=== PATIENT | female | born 1965 | race Caucasian/White ===

== ENCOUNTER → 2019-01-26 17:13 | Outpatient (CLI) | payer MEDICARE, BC, SELFPAY ==
[2019-01-26 18:20] LABS: Free T4 (Free Thyroxine) 0.65 ng/dl (0.76-1.46); Thyroid Stimulating Hormone 32.63 uIU/ml (0.358-3.740)
[2019-01-26 19:05] LABS: Hemoglobin A1C 7.4 % (0.0-7.0)
== END ==
PROVIDERS: Visit Provider Nurse Practitioner Family
DX: E11.9 Type 2 diabetes mellitus without complications (principal); Z79.84 Long term (current) use of oral hypoglycemic drugs
CPT/HCPCS: 83036; 84439; 84443

== ENCOUNTER → 2019-02-10 07:52 | Outpatient (CLI) | payer MEDICARE, BC, SELFPAY ==
--- NOTE | 2019-02-10 07:53 | CT_ITS ---
PROCEDURE: CT CHEST WO CON CLINICAL INDICATION: Abnormal CXR COMPARISON: XR CHEST 2V from 01/17/2019 TECHNIQUE: Axial images obtained with sagittal and coronal reformats. All CT scans at the facility use one or more dose reduction, viz: automated exposure control, ma/kV adjustment per patient size (including targeted exams where dose is matched to indication, i.e. head), or iterative reconstruction technique. FINDINGS: HEART: Unremarkable. Normal heart size. No significant pericardial effusion. MEDIASTINAL AND HILAR STRUCTURES: No mediastinal or hilar mass evident. No dominant adenopathy. PULMONARY ARTERIES: Unremarkable AORTA: No acute finding. No thoracic aortic aneurysm or dissection evident LUNGS:There is mild hyperexpansion lung nichole. There is a 1.2 cm calcified granuloma subpleural location left upper lobe. There is minimal linear postinflammatory scarring in the lingula. There is no acute infiltrate. PLEURAL SPACES: No significant effusion. No evidence of pneumothorax. BONY STRUCTURES: No acute bony abnormalities apparent. LYMPH NODES: No enlarged lymph nodes evident. UPPER ABDOMEN: Unremarkable. ADDITIONAL FINDINGS: No other significant abnormalities. 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 Bj Harris MD 02/10/2019 12:[address] Bj Harris MD in [place] 02/10/2019 12:33
== END ==
PROVIDERS: PCP Nurse Practitioner Family; Visit Provider Nurse Practitioner Family
DX: R91.1 Solitary pulmonary nodule (principal)
CPT/HCPCS: 71250

== ENCOUNTER → 2019-05-22 11:14 | Outpatient (CLI) | payer MEDICARE, BC, SELFPAY ==
--- NOTE | 2019-05-22 11:47 | XR_ITS ---
PROCEDURE: XR LUMBAR SPINE MIN 4V CLINICAL INDICATION: CHRONIC PAIN COMPARISON: No exams were available for comparison FINDINGS: Normal alignment. No fracture or dislocation. There is mild degenerative disc disease in the lower thoracic spine. Mild endplate spurring is present at L3 and L4 and there are mild facet arthritic changes at L4-5. IMPRESSION: Mild degenerative changes as described above. Dictated by: Mata Dominguez MD 05/22/2019 12:05 Electronically signed by Mata Dominguez MD in [place] 05/22/2019 12:05
[2019-05-22 14:41] LABS: Erythrocyte Sedimentation Rate 18 mm/hr (0-30)
== END ==
PROVIDERS: PCP Nurse Practitioner Family; Visit Provider Specialist
DX: G89.29 Other chronic pain (principal); G43.919 Migraine, unspecified, intractable, without status migrainosus
CPT/HCPCS: 36415; 72110; 85651

== ENCOUNTER → 2019-07-04 16:49 | Outpatient (CLI) | payer MEDICARE, BC, SELFPAY ==
[2019-07-04 17:58] LABS: Basophils # 0.1 K/mm3 (0-0.2); Eosinophils # 0.2 K/mm3 (0.0-0.4); Hematocrit 41.6 % (37.0-47.0); Hemoglobin 13.9 g/dL (12.2-16.2); Lymphocytes # 1.9 K/mm3 (0.7-4.5); Lymphocytes % 24.8 % (10-50); Mean Corpuscular HGB Conc 33.4 g/dL (31.8-35.4); Mean Corpuscular Hemoglobin 30.1 pg (27.0-31.2); Mean Corpuscular Volume 90.2 fl (81-99); Mean Platelet Volume 9.7 fl (7.4-10.4); Monocytes # 0.4 K/mm3 (0.1-1.0); Monocytes % 5.5 % (1.7-9.3); Neutrophils % 66.6 % (37.0-80.0); Platelet Count 318 K/mm3 (142-424); Red Blood Count 4.61 M/mm3 (4.20-5.40); Red Cell Distribution Width 12.9 % (11.5-17.5); White Blood Count 7.5 K/mm3 (4.8-10.8)
[2019-07-04 21:17] LABS: Chloride 103 mmol/L (98-107); Potassium 4.3 mmoL/L (3.5-5.1); Sodium 136 mmol/L (136-145)
[2019-07-04 21:19] LABS: Alanine Aminotransferase 28 U/L (12-78); Aspartate Amino Transferase 41 U/L (14-36); Blood Urea Nitrogen 10 mg/dl (7-17); Estimated Glomerular Filt Rate 75 ml/min (>60); GFR (African American) 90 ML/MIN (>60); Hemoglobin A1C 10.4 % (4.0-6.0)
[2019-07-04 21:20] LABS: Albumin Level 3.9 g/dl (3.5-5.0); Albumin/Globulin Ratio 1.4 (1.1-1.8); Alkaline Phosphatase 114 U/L (38-126); Anion Gap 16.3 mEq/L (5-15); Bilirubin,Total 0.4 mg/dl (0.2-1.3); Calcium 9.4 mg/dl (8.4-10.2); Carbon Dioxide 21 mmol/L (22.0-30.0); Chol/HDL Ratio 3.8 (1-3.5); Cholesterol 169 mg/dl (140-200); Globulin 2.7 g/dL (1.3-3.2); Glucose 319 mg/dl (74-100); HDL Cholesterol 44 mg/dl (40-60); Total Protein,Serum 6.6 g/dl (6.3-8.2); Triglycerides 299 mg/dl (30-150); VLDL Cholesterol 60 mg/dL (0-40)
[2019-07-04 21:36] LABS: Direct LDL Cholesterol 95.16 mg/dL (100-129)
[2019-07-06 11:17] LABS: Creatinine, Urine 42.9 mg/dL (Not Estab.); Microalbumin, Urine <3.0 ug/mL (Not Estab.)
== END ==
PROVIDERS: Visit Provider Nurse Practitioner Family
DX: R51 Headache; E11.65 Type 2 diabetes mellitus with hyperglycemia; Z79.4 Long term (current) use of insulin
CPT/HCPCS: 80053; 80061; 82043; 82570; 83036; 84436; 84443; 85025

== ENCOUNTER 2019-09-03 13:24 | Emergency (ER) | payer MEDICARE, BC, SELFPAY ==
[2019-09-03 13:26] VITALS: BP 164/79; PULSE 83; RESP 18; TEMP 37.2; O2SAT 96; BMI 34.9
--- NOTE | 2019-09-03 13:40 | XR_ITS ---
This report is currently processing and should be available to review shortly.
--- NOTE | 2019-09-03 13:40 | XR_ITS ---
PROCEDURE: 1. XR ANKLE RT MIN 3Vfrom 09/03/2019 2. XR TIBIA FIBULA RT 2V from 09/03/2019 3. XR KNEE RT 3V from 09/03/2019 Patient Age:54Y CLINICAL INDICATION: FALL The patient fell yesterday-pulled down by her large dog.. Right ankle pain.. Right lower leg pain. Right knee pain previous right ankle surgery. Previous right knee surgery [facility] December 2018 COMPARISON: XR KNEE RT 3V from 01/05/2019 XR TIBIA FIBULA RT 2V from 09/03/2019 XR KNEE RT 3V from 09/03/2019 FINDINGS: -RIGHT ANKLE 3 view. AP lateral and oblique -RIGHT LOWER LEG2 view: AP and lateral tibia/fibula The right ankle and right lower leg studies are reviewed together. The Right Tibia And Fibula reveal no acute findings. Bones well mineralized. Postsurgical changes are seen at the distal tibia/fibula. 2 sets of transversing tunnelsthrough both distal tibia and fibula, with associated fixation elements stabilizing the distal interosseous region.. Normal relationships at the distal tibia and fibula. RIGHT ANKLE: Ankle mortise appears intact. Note slight the slight roughening at the medial malleolus which may reflect old trauma a mild degenerative changes here but no acute findings at the ankle. No fracture. Dome of talus appears intact. Calcaneal spurring noted. Broad-based 7 mm plantar calcaneal spurs noted with of similar 7 mm spurring at the insertion of Achilles tendon at posterior calcaneus the -RIGHT KNEE: 3 view. AP lateral and oblique No acute fracture nor significant effusion at right knee. Postsurgical features are also seen at right knee from ACL repair. With this there is a fixation screw tip seen at the posterior aspect of the lateral femoral condyle as well as a radiolucent fixation area at the tibial tunnel beneath anterior tibial spine extending medially. Upper normal joint fluid suprapatellar bursa. Nearly 15 mm likely hypertrophic spur, less likely loose body seen at the anterior aspect of right knee joint (just anterior to tibial tunnel from ACL repair). Again this also would benefit comparison to old studies unlikely but difficult to totally fracture line through the base of this area of spur on today's AP view. If so I would expect to see more prominent joint effusion There is a small sclerotic focus seen at the lateral tibial plateau. I suspect small osteochondral defect here of with 4.5 mm lucent area at articular surface surrounded by by mild sclerosis deep to this region. More likely this reflects an old feature old injury, but would benefit from comparison to the studies from [facility]. Suggest her orthopedic Physician from [place]. Also suspect residual of a subtle old healed fracture atproximal right fibular shaft-clinical correlation required as well IMPRESSION: -RIGHT KNEE. . No prominent joint effusion to suggest acute fracture or acute internal derangement.. . However there is focal sclerosis Lateral Tibial Plateau. Likely reflects small old osteochondral defect with surrounding sclerosis. The lack of significant joint effusion speaks against an significant acute feature here. However this and other features, warrant orthopedic follow-up, with comparison with prior films from [place] . Old ACL repair . Nearly 15 mm likely hypertrophic bone, less likely loose body anterior aspect of right knee joint (just anterior to tibial tunnel from old ACL repair). Again this also would benefit comparison to old studies.-difficult to totally exclude a subtle fracture transversing base of this area but I believe this very unlikely without a larger effusion -RIGHT ANKLE; & RIGHT TIBIA/FIBULA: - No acute fracture fracture right ankle, or elsewhere at tibia
--- NOTE | 2019-09-03 13:40 | XR_ITS ---
This report is currently processing and should be available to review shortly.
--- NOTE | 2019-09-03 14:04 | HMH.EDLOEX ---
ED Disposition Clinical Impression: Ankle sprain and strain, Multiple contusions Disposition: Home, Self-Care Condition on Discharge: Good Instructions: Sprain Additional Instructions: Please follow-up with your primary care if pain still persists in 3 to 5 days. Referrals: Provider,Quiana, [Primary Care Provider] - - Critical Care Critical Care Time: No Attestation: On 09/03/19, the high probability of a clinically significant, sudden or life threatening deterioration of the following system(s) required my full and direct attention, intervention and personal management. The time I documented below is in addition to time spent performing reported procedures but includes the following listed in this critical care notation. Medical Decision Making - Medical Records Medical records reviewed: Yes: I reviewed the patient's medical records. - [place] Inquiry Pt receiving controlled substance: No Vital Signs: 09/03/19 13:26 Temperature 99.0 F Temperature Source Oral Pulse Rate [Right Radial] 83 Respiratory Rate 18 Blood Pressure [Right Arm] 164/79 H Blood Pressure Mean [Right Arm] 107 Blood Pressure Source [Right Arm] Automatic Cuff Blood Pressure Position [Right Arm] Sitting 02 Sat by Pulse Oximetry 96 Oxygen Delivery Method Room Air - Lab Data Lab results reviewed: Yes: I reviewed the patient's lab results. Orders (Tests/Meds): ORDERS Category Date Time Status XR ankle RT min 3V Stat Exams 09/03/19 13:40 Taken XR knee RT 3V Stat Exams 09/03/19 13:40 Taken XR tibia fibula RT 2V Stat Exams 09/03/19 13:40 Taken - Radiology Data #1 Image(s): Femur, Knee, Tib/Fib, Ankle Preliminary Findings: Normal/NAD Lower Extremity Injury HPI - General Chief Complaint: Extremity Injury, Lower Stated Complaint: ao dog knocked her down hurt leg Time Seen by Provider: 09/03/19 14:04 Mode of Arrival: Wheelchair Source of Information: Patient Limitations: No Limitations Description of Symptoms (Recalled from ER Triage Doc. by RN): PT STATES THAT HER 115 LBS DOG CAUSED HER TO FALL LAST NIGHT OUTSIDE WHEN SHE WAS PUTTING HIM ON HIS CHAIN. PT C/O RT KNEE AND ANKLE PAIN FOLLOWING THE FALL. PT REPORTS PREVIOUS INJURY TO THAT SAME KNEE AND ANKLE RESULTING IN ACL REPAIR TO THE RT KNEE, PINS IN RT ANKLE. - History of Present Illness HPI Narrative: A pleasant 54-year-old female was out walking her dog yesterday evening and the dog got site of a feline and the dog that weighs roughly 52 kg took off after this other mammal. In doing so the leash almost whiplash the patient causing her to stumble over a tree stump. Patient had an inversion injury of her ankle and landed on her knee. Patient stated she had previous surgeries on the knee and ankle. Patient rates her pain 6 out of 10 describes the pain as a fullness sensation along with some sharp crescendos. She states exacerbating factors include movement alleviating factors include elevation and rest. Patient denies any other trauma. Patient also denies any nausea vomiting diarrhea or fever shakes and chills. - Related Data Home Medications Medication Instructions Recorded Confirmed hydroxyzine HCl 25 mg tablet 25 mg PO TID tab 03/07/19 07/04/19 olanzapine 10 mg tablet 10 mg PO QHS 03/07/19 07/04/19 Ibuprofen [Ibuprofen 600mg 600 mg PO Q6H 06/21/19 07/04/19 Tablet] Loratadine [Allergy Relief] 10 mg PO DAILY 06/21/19 07/04/19 Simvastatin 5 mg PO DAILY 06/21/19 07/04/19 atorvastatin 80 mg tablet 80 mg PO DAILY tab 07/04/19 07/04/19 doxepin 75 mg capsule 75 mg PO DAILY cap 07/04/19 07/04/19 insulin detemir U-100 100 unit/mL 23 unit SQ QHS ml 07/04/19 07/04/19 (3 mL) subcutaneous pen Previous Rx's Medication Instructions Recorded albuterol sulfate 1.25 mg INHALATION QID PRN #90 ml 03/07/19 Benzonatate [Tessalon Perle 100mg 100 mg PO TIDP PRN #30 cap 06/02/19 Cap] alcohol swabs 1 pad TOPICAL BID 30 Days #100 each 07/04/19 ins
[2019-09-03 14:21] VITALS: BP 132/78; PULSE 87; RESP 18; TEMP 36.7; O2SAT 98
== END 2019-09-03 14:26 | disposition home or self-care (01) ==
PROVIDERS: Emergency Provider Family Medicine
DX: S93.401A Sprain of unspecified ligament of right ankle, initial encounter (principal); S83.91XA Sprain of unspecified site of right knee, initial encounter; W01.0XXA Fall on same level from slipping, tripping and stumbling without subsequent striking against object, initial encounter; Y92.017 Garden or yard in single-family (private) house as the place of occurrence of the external cause; Z88.0 Allergy status to penicillin; F41.8 Other specified anxiety disorders; J44.9 Chronic obstructive pulmonary disease, unspecified; I10 Essential (primary) hypertension; E11.9 Type 2 diabetes mellitus without complications; Z79.4 Long term (current) use of insulin; G43.709 Chronic migraine without aura, not intractable, without status migrainosus; Z90.79 Acquired absence of other genital organ(s); Z79.899 Other long term (current) drug therapy
CPT/HCPCS: 73562; 73590; 73610; 99282

== ENCOUNTER 2019-09-09 15:03 | Emergency (ER) | payer MEDICARE, BC, SELFPAY ==
[2019-09-09 15:16] VITALS: BP 151/67; PULSE 87; RESP 20; TEMP 37.4; O2SAT 97; BMI 34.9
--- NOTE | 2019-09-09 15:22 | XR_ITS ---
PROCEDURE: XR CHEST PORTABLE CLINICAL HISTORY: cough Shortness of air, cough COMPARISON: XR CHEST 2V from 01/17/2019 CT CHEST WO CON from 02/10/2019 XR CHEST 2V from 06/02/2019 FINDINGS: Borderline cardiomegaly without failure. Calcified granuloma left upper lobe. Lungs otherwise clear No acute bony abnormalities. IMPRESSION: No acute findings. Dictated by: Mata Dominguez MD 09/09/2019 15:46 Electronically signed by Mata Dominguez MD in [place] 09/09/2019 15:46
[2019-09-09 15:27] VITALS: BP 151/67; PULSE 83; O2SAT 99
[2019-09-09 15:47] VITALS: BP 174/98; PULSE 78; O2SAT 97
--- NOTE | 2019-09-09 15:55 | HMH.EDGENADL ---
ED Disposition Clinical Impression: Atypical chest pain, Viral upper respiratory infection Disposition: Home, Self-Care Condition on Discharge: Good Instructions: DI for Viral Upper Respiratory Infection -- Adult, DI for Atypical Chest Pain Additional Instructions: Rest, plenty of fluids, Tylenol or ibuprofen for pain. You have been evaluated for cough and shortness of breath. This is likely due to a viral respiratory infection. We have not excluded SARS COV. It is very important that you go home and self quarantine until you are contacted with test results. Take Tylenol for pain and fever. Return to the emergency department if you have new or worsening respiratory distress. You have additional questions about COVID testing, you may call the hotline at . Additional instructions for CHEST PAIN: See your physician as soon as possible for further evaluation. Return immediately if worsening chest pain, vomiting, shortness of breath, fever, coughing of blood. Referrals: Timo Villalba APRN [Primary Care Provider] - - Critical Care Critical Care Time: No Attestation: On 09/09/19, the high probability of a clinically significant, sudden or life threatening deterioration of the following system(s) required my full and direct attention, intervention and personal management. The time I documented below is in addition to time spent performing reported procedures but includes the following listed in this critical care notation. Medical Decision Making - [place] Inquiry Pt receiving controlled substance: No Vital Signs: 09/09/19 15:16 09/09/19 15:27 09/09/19 15:47 Temperature 99.4 F Temperature Source Oral Pulse Rate [Left Radial] 87 83 78 Respiratory Rate 20 Blood Pressure [Right Arm] 151/67 H 151/67 H 174/98 H Blood Pressure Mean [Right Arm] 95 95 123 Blood Pressure Source [Right Arm] Automatic Cuff Automatic Cuff Blood Pressure Position [Right Arm] Sitting Sitting Sitting 02 Sat by Pulse Oximetry 97 99 97 Oxygen Delivery Method Room Air Room Air Room Air - Lab Data Lab Results 09/09/19 15:53: WBC 8.8, RBC 4.93, Hgb 14.8, Hct 44.0, MCV 89.2, MCH 30.0, MCHC 33.6, RDW 12.6, Plt Count 249, MPV 9.1, Neut % (Auto) 69.7, Lymph % (Auto) 20.4, [place] % (Auto) 4.5, Eos % (Auto) 3.9, Baso % (Auto) 1.4, Neut # (Auto) 6.2, Lymph # (Auto) 1.8, [place] # (Auto) 0.4, Eos # (Auto) 0.3, Baso # (Auto) 0.1 09/09/19 15:53: Sodium 139, Potassium 4.1, Chloride 106, Carbon Dioxide 23, Anion Gap 14.1, BUN 8, Creatinine 0.90, Estimated Creat Clear 118, Estimated GFR 65, Est GFR ( Amer) 79, Glucose 226 H, Calcium 10.0, Total Bilirubin 0.4, AST 31, ALT 24, Alkaline Phosphatase 144 H, Total Protein 7.7, Albumin 4.3, Globulin 3.4 H, Albumin/Globulin Ratio 1.3 09/09/19 15:53: Influenza Type A Ag Negative, Influenza Type B Ag Negative 09/09/19 15:53: Group A Strep Rapid Negative 09/09/19 15:53: Lactate 2.5 H 09/09/19 15:53: Troponin I < 0.01 09/09/19 16:00: Urine Color Yellow, Urine Appearance Clear, Urine pH 6.0, Ur Specific [place] 1.020, Urine Protein Negative, Urine Glucose (UA) 2+, Urine Ketones Negative, Urine Blood Negative, Urine Nitrate Negative, Urine Bilirubin Negative, Urine Urobilinogen 0.2, Ur Leukocyte Esterase Negative, Urine RBC Occasional, Urine WBC Occasional, Ur Squamous Epith Cells 5-10, Urine Bacteria None, Urine Yeast Occasional Result diagrams: 09/09/19 15:53 09/09/19 15:53 Orders (Tests/Meds): ORDERS Category Date Time Status SARS-CoV-2, ROXANE Stat Lab 09/09/19 16:54 Ordered Blood Culture Stat Micro 09/09/19 15:53 Received Strep Screen Confirmation Stat Micro 09/09/19 15:53 Received - Radiology Data #1 Image(s): Chest Image Reviewed: Yes I have reviewed radiologist's interpretation PROCEDURE: XR CHEST PORTABLE CLINICAL HISTORY: cough Shortness of air, cough COMPARISON: XR CHEST 2V from 01/17/2019 CT CHEST WO CON from 02/10/2019 XR CHEST 2V from 06/02/2019
[2019-09-09 16:09] LABS: Basophils # 0.1 K/mm3 (0-0.2); Basophils % 1.4 % (0.1-2.0); Eosinophils # 0.3 K/mm3 (0.0-0.4); Eosinophils % 3.9 % (0.1-12.0); Hemoglobin 14.8 g/dL (12.2-16.2); Lymphocytes # 1.8 K/mm3 (0.7-4.5); Lymphocytes % 20.4 % (10-50); Mean Corpuscular HGB Conc 33.6 g/dL (31.8-35.4); Mean Corpuscular Volume 89.2 fl (81-99); Mean Platelet Volume 9.1 fl (7.4-10.4); Monocytes # 0.4 K/mm3 (0.1-1.0); Monocytes % 4.5 % (1.7-9.3); Neutrophils # 6.2 K/mm3 (1.8-7.8); Neutrophils % 69.7 % (37.0-80.0); Platelet Count 249 K/mm3 (142-424); Red Blood Count 4.93 M/mm3 (4.20-5.40); Red Cell Distribution Width 12.6 % (11.5-17.5); White Blood Count 8.8 K/mm3 (4.8-10.8)
[2019-09-09 16:10] LABS: Strep Scrn Group A (Rapid) Negative (Negative)
[2019-09-09 16:13] LABS: Microscopic, Urine URINE MICROSCOPIC (MICROSCOPIC)
[2019-09-09 16:14] LABS: Appearance,Urine CLEAR (Clear); Bilirubin,Urine Negative (Negative); Blood, Urine Negative (Negative); Color,Urine YELLOW (Yellow); Glucose,Urine (UA) 2+ (Negative); Ketones,Urine Negative (Negative); Leukocyte Esterase,Urine Negative (Negative); Nitrate,Urine Negative (Negative); Protein,Urine Negative (Negative); Urobilinogen,Urine 0.2 EU/dl (0.2)
[2019-09-09 16:17] LABS: Alanine Aminotransferase 24 U/L (12-78); Albumin Level 4.3 g/dl (3.5-5.0); Albumin/Globulin Ratio 1.3 (1.1-1.8); Alkaline Phosphatase 144 U/L (38-126); Anion Gap 14.1 mEq/L (5-15); Aspartate Amino Transferase 31 U/L (14-36); Bilirubin,Total 0.4 mg/dl (0.2-1.3); Blood Urea Nitrogen 8 mg/dl (7-17); Carbon Dioxide 23 mmol/L (22.0-30.0); Chloride 106 mmol/L (98-107); Creatinine Clearance Estimated 118 mL/min (50-200); Estimated Glomerular Filt Rate 65 ml/min (>60); GFR (African American) 79 ML/MIN (>60); Globulin 3.4 g/dL (1.3-3.2); Glucose 226 mg/dl (74-100); Potassium 4.1 mmoL/L (3.5-5.1); Sodium 139 mmol/L (136-145); Total Protein,Serum 7.7 g/dl (6.3-8.2)
[2019-09-09 16:19] LABS: Lactic Acid 2.5 mmol/L (0.7-2.1)
[2019-09-09 16:22] LABS: RBC,Urine Occasional #/hpf (0-3); WBC,Urine Occasional #/hpf (0-3); Yeast,Urine Occasional /lpf
--- NOTE | 2019-09-09 16:27 | ECG_ITS ---
APPROVED REPORT Exam: Resting ECG HR:69 bpm ECG Measurements Heart Rate 69 AXES MT 140 P 28 QRSd 96 QRS 53 QT 414 T 47 QTc 443 <Conclusion> Normal sinus rhythm RSR' or QR pattern in V1 suggests right ventricular conduction delay Borderline ECG Electronically signed by : Mehdi Sweet, 09/10/2019 17:02:23
[2019-09-09 16:54] LABS: Troponin I < 0.01 ng/ml (0.00-0.034)
--- NOTE | 2019-09-09 17:30 | PC.NURSE ---
Lab at bedside swabbing pt.
[2019-09-09 18:14] VITALS: BP 125/89; PULSE 87; RESP 16; TEMP 37.2; O2SAT 97
[2019-09-10 16:29] LABS: Covid-19 Nasal PCR Sendout Lex NOT DETECTED
--- NOTE | 2019-09-10 16:44 | PC.NURSE ---
pt notified of negative COVID 19 results.
--- NOTE | 2019-09-10 18:19 | PC.NURSE ---
notified of negative COVID 19 results.
== END 2019-09-09 18:16 | disposition home or self-care (01) ==
PROVIDERS: Emergency Provider Emergency Medicine; PCP Nurse Practitioner Family
DX: J06.9 Acute upper respiratory infection, unspecified (principal); J44.9 Chronic obstructive pulmonary disease, unspecified; F41.8 Other specified anxiety disorders; R07.89 Other chest pain; Z79.899 Other long term (current) drug therapy
CPT/HCPCS: 71045; 80053; 81001; 83605; 84484; 85025; 87040; 87275; 87276; 87430; 93005; 99284; 99285; U0003

== ENCOUNTER 2019-11-21 22:00 | Emergency (ER) | payer MEDICARE, BC, SELFPAY ==
[2019-11-21 22:16] VITALS: BP 143/79; PULSE 78; RESP 15; TEMP 36.8; O2SAT 96; BMI 33.7
[2019-11-21 22:29] LABS: Basophils # 0.1 K/mm3 (0-0.2); Eosinophils # 0.2 K/mm3 (0.0-0.4); Eosinophils % 2.7 % (0.1-12.0); Hematocrit 41.5 % (37.0-47.0); Hemoglobin 14.6 g/dL (12.2-16.2); Lymphocytes # 2.4 K/mm3 (0.7-4.5); Mean Corpuscular HGB Conc 35.2 g/dL (31.8-35.4); Mean Corpuscular Hemoglobin 31.3 pg (27.0-31.2); Mean Platelet Volume 8.9 fl (7.4-10.4); Monocytes # 0.6 K/mm3 (0.1-1.0); Monocytes % 9.7 % (1.7-9.3); Neutrophils % 47.5 % (37.0-80.0); Platelet Count 235 K/mm3 (142-424); Red Blood Count 4.66 M/mm3 (4.20-5.40); Red Cell Distribution Width 13.4 % (11.5-17.5); White Blood Count 6.3 K/mm3 (4.8-10.8)
[2019-11-21 22:31] LABS: Chloride 102 mmol/L (98-107); Potassium 4.1 mmoL/L (3.5-5.1); Sodium 136 mmol/L (136-145)
[2019-11-21 22:34] LABS: Alanine Aminotransferase 24 U/L (12-78); Albumin/Globulin Ratio 1.3 (1.1-1.8); Alkaline Phosphatase 113 U/L (38-126); Anion Gap 14.1 mEq/L (5-15); Aspartate Amino Transferase 47 U/L (14-36); Bilirubin,Total 0.6 mg/dl (0.2-1.3); Blood Urea Nitrogen 13 mg/dl (7-17); Calcium 9.3 mg/dl (8.4-10.2); Carbon Dioxide 24 mmol/L (22.0-30.0); Creatinine Clearance Estimated 114 mL/min (50-200); Estimated Glomerular Filt Rate 65 ml/min (>60); GFR (African American) 79 ML/MIN (>60); Globulin 3.2 g/dL (1.3-3.2); Glucose 253 mg/dl (74-100); Total Protein,Serum 7.2 g/dl (6.3-8.2)
--- NOTE | 2019-11-21 22:41 | HMH.EDHA ---
ED Disposition Clinical Impression: Headache Qualifiers: Headache type: unspecified Headache chronicity pattern: acute headache Intractability: not intractable Qualified Code(s): R51 - Headache Disposition: Home, Self-Care Condition on Discharge: Fair Instructions: DI for Migraine Additional Instructions: Please take prescribed medications and follow up as needed Prescriptions: SUMAtriptan succinate [Imitrex] 100 mg PO DAILY PRN 14 Days #15 tab PRN Reason: Migraine Headache Prescription Printed Ondansetron [Zofran 4mg ODT] 4 mg PO NEEDED PRN 10 Days #14 tab.rapdis PRN Reason: Nausea Prescription Printed Referrals: Nic Hyman MD [Primary Care Provider] - Time of Disposition: 22:52 - Critical Care Critical Care Time: No Attestation: On 11/21/19, the high probability of a clinically significant, sudden or life threatening deterioration of the following system(s) required my full and direct attention, intervention and personal management. The time I documented below is in addition to time spent performing reported procedures but includes the following listed in this critical care notation. Medical Decision Making - Medical Records Medical records reviewed: Yes: I reviewed the patient's medical records. MR Comment: Patient reports a severe migraine that she was seen earlier today at [facility] for and had a negative head CT. Patient reports they did not treat her headache pain. Patient given the cocktail of medications for migraine, discharging home on Imitrex and Zofran for nausea - [place] Inquiry Pt receiving controlled substance: No Vital Signs: 11/21/19 22:16 Temperature 98.2 F Temperature Source Oral Pulse Rate [Left Brachial] 78 Respiratory Rate 15 Blood Pressure [Left Arm] 143/79 H Blood Pressure Mean [Left Arm] 100 Blood Pressure Source [Left Arm] Automatic Cuff Blood Pressure Position [Left Arm] Sitting 02 Sat by Pulse Oximetry 96 Oxygen Delivery Method Room Air - Lab Data Lab results reviewed: Yes: I reviewed the patient's lab results. Lab Results 11/21/19 22:15: WBC 6.3, RBC 4.66, Hgb 14.6, Hct 41.5, MCV 89.0, MCH 31.3 H, MCHC 35.2, RDW 13.4, Plt Count 235, MPV 8.9, Neut % (Auto) 47.5, Lymph % (Auto) 39.0, [place] % (Auto) 9.7 H, Eos % (Auto) 2.7, Baso % (Auto) 1.0, Neut # (Auto) 3.0, Lymph # (Auto) 2.4, [place] # (Auto) 0.6, Eos # (Auto) 0.2, Baso # (Auto) 0.1 11/21/19 22:15: Sodium 136, Potassium 4.1, Chloride 102, Carbon Dioxide 24, Anion Gap 14.1, BUN 13, Creatinine 0.90, Estimated Creat Clear 114, Estimated GFR 65, Est GFR ( Amer) 79, Glucose 253 H, Calcium 9.3, Total Bilirubin 0.6, AST 47 H, ALT 24, Alkaline Phosphatase 113, Total Protein 7.2, Albumin 4.0, Globulin 3.2, Albumin/Globulin Ratio 1.3 Result diagrams: 11/21/19 22:15 11/21/19 22:15 Orders (Tests/Meds): ED MEDICATIONS Generic Name Dose Route Start Last Admin Trade Name Frezeina PRN Reason Stop Dose Admin Sodium Chloride 1,000 mls @ 999 mls/hr 11/21/19 22:30 11/21/19 22:28 Sod Chlor 0.9% 1000ml Bag IV 11/21/19 23:30 999 mls/hr .Q1H1M FRANCES Administration Sodium Chloride 8 ml 11/21/19 22:22 Sodium Chloride 0.9% 10ml Vial IV 12/21/19 22:21 NEEDED PRN dilute pepcid Discontinued Medications Generic Name Dose Route Start Last Admin Trade Name Freq PRN Reason Stop Dose Admin Famotidine 20 mg 11/21/19 22:22 11/21/19 22:29 Pepcid 20mg/2ml Vial IV 11/21/19 22:23 20 mg ONCE ONE Administration Methylprednisolone Sodium Succinate 125 mg 11/21/19 22:22 11/21/19 22:29 Solu-Medrol 125mg/2ml Vial IV 11/21/19 22:23 125 mg ONCE ONE Administration Metoclopramide HCl 10 mg 11/21/19 22:22 11/21/19 22:29 Reglan 10mg/2ml Vial IVP 11/21/19 22:23 10 mg ONCE ONE Administration Promethazine HCl 12.5 mg 11/21/19 22:22 11/21/19 22:28 Phenergan 25mg/Ml 1ml Vial IV 11/21/19 22:23 12.5 mg ONCE ONE Administration Sodium Chloride 2
[2019-11-21 22:53] VITALS: BP 144/76; PULSE 79; RESP 19; TEMP 36.7; O2SAT 98
== END 2019-11-21 23:01 | disposition home or self-care (01) ==
PROVIDERS: Emergency Provider Emergency Medicine; PCP Internal Medicine Adolescent Medicine
DX: G43.909 Migraine, unspecified, not intractable, without status migrainosus (principal); F41.8 Other specified anxiety disorders; E78.5 Hyperlipidemia, unspecified; I10 Essential (primary) hypertension; E03.9 Hypothyroidism, unspecified; J44.9 Chronic obstructive pulmonary disease, unspecified; Z88.0 Allergy status to penicillin
CPT/HCPCS: 80053; 85025; 96365; 96375; 99282

== ENCOUNTER 2019-12-01 19:06 | Emergency (ER) | payer MEDICARE, BC, SELFPAY ==
[2019-12-01 19:13] VITALS: BP 150/100; PULSE 84; RESP 16; TEMP 36.8; O2SAT 97; BMI 34.9
[2019-12-01 19:43] VITALS: BP 150/100; PULSE 84; RESP 16; TEMP 36.8; O2SAT 97; BMI 34.8
--- NOTE | 2019-12-01 19:54 | HMH.EDUTC ---
[facility] [place] Disposition Clinical Impression: Otitis media Qualifiers: Otitis media type: suppurative Chronicity: acute Laterality: right Recurrence: non-recurrent Spontaneous tympanic membrane rupture: without spontaneous rupture Qualified Code(s): H66.001 - Acute suppurative otitis media without spontaneous rupture of ear drum, right ear Disposition: Home, Self-Care Condition on Discharge: Good Instructions: Shingles, Middle Ear Infection Additional Instructions: I want you to follow up with your primary care physician with in 48 hours to be rechecked. If this is shingles that is just now starting, it can affect your eye or your ear considering where it is. Take the medications as directed. Watch your blood sugars while you are on the steroids. They will cause your blood sugar to go up. Follow your diabetic diet closely while you are on steroids. GO TO THE ER FOR ANY WORSENING SYMPTOMS OR CONCERNS Prescriptions: Acyclovir [Acyclovir 800mg tab] 800 mg PO 5XDAY 7 Days #35 tab Transmission Status: Received by [id number] methylPREDNISolone [Medrol] 4 mg PO DIRECTED 6 Days #21 tab.ds.pk Transmission Status: Received by [id number] Azithromycin [Z-Sukumar 250mg Tab*] 250 mg PO UD DOSE PK #6 tab Transmission Status: Received by [id number] Referrals: Nic Hyman MD [Primary Care Provider] - Time of Disposition: 20:03 Medical Decision Making - Medical Records Medical records reviewed: No: I reviewed the patient's medical records. - [place] Inquiry Pt receiving controlled substance: No Vital Signs: 12/01/19 19:13 12/01/19 19:43 12/01/19 20:10 Temperature 98.3 F 98.3 F 98.3 F Temperature Source Oral Oral Pulse Rate 84 Pulse Rate [Right Brachial] 84 84 Respiratory Rate 16 16 16 Blood Pressure 150/100 H Blood Pressure [Right Arm] 150/100 H 150/100 H Blood Pressure Mean [Right Arm] 116 116 Blood Pressure Source [Right Arm] Automatic Cuff Automatic Cuff Blood Pressure Position [Right Arm] Sitting Sitting 02 Sat by Pulse Oximetry 97 97 Oxygen Delivery Method Room Air Room Air [facility] [place] HPI - General Stated complaint: R side of face/ear knot and swollen Time Seen by Provider: 12/01/19 19:54 Mode of Arrival: Ambulatory Source of Information: Patient Limitations: No Limitations Description of Symptoms (Recalled from Triage Doc. by RN): Patient reports a knot that popped up on her right ear yesterday and causing alot of pain. HEENT Symptoms (Recalled from RN notes): Yes Resp Symptoms (Recalled from RN notes): No Skin Symptoms (Recalled from RN notes): No MS Symptoms (Recalled from RN notes): No Functional Status (Recalled from RN notes): WNL - History of Present Illness Provider Complaint: She reports pain of the right side of her face and her right ear since yesterday. She has also noted a blister just above her right ear. She denies any tinnitis or vision changes. She has never had shingles before, but she does occasionally get ear infections. - Related Data Home Medications Medication Instructions Recorded Confirmed hydroxyzine HCl 25 mg tablet 25 mg PO TID tab 03/07/19 07/04/19 olanzapine 10 mg tablet 10 mg PO QHS 03/07/19 07/04/19 Ibuprofen [Ibuprofen 600mg 600 mg PO Q6H 06/21/19 07/04/19 Tablet] Loratadine [Allergy Relief] 10 mg PO DAILY 06/21/19 07/04/19 Simvastatin 5 mg PO DAILY 06/21/19 07/04/19 atorvastatin 80 mg tablet 80 mg PO DAILY tab 07/04/19 07/04/19 doxepin 75 mg capsule 75 mg PO DAILY cap 07/04/19 07/04/19 Previous Rx's Medication Instructions Recorded albuterol sulfate 1.25 mg INHALATION QID PRN #90 ml 03/07/19 alcohol swabs 1 pad TOPICAL BID 30 Days #100 each 07/04/19 insulin syringe-needle U-100 1 mL See Rx Instructions .ROUTE 07/04/19 25 gauge x 5/8 .MEDSUPPLY #100 each blood sugar diagnostic See Rx Instructions .ROUTE 07/12/19 .MEDSUPPLY #100 each lancets 28 gauge See Rx Instructions .ROUTE 07/12/19 .MEDSUPPLY #100 each
[2019-12-01 20:10] VITALS: BP 150/100; PULSE 84; RESP 16; TEMP 36.8; O2SAT 97
== END 2019-12-01 20:13 | disposition home or self-care (01) ==
PROVIDERS: Emergency Provider Nurse Practitioner Family; PCP Internal Medicine Adolescent Medicine
DX: H66.001 Acute suppurative otitis media without spontaneous rupture of ear drum, right ear (principal); J44.9 Chronic obstructive pulmonary disease, unspecified; I10 Essential (primary) hypertension; G43.709 Chronic migraine without aura, not intractable, without status migrainosus; F41.8 Other specified anxiety disorders; Z79.899 Other long term (current) drug therapy
CPT/HCPCS: 99201

== ENCOUNTER 2020-01-24 15:45 | Observation (INO) | payer MEDICARE, BC, SELFPAY ==
[2020-01-24 16:10] VITALS: BP 149/91; PULSE 95; RESP 15; TEMP 36.7; O2SAT 97; BMI 32.1
--- NOTE | 2020-01-24 16:15 | CT_ITS ---
PROCEDURE: CT ABDOMEN PELVIS W CON CLINICAL INDICATION: abd pain Abdominal pain with rectal bleeding nausea and diarrhea COMPARISON: CT CT CHEST WO CON from 02/10/[address] LUMBAR SPINE WO CON from 06/19/2019 TECHNIQUE: IV Contrast: 75ML OPTIRAY 350 Oral Contrast None Axial images obtained with sagittal and coronal reformats. All CT scans at the facility use one or more dose reduction, viz: automated exposure control, ma/kV adjustment per patient size (including targeted exams where dose is matched to indication, i.e. head), or iterative reconstruction technique. FINDINGS: LOWER THORAX: No acute finding ABDOMEN & PELVIS: The liver, spleen, adrenal glands, pancreas, and gallbladder have an unremarkable appearance. No renal or ureteral calculi. No hydronephrosis. The left adrenal gland is slightly prominent but not significantly changed. Unremarkable appendix. No intestinal obstruction or free air. Bowel gas pattern is nonspecific. A small hyperdensity is present in the small bowel in the pelvic region nonspecific and may be due to ingested item or material. Post hysterectomy changes.. No acute bony findings. IMPRESSION: No acute abdominal or pelvic findings. Dictated by: Mata Dominguez MD 01/25/2020 07:21 Mata Dominguez MD in [place] 01/25/2020 07:21
[2020-01-24 16:26] VITALS: BP 149/91; PULSE 88; RESP 20; O2SAT 97
[2020-01-24 16:48] LABS: Basophils # 0.1 K/mm3 (0-0.2); Chloride 102 mmol/L (98-107); Eosinophils # 0.3 K/mm3 (0.0-0.4); Eosinophils % 3.4 % (0.1-12.0); Hematocrit 44.5 % (37.0-47.0); Hemoglobin 15.3 g/dL (12.2-16.2); Lymphocytes # 2.8 K/mm3 (0.7-4.5); Lymphocytes % 28.7 % (10-50); Mean Corpuscular HGB Conc 34.3 g/dL (31.8-35.4); Mean Corpuscular Hemoglobin 30.5 pg (27.0-31.2); Mean Platelet Volume 9.5 fl (7.4-10.4); Monocytes # 0.6 K/mm3 (0.1-1.0); Monocytes % 6.6 % (1.7-9.3); Neutrophils # 5.8 K/mm3 (1.8-7.8); Neutrophils % 60.3 % (37.0-80.0); Platelet Count 286 K/mm3 (142-424); Red Cell Distribution Width 12.8 % (11.5-17.5); Sodium 137 mmol/L (136-145); White Blood Count 9.7 K/mm3 (4.8-10.8)
[2020-01-24 16:49] LABS: Potassium 4.2 mmoL/L (3.5-5.1)
[2020-01-24 16:51] LABS: Alanine Aminotransferase 22 U/L (12-78); Alkaline Phosphatase 131 U/L (38-126); Anion Gap 17.2 mEq/L (5-15); Aspartate Amino Transferase 29 U/L (14-36); Bilirubin,Total 0.6 mg/dl (0.2-1.3); Blood Urea Nitrogen 13 mg/dl (7-17); Calcium 10.4 mg/dl (8.4-10.2); Carbon Dioxide 22 mmol/L (22.0-30.0); Creatinine Clearance Estimated 108 mL/min (50-200); Estimated Glomerular Filt Rate 65 ml/min (>60); GFR (African American) 79 ML/MIN (>60); Glucose 263 mg/dl (74-100); Lipase 180 U/L (23-300)
[2020-01-24 16:52] LABS: Albumin Level 4.3 g/dl (3.5-5.0); Albumin/Globulin Ratio 1.2 (1.1-1.8); Globulin 3.5 g/dL (1.3-3.2); Total Protein,Serum 7.8 g/dl (6.3-8.2)
[2020-01-24 16:55] LABS: Activated Partial Thrombo Time 22.7 seconds (23.6-34.0); INR 0.99 (0.9-1.1); Prothrombin Time 10.2 seconds (9.4-11.8)
[2020-01-24 17:54] LABS: Appearance,Urine CLEAR (Clear); Bilirubin,Urine Negative (Negative); Blood, Urine Negative (Negative); Color,Urine YELLOW (Yellow); Glucose,Urine (UA) 3+ (Negative); Ketones,Urine Negative (Negative); Leukocyte Esterase,Urine TRACE (Negative); Microscopic, Urine URINE MICROSCOPIC (MICROSCOPIC); Nitrate,Urine Negative (Negative); Protein,Urine Negative (Negative); Urobilinogen,Urine 0.2 EU/dl (0.2)
[2020-01-24 18:04] LABS: Bacteria,Urine 2+ /lpf
--- NOTE | 2020-01-24 19:05 | PC.NURSE ---
received report on patient from brock meng
--- NOTE | 2020-01-24 19:38 | HMH.EDABDPAI ---
ED Disposition Clinical Impression: GI bleed Qualifiers: GI bleed type/associated pathology: melena Qualified Code(s): K92.1 - Melena Disposition: Admitted As Inpatient Condition on Discharge: Fair Instructions: DI for Acute Abdomen Referrals: Yazmin Garcia APRN [Primary Care Provider] - - Critical Care Critical Care Time: No Attestation: On 01/24/20, the high probability of a clinically significant, sudden or life threatening deterioration of the following system(s) required my full and direct attention, intervention and personal management. The time I documented below is in addition to time spent performing reported procedures but includes the following listed in this critical care notation. Medical Decision Making - Medical Records Medical records reviewed: Yes: I reviewed the patient's medical records. - [place] Inquiry Pt receiving controlled substance: No Vital Signs: 01/24/20 16:10 01/24/20 16:26 Temperature 98.1 F Temperature Source Oral Pulse Rate [Right Radial] 95 H 88 Respiratory Rate 15 20 Blood Pressure [Right Arm] 149/91 H 149/91 H Blood Pressure Mean [Right Arm] 110 110 Blood Pressure Position [Right Arm] Sitting 02 Sat by Pulse Oximetry 97 97 Oxygen Delivery Method Room Air - Lab Data Lab Results 01/24/20 16:30: WBC 9.7, RBC 5.00, Hgb 15.3, Hct 44.5, MCV 89.0, MCH 30.5, MCHC 34.3, RDW 12.8, Plt Count 286, MPV 9.5, Neut % (Auto) 60.3, Lymph % (Auto) 28.7, [place] % (Auto) 6.6, Eos % (Auto) 3.4, Baso % (Auto) 1.0, Neut # (Auto) 5.8, Lymph # (Auto) 2.8, [place] # (Auto) 0.6, Eos # (Auto) 0.3, Baso # (Auto) 0.1 01/24/20 16:30: Sodium 137, Potassium 4.2, Chloride 102, Carbon Dioxide 22, Anion Gap 17.2 H, BUN 13, Creatinine 0.90, Estimated Creat Clear 108, Estimated GFR 65, Est GFR ( Amer) 79, Glucose 263 H, Calcium 10.4 H, Total Bilirubin 0.6, AST 29, ALT 22, Alkaline Phosphatase 131 H, Total Protein 7.8, Albumin 4.3, Globulin 3.5 H, Albumin/Globulin Ratio 1.2, Lipase 180 01/24/20 16:30: PT 10.2, INR 0.99, APTT 22.7 L 01/24/20 16:35: Blood Type A Positive, Antibody Screen Negative 01/24/20 17:50: Urine Color Yellow, Urine Appearance Clear, Urine pH 6.0, Ur Specific [place] 1.010, Urine Protein Negative, Urine Glucose (UA) 3+, Urine Ketones Negative, Urine Blood Negative, Urine Nitrate Negative, Urine Bilirubin Negative, Urine Urobilinogen 0.2, Ur Leukocyte Esterase Trace, Urine WBC 10-20, Ur Squamous Epith Cells 10-20, Urine Bacteria 2+ Result diagrams: 01/24/20 16:30 01/24/20 16:30 Orders (Tests/Meds): ED MEDICATIONS Generic Name Dose Route Start Last Admin Trade Name Freq PRN Reason Stop Dose Admin Ceftriaxone Sodium 1 gm/ 50 mls @ 100 mls/hr 01/24/20 19:45 01/24/20 19:37 Sodium Chloride IV 02/07/20 19:44 100 mls/hr Q24H FRANCES Administration Protocol Pantoprazole Sodium 80 mg/ 100 mls @ 100 mls/hr 01/24/20 19:36 Sodium Chloride IV 01/24/20 20:35 ONCE ONE Pantoprazole Sodium 80 mg/ 100 mls @ 10 mls/hr 01/24/20 20:37 Sodium Chloride IV 01/27/20 20:36 .Q10H FRANCES Discontinued Medications Generic Name Dose Route Start Last Admin Trade Name Freq PRN Reason Stop Dose Admin Ioversol 75 ml 01/24/20 17:47 01/24/20 17:47 Rad-Optiray 350 100ml Vial IV 01/24/20 17:48 75 ml ONCE ONE Administration Protocol Morphine Sulfate 4 mg 01/24/20 19:32 01/24/20 19:33 Morphine 4mg/Ml Syringe IV 01/24/20 19:33 4 mg ONCE ONE Administration Ondansetron HCl 4 mg 01/24/20 19:31 01/24/20 19:33 Zofran 4mg/2ml Vial IV 01/24/20 19:32 4 mg ONCE ONE Administration Sodium Chloride 10 ml 01/24/20 17:47 01/24/20 17:47 Rad-Saline Flush 10ml Syringe IV 01/24/20 17:48 10 ml ONCE ONE Administration ORDERS Category Date Time Status CT abdomen pelvis w con Stat Cat Scan 01/24/20 16:15 Taken Urine Culture Stat Micro 01/24/20 17:50 Received Medical Decision Narrative: Female presenting with abdominal p
--- NOTE | 2020-01-24 19:39 | PC.NURSE ---
paged dr selvin fischer for surgery
--- NOTE | 2020-01-24 19:39 | PC.NURSE ---
called house for bed assignment
--- NOTE | 2020-01-24 19:50 | PC.NURSE ---
page out to dr white who is adult education manager for dr ace
[2020-01-24 20:28] LABS: Coronavirus 19 IgG Antibody Negative (Negative); Coronavirus 19 IgM Antibody Negative (Negative)
[2020-01-24 21:17] VITALS: BP 126/75; PULSE 81; RESP 16; TEMP 36.8; O2SAT 96
[2020-01-24 21:23] VITALS: BP 126/75; PULSE 86; RESP 18; O2SAT 95
[2020-01-24 21:45] VITALS: BP 121/78; PULSE 74; RESP 14; TEMP 37; O2SAT 94; BMI 31.4
--- NOTE | 2020-01-24 21:45 | PC.NURSE ---
PATIENT UP TO FLOOR VIA WHEELCHAIR.
[2020-01-24 22:00] VITALS: O2SAT 95
[2020-01-24 22:10] LABS: POC Glucose,Bedside 196 (70-110)
[2020-01-25] VITALS (13 sets, daily range): BP systolic 108–152; BP diastolic 48–83; PULSE 58–86; RESP 14–18; TEMP 36.4–36.9; O2SAT 93–99; BMI 31.6
--- NOTE | 2020-01-25 03:57 | PC.NURSE ---
Pt is A&Ox4 and has ambulated to the BR 2x independent and tolerated well. Pt has c/o low ABD pain t/o shift while awake, medicated per MAR with Morphine IV 1x thus far. Pt reports she has had this pain for 3 weeks but it has been really bad the last 3 days . Pt describes the pain as I feel like I am being gutted . Hypoactive BS t/o, very tender to mild palpation in lower quadrants to pelvis. Last BM was 9/9 am and pt reports chronic diarrhea d/t IBS. Pt also c/o nausea 1x this shift, medicated Zofran IV 1x, with effectiveness noted. Lungs CTA with room air sats >94%. Peripheral pulses WNL and no edema noted. TEDS refused. Call light within reach and VSS. WIll continue to monitor.
[2020-01-25 06:33] LABS: Basophils # 0.1 K/mm3 (0-0.2); Basophils % 1.4 % (0.1-2.0); Eosinophils # 0.3 K/mm3 (0.0-0.4); Eosinophils % 4.8 % (0.1-12.0); Hematocrit 41.4 % (37.0-47.0); Hemoglobin 13.9 g/dL (12.2-16.2); Lymphocytes % 33.8 % (10-50); Mean Corpuscular HGB Conc 33.6 g/dL (31.8-35.4); Mean Corpuscular Volume 92.4 fl (81-99); Mean Platelet Volume 9.6 fl (7.4-10.4); Monocytes # 0.4 K/mm3 (0.1-1.0); Monocytes % 7.3 % (1.7-9.3); Neutrophils # 3.2 K/mm3 (1.8-7.8); Neutrophils % 52.8 % (37.0-80.0); Platelet Count 225 K/mm3 (142-424); Red Blood Count 4.48 M/mm3 (4.20-5.40); Red Cell Distribution Width 12.9 % (11.5-17.5)
[2020-01-25 06:40] LABS: Chloride 106 mmol/L (98-107); Potassium 4.1 mmoL/L (3.5-5.1); Sodium 140 mmol/L (136-145)
[2020-01-25 06:42] LABS: Alanine Aminotransferase 19 U/L (12-78); Aspartate Amino Transferase 29 U/L (14-36); Blood Urea Nitrogen 11 mg/dl (7-17); Creatinine Clearance Estimated 96 mL/min (50-200); Estimated Glomerular Filt Rate 58 ml/min (>60); GFR (African American) 70 ML/MIN (>60)
[2020-01-25 06:43] LABS: Albumin Level 3.7 g/dl (3.5-5.0); Albumin/Globulin Ratio 1.2 (1.1-1.8); Alkaline Phosphatase 100 U/L (38-126); Anion Gap 10.1 mEq/L (5-15); Bilirubin,Total 0.5 mg/dl (0.2-1.3); Calcium 9.5 mg/dl (8.4-10.2); Carbon Dioxide 28 mmol/L (22.0-30.0); Globulin 3.1 g/dL (1.3-3.2); Glucose 212 mg/dl (74-100); Total Protein,Serum 6.8 g/dl (6.3-8.2)
--- NOTE | 2020-01-25 06:50 | HMH.GSCON ---
*Admission Date: 01/24/20 *Reason for consult:: Possible gastrointestinal hemorrhage *History of present illness: This is a 54-year-old female seen in consultation from her primary service after being evaluated emergency department yesterday afternoon. She presented with pain, melena, and episodic hematemesis. She also described urinating per rectum . She specifically stated that she did not have diarrhea but did have urine . She was admitted to the primary service with surgical consultation for possible esophagogastroduodenoscopy secondary to melena and intermittent hematemesis. Review of Systems - Constitutional Denies chills - Eyes Denies itchy eyes - ENT Denies difficulty swallowing - *Cardiovascular Denies chest pain - *Respiratory Denies cough - *Gastrointestinal Reports abdominal pain, Reports vomiting blood, Reports black, tarry stools - *Genitourinary Denies blood in urine - *Musculoskeletal Denies deformity - Integumentary/Breasts Denies new lesions - *Neurologic Denies abnormal movements - Psychiatric Denies anxiety - Endocrine Denies flushing - Hematologic/Lymphatic Denies easy bleeding - Allergic/Immunologic Denies wheezing [facility] History Medical History: Reports:: Anxiety, Asthma, Chronic Obstructive Pulmonary Disease (COPD), Depression, Diabetes Mellitus Type 1, Diabetes Mellitus Type 2, Hyperlipidemia, Hypertension, Migraine Denies:: Cancer, MRSA *Have you ever received a pneumonia vaccine?: Yes (2018) *Have you received a flu vaccine this season?: Yes (2018) Other Medical History: Reports: Arthritis, Hypothyroidism, Sinus Problems, Thyroid Disease Laterality Cases: Right: ACL Repair, Arthroscopy Knee, Other, Bilateral: Tonsillectomy Other Surgeries: Yes: Colonoscopy, Colon Resection, Hysterectomy-Total, Other Amputation: No Fractures: Yes - *Social History Last grade of school completed: 7th or 8th Smoking Status: Never smoker # Packs/Day (cigarettes): 1 Alcohol Intake: current Alcohol Intake Frequency:: other Substance Use Type: denies use *Occupational Status:: disabled Housing: other Household Members: significant other *Travel in the last 8 weeks: None - Psychiatric History Pschychiatric History:: Reports:: Anxiety, Depression Family Hx:: Asthma, Cancer, Coronary Artery Disease, Diabetes, Heart Attack, Hyperlipidemia, Hypertension, Stroke, Thyroid Disorder, Substance abuse, Alcoholism, Mental illness Meds Home Medications Medication Instructions Recorded Confirmed Type albuterol sulfate 1.25 mg INHALATION QID PRN #90 ml 03/07/19 01/24/20 Rx hydroxyzine HCl 25 mg tablet 25 mg PO TID tab 03/07/19 01/24/20 History olanzapine 10 mg tablet 10 mg PO QHS 03/07/19 01/24/20 History Ibuprofen [Ibuprofen 600mg 600 mg PO Q6H 06/21/19 01/24/20 History Tablet] Loratadine [Allergy Relief] 10 mg PO DAILY 06/21/19 01/24/20 History Simvastatin 5 mg PO DAILY 06/21/19 01/24/20 History atorvastatin 80 mg tablet 80 mg PO DAILY tab 07/04/19 01/24/20 History doxepin 75 mg capsule 75 mg PO DAILY cap 07/04/19 01/24/20 History Ondansetron [Zofran 4mg ODT] 4 mg PO Q8H PRN 10 Days #30 07/31/19 01/24/20 Rx tab.rapdis Butalb/Acetaminophen/Caffeine 1 each PO Q12H #6 cap 08/05/19 01/24/20 Rx [Fioricet 50-300-40 mg Capsule] Ondansetron [Zofran 4mg ODT] 4 mg PO NEEDED PRN 10 Days #14 11/21/19 01/24/20 Rx tab.rapdis SUMAtriptan succinate [Imitrex] 100 mg PO DAILY PRN 14 Days #15 tab 11/21/19 01/24/20 Rx [BD Insulin Syringe] See Rx Instructions .ROUTE 01/24/20 01/24/20 History .MEDSUPPLY Acyclovir [Acyclovir 800mg tab] 800 mg PO 5XDAY 01/24/20 01/24/20 History Alcohol Antiseptic Pads [Alcohol 1 pad TOPICAL BID 01/24/20 01/24/20 History Prep Pads] Azithromycin [Z-Sukumar 250mg Tab*] 250 mg PO UD DOSE PK 01/24/20 01/24/20 History Blood Sugar Diagnostic [Blood See Rx Instructions .ROUTE 01/24/20 01/24/20 History Glucose Test] .MEDSUPPLY Ciprofloxacin HCl [Ci
--- NOTE | 2020-01-25 07:32 | P.CONPHA_ITS ---
[facility] Pharmacy VTE Monitoring - Patient Demographics Admission date: 01/25/20 Report Date: 01/25/20 Time: 07:32 Allergies/Adverse Reactions: Patient Allergies epinephrine Allergy (Severe, Verified 01/24/20 16:15) Anaphylaxis penicillin G Allergy (Severe, Verified 01/24/20 16:15) Anaphylaxis ketorolac [From Toradol] Allergy (Mild, Verified 01/24/20 16:15) Hives Height: 1.73 m Weight: 94.602 kg Patient Problems: Current Active Problems GI bleed (Acute) Melena (Acute) Hematemesis (Acute) - VTE Risk Labs: VTE Related Lab Results Hgb 13.9 g/dL (12.2-16.2) 01/25/20 06:14 Hct 41.4 % (37.0-47.0) 01/25/20 06:14 Plt Count 225 K/mm3 (142-424) 01/25/20 06:14 PT 10.2 seconds (9.4-11.8) 01/24/20 16:30 INR 0.99 (0.9-1.1) 01/24/20 16:30 APTT 22.7 seconds (23.6-34.0) L 01/24/20 16:30 BUN 11 mg/dl (7-17) 01/25/20 06:14 Creatinine 1.00 mg/dl (0.52-1.04) 01/25/20 06:14 Estimated Creat Clear 96 mL/min (50-200) 01/25/20 06:14 Was VTE Risk Assessment Performed: Yes VTE Score: 6 VTE Risk Level: Moderate Risk Clinical Trial Participant: No - Prophylaxis Types of VTE Prophylaxis: TEDS Knee High
--- NOTE | 2020-01-25 07:47 | PC.NURSE ---
EGD consent signed and placed in pt's chart.
--- NOTE | 2020-01-25 11:35 | HMH.PHAINT ---
MEDICATION RECONCILIATION COMPLETED ON PATIENT USING EXTERNAL FILL HISTORY FROM PHARMACY, RUDI REPORT, AND LIST FROM MD OFFICE. -ABRAHAM CORTEZD
--- NOTE | 2020-01-25 12:52 | P.PN_ITS ---
[facility] Anesthesia Checklist - Patient Identification Patient Identification: Arm Band - Structural Data Admitted From: Inpatient Planned Operative Procedure/s: egd Consent for Planned Operative Procedure(s) Verified: Yes Verified Documents: Surgical Consent, History and Physical - NPO Status Verified Time NPO: 00:00 - Additional verifications Anesthesia Reactions: No - Airway Assessment C-Spine Mobility Assessed: Yes (mp2) TMJ Mobility Assessed: Yes Dentition: Edentulous - Neurological Assessment Level of Consciousness: Awake, Alert - Anesthesia Plan Anesthesia Risk discussed: Yes Anesthesia Plan: Verified ASA Class: III Anesthesia Type: MAC [facility] History I have reviewed the patient's past medical history: Yes Medical History: Reports:: Anxiety, Asthma, Chronic Obstructive Pulmonary Disease (COPD), Depression, Diabetes Mellitus Type 1, Diabetes Mellitus Type 2, Hyperlipidemia, Hypertension, Migraine Denies:: Cancer, MRSA *Have you ever received a pneumonia vaccine?: Yes (2019) *Have you received a flu vaccine this season?: Yes (2019) Other Medical History: Reports: Arthritis, Hypothyroidism, Sinus Problems, Thyroid Disease Anesthesia experience/problems:: nac Laterality Cases: Right: ACL Repair, Arthroscopy Knee, Other, Bilateral: Tonsillectomy Other Surgeries: Yes: Colonoscopy, Colon Resection, Hysterectomy-Total, Other Amputation: No Fractures: Yes - *Social History Last grade of school completed: 7th or 8th Smoking Status: Never smoker # Packs/Day (cigarettes): 1 Alcohol Intake: current Alcohol Intake Frequency:: other Substance Use Type: denies use *Occupational Status:: disabled Housing: other Household Members: significant other *Travel in the last 8 weeks: None - Psychiatric History Pschychiatric History:: Reports:: Anxiety, Depression Family Hx:: Asthma, Cancer, Coronary Artery Disease, Diabetes, Heart Attack, Hyperlipidemia, Hypertension, Stroke, Thyroid Disorder, Substance abuse, Alcoholism, Mental illness
--- NOTE | 2020-01-25 13:12 | PC.NURSE ---
Patient left floor at 1300 for EGD.
--- NOTE | 2020-01-25 14:38 | P.PCN_ITS ---
- Procedure: Date: 01/25/20 Patient Date of :: 1965 Procedure Performed:: Esophagogastroduodenoscopy with biopsy Indications:: Gastrointestinal hemorrhage (upper) Performing Provider:: Daryl Boyd MD Referring Provider:: . Sedation:: Monitored anesthesia care Procedure:: After informed consent was obtained the patient was taken to the endoscopy suite. Sedation ensued after the patient was transferred to the left lateral decubitus position. Pulse, blood pressure, and oxygen saturation were monitored throughout the procedure. The endoscope was advanced beyond the duodenal bulb. Retroflexion within the gastric lumen was accomplished. The gastroscope was carefully removed and the patient was transferred to recovery in stable conditi on. Please see findings and specimens below for detail. Findings:: Gastroesophageal junction at 40 cm Dual inlet patches at 18 cm Mild inflammation of gastroesophageal junction Antral alterations (2 [id number] shallow adjacent ulcerations with no sign of active hemorrhage or clot at base) Focal duodenitis Specimens:: Biopsies of antral ulcerations Biopsy of gastroesophageal junction Recommendations:: Follow-up pathology PPI/Carafate Likely repeat EGD in 6-8 weeks Complications:: No immediate Estimated blood obtained (mL): 1
--- NOTE | 2020-01-25 14:59 | PC.NURSE ---
Pt back to the floor after EGD at this time.
--- NOTE | 2020-01-25 17:37 | HMH.HPDC ---
General - General Admission date:: 01/24/20 Discharge date: 01/25/20 *Admission Date: 01/25/20 *Chief complaint: abd pain/gi bleed *History of present illness: 54-year-old She presented to primary care office with pain, melena, and episodic hematemesis. She also described urinating per rectum of bright red blood. Nontoxic, afebrile, hemodynamically stable. Initial and repeat abdominal exam negative for rebound/guarding/rigidity. This is not an acute abdomen. CT of the abdomen pelvis with IV contrast was obtained and negative for acute disease although it did show an adrenal mass that needs to be followed and this was related to the patient. Hemoglobin is stable ED MD spoke with the surgeon on-call regarding her symptoms concerning for upper GI bleed and he advised that he would consult for an EGD tomorrow. Pt admitted for gi bleed and futher evaluation. [facility] History I have reviewed the patient's past medical history: Yes Medical History: Reports:: Anxiety, Asthma, Chronic Obstructive Pulmonary Disease (COPD), Depression, Diabetes Mellitus Type 1, Diabetes Mellitus Type 2, Hyperlipidemia, Hypertension, Migraine Denies:: Cancer, MRSA *Have you ever received a pneumonia vaccine?: Yes (2018) *Have you received a flu vaccine this season?: Yes (2019) Other Medical History: Reports: Arthritis, Hypothyroidism, Sinus Problems, Thyroid Disease Anesthesia experience/problems:: nac Laterality Cases: Right: ACL Repair, Arthroscopy Knee, Other, Bilateral: Tonsillectomy Other Surgeries: Yes: Colonoscopy, Colon Resection, Hysterectomy-Total, Other Amputation: No Fractures: Yes - *Social History Last grade of school completed: 7th or 8th Smoking Status: Never smoker # Packs/Day (cigarettes): 1 Alcohol Intake: current Alcohol Intake Frequency:: other Substance Use Type: denies use *Occupational Status:: disabled Housing: other Household Members: significant other *Travel in the last 8 weeks: None - Psychiatric History Pschychiatric History:: Reports:: Anxiety, Depression Family Hx:: Asthma, Cancer, Coronary Artery Disease, Diabetes, Heart Attack, Hyperlipidemia, Hypertension, Stroke, Thyroid Disorder, Substance abuse, Alcoholism, Mental illness Review of Systems - Review of Systems Review of systems:: pertinent systems reviewed and negative unless documented below - Constitutional Denies body ache(s), Denies lack of energy - Eyes Denies bulging eyes - ENT Denies change in voice, Denies neck lump - *Cardiovascular Denies excessive sweating - *Respiratory Denies shortness of breath with activity - *Gastrointestinal Reports abdominal pain, Reports bloating, Reports change in stools, Reports loose stools, Reports bright, red blood in stools, Reports loose stools, Reports constant urge to pass stool - *Genitourinary Denies genital lesions - *Musculoskeletal Denies body aches - Integumentary/Breasts Denies itching, Denies rash - *Neurologic Denies abnormal movements - Psychiatric Denies sensing things others do not sense - Endocrine Denies excessive sweating - Hematologic/Lymphatic Denies enlarged lymph nodes - Allergic/Immunologic Denies itchy eyes Exam Vital signs and Labs for Last 24 Hours: Temp Pulse Resp BP Pulse Ox 98.0 F 65 16 145/76 H 98 01/25/20 17:00 01/25/20 17:00 01/25/20 17:00 01/25/20 17:00 01/25/20 17:00 Laboratory Results - last 24 hr 01/24/20 16:30: SARS-CoV-2 IgG Ab (Rapid) Negative, SARS-CoV-2 IgM Ab (Rapid) Negative 01/24/20 17:50: Urine Color Yellow, Urine Appearance Clear, Urine pH 6.0, Ur Specific [place] 1.010, Urine Protein Negative, Urine Glucose (UA) 3+, Urine Ketones Negative, Urine Blood Negative, Urine Nitrate Negative, Urine Bilirubin Negative, Urine Urobilinogen 0.2, Ur Leukocyte Esterase Trace, Urine WBC 10-20, Ur Squamous Epith Cells 10-20, Urine Bacteria 2+ 01/24/20 21:58: POC Glucose 196 H 01/25/20 06:14: WBC 6.0 D, RBC 4.48, Hgb 13.9, Hct 41.4, MCV 92.
--- NOTE | 2020-01-25 19:23 | PC.NURSE ---
THIS RN PROVIDED DISCHARGE INSTRUCTIONS, PATIENT PHONED FOR RIDE. PATIENT CALLED [facility]LET [employer]KER FOR NURSE. PATIENT INFORMED THIS RN THAT HER RIDE WAS UNABLE TO COME. THIS RN ENCOURAGED PATIENT TO PHONE OTHER PEOPLE FOR A RIDE. PATIENT INFORMED THIS RN THAT SPOUSE IS ON HIS WAY. NO OTHER CONCERNS AT THIS TIME.
--- NOTE | 2020-01-25 22:36 | PC.NURSE ---
PT HAS NO C/O AT BEGINNING OF SHIFT. PT AWAITING RIDE. SITTING ON SIDE OF BED. PT LEAVING FLOOR VIA WHEELCHAIR @ 1938.
== END 2020-01-25 19:38 | disposition home or self-care (01) ==
LOC: ER 19:52 → 2ND 22:50
PROVIDERS: Surgery; Admitting Provider Internal Medicine Adolescent Medicine; Emergency Provider Physician Assistant; PCP Nurse Practitioner Family; Visit Provider Emergency Medicine
PROC: 0DJ08ZZ Inspection of Upper Intestinal Tract, Via Natural or Artificial Opening Endoscopic (ICD-10-PCS; CPT 43235; principal; 2020-01-25 11:30)
DX: K22.8 Other specified diseases of esophagus (principal); K92.1 Melena; K92.0 Hematemesis; K29.80 Duodenitis without bleeding; K25.9 Gastric ulcer, unspecified as acute or chronic, without hemorrhage or perforation; Z79.899 Other long term (current) drug therapy; Z88.0 Allergy status to penicillin; Z88.8 Allergy status to other drugs, medicaments and biological substances; I10 Essential (primary) hypertension; E10.9 Type 1 diabetes mellitus without complications; J44.9 Chronic obstructive pulmonary disease, unspecified; F41.9 Anxiety disorder, unspecified
CPT/HCPCS: 43239; 36415; 74177; 80053; 81001; 82962; 83690; 85025; 85610; 85730; 86328; 86850; 87086; 87088; 87186; 88305; 96365; 96375; 99284; G0378; J2405; Q9967

== ENCOUNTER → 2020-01-28 10:57 | Outpatient (CLI) | payer MEDICARE, BC, SELFPAY ==
[2020-01-28 13:23] LABS: Coronavirus 19 IgG Antibody Negative (Negative); Coronavirus 19 IgM Antibody Negative (Negative)
== END ==
PROVIDERS: PCP Nurse Practitioner Family; Visit Provider Internal Medicine Gastroenterology
DX: Z01.818 Encounter for other preprocedural examination (principal); Z12.11 Encounter for screening for malignant neoplasm of colon
CPT/HCPCS: 36415; 86328

== ENCOUNTER → 2020-01-29 08:35 | Day surgery (SDC) | payer MEDICARE, BC, SELFPAY | PROVIDERS: PCP Nurse Practitioner Family; Visit Provider Internal Medicine Gastroenterology | PROC: 0DJD8ZZ Inspection of Lower Intestinal Tract, Via Natural or Artificial Opening Endoscopic (ICD-10-PCS; CPT 45378; principal; 2020-01-29 10:00) | DX: Z53.20 Procedure and treatment not carried out because of patient's decision for unspecified reasons (principal) ==

== ENCOUNTER → 2020-02-18 10:42 | Outpatient (CLI) | payer MEDICARE, BC, SELFPAY ==
[2020-02-18 12:10] LABS: Coronavirus 19 IgG Antibody Negative (Negative); Coronavirus 19 IgM Antibody Negative (Negative)
== END ==
PROVIDERS: PCP Nurse Practitioner Family; Visit Provider Internal Medicine Gastroenterology
DX: Z01.89 Encounter for other specified special examinations (principal)
CPT/HCPCS: 86328

== ENCOUNTER 2020-02-19 12:29 | Day surgery (SDC) | payer MEDICARE, BC, SELFPAY ==
[2020-02-14 11:05] VITALS: BMI 31.6
[2020-02-19 12:46] VITALS: BP 131/82; PULSE 94; RESP 19; TEMP 36.4; O2SAT 98
[2020-02-19 13:06] LABS: POC Glucose,Bedside 160 (70-110)
[2020-02-19 13:47] VITALS: O2SAT 98
--- NOTE | 2020-02-19 14:19 | P.PCN_ITS ---
[facility] Procedure Note Procedure Note:: Colonoscopy Procedure Report: Colonoscopy with cold biopsies and monopolar ablation/coagulation of internal hemorrhoids Endoscopist: Alex Araiza II, MD Referring physician: Jim LANDERS Date of Procedure: February 19, 2020 Equipment: Olympus 180 variable stiffness pediatric colonoscope Sedation: MAC sedation Indication: Mrs. Escalante is a 54-year-old female with bright red rectal bleeding and some dark bleeding for the last 6 weeks. She also has chronic diarrhea. She has lost 24 pounds in the last 4 to 6 weeks. She reports no abdominal pain. She does state that her maternal grandfather had colon cancer in his mid 60s. She did have a colonoscopy 2 years ago (in [place]) at which time polyps were removed. Colonoscopy is performed for diagnostic purposes. She was recently admitted in early January and did have an EGD that showed GERD, inlet patches and antral erosions (Dr. Daryl Boyd). At that time she also had some hematemesis. Her CAT scan showed no abnormalities. Her labs showed hemoglobin 15.3 and hematocrit 44.5. She had normal ALT 22 and mildly elevated alkaline phosphatase at 131. Procedure: Prior to the procedure, a history and physical exam was performed, and patient's medications and allergies were reviewed. The risks, benefits and alternatives of the sedation and procedure were discussed with the patient. All questions were answered and informed consent was obtained. The patient was brought to the procedure room. Patient identification and proposed procedure were verified by the physician and the nurse. The patient was placed in a left lateral decubitus position and the scope was passed under direct vision. Throughout the procedure, the patient's blood pressure, pulse, and oxygen saturations were monitored continuously. The colonoscopy was accomplished without difficulty. The patient tolerated the procedure well. Findings: On digital rectal examination there was normal rectal tone. There were no external hemorrhoids. The colonoscope was introduced through the anal canal to the rectum and advanced to the cecum. The ileocecal valve and appendiceal orifice were identified. The scope was advanced a short distance into the ileum which appeared grossly normal. The scope was then withdrawn into the colon. The cecum, ascending, transverse, descending, sigmoid and rectum were grossly normal. Cold biopsies were taken from the right colon to rule out microscopic colitis. There were no other mucosal abnormalities identified. Upon re troflexion within the rectum there were grade 1-2 internal hemorrhoids.the hemorrhoids were ablated using monopolar ablation/coagulation (to destruction) of 3 columns of hemorrhoids with excellent coagulative effect. The preparation was excellent throughout with [place] Preparation Score of 9. The cecal time was 12 minutes. Impression: 1. Normal colonoscopy with intubation of the terminal ileum 2. Grade 1-2 internal hemorrhoids status post monopolar ablation/coagulation Plan: I will follow-up the biopsies. I would encourage dietary measures, probiotic and bulk fiber. I would consider adding Entocort (budesonide) versus Viberzi based upon histologic findings. I will discuss all of these findings with the patient and her family.
[2020-02-19 14:20] VITALS: BP 123/70; PULSE 79; RESP 18; TEMP 36.8; O2SAT 99
[2020-02-19 14:30] VITALS: BP 116/76; PULSE 78; RESP 18; O2SAT 99
[2020-02-19 14:40] VITALS: BP 141/85; PULSE 72; RESP 18; O2SAT 98
--- NOTE | 2020-02-19 14:49 | P.PN_ITS ---
[facility] Anesthesia Checklist - Structural Data Admitted From: Home Planned Operative Procedure/s: colonoscopy Consent for Planned Operative Procedure(s) Verified: Yes - Additional verifications Anesthesia Reactions: No - Airway Assessment C-Spine Mobility Assessed: Yes TMJ Mobility Assessed: Yes Dentition: Poor Dentition - Neurological Assessment Level of Consciousness: Awake, Alert, Appropriate - Anesthesia Plan Anesthesia Risk discussed: Yes Anesthesia Plan: Verified ASA Class: III Anesthesia Type: MAC [facility] History I have reviewed the patient's past medical history: Yes Medical History: Reports:: Anxiety, Asthma, Chronic Obstructive Pulmonary Disease (COPD), Depression, Diabetes Mellitus Type 2, Hyperlipidemia, Hyperte nsion, Migraine, Valvular Heart Disease Denies:: Cancer, Diabetes Mellitus Type 1, Internal Pacemaker, MRSA, Seizures *Have you ever received a pneumonia vaccine?: Yes *Have you received a flu vaccine this season?: No Other Medical History: Reports: Arthritis, Hypothyroidism, Sinus Problems, Thyroid Disease Anesthesia experience/problems:: none Laterality Cases: Right: ACL Repair, Arthroscopy Knee, Other, Bilateral: Tonsillectomy Other Surgeries: Yes: Colonoscopy, Colon Resection, Hysterectomy-Total, Other. No: Pacemaker Amputation: No Fractures: Yes - *Social History Smoking Status: Never smoker # Packs/Day (cigarettes): 1 Alcohol Intake: never Alcohol Intake Frequency:: other Substance Use Type: denies use *Occupational Status:: other Housing: house Household Members: spouse *Travel in the last 8 weeks: None - Psychiatric History Pschychiatric History:: Reports:: Anxiety, Depression Family Hx:: Asthma, Cancer, Coronary Artery Disease, Diabetes, Heart Attack, Hyperlipidemia, Hypertension, Stroke, Thyroid Disorder, Substance abuse, Alcoholism, Mental illness
[2020-02-19 15:15] VITALS: BP 145/82; PULSE 75; RESP 18; O2SAT 98
== END 2020-02-19 15:15 | disposition home or self-care (01) ==
LOC: OUTP 12:31
PROVIDERS: PCP Nurse Practitioner Family; Visit Provider Internal Medicine Gastroenterology
PROC: 0DJD8ZZ Inspection of Lower Intestinal Tract, Via Natural or Artificial Opening Endoscopic (ICD-10-PCS; CPT 45378; principal; 2020-02-19 14:30)
DX: K64.0 First degree hemorrhoids (principal); Z86.010 Personal history of colon polyps; Z87.19 Personal history of other diseases of the digestive system; Z80.9 Family history of malignant neoplasm, unspecified; E11.9 Type 2 diabetes mellitus without complications; J44.9 Chronic obstructive pulmonary disease, unspecified; K21.9 Gastro-esophageal reflux disease without esophagitis; E03.9 Hypothyroidism, unspecified; I10 Essential (primary) hypertension; Z86.73 Personal history of transient ischemic attack (TIA), and cerebral infarction without residual deficits
CPT/HCPCS: 45378; 46930; 82962; 88305

== ENCOUNTER 2020-04-08 19:30 | Emergency (ER) | payer MEDICARE, BC, SELFPAY ==
[2020-04-08 19:40] VITALS: BP 172/98; PULSE 84; RESP 15; TEMP 36.8; O2SAT 97; BMI 34.2
--- NOTE | 2020-04-08 19:47 | XR_ITS ---
PROCEDURE: XR CLAVICLE LT CLINICAL INDICATION: injury Posttraumatic pain COMPARISON: CR XR SHOULDER LT MIN 2V from 04/08/2020 FINDINGS: No fracture or dislocation. No lytic or blastic change. There is normal mineralization. Minimal osteoarthritic changes are involving left shoulder Other findings:Calcified granuloma left lobe IMPRESSION: No acute findings. Dictated by: Mata Dominguez MD 04/09/2020 05:58 Mata Dominguez MD in [place] 04/09/2020 05:58
--- NOTE | 2020-04-08 19:47 | CT_ITS ---
PROCEDURE: CT CERVICAL SPINE WO CON CLINICAL INDICATION: shoulder injury with neck pain Neck pain following injury COMPARISON: CT CT CERVICAL SPINE WO CON from 06/19/2019 TECHNIQUE: Axial images obtained with sagittal and coronal reformats. All CT scans at the facility use one or more dose reduction, viz: automated exposure control, ma/kV adjustment per patient size (including targeted exams where dose is matched to indication, i.e. head), or iterative reconstruction technique. Axial spiral CT scanning performed of the cervical spine beginning at the base of the skull and continuing to the upper T-spine. 3-D multiplanar reconstruction with 3-D manipulation of volumetric data set in image rendering was completed by the radiologist and/or technologist with the supervision of the radiologist on independent workstation. FINDINGS: There is straightening/reversal of the normal lordosis which may be due to patient positioning or muscle spasm.. There are small anterior osteophytes at C3-C4 C5 and C6. A small sclerotic focus involves the superior aspect of C7 on the right and may be due to a bone island not significantly changed. No fracture or dislocation is evident. C2-C3: Unremarkable. C3-C4: Mild degenerative disc disease. C4-C5: Degenerative disc disease with minimal bulging disc. C5-C6: Mild degenerative disc disease. C6-C7: Mild degenerative disc disease calcification noted within the thyroid gland at the isthmus and on the left. IMPRESSION: 1. No acute fracture. 2. Mild multilevel cervical spondylosis with slight reversal of the cervical lordosis Dictated by: Mata Dominguez MD 04/09/2020 10:09 Mata Dominguez MD in [place] 04/09/2020 10:09
--- NOTE | 2020-04-08 19:55 | PC.NURSE ---
Pt assisted with removing her sweater and bra for xrays. Radiology notified that patient was ready.
[2020-04-08 20:02] VITALS: BP 149/85; PULSE 80; RESP 15; O2SAT 98
--- NOTE | 2020-04-08 20:03 | PC.NURSE ---
Pt to radiology
[2020-04-08 20:26] VITALS: BP 161/89; PULSE 84; RESP 15; O2SAT 96
--- NOTE | 2020-04-08 20:26 | PC.NURSE ---
Pt returned from radiology at this time.
--- NOTE | 2020-04-08 20:46 | HMH.EDUPEXT ---
ED Disposition Clinical Impression: Cervical radicular pain Injury of shoulder, left Qualifiers: Encounter type: initial encounter Qualified Code(s): S49.92XA - Unspecified injury of left shoulder and upper arm, initial encounter Disposition: Home, Self-Care Condition on Discharge: Good Instructions: DI for Shoulder Pain Additional Instructions: ice and use meds and see pcp this wed at 10 am Prescriptions: methylPREDNISolone [Medrol 4mg tab] 4 mg PO DIRECTED #21 tab Transmission Status: Pending to [facility]/pharmacy #[id number] Referrals: Timo Villalba APRN [Primary Care Provider] - - Critical Care Critical Care Time: No Attestation: On 04/08/20, the high probability of a clinically significant, sudden or life threatening deterioration of the following system(s) required my full and direct attention, intervention and personal management. The time I documented below is in addition to time spent performing reported procedures but includes the following listed in this critical care notation. Medical Decision Making - Medical Records Medical records reviewed: Yes: I reviewed the patient's medical records. - [place] Inquiry Pt receiving controlled substance: No Vital Signs: 04/08/20 19:40 04/08/20 20:02 04/08/20 20:26 Temperature 98.3 F Temperature Source Oral Pulse Rate [Right Brachial] 84 80 84 Respiratory Rate 15 15 15 Blood Pressure [Right Arm] 172/98 H 149/85 H 161/89 H Blood Pressure Mean [Right Arm] 122 106 113 Blood Pressure Source [Right Arm] Automatic Cuff Blood Pressure Position [Right Arm] Sitting 02 Sat by Pulse Oximetry 97 98 96 Oxygen Delivery Method Room Air Room Air Room Air - Lab Data Lab results reviewed: Yes: I reviewed the patient's lab results. Orders (Tests/Meds): ED MEDICATIONS Discontinued Medications Generic Name Dose Route Start Last Admin Trade Name Freq PRN Reason Stop Dose Admin Acetaminophen 1,000 mg 04/08/20 19:51 04/08/20 19:53 Acetaminophen 500mg Tab PO 04/08/20 19:52 1,000 mg ONCE ONE Administration ORDERS Category Date Time Status CT cervical spine wo con Stat Cat Scan 04/08/20 19:47 Taken XR clavicle LT Stat Exams 04/08/20 19:47 Taken XR shoulder LT min 2V Stat Exams 04/08/20 19:47 Taken - Radiology Data #1 Image(s): Shoulder, Clavicle Image Reviewed: Yes I reviewed the patient's radiology image Preliminary Findings: No Fracture Seen - CT Data CT Scan: C-Spine Time Received: 20:[address] Reviewed: Yes: I have viewed the radiologist's interpretation Preliminary Findings: No Fracture Seen Upper Extremity HPI - General Chief Complaint: Extremity Injury, Upper Stated Complaint: AO 1122 injured l Shoulder Time Seen by Provider: 04/08/20 20:00 Mode of Arrival: Ambulatory Source of Information: Patient, Medical Record Limitations: No Limitations Description of Symptoms (Recalled from ER Triage Doc. by RN): Pt reports she was helping her work in the garage, when the support beam his was against broke, causing him and the ladder to fall on her. She reports she tried catching him with her left arm, but was unable to, and he and the ladder fell on her left shoulder. She reports it happened last night, thought it was just bruised, but today she reports it is very difficult to move her arm, or make a fist. She is gaurding the shoulder, and reports decreased ROM. - History of Present Illness HPI narrative: injury to lt scapular region and lt shoulder with pain with mov and use and feeling tingling and weakness lt upper ext MD complaint: injury to: left, shoulder Onset (ago): day(s) Other Extremity Injury: Left: shoulder Other injuries: neck Handedness: right Place: home Severity: moderate Context: direct blow Associated symptoms: denies other symptoms - Related Data Home Medications Medication Instructions Recorded Confirmed olanzapine 10 mg tablet 10 mg PO HS 03/07/19 04/08/20 atorvastatin
[2020-04-08 21:08] VITALS: BP 161/74; PULSE 80; RESP 17; TEMP 37; O2SAT 97
== END 2020-04-08 21:09 | disposition home or self-care (01) ==
PROVIDERS: Emergency Provider Emergency Medicine; PCP Nurse Practitioner Family
DX: S49.92XA Unspecified injury of left shoulder and upper arm, initial encounter (principal); M54.2 Cervicalgia; W18.09XA Striking against other object with subsequent fall, initial encounter; Y92.099 Unspecified place in other non-institutional residence as the place of occurrence of the external cause; E03.9 Hypothyroidism, unspecified; J44.9 Chronic obstructive pulmonary disease, unspecified; I10 Essential (primary) hypertension; E78.5 Hyperlipidemia, unspecified; F41.8 Other specified anxiety disorders; E11.9 Type 2 diabetes mellitus without complications; Z79.4 Long term (current) use of insulin; Z79.899 Other long term (current) drug therapy; Z88.0 Allergy status to penicillin; Z88.6 Allergy status to analgesic agent
CPT/HCPCS: 72125; 73000; 73030; 99282

== ENCOUNTER → 2020-05-20 10:51 | Outpatient (POV) | payer MEDICARE, BC, SELFPAY | PROVIDERS: Visit Provider Nurse Practitioner Family | DX: Z00.00 Encounter for general adult medical examination without abnormal findings (principal) ==

== ENCOUNTER 2020-06-09 14:23 | Emergency (ER) | payer MEDICARE, BC, SELFPAY ==
[2020-06-09 14:30] VITALS: BP 155/91; PULSE 86; RESP 18; TEMP 36.9; O2SAT 96; BMI 34.9
--- NOTE | 2020-06-09 14:44 | XR_ITS ---
PROCEDURE: XR SHOULDER LT MIN 2V CLINICAL INDICATION: fall/injury Pain COMPARISON: CR XR SHOULDER LT MIN 2V from 04/08/2020 FINDINGS: No fracture or dislocation. No lytic or blastic change. There is normal mineralization. The joint spaces are well-preserved. No significant degenerative/arthritic changes. No erosive changes evident. Other findings:None. IMPRESSION: No acute findings. Dictated by: Mata Dominguez MD 06/10/2020 06:39 Mata Dominguez MD in [place] 06/10/2020 06:39
--- NOTE | 2020-06-09 14:44 | XR_ITS ---
PROCEDURE: XR CLAVICLE LT CLINICAL INDICATION: fall/injury Pain COMPARISON: CR XR CLAVICLE LT from 04/08/2020 FINDINGS: No fracture or dislocation. No lytic or blastic change. There is normal mineralization. The joint spaces are well-preserved. No significant degenerative/arthritic changes. No erosive changes evident. Other findings:None. IMPRESSION: No acute findings. Dictated by: Mata Dominguez MD 06/10/2020 06:37 Mata Dominguez MD in [place] 06/10/2020 06:37
--- NOTE | 2020-06-09 14:55 | PC.NURSE ---
notified rad of xray orders.
--- NOTE | 2020-06-09 15:11 | HMH.EDGENADL ---
ED Disposition Clinical Impression: Injury of shoulder, left Qualifiers: Encounter type: initial encounter Qualified Code(s): S49.92XA - Unspecified injury of left shoulder and upper arm, initial encounter Disposition: Home, Self-Care Condition on Discharge: Good Instructions: DI for Acute Pain -- Adult Prescriptions: Cyclobenzaprine HCl [Cyclobenzaprine 5mg Tab] 5 mg PO Q8HP PRN #30 tab PRN Reason: pain/spasm Transmission Status: Pending to [facility]/pharmacy #[id number] methylPREDNISolone [Medrol] 4 mg PO DIRECTED #21 pack Transmission Status: Pending to [facility]pharmacy #[id number] Referrals: Timo Villalba APRN [Primary Care Provider] - - Critical Care Critical Care Time: No Attestation: On 06/09/20, the high probability of a clinically significant, sudden or life threatening deterioration of the following system(s) required my full and direct attention, intervention and personal management. The time I documented below is in addition to time spent performing reported procedures but includes the following listed in this critical care notation. Medical Decision Making - Medical Records Medical records reviewed: Yes: I reviewed the patient's medical records. - [place] Inquiry Pt receiving controlled substance: No Vital Signs: 06/09/20 14:30 Temperature 98.5 F Temperature Source Oral Pulse Rate [Left Radial] 86 Respiratory Rate 18 Blood Pressure [Left Arm] 155/91 H Blood Pressure Mean [Left Arm] 112 Blood Pressure Source [Left Arm] Automatic Cuff Blood Pressure Position [Left Arm] Sitting 02 Sat by Pulse Oximetry 96 Oxygen Delivery Method Room Air Orders (Tests/Meds): ORDERS Category Date Time Status Clavicle XR left [XR clavicle LT] Stat Exams 06/09/20 14:44 Taken Shoulder XR left minimum 2 views [XR shoulder LT min 2V Exams 06/09/20 14:44 Taken ] Stat - Radiology Data #1 Image(s): Shoulder, Clavicle Image Reviewed: Yes I reviewed the patient's radiology results Preliminary Findings: Normal/NAD General Adult HPI - General Chief complaint: PAIN Stated complaint: shoulder pain/neck pain AO on 06/05/20 Time Seen by Provider: 06/09/20 14:35 Mode of Arrival: Ambulatory Source of Information: Patient Limitations: No Limitations Description of Symptoms (Recalled from ER Triage Doc. by RN): Pt c/o pain on R side of her neck and R shoulder. Pt reports on Wednesday of last week she was pulling herself into her tall truck, hit her head on the door, causing her to fall and pass out . Pt reports has been having pain since then. - History of Present Illness HPI narrative: This is a 54-year-old female who presents with left shoulder pain as well as left clavicular pain x5 days. Patient reports she was pulling herself up into her truck when she fell 5 days ago. She reported loss of consciousness at that time but no further concussive symptoms. Patient reports pain with movement which is described as sharp constant worse with movement in any direction. Pain is moderate to severe in intensity. No other complaints or injuries. - Related Data Home Medications Medication Instructions Recorded Confirmed olanzapine 10 mg tablet 10 mg PO HS 03/07/19 04/10/20 atorvastatin 80 mg tablet 80 mg PO DAILY tab 07/04/19 04/10/20 Insulin Detemir [Levemir 23 unit SQ HS 01/24/20 04/10/20 100units/mL 3mL flexpen] Insulin NPH Hum/Reg Insulin Hm 5 unit SQ BID 01/24/20 04/10/20 [Humulin 70/30 Insulin 100 Units/mL 10mL Vial] Levothyroxine Sodium [Tirosint] 50 mcg PO DAILY 01/24/20 04/10/20 Nystatin [Nystatin Cr 100,000 1 applic TOPICAL BID 01/24/20 04/10/20 Units/GM 30GM] lisinopril 20 mg tablet 20 mg PO DAILY tab 01/24/20 04/10/20 Albuterol Sulfate [Albuterol 3 ml IH QID PRN 01/25/20 04/10/20 0.083% 2.5mg/3mL neb] Cyclobenzaprine HCl 10 mg PO TIDP PRN 01/25/20 04/10/20 [Cyclobenzaprine 10mg Tab*] SUMAtriptan succinate [Imitrex] 100 mg PO DAILYP PRN 01/25/20 04/10/20 Trama
[2020-06-09 16:18] VITALS: BP 149/87; PULSE 74; O2SAT 99
[2020-06-09 16:52] VITALS: BP 152/92; PULSE 68; RESP 19; TEMP 36.9; O2SAT 97
== END 2020-06-09 16:55 | disposition home or self-care (01) ==
PROVIDERS: Emergency Provider Emergency Medicine; PCP Nurse Practitioner Family
DX: S49.92XA Unspecified injury of left shoulder and upper arm, initial encounter (principal); W22.09XA Striking against other stationary object, initial encounter; F41.8 Other specified anxiety disorders; J44.9 Chronic obstructive pulmonary disease, unspecified; E11.9 Type 2 diabetes mellitus without complications; E78.5 Hyperlipidemia, unspecified; I10 Essential (primary) hypertension; Z88.0 Allergy status to penicillin; Z79.899 Other long term (current) drug therapy
CPT/HCPCS: 73000; 73030; 96372; 99282; J2405

== ENCOUNTER 2020-06-25 20:21 | Emergency (ER) | payer MEDICARE, BC, SELFPAY ==
[2020-06-25 20:23] VITALS: BP 153/93; PULSE 86; RESP 16; TEMP 36.7; O2SAT 98; BMI 34.2
[2020-06-25 20:58] LABS: Microscopic, Urine URINE MICROSCOPIC (MICROSCOPIC)
--- NOTE | 2020-06-25 20:58 | ECG_ITS ---
APPROVED REPORT Exam: Resting ECG HR:77 bpm ECG Measurements Heart Rate 77 AXES MO 142 P 66 QRSd 104 QRS 77 QT 406 T 62 QTc 459 Conclusion Normal sinus rhythm with sinus arrhythmia Incomplete right bundle branch block Borderline ECG Electronically signed by : Gabriel Russ, 06/25/2020 22:02:18
[2020-06-25 21:00] VITALS: BP 156/71; PULSE 81; RESP 18; O2SAT 98
[2020-06-25 21:04] LABS: Appearance,Urine CLEAR (Clear); Bilirubin,Urine Negative (Negative); Blood, Urine Negative (Negative); Color,Urine YELLOW (Yellow); Glucose,Urine (UA) 1+ (Negative); Ketones,Urine Negative (Negative); Leukocyte Esterase,Urine Negative (Negative); Nitrate,Urine Negative (Negative); Protein,Urine Negative (Negative); Urobilinogen,Urine 0.2 EU/dl (0.2)
[2020-06-25 21:15] LABS: Barbiturates Screen,Urine Negative ng/ml (<200)
[2020-06-25 21:16] LABS: Amphetamine/Metha Screen,Urine Negative ng/ml (<1000); Benzodiazepines Screen,Urine Negative ng/ml (<200)
[2020-06-25 21:17] LABS: Cannabinoid Screen,Urine Negative ng/ml (<50)
[2020-06-25 21:18] LABS: Cocaine Screen,Urine Negative ng/ml (<300); Methadone Screen,Urine Negative ng/ml (<300)
[2020-06-25 21:19] LABS: Opiate Screen,Urine Negative ng/ml (<300); Phencyclidine Screen,Urine Negative ng/ml (<25)
[2020-06-25 21:32] LABS: Basophils # 0.1 K/mm3 (0-0.2); Basophils % 1.3 % (0.1-2.0); Eosinophils # 0.3 K/mm3 (0.0-0.4); Eosinophils % 3.2 % (0.1-12.0); Hematocrit 44.5 % (37.0-47.0); Hemoglobin 14.5 g/dL (12.2-16.2); Lymphocytes # 3.5 K/mm3 (0.7-4.5); Lymphocytes % 38.8 % (10-50); Mean Corpuscular HGB Conc 32.6 g/dL (31.8-35.4); Mean Corpuscular Volume 92.1 fl (81-99); Monocytes # 0.4 K/mm3 (0.1-1.0); Monocytes % 4.6 % (1.7-9.3); Neutrophils # 4.7 K/mm3 (1.8-7.8); Platelet Count 258 K/mm3 (142-424); Red Blood Count 4.83 M/mm3 (4.20-5.40); White Blood Count 9.1 K/mm3 (4.8-10.8)
[2020-06-25 21:38] LABS: Alanine Aminotransferase 21 U/L (12-78); Albumin/Globulin Ratio 1.3 (1.1-1.8); Alkaline Phosphatase 101 U/L (38-126); Anion Gap 12.1 mEq/L (5-15); Aspartate Amino Transferase 30 U/L (14-36); Bilirubin,Total 0.3 mg/dl (0.2-1.3); Blood Urea Nitrogen 16 mg/dl (7-17); Calcium 9.6 mg/dl (8.4-10.2); Carbon Dioxide 25 mmol/L (22.0-30.0); Chloride 107 mmol/L (98-107); Creatinine Clearance Estimated 80 mL/min (50-200); Estimated Glomerular Filt Rate 43 ml/min (>60); GFR (African American) 52 ML/MIN (>60); Globulin 3.2 g/dL (1.3-3.2); Glucose 238 mg/dl (74-100); Potassium 4.1 mmoL/L (3.5-5.1); Sodium 140 mmol/L (136-145); Total Protein,Serum 7.2 g/dl (6.3-8.2)
[2020-06-25 22:00] VITALS: BP 192/98; PULSE 77; O2SAT 98
[2020-06-25 22:02] LABS: Bacteria,Urine Trace /lpf; WBC,Urine Occasional #/hpf (0-3)
--- NOTE | 2020-06-25 22:22 | HMH.EDDIZZ ---
ED Disposition Clinical Impression: Migraine Qualifiers: Migraine type: unspecified Status migrainosus presence: without status migrainosus Intractability: not intractable Qualified Code(s): G43.909 - Migraine, unspecified, not intractable, without status migrainosus Disposition: Home, Self-Care Condition on Discharge: Good Instructions: Dizziness, Nonvertigo Additional Instructions: call pcp for follow up Referrals: Timo Villalba APRN [Primary Care Provider] - - Critical Care Critical Care Time: No Attestation: On 06/25/20, the high probability of a clinically significant, sudden or life threatening deterioration of the following system(s) required my full and direct attention, intervention and personal management. The time I documented below is in addition to time spent performing reported procedures but includes the following listed in this critical care notation. Medical Decision Making - Medical Records Medical records reviewed: Yes: I reviewed the patient's medical records. - [place] Inquiry Pt receiving controlled substance: No Vital Signs: 06/25/20 20:23 06/25/20 21:00 06/25/20 22:00 Temperature 98.1 F Temperature Source Oral Pulse Rate [Left Radial] 86 81 77 Respiratory Rate 16 18 Blood Pressure [Right Arm] 153/93 H 156/71 H 192/98 H Blood Pressure Mean [Right Arm] 113 99 129 Blood Pressure Source [Right Arm] Automatic Cuff Automatic Cuff Automatic Cuff Blood Pressure Position [Right Arm] Sitting Supine Supine 02 Sat by Pulse Oximetry 98 98 98 Oxygen Delivery Method Room Air Room Air Room Air 06/26/20 00:00 Temperature Temperature Source Pulse Rate [Left Radial] 83 Respiratory Rate 16 Blood Pressure [Right Arm] 149/70 H Blood Pressure Mean [Right Arm] 96 Blood Pressure Source [Right Arm] Automatic Cuff Blood Pressure Position [Right Arm] Supine 02 Sat by Pulse Oximetry 95 Oxygen Delivery Method Room Air - Lab Data Lab results reviewed: Yes: I reviewed the patient's lab results. Lab Results 06/25/20 20:35: Urine Color Yellow, Urine Appearance Clear, Urine pH 6.0, Ur Specific [place] 1.020, Urine Protein Negative, Urine Glucose (UA) 1+, Urine Ketones Negative, Urine Blood Negative, Urine Nitrate Negative, Urine Bilirubin Negative, Urine Urobilinogen 0.2, Ur Leukocyte Esterase Negative, Urine RBC None, Urine WBC Occasional, Ur Squamous Epith Cells 3-5, Urine Bacteria Trace 06/25/20 20:35: Urine Opiates Screen Negative, Urine Methadone Screen Negative, Ur Barbituates Screen Negative, Ur Phencyclidine Scrn Negative, Ur Amphetamines Screen Negative, U Benzodiazepines Scrn Negative, Urine Cocaine Screen Negative, U Marijuana (THC) Screen Negative 06/25/20 21:21: WBC 9.1, RBC 4.83, Hgb 14.5, Hct 44.5, MCV 92.1, MCH 30.0, MCHC 32.6, RDW 13.0, Plt Count 258, MPV 8.0, Neut % (Auto) 52.0, Lymph % (Auto) 38.8, [place] % (Auto) 4.6, Eos % (Auto) 3.2, Baso % (Auto) 1.3, Neut # (Auto) 4.7, Lymph # (Auto) 3.5, [place] # (Auto) 0.4, Eos # (Auto) 0.3, Baso # (Auto) 0.1, ESR 21 06/25/20 21:21: Sodium 140, Potassium 4.1, Chloride 107, Carbon Dioxide 25, Anion Gap 12.1, BUN 16, Creatinine 1.30 H, Estimated Creat Clear 80, Estimated GFR 43 L, Est GFR ( Amer) 52 L, Glucose 238 H, Calcium 9.6, Total Bilirubin 0.3, AST 30, ALT 21, Alkaline Phosphatase 101, C-Reactive Protein 29.0 H, Total Protein 7.2, Albumin 4.0, Globulin 3.2, Albumin/Globulin Ratio 1.3 Result diagrams: 06/25/20 21:21 06/25/20 21:21 Orders (Tests/Meds): ED MEDICATIONS Generic Name Dose Route Start Last Admin Trade Name Freq PRN Reason Stop Dose Admin Sodium Chloride 1,000 mls @ 999 mls/hr 06/25/20 21:00 06/25/20 21:58 Sod Chlor 0.9% 1000ml Bag IV 06/25/20 22:00 999 mls/hr .Q1H1M FRANCES Administration Discontinued Medications Generic Name Dose Route Start Last Admin Trade Name Freq PRN Reason Stop Dose Admin Meclizine HCl 25 mg 06/25/20 20:47 06/25/20 20:58 Meclizine 25mg Tablet PO 06/25/20 20:48 25 mg ONCE
[2020-06-25 22:23] LABS: Erythrocyte Sedimentation Rate 21 mm/hr (0-30)
--- NOTE | 2020-06-25 22:25 | CT_ITS ---
PROCEDURE: CT HEAD/BRAIN WO CON CLINICAL INDICATION: meier Severe headache with dizziness COMPARISON: CT CT HEAD/BRAIN WO CON from 08/05/2019 TECHNIQUE: Axial images obtained. All CT scans at the facility use one or more dose reduction, viz: automated exposure control, ma/kV adjustment per patient size (including targeted exams where dose is matched to indication, i.e. head), or iterative reconstruction technique. FINDINGS: No midline shift, mass effect, intracranial hemorrhage, hydrocephalus, or extra-axial fluid collection is evident. The calvarium has an unremarkable appearance. No mastoid effusion. No sinus air-fluid level. IMPRESSION: No acute intracranial finding Dictated by: Mata Dominguez MD 06/26/2020 06:01 Mata Dominguez MD in [place] 06/26/2020 06:02
--- NOTE | 2020-06-25 22:33 | CT_ITS ---
Procedure: CT ANGIO NECK CLINICAL HISTORY: dizzyness Dizziness, headache COMPARISON: CT CT ANGIO HEAD from 06/25/2020 TECHNIQUE: IV Contrast: 100ml Isovue 370 Axial images obtained with sagittal and coronal reformats. All CT scans at the facility use one or more dose reduction, viz: automated exposure control, ma/kV adjustment per patient size (including targeted exams where dose is matched to indication, i.e. head), or iterative reconstruction technique. FINDINGS: CTA neck: Unremarkable appearing aortic arch. Right carotid: Mild mixed soft and calcific plaque in the carotid bulb and proximal ICA. Approximately 30 percent stenosis of the proximal right ICA.. There is retropharyngeal course of the right ICA. No high-grade stenosis or dissection Left carotid: Mild mixed fibrocalcific plaque at the carotid bulb/distal common carotid artery with approximately 30 percent stenosis. No high-grade stenosis evident or dissection. There is retropharyngeal course of the left ICA. Vertebrals: The left vertebral is dominant. No high-grade stenosis or dissection.. CTA head: No aneurysm AVM or major intracranial occlusive process evident. The left A1 segment also gives rise to a branch which has a parallel course with the M1 segment on the left. No enhancing lesions. No midline shift or mass effect. IMPRESSION: 1. No significant stenotic lesions evident. 2. Mild atheromatous changes of the ICAs on both sides. 3. No aneurysm AVM or major intracranial occlusive process evident. Dictated by: Mata Dominguez MD 06/26/2020 09:52 Mata Dominguez MD in [place] 06/26/2020 09:52
[2020-06-26] VITALS: BP 149/70; PULSE 83; RESP 16; O2SAT 95
[2020-06-26 01:16] VITALS: BP 148/73; PULSE 81; RESP 16; TEMP 36.6; O2SAT 95
== END 2020-06-26 01:20 | disposition home or self-care (01) ==
PROVIDERS: Emergency Provider Emergency Medicine; PCP Nurse Practitioner Family
DX: G43.909 Migraine, unspecified, not intractable, without status migrainosus (principal); E78.5 Hyperlipidemia, unspecified; I10 Essential (primary) hypertension; F41.8 Other specified anxiety disorders; E03.9 Hypothyroidism, unspecified; J44.9 Chronic obstructive pulmonary disease, unspecified; E11.9 Type 2 diabetes mellitus without complications; Z79.899 Other long term (current) drug therapy
CPT/HCPCS: 70450; 70496; 70498; 80053; 80305; 81001; 85025; 85651; 86140; 93005; 96365; 96375; 99283; J2405; Q9967

== ENCOUNTER 2020-07-11 18:41 | Emergency (ER) | payer MEDICARE, BC, SELFPAY ==
[2020-07-11 18:43] VITALS: BP 167/90; PULSE 81; RESP 16; TEMP 36.6; O2SAT 98; BMI 34.9
--- NOTE | 2020-07-11 18:49 | CT_ITS ---
PROCEDURE: CT HEAD/BRAIN WO CON CLINICAL INDICATION: headache COMPARISON: CT CT HEAD/BRAIN WO CON from 06/19/[address] ANGIO NECK from 06/25/[address] ANGIO HEAD from 06/25/[address] HEAD/BRAIN WO CON from 06/25/2020 TECHNIQUE: Axial images obtained. All CT scans at the facility use one or more dose reduction, viz: automated exposure control, ma/kV adjustment per patient size (including targeted exams where dose is matched to indication, i.e. head), or iterative reconstruction technique. FINDINGS: No midline shift or mass effect is evident. There is a small area of hyperdensity in the temporal lobe on the left image 18 series 2 not readily apparent on the previous exam. Cannot exclude the possibility of a hyperdense thrombus. Correlation with CTA may provide further evaluation. No other significant anomalies are evident. IMPRESSION: Nonspecific small hyperdense focus in the left temporal lobe medially not readily apparent on the previous exam. Cannot exclude hyperdense thrombus. CTA may provide further evaluation. Dictated by: Mata Dominguez MD 07/12/2020 10:01 Mata Dominguez MD in [place] 07/12/2020 10:01
--- NOTE | 2020-07-11 18:51 | HMH.EDGENADL ---
ED Disposition Condition on Discharge: Fair - Critical Care Critical Care Time: No <Bhupinder Young - Last Filed: 07/11/20 20:34> <Vish Shoemaker - Last Filed: 07/11/20 21:20> Clinical Impression: Right sided numbness, Right sided weakness, Obesity (BMI 30-39.9) Headache Qualifiers: Headache type: unspecified Headache chronicity pattern: acute headache Intractability: not intractable Qualified Code(s): R51.9 - Headache, unspecified CVA (cerebral vascular accident) Qualifiers: CVA mechanism: unspecified Qualified Code(s): I63.9 - Cerebral infarction, unspecified Hyperglycemia due to type 2 diabetes mellitus Qualifiers: Diabetes mellitus nursing home 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 The time I documented below is in addition to time spent performing reported procedures but includes the following listed in this critical care notation. Medical Decision Making - [place] Inquiry Pt receiving controlled substance: No - Lab Data Result diagrams: 07/11/20 18:45 07/11/20 18:45 <Bhupinder Young - Last Filed: 07/11/20 20:34> - Medical Records Medical records reviewed: Yes: I reviewed the patient's medical records. - Lab Data Lab results reviewed: Yes: I reviewed the patient's lab results. Result diagrams: 07/11/20 18:45 07/11/20 18:45 - CT Data CT Scan: Head Time Received: 21:[address] Reviewed: Yes: I have viewed the radiologist's interpretation Preliminary Findings: Abnormal (see report ) - Physician Consults Physician Consulted: [facility] Reason -: Transfer to another facilty <Vish Shoemaker - Last Filed: 07/11/20 21:20> Vital Signs: 07/11/20 18:43 07/11/20 19:00 07/11/20 20:00 Temperature 98 F Temperature Source Oral Pulse Rate [Radial] 81 73 70 Respiratory Rate 16 17 15 Blood Pressure [Right Arm] 167/90 H 185/96 H 201/99 H Blood Pressure Mean [Right Arm] 115 125 133 Blood Pressure Source [Right Arm] Automatic Cuff Automatic Cuff Blood Pressure Position [Right Arm] Sitting Supine Supine 02 Sat by Pulse Oximetry 98 95 95 Oxygen Delivery Method Room Air Room Air Room Air 07/11/20 20:30 Temperature Temperature Source Pulse Rate [Radial] 67 Respiratory Rate Blood Pressure [Right Arm] 180/93 H Blood Pressure Mean [Right Arm] 122 Blood Pressure Source [Right Arm] Automatic Cuff Blood Pressure Position [Right Arm] Supine 02 Sat by Pulse Oximetry 96 Oxygen Delivery Method Room Air - Lab Data Lab Results 07/11/20 18:45: WBC 6.5, RBC 4.65, Hgb 14.3, Hct 43.8, MCV 94.3, MCH 30.7, MCHC 32.6, RDW 13.4, Plt Count 236, MPV 8.5, Neut % (Auto) 55.8, Lymph % (Auto) 33.5, [place] % (Auto) 6.0, Eos % (Auto) 3.4, Baso % (Auto) 1.3, Neut # (Auto) 3.6, Lymph # (Auto) 2.2, [place] # (Auto) 0.4, Eos # (Auto) 0.2, Baso # (Auto) 0.1 07/11/20 18:45: Sodium 140, Potassium 4.4, Chloride 109 H, Carbon Dioxide 24, Anion Gap 11.4, BUN 10, Creatinine 1.80 H, Estimated Creat Clear 58, Estimated GFR 29 L, Est GFR ( Amer) 35 L, Glucose 243 H, Calcium 9.2, Total Bilirubin 0.4, AST 32, ALT 22, Alkaline Phosphatase 117, Total Protein 7.4, Albumin 4.2, Globulin 3.2, Albumin/Globulin Ratio 1.3 Orders (Tests/Meds): ORDERS Category Date Time Status CT head/brain wo con Stat Cat Scan 07/11/20 18:49 Taken - ECG Data Tracing #1 EKG interpreted by Bhupinder Young MD: Rhythm: sinus Rate: 66 [place]: normal Ectopy: none Conduction: Incomplete right bundle branch block ST Segment Changes: none T Wave Changes: none Q Waves: none No evidence of acute ischemia or in
[2020-07-11 19:00] VITALS: BP 185/96; PULSE 73; RESP 17; O2SAT 95
[2020-07-11 19:03] LABS: Basophils # 0.1 K/mm3 (0-0.2); Basophils % 1.3 % (0.1-2.0); Chloride 109 mmol/L (98-107); Eosinophils # 0.2 K/mm3 (0.0-0.4); Eosinophils % 3.4 % (0.1-12.0); Hematocrit 43.8 % (37.0-47.0); Hemoglobin 14.3 g/dL (12.2-16.2); Lymphocytes # 2.2 K/mm3 (0.7-4.5); Lymphocytes % 33.5 % (10-50); Mean Corpuscular HGB Conc 32.6 g/dL (31.8-35.4); Mean Corpuscular Hemoglobin 30.7 pg (27.0-31.2); Mean Corpuscular Volume 94.3 fl (81-99); Mean Platelet Volume 8.5 fl (7.4-10.4); Monocytes # 0.4 K/mm3 (0.1-1.0); Neutrophils # 3.6 K/mm3 (1.8-7.8); Neutrophils % 55.8 % (37.0-80.0); Platelet Count 236 K/mm3 (142-424); Potassium 4.4 mmoL/L (3.5-5.1); Red Blood Count 4.65 M/mm3 (4.20-5.40); Red Cell Distribution Width 13.4 % (11.5-17.5); Sodium 140 mmol/L (136-145); White Blood Count 6.5 K/mm3 (4.8-10.8)
[2020-07-11 19:06] LABS: Alanine Aminotransferase 22 U/L (12-78); Albumin Level 4.2 g/dl (3.5-5.0); Albumin/Globulin Ratio 1.3 (1.1-1.8); Alkaline Phosphatase 117 U/L (38-126); Anion Gap 11.4 mEq/L (5-15); Aspartate Amino Transferase 32 U/L (14-36); Bilirubin,Total 0.4 mg/dl (0.2-1.3); Blood Urea Nitrogen 10 mg/dl (7-17); Calcium 9.2 mg/dl (8.4-10.2); Carbon Dioxide 24 mmol/L (22.0-30.0); Creatinine Clearance Estimated 58 mL/min (50-200); Estimated Glomerular Filt Rate 29 ml/min (>60); GFR (African American) 35 ML/MIN (>60); Globulin 3.2 g/dL (1.3-3.2); Glucose 243 mg/dl (74-100); Total Protein,Serum 7.4 g/dl (6.3-8.2)
--- NOTE | 2020-07-11 19:50 | ECG_ITS ---
APPROVED REPORT Exam: Resting ECG HR:66 bpm ECG Measurements Heart Rate 66 AXES MD 142 P 52 QRSd 94 QRS 77 QT 424 T 70 QTc 444 Conclusion Normal sinus rhythm Incomplete right bundle branch block Borderline ECG Electronically signed by : Gabriel Russ, 07/12/2020 17:49:14
[2020-07-11 20:00] VITALS: BP 201/99; PULSE 70; RESP 15; O2SAT 95
[2020-07-11 20:30] VITALS: BP 180/93; PULSE 67; O2SAT 96
--- NOTE | 2020-07-11 20:55 | PC.NURSE ---
spoke to patient. she advised her weakness, dizziness and numbness start at approx 1800 on 07/10/2020 and stayed constant during the whole time.
[2020-07-11 21:30] VITALS: BP 182/90; PULSE 74; RESP 18; O2SAT 99
--- NOTE | 2020-07-11 21:44 | PC.NURSE ---
Navid spoke with [facility] MD's at [id number]. Pt has been accepted to [facility] ED for Stroke team evaluation by
[2020-07-11 21:47] VITALS: BP 182/90; PULSE 75; RESP 17; TEMP 36.8; O2SAT 98
[2020-08-07 13:51] LABS: POC Glucose,Bedside 233 (70-110)
== END 2020-07-11 21:50 | disposition short-term general hospital (02) ==
PROVIDERS: Emergency Provider Emergency Medicine
DX: I63.9 Cerebral infarction, unspecified (principal); R29.703 NIHSS score 3; E11.65 Type 2 diabetes mellitus with hyperglycemia; G43.909 Migraine, unspecified, not intractable, without status migrainosus; E03.9 Hypothyroidism, unspecified; J44.9 Chronic obstructive pulmonary disease, unspecified; E78.5 Hyperlipidemia, unspecified; F41.8 Other specified anxiety disorders; E66.9 Obesity, unspecified; Z68.35 Body mass index [BMI] 35.0-35.9, adult; Z88.0 Allergy status to penicillin; Z79.4 Long term (current) use of insulin
CPT/HCPCS: 70450; 80053; 82962; 85025; 93005; 96374; 99284; J2405

== ENCOUNTER 2020-10-17 06:19 | Observation (INO) | payer MEDICARE, BC, SELFPAY ==
[2020-10-17] VITALS (24 sets, daily range): BP systolic 116–168; BP diastolic 45–90; PULSE 66–88; RESP 13–20; TEMP 36.4–37; O2SAT 90–99; BMI 32.8; BMI 33.0
--- NOTE | 2020-10-17 06:36 | XR_ITS ---
PROCEDURE INFORMATION: Exam: XR Left Hand Exam date and time: 10/17/2020 6:36 AM Age: 55 years old Clinical indication: Injury or trauma; Fall; Puncture; Injury details: PT fell rammed stick in-between 2nd and third digits of left hand swelling and pain, , R/O fb; Additional info: Foreign body TECHNIQUE: Imaging protocol: XR Left hand. Views: 3 or more views. COMPARISON: No relevant prior studies available. FINDINGS: Bones/joints: Normal. Soft tissues: Normal. IMPRESSION: No acute findings.
[2020-10-17 07:04] LABS: Basophils # 0.1 K/mm3 (0-0.2); Eosinophils # 0.2 K/mm3 (0.0-0.4); Eosinophils % 2.3 % (0.1-12.0); Hematocrit 43.9 % (37.0-47.0); Hemoglobin 14.8 g/dL (12.2-16.2); Lymphocytes # 2.1 K/mm3 (0.7-4.5); Lymphocytes % 19.9 % (10-50); Mean Corpuscular HGB Conc 33.7 g/dL (31.8-35.4); Mean Corpuscular Hemoglobin 30.1 pg (27.0-31.2); Mean Corpuscular Volume 89.4 fl (81-99); Mean Platelet Volume 9.3 fl (7.4-10.4); Monocytes # 0.5 K/mm3 (0.1-1.0); Neutrophils # 7.4 K/mm3 (1.8-7.8); Neutrophils % 71.8 % (37.0-80.0); Platelet Count 312 K/mm3 (142-424); Red Blood Count 4.92 M/mm3 (4.20-5.40); Red Cell Distribution Width 12.7 % (11.5-17.5); White Blood Count 10.3 K/mm3 (4.8-10.8)
[2020-10-17 07:12] LABS: Chloride 103 mmol/L (98-107); Sodium 134 mmol/L (136-145)
[2020-10-17 07:14] LABS: Blood Urea Nitrogen 17 mg/dl (7-17); Creatinine Clearance Estimated 106 mL/min (50-200); Estimated Glomerular Filt Rate 65 ml/min (>60); GFR (African American) 79 ML/MIN (>60)
[2020-10-17 07:15] LABS: Alanine Aminotransferase 23 U/L (12-78); Albumin Level 4.5 g/dl (3.5-5.0); Albumin/Globulin Ratio 1.3 (1.1-1.8); Alkaline Phosphatase 139 U/L (38-126); Aspartate Amino Transferase 29 U/L (14-36); Bilirubin,Total 0.5 mg/dl (0.2-1.3); Calcium 9.4 mg/dl (8.4-10.2); Carbon Dioxide 21 mmol/L (22.0-30.0); Globulin 3.4 g/dL (1.3-3.2); Glucose 319 mg/dl (74-100); Total Protein,Serum 7.9 g/dl (6.3-8.2)
[2020-10-17 07:25] LABS: Adenovirus,PCR Not Detected (NotDetected); Bordetella Pertussis Not Detected (NotDetected); Chlamydophila Pneumoniae, PCR Not Detected (NotDetected); Coronavirus 19, PCR Not Detected (NotDetected); Coronavirus 229E Not Detected (NotDetected); Coronavirus NL63 Not Detected (NotDetected); Coronavirus OC43 Not Detected (NotDetected); Coronovirus HKU1,PCR Not Detected (NotDetected); Human Metapneumovirus Not Detected (NotDetected); Influenza A, PCR Not Detected (NotDetected); Influenza AH1, 2009 Not Detected (NotDetected); Influenza AH1, PCR Not Detected (NotDetected); Influenza AH3,PCR Not Detected (NotDetected); Influenza B, PCR Not Detected (NotDetected); Mycoplasma Pneumoniae, PCR Not Detected (NotDetected); Parainfluenza 1, PCR Not Detected (NotDetected); Parainfluenza 2, PCR Not Detected (NotDetected); Parainfluenza 3, PCR Not Detected (NotDetected); Parainfluenza 4, PCR Not Detected (NotDetected); Respiratory Syncytial Virus Not Detected (NotDetected); Rhinovirus/Enterovirus Not Detected (NotDetected)
--- NOTE | 2020-10-17 07:27 | HMH.EDSKAF ---
ED Disposition Clinical Impression: Obesity (BMI 30-39.9) Abscess of skin or subcutaneous tissue Qualifiers: Site of cutaneous abscess: extremity Site of cutaneous abscess of extremity: upper extremity Laterality: left Qualified Code(s): L02.414 - Cutaneous abscess of left upper limb Puncture wound of left hand with complication Qualifiers: Encounter type: initial encounter Qualified Code(s): S61.432A - Puncture wound without foreign body of left hand, initial encounter Diabetes mellitus Qualifiers: Diabetes mellitus type: type 2 Diabetes mellitus custodial insulin use: unspecified custodial insulin use status Diabetes mellitus complication status: with other specified complication Qualified Code(s): E11.69 - Type 2 diabetes mellitus with other specified complication Disposition: Admitted As Inpatient Condition on Discharge: Good Instructions: DI for Skin Abscess Referrals: Timo Villalba APRN [Primary Care Provider] - - Critical Care Critical Care Time: No Attestation: On 10/17/20, the high probability of a clinically significant, sudden or life threatening deterioration of the following system(s) required my full and direct attention, intervention and personal management. The time I documented below is in addition to time spent performing reported procedures but includes the following listed in this critical care notation. Medical Decision Making - Medical Records Medical records reviewed: Yes: I reviewed the patient's medical records. - [place] Inquiry Pt receiving controlled substance: No Vital Signs: 10/17/20 06:29 10/17/20 07:21 10/17/20 07:30 Temperature 98.6 F Temperature Source Oral Pulse Rate 74 81 Pulse Rate [Right Brachial] 88 Respiratory Rate 18 Blood Pressure 141/88 H 155/90 H Blood Pressure [right hand] 162/85 H Blood Pressure Mean [right hand] 110 Blood Pressure Source [right hand] Automatic Cuff Blood Pressure Position [right hand] Sitting 02 Sat by Pulse Oximetry 99 97 97 Oxygen Delivery Method Room Air - Lab Data Lab results reviewed: Yes: I reviewed the patient's lab results. Lab Results 10/17/20 06:40: WBC 10.3, RBC 4.92, Hgb 14.8, Hct 43.9, MCV 89.4, MCH 30.1, MCHC 33.7, RDW 12.7, Plt Count 312, MPV 9.3, Neut % (Auto) 71.8, Lymph % (Auto) 19.9, Fergus % (Auto) 5.0, Eos % (Auto) 2.3, Baso % (Auto) 1.0, Neut # (Auto) 7.4, Lymph # (Auto) 2.1, Fergus # (Auto) 0.5, Eos # (Auto) 0.2, Baso # (Auto) 0.1, ESR 88 H 10/17/20 06:40: C-Reactive Protein 32.6 H, Procalcitonin 0.070 10/17/20 06:40: Sodium 134 L, Potassium 4.0, Chloride 103, Carbon Dioxide 21 L, Anion Gap 14.0, BUN 17, Creatinine 0.90, Estimated Creat Clear 106, Estimated GFR 65, Est GFR ( Amer) 79, Glucose 319 H, Calcium 9.4, Total Bilirubin 0.5, AST 29, ALT 23, Alkaline Phosphatase 139 H, Total Protein 7.9, Albumin 4.5, Globulin 3.4 H, Albumin/Globulin Ratio 1.3 Result diagrams: 10/17/20 06:40 10/17/20 06:40 Orders (Tests/Meds): ED MEDICATIONS Discontinued Medications Generic Name Dose Route Start Last Admin Trade Name Freq PRN Reason Stop Dose Admin Sodium Chloride 1,000 mls @ 999 mls/hr 10/17/20 06:45 10/17/20 06:46 Sod Chlor 0.9% 1000ml Bag IV 10/17/20 07:45 999 mls/hr .Q1H1M FRANCES Administration Morphine Sulfate 4 mg 10/17/20 06:36 10/17/20 06:44 Morphine 4mg/Ml Syringe IV 10/17/20 06:37 4 mg ONCE ONE Administration Ondansetron HCl 4 mg 10/17/20 06:36 10/17/20 06:43 Ondansetron 4mg/2ml Vial IV 10/17/20 06:37 4 mg ONCE ONE Administration Tetanus/Diphtheria Toxoids 0.5 ml 10/17/20 06:36 10/17/20 06:44 Tetanus-Diphth Toxoid, Adult 0.5ml Syr IM 10/17/20 06:37 0.5 ml .ONCE ONE Administration ORDERS Category Date Time Status Full Resp Panel w/COVID ([facility]) Routine Lab 10/17/20 07:20 Received - Radiology Data #1 Image(s): Hand Image Reviewed: Yes I reviewed the patient's radiology image Preliminary Findings: No Fracture Seen
[2020-10-17 07:41] LABS: C-Reactive Protein 32.6 mg/L (0-4)
--- NOTE | 2020-10-17 07:43 | PC.NURSE ---
Dr Shoemaker spoke with Dr Waddell, He will be on his way to see pt in ED
--- NOTE | 2020-10-17 08:03 | PC.NURSE ---
Dr Waddell in ED at this time.
[2020-10-17 08:07] LABS: Erythrocyte Sedimentation Rate 88 mm/hr (0-30)
--- NOTE | 2020-10-17 09:30 | PC.NURSE ---
Spoke with Taylor in surgery about what consent procedure needed to be wrote as, nurse states that she is unsure at this time. Leave consent undone and they will do it once they speak upstairs when they bring the pt to surgery
--- NOTE | 2020-10-17 09:47 | HMH.HP ---
*Admission Date: 10/17/20 *Chief complaint: cellulitits *History of present illness: 55-yr-old female who developed pain and swelling of the left hand following an injury in the second web space yesterday evening. Patient says she fell down chasing a horse in the field and a piece of wood got stuck between her second and third fingers. Patient states she pulled the stick out and was cleaning it with peroxide every hour. She presented to the ER this morning with increasing pain, swelling and redness of her hand. Patient admitted for left hand injury to web space with surrounding cellulites. Consulted ortho and plans are to have area cleaned in OR this am. [facility] History I have reviewed the patient's past medical history: Yes Medical History: Reports:: Anxiety, Asthma, Chronic Obstructive Pulmonary Disease (COPD), Depression, Diabetes Mellitus Type 2, Hyperlipidemia, Hypertension, Migraine, Valvular Heart Disease Denies:: Cancer, Diabetes Mellitus Type 1, Internal Pacemaker, MRSA, Seizures *Have you ever received a pneumonia vaccine?: Yes *Have you received a flu vaccine this season?: Yes Other Medical History: Reports: Arthritis, Hypothyroidism, Sinus Problems, Thyroid Disease Laterality Cases: Right: ACL Repair, Arthroscopy Knee, Other, Bilateral: Tonsillectomy Other Surgeries: Yes: Colonoscopy, Colon Resection, Hysterectomy-Total, Other. No: Pacemaker Amputation: No Fractures: Yes - *Social History Smoking Status: Never smoker # Packs/Day (cigarettes): 1 Alcohol Intake: never Alcohol Intake Frequency:: other Substance Use Type: denies use *Occupational Status:: employed Housing: house Household Members: spouse *Travel in the last 8 weeks: None - Psychiatric History Pschychiatric History:: Reports:: Anxiety, Depression Family Hx:: Asthma, Cancer, Coronary Artery Disease, Diabetes, Heart Attack, Hyperlipidemia, Hypertension, Stroke, Thyroid Disorder, Substance abuse, Alcoholism, Mental illness Review of Systems - Review of Systems Review of systems:: pertinent systems reviewed and negative unless documented below - Constitutional Denies body ache(s), Denies fatigue - Eyes Denies change in vision - ENT Denies dental pain, Denies nasal congestion - *Cardiovascular Denies chest pain at rest - *Respiratory Denies chest congestion - *Gastrointestinal Denies abdominal pain, Denies loose stools - *Genitourinary Denies abnormal vaginal bleeding - *Musculoskeletal Denies abnormal walking - Integumentary/Breasts Reports redness, Reports wounds, Reports other - *Neurologic Denies localized weakness, Denies headache(s) - Psychiatric Denies memory loss - Endocrine Denies excessive sweating - Hematologic/Lymphatic Denies easy bruising Meds Home Medications Medication Instructions Recorded Confirmed Type olanzapine 10 mg tablet 10 mg PO HS 03/07/19 10/17/20 History Albuterol Sulfate [Albuterol 3 ml IH QID PRN 01/25/20 10/17/20 History 0.083% 2.5mg/3mL neb] Cyclobenzaprine HCl 10 mg PO TIDP PRN 01/25/20 10/17/20 History [Cyclobenzaprine 10mg Tab*] SUMAtriptan succinate [Imitrex] 100 mg PO DAILYP PRN 01/25/20 10/17/20 History hydrOXYzine pamoate [Hydroxyzine 50 mg PO TIDP PRN 01/25/20 10/17/20 History Pamoate] Sucralfate [Carafate 1gm/10mL 1 gm PO ACHS 01/26/20 10/17/20 History Susp] atorvastatin 80 mg tablet 80 mg PO DAILY #90 tab 07/24/20 10/17/20 Rx insulin human U-100 NPH-regulr 5 unit SQ BID #3 ml 07/24/20 10/17/20 Rx 70-30 mix 100 unit/mL subcutaneous susp pantoprazole 40 mg tablet,delayed 40 mg PO BID #180 tab 07/24/20 10/17/20 Rx release levothyroxine 50 mcg capsule 50 mcg PO DAILY #30 cap 08/23/20 10/17/20 Rx Insulin Detemir [Levemir See Rx Instructions .ROUTE .COMPLEX 10/17/20 10/17/20 History 100units/mL 3mL flexpen] lisinopriL [Lisinopril] See Rx Instructions .ROUTE .COMPLEX 10/17/20 10/17/20 History predniSONE [Deltasone 10mg tablet] 10 mg PO BID 10/17/20
--- NOTE | 2020-10-17 10:16 | HMH.ORTHOCON ---
*Admission Date: 10/17/20 *Reason for consult:: Puncture wound, left hand *History of present illness: Patient is a 55-year-old female who developed pain and swelling of the left hand following an injury in the second webspace yesterday evening. She is a known diabetic. She says she fell down chasing a horse in the form and a piece of wood got stuck between her second and third fingers. Patient states she pulled the stick out and was cleaning it with peroxide every hour. She presented to the ER this morning with increasing pain, swelling and redness of her hand. She reports pain with any attempted finger movements. She reports no prior problems with the hand. No history of any distal tingling or numbness. No history of any fevers, chills or rigors. She is a known type II diabetic. [facility] History I have reviewed the patient's past medical history: Yes Medical History: Reports:: Anxiety, Asthma, Chronic Obstructive Pulmonary Disease (COPD), Depression, Diabetes Mellitus Type 2, Hyperlipidemia, Hypertension, Migraine, Valvular Heart Disease Denies:: Cancer, Diabetes Mellitus Type 1, Internal Pacemaker, MRSA, Seizures *Have you ever received a pneumonia vaccine?: Yes *Have you received a flu vaccine this season?: Yes Other Medical History: Reports: Arthritis, Hypothyroidism, Sinus Problems, Thyroid Disease Laterality Cases: Right: ACL Repair, Arthroscopy Knee, Other, Bilateral: Tonsillectomy Other Surgeries: Yes: Colonoscopy, Colon Resection, Hysterectomy-Total, Other. No: Pacemaker Amputation: No Fractures: Yes - *Social History Smoking Status: Never smoker # Packs/Day (cigarettes): 1 Alcohol Intake: never Alcohol Intake Frequency:: other Substance Use Type: denies use *Occupational Status:: employed Housing: house Household Members: spouse *Travel in the last 8 weeks: None - Psychiatric History Pschychiatric History:: Reports:: Anxiety, Depression Family Hx:: Asthma, Cancer, Coronary Artery Disease, Diabetes, Heart Attack, Hyperlipidemia, Hypertension, Stroke, Thyroid Disorder, Substance abuse, Alcoholism, Mental illness Review of Systems - Review of Systems Review of systems:: pertinent systems reviewed and negative unless documented below - *Neurologic Denies localized weakness, Denies headache(s) Meds Home Medications Medication Instructions Recorded Confirmed Type Insulin Detemir [Levemir 23 units SQ HS 10/17/20 07/30/21 History 100units/mL 3mL flexpen] Ondansetron [Zofran 4mg ODT] 4 mg PO BIDP PRN 6 Days #12 tab 01/05/21 07/30/21 Rx aspirin 81 mg tablet,delayed 81 mg PO DAILY 04/01/21 07/30/21 History release rimegepant 75 mg disintegrating 75 mg PO ONCE PRN #8 tab 05/15/21 07/30/21 Rx tablet fremanezumab-vfrm 225 mg/1.5 mL 225 mg SQ QMONTH #1.5 ml 05/26/21 07/30/21 Rx subcutaneous auto-injector insulin human U-100 NPH-regulr 10 unit SQ BID ml 07/03/21 07/30/21 History 70-30 mix 100 unit/mL subcutaneous susp Fluticasone Propionate 1 spray NOSTRIL-B DAILY 07/04/21 07/30/21 History Gabapentin 300 mg PO TID 07/04/21 07/30/21 History Levothyroxine Sodium [Synthroid 50 mcg PO DAILYDM 07/04/21 07/30/21 History 50mcg (0.05mg) tab] Propranolol HCl 80 mg PO BID 07/04/21 07/30/21 History Sucralfate [Carafate 1gm Tab] 1 gm PO ACHS 07/04/21 07/30/21 History lisinopriL [Lisinopril] 20 mg PO DAILY 07/04/21 07/30/21 History Albuterol Sulfate [Albuterol 2 puff IH QIDP PRN 07/05/21 07/30/21 History Sulfate Hfa] Loratadine [Allergy Relief] 10 mg PO DAILYP PRN 07/05/21 07/30/21 History Pantoprazole Sodium 40 mg PO BID 07/05/21 07/30/21 History Duloxetine HCl [Cymbalta] See Rx Instructions .ROUTE .COMPLEX 07/18/21 07/30/21 History Isosorbide Mononitrate [Imdur 30mg 30 mg PO DAILY #10 tab 07/18/21 07/30/21 Rx ER tablet] amlodipine 5 mg tablet 5 mg PO DAILY #30 tab 07/21/21 07/30/21 Rx cyclobenzaprine 10 mg tablet 10 mg PO TID PRN #60 tab 07/30/21 07/30/21 Rx prednisone 20 mg tablet 20 mg PO BID 5
--- NOTE | 2020-10-17 10:36 | SUR.PREOP ---
1030 R DANIELA BIN WORKER ORDERED 5U REG INSULIN IV NOW. REGULAR INSULIN 5U IV GIVEN PER ORDER, WITH SECOND NURSE VERIFICATION PER D. HETAL GARZA. UNABLE TO DOCUMENT IN MAR AT THIS TIME.
--- NOTE | 2020-10-17 10:56 | SUR.PREOP ---
1052-[facility] 195
[2020-10-17 11:03] LABS: POC Glucose,Bedside 195 (70-110)
--- NOTE | 2020-10-17 11:24 | HMH.ANESCL ---
[facility] Anesthesia Checklist - Patient Identification Patient Identification: Arm Band - Structural Data Admitted From: Home Planned Operative Procedure/s: Exploration and debridement L hand Consent for Planned Operative Procedure(s) Verified: Yes - NPO Status Verified Time NPO: 00:00 - Additional verifications Anesthesia Reactions: No - Airway Assessment C-Spine Mobility Assessed: Yes TMJ Mobility Assessed: Yes Dentition: Edentulous - Neurological Assessment Level of Consciousness: Awake Hx Seizures: No Numbness or tingling in extremities: No - Anesthesia Plan Anesthesia Risk discussed: Yes Anesthesia Plan: Verified ASA Class: III Anesthesia Type: General [facility] History I have reviewed the patient's past medical history: Yes Medical History: Reports:: Anxiety, Asthma, Chronic Obstructive Pulmonary Disease (COPD), Depression, Diabetes Mellitus Type 2, Hyperlipidemia, Hypertension, Migraine, Valvular Heart Disease Denies:: Cancer, Diabetes Mellitus Type 1, Internal Pacemaker, MRSA, Seizures *Have you ever received a pneumonia vaccine?: Yes *Have you received a flu vaccine this season?: Yes Other Medical History: Reports: Arthritis, Hypothyroidism, Sinus Problems, Thyroid Disease Anesthesia experience/problems:: None Laterality Cases: Right: ACL Repair, Arthroscopy Knee, Other, Bilateral: Tonsillectomy Other Surgeries: Yes: Colonoscopy, Colon Resection, Hysterectomy-Total, Other. No: Pacemaker Amputation: No Fractures: Yes - *Social History Smoking Status: Never smoker # Packs/Day (cigarettes): 1 Alcohol Intake: never Alcohol Intake Frequency:: other Substance Use Type: denies use *Occupational Status:: employed Housing: house Household Members: spouse *Travel in the last 8 weeks: None - Psychiatric History Pschychiatric History:: Reports:: Anxiety, Depression Family Hx:: Asthma, Cancer, Coronary Artery Disease, Diabetes, Heart Attack, Hyperlipidemia, Hypertension, Stroke, Thyroid Disorder, Substance abuse, Alcoholism, Mental illness
--- NOTE | 2020-10-17 11:57 | HMH.ANESI ---
[facility] Anesthesia Record Part I Intake, IV Amount: 1,000 Estimated blood loss (mL): 2 Urine output (mL): 0 Blood Pressure: 116/73 SaO2: 94 Pulse Rate: 84 Respiratory Rate: 13 Temperature: 97.7 F Patient is:: Drowsy Stable to PACU at:: 11:54
[2020-10-17 12:06] LABS: POC Glucose,Bedside 131 (70-110)
--- NOTE | 2020-10-17 15:00 | HMH.OPNOTE ---
Date of procedure: 10/17/20 Pre-op Diagnosis:: 1. Puncture wound, left hand 2. Cellulitis, left hand Post-op Diagnosis:: Same Procedure performed:: Wound exploration, debridement and washout, left hand Surgeon:: Jonatan Waddell MD SUSTAINABLE DESIGN COORDINATOR:: Other (Daniel Hernandez) Anesthesia: LMA Estimated blood loss (mL): 2 Clinical Note:: Patient is a 55-year-old female who developed pain and swelling of the left hand following an injury in the second webspace yesterday evening. She is a known diabetic. She says she fell down chasing a horse in the form and a piece of wood got stuck between her second and third fingers. She presented to the ER this morning with increasing pain, swelling and redness of her hand. Evaluation confirmed an infected puncture wound in the second webspace of the left hand with surrounding cellulitis. X-rays of her hand showed some soft tissue swelling without any bony involvement. No soft tissue gas and no radiopaque foreign body was visualized. She was admitted for management of the same including IV antibiotics and wound exploration and debridement. Please refer to my consult note for full details. Operative findings:: A small puncture wound over the second webspace measuring about 0.5 cm in size. There is a small amount of purulent material with surrounding soft tissue inflammation. The wound was extended, debrided and thoroughly irrigated with normal saline with bacitracin. No foreign body material or abscess cavity was noted. No obvious tendon, bone or joint involvement was noted. There was cellulitis over the dorsum of the hand extending onto the second and third MCP joints. Operative note:: Prior to the procedure the patient was met in the preoperative area and positively identified. I have again discussed the diagnosis, natural history and management options in detail including both nonsurgical and surgical. Following admission to the hospital this morning, she was started on IV antibiotics. The procedure of wound exploration, debridement and washout under anesthesia was discussed with the patient. The complications discussed including but are not limited to- infection, bleeding, injury to nerves, blood vessels, tendons, failure to eradicate the infection, incomplete recovery, persistent pain, CRPS, DVT/PE, likely need for further surgery and anesthetic complications including stroke, heart attack and even . Patient wished to proceed with the surgical intervention. All her questions were answered and she verbalized a good understanding. The limb was appropriately marked. Consent form was reviewed and signed. Patient was brought to the operating room and placed supine on the operating table. The left upper extremity was placed over a hand table. All the bony prominences were appropriately padded. A general anesthesia was administered by the vascular physician. A well-padded tourniquet cuff was placed over the left upper arm. The left upper extremity was prepped and draped in usual sterile fashion. A preprocedure timeout was performed as per protocol. The limb was elevated but not exsanguinated and tourniquet inflated to 250 mmHg. Please see nursing notes for tourniquet time. There is A small puncture wound over the second webspace measuring about 0.5 cm in size. There is a small amount of purulent material with surrounding soft tissue inflammation. The wound was extended upon down the webspace by about half a centimeter in either direction. Aerobic anaerobic culture swabs were obtained for microbiology. After taking the swabs, the cavity was carefully explored for any foreign bodies and none were found. No evidence of any obvious tendon, nerve, vascular bone or joint injury was noted. The small amount of purulent necrotic material was debrided and the cavity was thoroughly irrigated with copious amounts of normal saline with bacitracin. The tourniquet was released and hemostasis was confirmed. The incision was partially closed wit
[2020-10-17 15:39] LABS: Hemoglobin A1C 9.3 % (4.0-6.0)
[2020-10-17 17:38] LABS: POC Glucose,Bedside 337 (70-110)
--- NOTE | 2020-10-17 18:33 | PC.NURSE ---
Pt has been pleasant since being up to the floor. Pt has c/o lt hand pain x1 and nausea x1. Pt was medicated for both per MAR. Pt is able to wiggle fingers and has had no c/o numbness. Left hand remains elevated in bed w/ one pillow. No other acute changes or complaints at this time. Will continue to monitor.
[2020-10-17 21:23] LABS: POC Glucose,Bedside 291 (70-110)
[2020-10-18] VITALS (7 sets, daily range): BP systolic 120–170; BP diastolic 58–82; PULSE 59–80; RESP 16–18; TEMP 36.4–37.3; O2SAT 94–97; BMI 33.1
--- NOTE | 2020-10-18 05:26 | PC.NURSE ---
Patient is pleasant and oriented times four. Patient admitted for Puncture injury to the RUE hand and was taken for I/D 10/17/20. Patient has excellent movement and blood return in Right Hand. Patient required pain medicine times 3 this shift. Patient has fluid running at 100 ml/hr and has had good output. Patient BS required coverage. Will continue to monitor for any acute changes.
[2020-10-18 06:09] LABS: POC Glucose,Bedside 189 (70-110)
--- NOTE | 2020-10-18 07:13 | HMH.ANESII ---
[facility] Anesthesia Record Part II Discharge Time: 12:21 Destination: Medical Surgical Department PACU nurse assessment reviewed?: Yes Patient Condition:: Good Anesthesia Complications:: None Swallowing reflex intact?: Yes Cyanosis?: No Blood Pressure: 139/78 Pulse Rate: 79 Temperature: 97.7 F Mental Status: Alert & Oriented Pain level:: 0 Nausea and/or vomitting:: None Intake, IV Amount: 0
[2020-10-18 07:41] LABS: Chloride 105 mmol/L (98-107); Potassium 4.2 mmoL/L (3.5-5.1); Sodium 137 mmol/L (136-145)
[2020-10-18 07:44] LABS: Anion Gap 14.2 mEq/L (5-15); Blood Urea Nitrogen 13 mg/dl (7-17); Carbon Dioxide 22 mmol/L (22.0-30.0); Creatinine Clearance Estimated 111 mL/min (50-200); Estimated Glomerular Filt Rate 65 ml/min (>60); GFR (African American) 79 ML/MIN (>60)
--- NOTE | 2020-10-18 07:44 | P.CONPHA_ITS ---
[facility] Pharmacy VTE Monitoring - Patient Demographics Admission date: 10/18/20 Report Date: 10/18/20 Time: 07:44 Allergies/Adverse Reactions: Patient Allergies epinephrine Allergy (Severe, Verified 07/24/20 16:47) Anaphylaxis penicillin G Allergy (Severe, Verified 07/24/20 16:47) Anaphylaxis ketorolac [From Toradol] Allergy (Mild, Verified 07/24/20 16:47) Hives Height: 1.73 m Weight: 99.11 kg Patient Problems: Current Active Problems Abscess of skin or subcutaneous tissue (Acute) Puncture wound of left hand with complication (Acute) Puncture wound of hand, left (Acute) Cellulitis of hand, left (Acute) Obesity (BMI 30-39.9) (Acute) Diabetes mellitus (Chronic) - VTE Risk Labs: VTE Related Lab Results Hgb 14.8 g/dL (12.2-16.2) 10/17/20 06:40 Hct 43.9 % (37.0-47.0) 10/17/20 06:40 Plt Count 312 K/mm3 (142-424) 10/17/20 06:40 BUN 17 mg/dl (7-17) 10/17/20 06:40 Creatinine 0.90 mg/dl (0.52-1.04) 10/17/20 06:40 Estimated Creat Clear 106 mL/min (50-200) 10/17/20 06:40 Clinical Trial Participant: No - Prophylaxis VTE Prophylaxis Ordered?: Yes Types of VTE Prophylaxis: TEDS Knee High
[2020-10-18 07:45] LABS: Calcium 9.2 mg/dl (8.4-10.2); Glucose 178 mg/dl (74-100)
[2020-10-18 08:05] LABS: Basophils # 0.1 K/mm3 (0-0.2); Basophils % 0.4 % (0.1-2.0); Eosinophils % 0.2 % (0.1-12.0); Hematocrit 32.9 % (37.0-47.0); Hemoglobin 14.1 g/dL (12.2-16.2); Lymphocytes % 17.8 % (10-50); Mean Corpuscular Hemoglobin 37.9 pg (27.0-31.2); Mean Corpuscular Volume 88.3 fl (81-99); Mean Platelet Volume 9.1 fl (7.4-10.4); Monocytes # 0.4 K/mm3 (0.1-1.0); Neutrophils # 8.6 K/mm3 (1.8-7.8); Neutrophils % 77.6 % (37.0-80.0); Platelet Count 254 K/mm3 (142-424); Red Blood Count 3.73 M/mm3 (4.20-5.40); Red Cell Distribution Width 12.6 % (11.5-17.5); White Blood Count 11.1 K/mm3 (4.8-10.8)
[2020-10-18 08:07] LABS: Mean Corpuscular HGB Conc 42.9 g/dL (31.8-35.4)
--- NOTE | 2020-10-18 11:15 | SW/DCPLANNER ---
SET UP HOME HEALTH SERVICES ON THIS PATIENT TO DISCHARGE HOME ON WED AND BE SEEN ON WEDNESDAY FOR DSG CHANGES.... PATIENT CHOSE PERSONAL TOUCH OUT OF [facility] TO PROVIDE THESE SERVICES.... WILL LET HER NURSE KNOW THIS HAS BEEN SET UP...
--- NOTE | 2020-10-18 11:56 | HMH.ACPN2 ---
Internal Medicine - PN: Subj *Date: 10/18/20 *Time: 13:20 Interval history: 55-year-old female patient lying in bed resting quietly with eyes closed, awakens to verbal stimuli. She reports pain in her hand is at a tolerable level, dressing to the left hand clean dry and intact. She denies any needs or concerns at the moment. Following along with Ortho Exam Vital signs and Labs for Last 24 Hours: Temp Pulse Resp BP Pulse Ox 99.1 F 80 18 170/82 H 97 10/18/20 11:04 10/18/20 11:04 10/18/20 11:04 10/18/20 11:04 10/18/20 11:04 Laboratory Results - last 24 hr 10/17/20 06:40: Hemoglobin A1c 9.3 H 10/17/20 11:59: POC Glucose 131 H 10/17/20 17:19: POC Glucose 337 H* 10/17/20 21:12: POC Glucose 291 H 10/18/20 05:48: POC Glucose 189 H 10/18/20 07:13: WBC 11.1 H, RBC 3.73 L, Hgb 14.1, Hct 32.9 L, MCV 88.3, MCH 37.9 H D, MCHC 42.9 H* D, RDW 12.6, Plt Count 254, MPV 9.1, Neut % (Auto) 77.6, Lymph % (Auto) 17.8, [place] % (Auto) 4.0, Eos % (Auto) 0.2, Baso % (Auto) 0.4, Neut # (Auto) 8.6 H, Lymph # (Auto) 2.0, [place] # (Auto) 0.4, Eos # (Auto) 0.0, Baso # (Auto) 0.1 10/18/20 07:13: Sodium 137, Potassium 4.2, Chloride 105, Carbon Dioxide 22, Anion Gap 14.2, BUN 13, Creatinine 0.90, Estimated Creat Clear 111, Estimated GFR 65, Est GFR ( Amer) 79, Glucose 178 H, Calcium 9.2 I & O for Last 24 hours: Intake & Output 10/15/20 10/16/20 10/17/20 10/18/20 23:59 23:59 23:59 23:59 Intake Total 1480 / 1480 1963 Balance 1480 / 1480 1963 Weight 217 lb 3 oz 218 lb 8 oz Microbiology Reports for the Last 24 Hours: Microbiology 10/17/20 11:15 Hand,Left Gram Stain - Final - Constitutional no acute distress - *Routine HEENT Exam Head: Present: normocephalic Eye: Present: EOMI ENT: Present: mucous membranes moist - *Routine Neck Exam Present: trachea midline. Absent: tracheal deviation - *Routine Respiratory Exam Present: CTA bilaterally. Absent: accessory muscle use - *Routine Cardiovascular Exam Present: RRR - *Routine Abdominal Exam Present: soft, normoactive bowel sounds. Absent: tenderness, guarding - *Routine Extremities Exam Present: edema, pulses intact. Absent: cyanosis, clubbing, full ROM, calf tenderness Comments: L Hand edematous Drsg C/D/I L Hand - *Routine Skin Exam Present: dry, warm, wounds. Absent: intact, cyanosis, erythema - *Routine Neurological Exam Present: alert, oriented X3. Absent: motor deficit, pronator drift - Routine Psychiatric Exam Present: normal affect, normal thought process. Absent: auditory hallucinations, visual hallucinations Assessment and Plan (1) Abscess of skin or subcutaneous tissue Status: Acute Qualifiers: Site of cutaneous abscess: extremity Site of cutaneous abscess of extremity: upper extremity Laterality: left Qualified Code(s): L02.414 - Cutaneous abscess of left upper limb Category: Medical Code(s): L02.91 - Cutaneous abscess, unspecified (2) Cellulitis of hand, left Status: Acute Category: Medical Code(s): L03.114 - Cellulitis of left upper limb (3) Puncture wound of hand, left Status: Acute Category: Medical Code(s): S61.432A - Puncture wound without foreign body of left hand, initial encounter - Assessment and plan all Dx Assessment and Plan for all problems:: Rounded with Dr. Shoemaker, all orders per Dr. Shoemaker: 1. Continue current medical regimen
--- NOTE | 2020-10-18 15:44 | PC.NURSE ---
SHE IS AOX4, ABLE TO MAKE NEEDS KNOWN TO STAFF, SHE HAS RESTED IN BED FOR MOST OF SHIFT BUT DOES AMBULATE TO THE RESTROOM INDEPENDENTLY. SHE HAS DENIED N/V/D AND HAS TOLERATED DIET WELL, SHE HAS BEEN TREATED WITH PRN PAIN MEDICATIONS PER MAR WITH GOOD EFFECTIVENESS, SHE HAS NOT REQUIRED O2 SUPPORT THIS SHIFT, NO NEEDS AT THIS TIME,
--- NOTE | 2020-10-18 16:25 | P.PN_ITS ---
Subjective Date: 10/18/20 Time: 13:00 Principal diagnosis: 1. Puncture wound, left hand 2. Cellulitis, left hand Interval history: Patient is status post wound exploration, debridement and irrigation, left hand, post op day # one. She says she is doing well and her pain is well controlled with medication. She is eating and drinking well. She says she is able to move her fingers better and reports no distal tingling or numbness. No history of any fevers, chills or rigors. PN: Obj Ex Vital signs: Temp Pulse Resp BP Pulse Ox 98.9 F 70 18 138/70 96 10/18/20 15:03 10/18/20 15:03 10/18/20 15:03 10/18/20 15:03 10/18/20 15:03 Narrative: Laboratory Results - last 24 hr 10/17/20 17:19: POC Glucose 337 H* 10/17/20 21:12: POC Glucose 291 H 10/18/20 05:48: POC Glucose 189 H 10/18/20 07:13: WBC 11.1 H, RBC 3.73 L, Hgb 14.1, Hct 32.9 L, MCV 88.3, MCH 37.9 H D, MCHC 42.9 H* D, RDW 12.6, Plt Count 254, MPV 9.1, Neut % (Auto) 77.6, Lymph % (Auto) 17.8, [place] % (Auto) 4.0, Eos % (Auto) 0.2, Baso % (Auto) 0.4, Neut # (Auto) 8.6 H, Lymph # (Auto) 2.0, [place] # (Auto) 0.4, Eos # (Auto) 0.0, Baso # (Auto) 0.1 10/18/20 07:13: Sodium 137, Potassium 4.2, Chloride 105, Carbon Dioxide 22, Anion Gap 14.2, BUN 13, Creatinine 0.90, Estimated Creat Clear 111, Estimated GFR 65, Est GFR ( Amer) 79, Glucose 178 H, Calcium 9.2 Exam: General appearance: Age-appropriate female, alert and active Cardiovascular: regular rate & rhythm Respiratory: Speaks in full sentences; no respiratory distress Abdomen: soft, non-tender, non-distended, normal bowel sounds. Extremities: The left hand is in surgical dressings. The dressings are clean and dry and intact. Her finger swelling has improved compared to yesterday. She has fairly good range of finger movements. Distal neurovascular status is intact. I have changed the dressings today and remove the iodoform pack from the wound. The cavity looks clean and healthy. The erythema over the dorsal hand has improved significantly. Progress Note: A&P (1) Abscess of skin or subcutaneous tissue Status: Acute (2) Cellulitis of hand, left Status: Acute (3) Puncture wound of hand, left Status: Acute Assessment and Plan for All Diagnoses:: I have reviewed the findings and progress with the patient. She is doing well and reports gradual improvement. I have advised her to continue elevation and mobilization of the wrist and fingers. From an orthopedic standpoint, patient can be discharged with appropriate oral antibiotics tomorrow. Wound culture results are likely to be available tomorrow. She will follow-up with in the office in 3-4 days time. Continue medical management as per Dr. Shoemaker.
[2020-10-18 18:20] LABS: POC Glucose,Bedside 206 (70-110)
[2020-10-18 18:20] LABS: POC Glucose,Bedside 222 (70-110)
[2020-10-18 19:52] LABS: POC Glucose,Bedside 213 (70-110)
[2020-10-19 03:28] VITALS: BP 141/63; PULSE 67; RESP 16; TEMP 36.7; O2SAT 93
--- NOTE | 2020-10-19 03:28 | PC.NURSE ---
Patient is oriented times 4. Patient only required pain medication times 1. Patient administered Abx times 2. Patient rested comfortably for most of the shift. Blood Glucose 213 and was covered 6 units s/s insulin. Will continue to monitor for any acute changes.
[2020-10-19 04:58] VITALS: BMI 33.3
[2020-10-19 06:13] VITALS: RESP 17
[2020-10-19 07:37] VITALS: BP 155/83; PULSE 71; RESP 16; TEMP 36.8; O2SAT 96
--- NOTE | 2020-10-19 09:02 | HMH.DCSUM ---
General - General Admission date:: 10/17/20 Discharge date: 10/19/20 HPI HPI: 55-yr-old female who developed pain and swelling of the left hand following an injury in the second web space yesterday evening. Patient says she fell down chasing a horse in the field and a piece of wood got stuck between her second and third fingers. Patient states she pulled the stick out and was cleaning it with peroxide every hour. She presented to the ER this morning with increasing pain, swelling and redness of her hand. Patient admitted for left hand injury to web space with surrounding cellulites. Consulted ortho and plans are to have area cleaned in OR this am. Hospital Course Hospital Course: this patient with acute lt hand injury and was seen by ortho and had surg -linical Note:: Patient is a 55-year-old female who developed pain and swelling of the left hand following an injury in the second webspace yesterday evening. She is a known diabetic. She says she fell down chasing a horse in the form and a piece of wood got stuck between her second and third fingers. She presented to the ER this morning with increasing pain, swelling and redness of her hand. Evaluation confirmed an infected puncture wound in the second webspace of the left hand with surrounding cellulitis. X-rays of her hand showed some soft tissue swelling without any bony involvement. No soft tissue gas and no radiopaque foreign body was visualized. She was admitted for management of the same including IV antibiotics and wound exploration and debridement. Please refer to my consult note for full details. Operative findings:: A small puncture wound over the second webspace measuring about 0.5 cm in size. There is a small amount of purulent material with surrounding soft tissue inflammation. The wound was extended, debrided and thoroughly irrigated with normal saline with bacitracin. No foreign body material or abscess cavity was noted. No obvious tendon, bone or joint involvement was noted. There was cellulitis over the dorsum of the hand extending onto the second and third MCP joints. Operative note:: Prior to the procedure the patient was met in the preoperative area and positively identified. I have again discussed the diagnosis, natural history and management options in detail including both nonsurgical and surgical. Following admission to the hospital this morning, she was started on IV antibiotics. The procedure of wound exploration, debridement and washout under anesthesia was discussed with the patient. The complications discussed including but are not limited to- infection, bleeding, injury to nerves, blood vessels, tendons, failure to eradicate the infection, incomplete recovery, persistent pain, CRPS, DVT/PE, likely need for further surgery and anesthetic complications including stroke, heart attack and even . Patient wished to proceed with the surgical intervention. All her questions were answered and she verbalized a good understanding. The limb was appropriately marked. Consent form was reviewed and signed. Patient was brought to the operating room and placed supine on the operating table. The left upper extremity was placed over a hand table. All the bony prominences were appropriately padded. A general anesthesia was administered by the engineering professor. A well-padded tourniquet cuff was placed over the left upper arm. The left upper extremity was prepped and draped in usual sterile fashion. A preprocedure timeout was performed as per protocol. The limb was elevated but not exsanguinated and tourniquet inflated to 250 mmHg. Please see nursing notes for tourniquet time. There is A small puncture wound over the second webspace measuring about 0.5 cm in size. There is a small amount of purulent material with surrounding soft tissue inflammation. The wound was extended upon down the webspace by about half a centimeter in either direction. Aerobic anaerobic culture swabs were obta
--- NOTE | 2020-10-19 10:35 | PC.NURSE ---
DSG CHANGE COMPLETED PRIOR TO DISCHARGE. PT EDUCATED ON PROPER WOUND CARE AND GIVEN SUPPLIES FOR DAILY DSG CHANGES X3.
[2020-10-19 11:22] LABS: POC Glucose,Bedside 132 (70-110)
== END 2020-10-19 10:34 | disposition home or self-care (01) ==
LOC: ER 08:18 → 2ND 08:28
PROVIDERS: Orthopaedic Surgery; Admitting Provider Emergency Medicine; Emergency Provider Emergency Medicine; PCP Nurse Practitioner Family; Visit Provider Emergency Medicine
DX: S61.432A Puncture wound without foreign body of left hand, initial encounter (principal); L03.114 Cellulitis of left upper limb; W01.118A Fall on same level from slipping, tripping and stumbling with subsequent striking against other sharp object, initial encounter; Y92.73 Farm field as the place of occurrence of the external cause; E11.9 Type 2 diabetes mellitus without complications; Z79.4 Long term (current) use of insulin; G43.909 Migraine, unspecified, not intractable, without status migrainosus; Z79.899 Other long term (current) drug therapy
CPT/HCPCS: 20103; 36415; 73130; 80048; 80053; 82962; 83036; 84145; 85025; 85651; 86140; 87070; 87075; 87077; 87186; 87205; 87581; 87633; 87798; 90471; 90714; 96365; 96367; 96375; 96376; 99284; G0378; J0692; J2405

== ENCOUNTER → 2020-11-07 08:23 | Outpatient (CLI) | payer MEDICARE, BC, SELFPAY ==
--- NOTE | 2020-11-07 08:24 | MM_ITS ---
PROCEDURE INFORMATION: Exam: Screening 3D Mammography Exam date and time: 11/07/2020 8:24 AM Age: 55 years old Clinical indication: Encounter for screening mammogram for malignant neoplasm of breast TECHNIQUE: Imaging protocol: Screening tomosynthesis and 2D mammography including computer-aided detection (CAD) when performed. COMPARISON: [facility] SCR. BILAT. MAMMO. W CRISTAL. 08/10/2017 8:43 AM FINDINGS: MAMMOGRAPHY: Breast composition: The breast tissue is composed of scattered areas of fibroglandular density. Mass: None. Architectural distortion: None. Calcifications: No suspicious calcifications. Asymmetric density: None. Skin thickening: None. Axillary adenopathy: None. IMPRESSION: No mammographic evidence of malignancy. Annual screening is recommended unless otherwise clinically indicated. ASSESSMENT: BI-RADS Category 1: Negative
== END ==
PROVIDERS: PCP Nurse Practitioner Family; Visit Provider Emergency Medicine
DX: Z12.31 Encounter for screening mammogram for malignant neoplasm of breast (principal)
CPT/HCPCS: 77063; 77067

== ENCOUNTER 2020-11-07 11:09 | Outpatient (RCR) | payer MEDICARE, BC, SELFPAY | END 2020-11-07 12:00 | disposition home or self-care (01) | LOC: OT 11:09 | PROVIDERS: Visit Provider Orthopaedic Surgery | DX: G56.01 Carpal tunnel syndrome, right upper limb (principal) | CPT/HCPCS: 97760 ==

== ENCOUNTER 2020-11-13 19:31 | Emergency (ER) | payer MEDICARE, BC, SELFPAY ==
[2020-11-13 19:38] VITALS: BP 169/96; PULSE 84; RESP 24; TEMP 36.8; O2SAT 97; BMI 33.4
--- NOTE | 2020-11-13 19:53 | CT_ITS ---
PROCEDURE INFORMATION: Exam: CT Head Without Contrast Exam date and time: 11/13/2020 7:53 PM Age: 55 years old Clinical indication: Injury or trauma; Fall; Blunt trauma (contusions or hematomas); Without loss of consciousness TECHNIQUE: Imaging protocol: Computed tomography of the head without contrast. Total images: 91 Radiation optimization: All CT scans at this facility use at least one of these dose optimization techniques: automated exposure control; mA and/or kV adjustment per patient size (includes targeted exams where dose is matched to clinical indication); or iterative reconstruction. COMPARISON: CT HEAD/BRAIN WO CON 07/11/2020 7:37 PM FINDINGS: Brain: No extra-axial fluid collections. No evidence of acute intracranial hemorrhage. Pineda-white differentiation is well maintained. No CT evidence of large territory acute or subacute intracranial ischemia/infarct. No intracranial mass lesions. No midline shift or herniation. Cerebral ventricles: Ventricles normal. Paranasal sinuses: Visualized paranasal sinuses are clear. Mastoid air cells: Visualized mastoid air cells are clear. Orbital cavity: Visualized orbital contents demonstrate no evidence of acute abnormality. Vasculature: Mild calcific atherosclerosis. No asymmetric vascular hyperdensities suggestive of thrombosis are identified. Bones/joints: The calvarium and visualized facial bones are intact. Soft tissues: The scalp and visualized soft tissues demonstrate no acute abnormality. Other findings: The IACs are grossly normal. Partially empty sella configuration incidentally noted. IMPRESSION: No acute intracranial process. No intracranial hemorrhage or mass effect.
--- NOTE | 2020-11-13 19:53 | XR_ITS ---
PROCEDURE INFORMATION: Exam: XR Left Femur Exam date and time: 11/13/2020 7:53 PM Age: 55 years old Clinical indication: Injury or trauma; Fall; Blunt trauma; Thigh or upper leg; Left TECHNIQUE: Imaging protocol: XR Left femur. Views: 2 views. Total images: 5 COMPARISON: CR XR PELVIS 1-2V 11/13/2020 7:59 PM FINDINGS: Bones/joints: No fracture. The hip and knee joint spaces are well aligned. No blastic or lytic lesions. Soft tissues: No soft tissue abnormalities. Intraperitoneal space: The visualized left hemipelvis appears intact. IMPRESSION: No acute findings.
--- NOTE | 2020-11-13 19:53 | XR_ITS ---
PROCEDURE INFORMATION: Exam: XR Left Knee Exam date and time: 11/13/2020 7:53 PM Age: 55 years old Clinical indication: Injury or trauma; Fall; Blunt trauma; Knee; Left TECHNIQUE: Imaging protocol: XR Left knee. Views: 3 views. Total images: 3 COMPARISON: No relevant prior studies available. FINDINGS: Bones/joints: No fracture. No joint effusion. Mild patellar spurring. 1.5 mm rounded calcification in the prepatellar soft tissues, likely chronic. Soft tissues are otherwise unremarkable. Soft tissues: See Bones/joints finding. Other findings: Normal alignment. IMPRESSION: No acute findings.
--- NOTE | 2020-11-13 19:53 | XR_ITS ---
PROCEDURE INFORMATION: Exam: XR Pelvis Exam date and time: 11/13/2020 7:53 PM Age: 55 years old Clinical indication: Injury or trauma; Fall; Blunt trauma (contusions or hematomas); Bilateral; Hip TECHNIQUE: Imaging protocol: XR pelvis. Views: 1 or 2 view. Total images: 1 COMPARISON: CT ABDOMEN PELVIS W CON 01/24/2020 5:11 PM FINDINGS: Bones/joints: No fractures. Hip joint spaces are well maintained and well aligned. Pubic symphysis is unremarkable. SI joints grossly normal. Soft tissues: No soft tissue abnormalities. IMPRESSION: No acute findings.
--- NOTE | 2020-11-13 19:53 | XR_ITS ---
PROCEDURE INFORMATION: Exam: XR Chest Exam date and time: 11/13/2020 7:53 PM Age: 55 years old Clinical indication: Injury or trauma; Fall; Blunt trauma (contusions or hematomas) TECHNIQUE: Imaging protocol: XR of the chest. Views: 1 view. Total images: 1 COMPARISON: CR XR CHEST PORTABLE 09/09/2019 3:41 PM FINDINGS: Lungs: 12 mm calcified granuloma in the lateral left upper lobe unchanged. Normal pulmonary expansion. Pulmonary vasculature grossly normal. No gross pulmonary infiltrates. Pleural spaces: No pleural effusion. No pneumothorax. Heart/Mediastinum: Heart size normal. No tracheal/mediastinal shift. Bones/joints: No acute osseous abnormalities are identified. IMPRESSION: No acute thoracic process.
--- NOTE | 2020-11-13 19:53 | XR_ITS ---
PROCEDURE INFORMATION: Exam: XR Left Tibia and Fibula Exam date and time: 11/13/2020 7:53 PM Age: 55 years old Clinical indication: Injury or trauma; Fall; Blunt trauma; Lower leg; Left TECHNIQUE: Imaging protocol: XR Left tibia and fibula. Views: 2 views. Total images: 2 COMPARISON: No relevant prior studies available. FINDINGS: Bones/joints: No fractures. 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 No gross hardware complication. Soft tissues: Normal. Other findings: Normal alignment. IMPRESSION: 1. No acute findings. 2. 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
--- NOTE | 2020-11-13 19:53 | XR_ITS ---
PROCEDURE INFORMATION: Exam: XR Left Hip Exam date and time: 11/13/2020 7:53 PM Age: 55 years old Clinical indication: Injury or trauma; Fall; Blunt trauma (contusions or hematomas); Left; Hip TECHNIQUE: Imaging protocol: XR Left hip. Views: 2 or 3 views hip with pelvis when performed. Total images: 2 COMPARISON: CR XR PELVIS 1-2V 11/13/2020 7:59 PM FINDINGS: Bones/joints: No fractures. Slight osteoarthritic joint space narrowing in the superolateral left hip. Soft tissues: No soft tissue abnormalities. Other findings: Normal alignment. IMPRESSION: No acute findings.
--- NOTE | 2020-11-13 19:53 | CT_ITS ---
PROCEDURE INFORMATION: Exam: CT Cervical Spine Without Contrast Exam date and time: 11/13/2020 7:53 PM Age: 55 years old Clinical indication: Injury or trauma; Fall; Blunt trauma TECHNIQUE: Imaging protocol: Computed tomography images of the cervical spine without contrast. Total images: 217 Radiation optimization: All CT scans at this facility use at least one of these dose optimization techniques: automated exposure control; mA and/or kV adjustment per patient size (includes targeted exams where dose is matched to clinical indication); or iterative reconstruction. COMPARISON: CT CERVICAL SPINE WO CON 04/08/2020 8:07 PM FINDINGS: Bones/joints: Craniocervical alignment is normal. The odontoid is intact. No fractures. Straightening of cervical lordosis suggesting a possible element of muscular strain/spasm. Cervical alignment is otherwise well maintained. 5 mm bone island in the C7 vertebral body. Discs/Spinal canal/Neural foramina: The occipital condyles are intact. Mild degenerative sclerosis and spurring at the atlantodens interval. No jumped or perched facets. Disc space heights are well-maintained. Multilevel mild-moderate anterior spurring C3-C4 through C6-C7. No compressive soft disc protrusion or extrusion is evident by CT. Mild central canal stenosis C3-C4 through C5-C6. There is slight left foraminal stenosis C5-C6 and mild-moderate right foraminal stenosis C5-C6. Thyroid: The visualized thyroid gland is unremarkable. Lungs: Visualized pulmonary apices are clear. Soft tissues: Paraspinous soft tissues are unremarkable without significant soft tissue swelling or soft tissue hematoma. IMPRESSION: 1. No evidence of fracture or acute traumatic subluxation. 2. Straightening of cervical lordosis suggesting a possible element of muscular strain/spasm. Cervical alignment is otherwise well maintained. 3. Minor degenerative changes as detailed above.
[2020-11-13 20:09] LABS: Basophils # 0.1 K/mm3 (0-0.2); Basophils % 0.9 % (0.1-2.0); Eosinophils # 0.3 K/mm3 (0.0-0.4); Eosinophils % 2.3 % (0.1-12.0); Hematocrit 49.4 % (37.0-47.0); Hemoglobin 16.5 g/dL (12.2-16.2); Lymphocytes # 2.8 K/mm3 (0.7-4.5); Lymphocytes % 20.1 % (10-50); Mean Corpuscular HGB Conc 33.4 g/dL (31.8-35.4); Mean Corpuscular Volume 89.8 fl (81-99); Mean Platelet Volume 9.2 fl (7.4-10.4); Monocytes # 0.7 K/mm3 (0.1-1.0); Monocytes % 5.1 % (1.7-9.3); Neutrophils % 71.6 % (37.0-80.0); Platelet Count 319 K/mm3 (142-424); White Blood Count 13.9 K/mm3 (4.8-10.8)
[2020-11-13 20:10] LABS: Sodium 146 mmol/L (136-145)
[2020-11-13 20:12] LABS: Blood Urea Nitrogen 8 mg/dl (7-17); Creatinine Clearance Estimated 200 mL/min (50-200); Estimated Glomerular Filt Rate 128 ml/min (>60); GFR (African American) 155 ML/MIN (>60)
[2020-11-13 20:13] LABS: Alanine Aminotransferase 9 U/L (12-78); Albumin/Globulin Ratio 0.9 (1.1-1.8); Alkaline Phosphatase 55 U/L (38-126); Anion Gap 10.1 mEq/L (5-15); Aspartate Amino Transferase 24 U/L (14-36); Bilirubin,Total 0.2 mg/dl (0.2-1.3); Globulin 2.2 g/dL (1.3-3.2); Glucose 81 mg/dl (74-100); Total Protein,Serum 4.2 g/dl (6.3-8.2)
--- NOTE | 2020-11-13 20:47 | HMH.EDFALL ---
ED Disposition Clinical Impression: Concussion without loss of consciousness Qualifiers: Encounter type: initial encounter Qualified Code(s): S06.0X0A - Concussion without loss of consciousness, initial encounter Injury, lower leg Qualifiers: Encounter type: initial encounter Laterality: left Qualified Code(s): S89.92XA - Unspecified injury of left lower leg, initial encounter Fall Qualifiers: Encounter type: initial encounter Qualified Code(s): W19.XXXA - Unspecified fall, initial encounter Disposition: Home, Self-Care Condition on Discharge: Good Instructions: DI for Concussion Additional Instructions: ice and see pcp for follow up Referrals: Vish Shoemaker MD [Primary Care Provider] - - Critical Care Critical Care Time: No Attestation: On 11/13/20, the high probability of a clinically significant, sudden or life threatening deterioration of the following system(s) required my full and direct attention, intervention and personal management. The time I documented below is in addition to time spent performing reported procedures but includes the following listed in this critical care notation. Medical Decision Making - Medical Records Medical records reviewed: Yes: I reviewed the patient's medical records. - [place] Inquiry Pt receiving controlled substance: No Vital Signs: 11/13/20 19:38 11/13/20 21:01 11/13/20 21:47 Temperature 98.2 F Temperature Source Oral Pulse Rate 75 69 Pulse Rate [Right] 84 Respiratory Rate 24 Blood Pressure 170/86 H 152/83 H Blood Pressure [Right Arm] 169/96 H Blood Pressure Mean [Right Arm] 120 Blood Pressure Source [Right Arm] Automatic Cuff Blood Pressure Position [Right Arm] Supine 02 Sat by Pulse Oximetry 97 97 98 Oxygen Delivery Method Room Air - Lab Data Lab results reviewed: Yes: I reviewed the patient's lab results. Lab Results 11/13/20 19:27: WBC 13.9 H, RBC 5.50 H, Hgb 16.5 H, Hct 49.4 H, MCV 89.8, MCH 30.0, MCHC 33.4, RDW 13.0, Plt Count 319, MPV 9.2, Neut % (Auto) 71.6, Lymph % (Auto) 20.1, [place] % (Auto) 5.1, Eos % (Auto) 2.3, Baso % (Auto) 0.9, Neut # (Auto) 10.0 H, Lymph # (Auto) 2.8, Bee # (Auto) 0.7, Eos # (Auto) 0.3, Baso # (Auto) 0.1, ESR 11 11/13/20 19:27: Sodium 146 H, Potassium 2.1 L*, Chloride 128 H, Carbon Dioxide 10 L, Anion Gap 10.1, BUN 8, Creatinine 0.50 L, Estimated Creat Clear 200, Estimated GFR 128, Est GFR ( Amer) 155, Glucose 81, Calcium 5.0 L*, Total Bilirubin 0.2, AST 24, ALT 9 L, Alkaline Phosphatase 55, C-Reactive Protein 12.8 H, Total Protein 4.2 L D, Albumin 2.0 L, Globulin 2.2, Albumin/Globulin Ratio 0.9 L, Procalcitonin 0.049 11/13/20 21:29: Sodium 142, Potassium 4.0 D, Chloride 111 H, Carbon Dioxide 20 L D, Anion Gap 15.0, BUN 13 D, Creatinine 0.90 D, Estimated Creat Clear 111, Estimated GFR 65, Est GFR ( Amer) 79 D, Glucose 117 H D, Calcium 8.8 D Result diagrams: 11/13/20 19:27 11/13/20 21:29 Orders (Tests/Meds): ED MEDICATIONS Generic Name Dose Route Start Last Admin Trade Name Freq PRN Reason Stop Dose Admin Sodium Chloride 1,000 mls @ 999 mls/hr 11/13/20 20:00 11/13/20 20:24 Sod Chlor 0.9% 1000ml Bag IV 11/13/20 21:00 999 mls/hr .Q1H1M FRANCES Administration Discontinued Medications Generic Name Dose Route Start Last Admin Trade Name Freq PRN Reason Stop Dose Admin Acetaminophen/Codeine Phosphate 1 brennon 11/13/20 20:59 11/13/20 21:03 Acetaminophen 300mg W/Codeine 30mg Take Home Pack (6) PO 11/13/20 21:00 1 brennon ONCE ONE Administration Ketorolac Tromethamine 30 mg 11/13/20 19:58 11/13/20 20:23 Ketorolac 30mg/Ml Vial IV 11/13/20 19:59 Not Given ONCE ONE Methylprednisolone Sodium Succinate 125 mg 11/13/20 20:19 11/13/20 20:24 Methylprednisolone Sod Succ 125mg Vial IV 11/13/20 20:20 125 mg ONCE ONE Administration Morphine Sulfate 4 mg 11/13/20 20:59 11/13/20 21:03 Morphine 4mg/Ml Syringe IV 11/13/20 21:00 4 mg ONCE ONE A
[2020-11-13 20:50] LABS: Erythrocyte Sedimentation Rate 11 mm/hr (0-30)
[2020-11-13 21:01] VITALS: BP 170/86; PULSE 75; O2SAT 97
[2020-11-13 21:09] LABS: Chloride 128 mmol/L (98-107); Potassium 2.1 mmoL/L (3.5-5.1)
[2020-11-13 21:10] LABS: Carbon Dioxide 10 mmol/L (22.0-30.0)
--- NOTE | 2020-11-13 21:11 | PC.NURSE ---
notified of critical lab values
[2020-11-13 21:44] LABS: Microscopic, Urine URINE MICROSCOPIC (MICROSCOPIC)
[2020-11-13 21:46] LABS: C-Reactive Protein 12.8 mg/L (0-4)
[2020-11-13 21:47] VITALS: BP 152/83; PULSE 69; O2SAT 98
[2020-11-13 21:54] LABS: Blood Urea Nitrogen 13 mg/dl (7-17); Carbon Dioxide 20 mmol/L (22.0-30.0); Chloride 111 mmol/L (98-107); Creatinine Clearance Estimated 111 mL/min (50-200); Estimated Glomerular Filt Rate 65 ml/min (>60); GFR (African American) 79 ML/MIN (>60); Glucose 117 mg/dl (74-100); Sodium 142 mmol/L (136-145)
[2020-11-13 22:00] LABS: Procalcitonin 0.049 ng/mL (0.0-2.0)
[2020-11-13 22:07] LABS: Calcium 8.8 mg/dl (8.4-10.2)
[2020-11-13 22:12] VITALS: BP 141/73; PULSE 69; RESP 16; TEMP 36.8; O2SAT 97
[2020-11-13 22:27] LABS: Appearance,Urine CLEAR (Clear); Blood, Urine Negative (Negative); Color,Urine YELLOW (Yellow); Glucose,Urine (UA) Negative (Negative); Ketones,Urine Negative (Negative); Leukocyte Esterase,Urine Negative (Negative); Nitrate,Urine Negative (Negative); PH,Urine 5.5 (5.0-8.5); Protein,Urine Negative (Negative); Specific Gravity, Urine >= 1.030 (1.005-1.030); Urobilinogen,Urine 0.2 EU/dl (0.2)
[2020-11-13 22:36] LABS: Bilirubin,Urine 1+ (Negative)
[2020-11-13 23:40] LABS: WBC,Urine Occasional #/hpf (0-3)
== END 2020-11-13 22:15 | disposition home or self-care (01) ==
PROVIDERS: Emergency Provider Emergency Medicine; PCP Emergency Medicine
DX: S06.0X0A Concussion without loss of consciousness, initial encounter (principal); S89.92XA Unspecified injury of left lower leg, initial encounter; W01.198A Fall on same level from slipping, tripping and stumbling with subsequent striking against other object, initial encounter; Y92.838 Other recreation area as the place of occurrence of the external cause; F41.8 Other specified anxiety disorders; I10 Essential (primary) hypertension; E03.9 Hypothyroidism, unspecified; I25.2 Old myocardial infarction; E78.5 Hyperlipidemia, unspecified
CPT/HCPCS: 29505; 70450; 71045; 72125; 72170; 73502; 73552; 73562; 73590; 80048; 80053; 81001; 84145; 85025; 85651; 86140; 96365; 96375; 99282

== ENCOUNTER 2020-11-24 20:30 | Emergency (ER) | payer MEDICARE, BC, SELFPAY ==
[2020-11-24 21:02] VITALS: BP 206/87; PULSE 79; RESP 18; TEMP 37.1; O2SAT 96; BMI 34.9
--- NOTE | 2020-11-24 21:25 | XR_ITS ---
PROCEDURE INFORMATION: Exam: XR Right Foot Exam date and time: 11/24/2020 9:25 PM Age: 55 years old Clinical indication: Pain; Right; Prior surgery; Surgery date: 6+ months; Surgery type: Ankle; Patient HX: Numbness in foot, HX of SX to back and foot; Additional info: Non-injury pain TECHNIQUE: Imaging protocol: XR Right foot. Views: 3 or more views. COMPARISON: CR XR ANKLE RT MIN 3V 09/03/2019 1:48 PM FINDINGS: Bones/joints: No acute fracture. Chronic fracture deformities of the distal tibia and fibula with radiolucent cables transfixing the distal tibiofibular syndesmosis. Mild ankle joint osteoarthrosis. Moderate osteoarthrosis of the 1st TMT joint, with mild to moderate degenerative changes in the 2nd and 3rd TMT joints. Minimal degenerative spurring of the 1st MTP joint. No joint space erosion. Calcaneal enthesophytes. Soft tissues: Normal. IMPRESSION: 1. No acute osseous abnormality. 2. Scattered degenerative changes. Remote ankle fractures with syndesmotic fixation.
--- NOTE | 2020-11-24 21:25 | CT_ITS ---
PROCEDURE INFORMATION: Exam: CT Lumbar Spine Without Contrast Exam date and time: 11/24/2020 9:25 PM Age: 55 years old Clinical indication: Prior surgery; Surgery date: 6+ months; Patient HX: Numbness in foot, HX of SX to back and foot; Additional info: Numbness in right foot TECHNIQUE: Imaging protocol: Computed tomography images of the lumbar spine without contrast. Radiation optimization: All CT scans at this facility use at least one of these dose optimization techniques: automated exposure control; mA and/or kV adjustment per patient size (includes targeted exams where dose is matched to clinical indication); or iterative reconstruction. COMPARISON: CT LUMBAR SPINE WO CON 06/19/2019 2:08 PM FINDINGS: Vertebrae: Lumbar vertebral body heights are maintained. No acute fracture. No spondylolisthesis. L1-L2: No significant disc protrusion. No severe spinal canal stenosis. No significant neural foraminal narrowing. L2-L3: No significant disc protrusion. No severe spinal canal stenosis. No significant neural foraminal narrowing. L3-L4: Disc bulging and mild to moderate right greater than left hypertrophic facet arthropathy with mild ligamentum flavum thickening. Mild right and minimal left neural foraminal stenosis. No significant spinal canal stenosis. L4-L5: Disc bulging. Moderate to marked left and moderate right hypertrophic facet arthropathy. Mild to moderate ligamentum flavum thickening. Moderate bilateral neural foraminal stenosis, with disc bulge peripherally abutting the exiting L4 nerve roots (right greater than left). Moderate spinal canal stenosis. At least moderate effacement of the lateral recesses, which may affect the descending L5 nerve roots. L5-S1: Moderate hypertrophic facet arthropathy. Mild to moderate ligamentum flavum thickening. Shallow right foraminal zone disc protrusion. Mild right neural foraminal stenosis. No significant spinal canal or left neural foraminal stenosis. At most mild effacement of the lateral recesses. Kidneys and ureters: There are a few subcentimeter low-attenuation left renal lesions, which measure fat attenuation, compatible with angiomyolipomas (largest measures 0.7 cm). Bladder: Bladder demonstrates nonspecific borderline wall thickening. Soft tissues: Unremarkable. Other osseous structures: Bone island in the right posterior iliac bone. IMPRESSION: 1. No acute fracture. No malalignment. 2. Multilevel degenerative changes, most significant at L4-L5, overall similar to prior study of 06/19/2019. 3. Nonspecific borderline bladder wall thickening. Consider correlation with urinalysis to evaluate for possible cystitis.
--- NOTE | 2020-11-24 22:34 | HMH.EDLOEX ---
ED Disposition Clinical Impression: Neuropathy, Lumbar radicular pain Disposition: Home, Self-Care Condition on Discharge: Good Instructions: DI for Diabetic Neuropathy Additional Instructions: call pcp in am for meds Referrals: Vish Shoemaker MD [Primary Care Provider] - Ana Green DPM [Staff Physician] - - Critical Care Critical Care Time: No Attestation: On 11/24/20, the high probability of a clinically significant, sudden or life threatening deterioration of the following system(s) required my full and direct attention, intervention and personal management. The time I documented below is in addition to time spent performing reported procedures but includes the following listed in this critical care notation. Medical Decision Making - Medical Records Medical records reviewed: Yes: I reviewed the patient's medical records. - [place] Inquiry Pt receiving controlled substance: No Vital Signs: 11/24/20 21:02 Temperature 98.7 F Temperature Source Oral Pulse Rate [Right] 79 Respiratory Rate 18 Blood Pressure [Right Arm] 206/87 H Blood Pressure Mean [Right Arm] 126 Blood Pressure Source [Right Arm] Automatic Cuff Blood Pressure Position [Right Arm] Sitting 02 Sat by Pulse Oximetry 96 Oxygen Delivery Method Room Air - Lab Data Lab results reviewed: Yes: I reviewed the patient's lab results. Orders (Tests/Meds): ORDERS Category Date Time Status Foot XR right minimum 3 views [XR foot RT min 3V] Stat Exams 11/24/20 21:25 Taken - Radiology Data #1 Image(s): Foot/Toes Image Reviewed: Yes I have reviewed radiologist's interpretation Preliminary Findings: Abnormal, No Fracture Seen - CT Data CT Scan: L-Spine Time Received: 23:[address] Reviewed: Yes: I have viewed the radiologist's interpretation Preliminary Findings: Abnormal Medical Decision Narrative: prob neuropathy rt foot with some element of radicular pain Lower Extremity Injury HPI - General Chief Complaint: Extremity Problem,Nontraumatic Stated Complaint: rt foot ,leg pain Time Seen by Provider: 11/24/20 21:30 Mode of Arrival: Ambulatory Source of Information: Patient, Medical Record Limitations: No Limitations Description of Symptoms (Recalled from ER Triage Doc. by RN): Pt states her right foot is numb and feels asleep, when she walks it shoots pain up her wolfe. for a couple days. Denies injury to area and there is no edema or deformity noted. Peripheral pulses palpable and cap refill WNL. - History of Present Illness HPI Narrative: pt with pain to rt foot worse with wt bearing -has numbness and tingling - has been worse over the last 2 days Injury: Right: foot Type of Injury: unknown Place: home Severity: moderate Associated symptoms: tingling, able to partially bear weight - Related Data Home Medications Medication Instructions Recorded Confirmed Albuterol Sulfate [Albuterol 3 ml IH QID PRN 01/25/20 10/23/20 0.083% 2.5mg/3mL neb] hydrOXYzine pamoate [Hydroxyzine 50 mg PO TIDP PRN 01/25/20 10/23/20 Pamoate] Insulin Detemir [Levemir 23 units SQ HS 10/17/20 10/23/20 100units/mL 3mL flexpen] Previous Rx's Medication Instructions Recorded Sucralfate [Carafate 1gm Tab] 1 gm PO ACHS tab 10/19/20 Ubrogepant [Ubrelvy 50mg Tablet] 50 mg PO DAILYP PRN tab 10/19/20 atorvastatin 80 mg tablet 80 mg PO DAILY #90 tab 10/28/20 blood sugar diagnostic See Rx Instructions .ROUTE 10/28/20 .MEDSUPPLY #100 each blood-glucose meter See Rx Instructions .ROUTE 10/28/20 .MEDSUPPLY #1 each insulin human U-100 NPH-regulr 5 unit SQ BID #3 ml 10/28/20 70-30 mix 100 unit/mL subcutaneous susp lancets 30 gauge See Rx Instructions .ROUTE 10/28/20 .MEDSUPPLY #100 each levothyroxine 50 mcg tablet 50 mcg PO DAILYDM #90 tab 10/28/20 lisinopril 20 mg tablet 20 mg PO DAILY #90 tab 10/28/20 pantoprazole 40 mg tablet,delayed 40 mg PO BID #180 tab 10/28/20 release pen needle, diabetic 31 gauge x See
[2020-11-25 00:04] VITALS: BP 161/75; PULSE 68; RESP 16; TEMP 37.1; O2SAT 97
== END 2020-11-25 00:05 | disposition home or self-care (01) ==
PROVIDERS: Emergency Provider Emergency Medicine; PCP Emergency Medicine
DX: M54.16 Radiculopathy, lumbar region (principal); G62.9 Polyneuropathy, unspecified; E11.9 Type 2 diabetes mellitus without complications; I10 Essential (primary) hypertension; J44.9 Chronic obstructive pulmonary disease, unspecified; F41.8 Other specified anxiety disorders; E78.5 Hyperlipidemia, unspecified; E03.9 Hypothyroidism, unspecified; I25.2 Old myocardial infarction
CPT/HCPCS: 72131; 73630; 99281; 99282

== ENCOUNTER 2020-12-07 18:22 | Emergency (ER) | payer MEDICARE, BC, SELFPAY ==
[2020-12-07 18:23] VITALS: BP 141/75; PULSE 81; RESP 16; TEMP 37; O2SAT 98; BMI 34.7
--- NOTE | 2020-12-07 18:31 | HMH.EDGENADL ---
ED Disposition Clinical Impression: Migraine Disposition: Home, Self-Care Condition on Discharge: Good Additional Instructions: Continue home medications. Follow-up with primary care physician. Sent to the emergency room for any new symptoms. Prescriptions: Tizanidine HCl [Zanaflex 4mg tab] 4 mg PO TID PRN 4 Days #12 tab PRN Reason: Breakthru Severe Pain Transmission Status: Pending to [facility]/pharmacy #[id number] Referrals: Vish Shoemaker MD [Primary Care Provider] - - Critical Care Critical Care Time: No Attestation: On , the high probability of a clinically significant, sudden or life threatening deterioration of the following system(s) required my full and direct attention, intervention and personal management. The time I documented below is in addition to time spent performing reported procedures but includes the following listed in this critical care notation. Medical Decision Making - [place] Inquiry Pt receiving controlled substance: No [place] was queried for this patient: No Vital Signs: 12/07/20 18:23 Temperature 98.6 F Temperature Source Oral Pulse Rate [Radial] 81 Respiratory Rate 16 Blood Pressure [Right Arm] 141/75 H Blood Pressure Mean [Right Arm] 97 Blood Pressure Position [Right Arm] Sitting 02 Sat by Pulse Oximetry 98 Oxygen Delivery Method Room Air - Lab Data Lab Results 12/07/20 18:30: WBC 9.4, RBC 5.23, Hgb 15.5, Hct 46.2, MCV 88.3, MCH 29.6, MCHC 33.5, RDW 13.2, Plt Count 276, MPV 9.3, Neut % (Auto) 55.6, Lymph % (Auto) 33.6, [place] % (Auto) 5.7, Eos % (Auto) 4.0, Baso % (Auto) 1.1, Neut # (Auto) 5.2, Lymph # (Auto) 3.2, [place] # (Auto) 0.5, Eos # (Auto) 0.4, Baso # (Auto) 0.1 12/07/20 18:30: Sodium 141, Potassium 4.3, Chloride 108 H, Carbon Dioxide 22, Anion Gap 15.3 H, BUN 16, Creatinine 1.10 H, Estimated Creat Clear 89, Estimated GFR 52 L, Est GFR ( Amer) 62, Glucose 151 H, Calcium 10.4 H, Total Bilirubin 0.4, AST 33, ALT 23, Alkaline Phosphatase 110, Total Protein 8.2 D, Albumin 4.7, Globulin 3.5 H, Albumin/Globulin Ratio 1.3 12/07/20 18:55: Urine Color Straw, Urine Appearance Clear, Urine pH 5.5, Ur Specific [place] <= 1.005, Urine Protein Negative, Urine Glucose (UA) Negative, Urine Ketones Negative, Urine Blood Negative, Urine Nitrate Negative, Urine Bilirubin Negative, Urine Urobilinogen 0.2, Ur Leukocyte Esterase Negative, Urine WBC Occasional, Ur Squamous Epith Cells 3-5, Urine Bacteria Trace Result diagrams: 12/07/20 18:30 12/07/20 18:30 Orders (Tests/Meds): ED MEDICATIONS Discontinued Medications Generic Name Dose Route Start Last Admin Trade Name Viry PRN Reason Stop Dose Admin Acetaminophen 500 mg 12/07/20 19:11 Acetaminophen 500mg Tab PO 12/07/20 19:12 ONCE ONE Tizanidine HCl 4 mg 12/07/20 19:10 Tizanidine 4mg Tablet PO 12/07/20 19:11 ONCE STA General Adult HPI - General Stated complaint: numbness r side of head Time Seen by Provider: 12/07/20 19:12 - History of Present Illness HPI narrative: 5-year-old female walked to the emergency room complaining of right-sided pain of the hand. She said she has a history of migraine (more severe. She has some nausea but no vomiting. No photophobia. No change in mental status. Normal appetite. Normal activities. No fever or chills. No neck pain. Onset (ago): hour(s) Location: head Radiation: non-radiation Severity: moderate Severity scale (1-10): 3 Quality: burning Consistency: intermittent Relieving factors: none Exacerbating factors: none - Related Data Home Medications Medication Instructions Recorded Confirmed Albuterol Sulfate [Albuterol 3 ml IH QID PRN 01/25/20 10/23/20 0.083% 2.5mg/3mL neb] hydrOXYzine pamoate [Hydroxyzine 50 mg PO TIDP PRN 01/25/20 10/23/20 Pamoate] Insulin Detemir [Levemir 23 units SQ HS 10/17/20 10/23/20 100units/mL 3mL flexpen] Previous Rx's Medication Instructions Recorded Sucralfate [Carafate 1gm Tab
--- NOTE | 2020-12-07 18:36 | CT_ITS ---
PROCEDURE INFORMATION: Exam: CT Head Without Contrast Exam date and time: 12/07/20 06:36 PM Age: 55 years old Clinical indication: Pain; Headache; Other: Right side with numbness x 1.5 hrs; Additional info: Head ache TECHNIQUE: Imaging protocol: Computed tomography of the head without contrast. Radiation optimization: All CT scans at this facility use at least one of these dose optimization techniques: automated exposure control; mA and/or kV adjustment per patient size (includes targeted exams where dose is matched to clinical indication); or iterative reconstruction. Other technique: STROKE PROTOCOL was implemented. COMPARISON: CT HEAD/BRAIN WO CON 11/13/20 08:08 PM FINDINGS: Brain: Normal. No hemorrhage. Unremarkable white matter. No mass effect. Cerebral ventricles: No ventriculomegaly. Paranasal sinuses: Visualized sinuses are unremarkable. No fluid levels. Mastoid air cells: Visualized mastoid air cells are well aerated. Bones/joints: Unremarkable. No acute fracture. Soft tissues: Unremarkable. IMPRESSION: No acute intracranial abnormality. ASSESSMENT: ASPECTS ([place] Stroke Program Early CT Score) is 10.
[2020-12-07 18:41] LABS: Basophils # 0.1 K/mm3 (0-0.2); Basophils % 1.1 % (0.1-2.0); Eosinophils # 0.4 K/mm3 (0.0-0.4); Hematocrit 46.2 % (37.0-47.0); Hemoglobin 15.5 g/dL (12.2-16.2); Lymphocytes # 3.2 K/mm3 (0.7-4.5); Lymphocytes % 33.6 % (10-50); Mean Corpuscular HGB Conc 33.5 g/dL (31.8-35.4); Mean Corpuscular Hemoglobin 29.6 pg (27.0-31.2); Mean Corpuscular Volume 88.3 fl (81-99); Mean Platelet Volume 9.3 fl (7.4-10.4); Monocytes # 0.5 K/mm3 (0.1-1.0); Monocytes % 5.7 % (1.7-9.3); Neutrophils # 5.2 K/mm3 (1.8-7.8); Neutrophils % 55.6 % (37.0-80.0); Platelet Count 276 K/mm3 (142-424); Red Blood Count 5.23 M/mm3 (4.20-5.40); Red Cell Distribution Width 13.2 % (11.5-17.5); White Blood Count 9.4 K/mm3 (4.8-10.8)
[2020-12-07 18:43] LABS: Chloride 108 mmol/L (98-107); Potassium 4.3 mmoL/L (3.5-5.1); Sodium 141 mmol/L (136-145)
--- NOTE | 2020-12-07 18:44 | PC.NURSE ---
to ct per wheelchair
[2020-12-07 18:46] LABS: Alanine Aminotransferase 23 U/L (12-78); Albumin Level 4.7 g/dl (3.5-5.0); Albumin/Globulin Ratio 1.3 (1.1-1.8); Alkaline Phosphatase 110 U/L (38-126); Anion Gap 15.3 mEq/L (5-15); Aspartate Amino Transferase 33 U/L (14-36); Bilirubin,Total 0.4 mg/dl (0.2-1.3); Blood Urea Nitrogen 16 mg/dl (7-17); Carbon Dioxide 22 mmol/L (22.0-30.0); Creatinine Clearance Estimated 89 mL/min (50-200); Estimated Glomerular Filt Rate 52 ml/min (>60); GFR (African American) 62 ML/MIN (>60); Globulin 3.5 g/dL (1.3-3.2); Total Protein,Serum 8.2 g/dl (6.3-8.2)
[2020-12-07 18:47] LABS: Calcium 10.4 mg/dl (8.4-10.2); Glucose 151 mg/dl (74-100)
[2020-12-07 19:01] LABS: Microscopic, Urine URINE MICROSCOPIC (MICROSCOPIC)
[2020-12-07 19:03] LABS: Appearance,Urine CLEAR (Clear); Bilirubin,Urine Negative (Negative); Blood, Urine Negative (Negative); Color,Urine STRAW (Yellow); Glucose,Urine (UA) Negative (Negative); Ketones,Urine Negative (Negative); Leukocyte Esterase,Urine Negative (Negative); Nitrate,Urine Negative (Negative); PH,Urine 5.5 (5.0-8.5); Protein,Urine Negative (Negative); Specific Gravity, Urine <= 1.005 (1.005-1.030); Urobilinogen,Urine 0.2 EU/dl (0.2)
[2020-12-07 19:09] LABS: Bacteria,Urine Trace /lpf; WBC,Urine Occasional #/hpf (0-3)
[2020-12-07 20:12] VITALS: BP 134/76; PULSE 80; RESP 16; TEMP 37; O2SAT 98
== END 2020-12-07 20:13 | disposition home or self-care (01) ==
PROVIDERS: Emergency Provider Internal Medicine; PCP Emergency Medicine
DX: G43.909 Migraine, unspecified, not intractable, without status migrainosus (principal); J44.9 Chronic obstructive pulmonary disease, unspecified; F41.8 Other specified anxiety disorders; E11.9 Type 2 diabetes mellitus without complications; E03.9 Hypothyroidism, unspecified; I25.2 Old myocardial infarction; I10 Essential (primary) hypertension; E78.5 Hyperlipidemia, unspecified
CPT/HCPCS: 70450; 80053; 81001; 85025; 99283

== ENCOUNTER 2021-01-04 22:05 | Emergency (ER) | payer MEDICARE, BC, SELFPAY ==
[2021-01-04 22:07] VITALS: BP 117/89; PULSE 103; RESP 16; TEMP 36.7; O2SAT 98; BMI 51.2
--- NOTE | 2021-01-04 22:34 | ECG_ITS ---
APPROVED REPORT Exam: Resting ECG HR:90 bpm ECG Measurements Heart Rate 90 AXES VT 144 P 62 QRSd 96 QRS 68 QT 382 T 42 QTc 467 Conclusion Normal sinus rhythm Possible Left atrial enlargement RSR' or QR pattern in V1 suggests right ventricular conduction delay Nonspecific T wave abnormality Prolonged QT Abnormal ECG Electronically signed by : Gabriel Russ MD 01/05/2021 08:56:55
--- NOTE | 2021-01-04 22:36 | XR_ITS ---
PROCEDURE INFORMATION: Exam: XR Complete Acute Abdomen Series Including Chest Exam date and time: 01/04/2021 10:36 PM Age: 55 years old Clinical indication: Patient HX: Vomiting x 3 days now states patient TECHNIQUE: Imaging protocol: XR complete acute abdomen series, including 2 or more views of the abdomen and a single view chest. COMPARISON: CR XR CHEST PORTABLE 11/13/2020 7:58 PM FINDINGS: Lungs: No focal consolidation to suggest pneumonia. Unchanged 12 mm left upper lateral calcified granuloma. Pleural spaces: Normal. No pleural effusions. No pneumothorax. Heart/Mediastinum: Normal. No cardiomegaly. Gastrointestinal tract: Non-specific bowel gas/stool pattern. No bowel dilation. Intraperitoneal space: Normal. No free air. Bones/joints: Normal. No acute fracture. Soft tissues: Normal. IMPRESSION: No acute findings.
--- NOTE | 2021-01-04 22:37 | HMH.EDGENADL ---
ED Disposition Clinical Impression: GERD (gastroesophageal reflux disease), Vomiting Disposition: Home, Self-Care Condition on Discharge: Good Instructions: DI for Diarrhea and Traveler's Diarrhea -- Adult, DI for Diarrhea and Traveler's Diarrhea -- Child, DI for Nausea -- Adult, DI for Nausea -- Child Additional Instructions: You have to stay on clear liquid diet for next 24 hours Medication as directed. Follow-up with the primary care physician. Prescriptions: Ondansetron [Zofran 4mg ODT] 4 mg PO BIDP PRN 6 Days #12 tab PRN Reason: Vomiting Transmission Status: Pending to [facility]/pharmacy #[id number] Referrals: Timo Villalba APRN [Primary Care Provider] - - Critical Care Critical Care Time: No Attestation: On 01/04/21, the high probability of a clinically significant, sudden or life threatening deterioration of the following system(s) required my full and direct attention, intervention and personal management. The time I documented below is in addition to time spent performing reported procedures but includes the following listed in this critical care notation. Medical Decision Making - Medical Records MR Comment: EKG shows normal sinus rhythm. Nonspecific ST changes. Troponin was negative. She was given normal saline and Zofran. He has a history of acid reflux. Acute abdominal series did not show any abnormal air-fluid pattern. She will be treated for acid reflux and nausea. Drug screen is positive for marijuana. - [place] Inquiry Pt receiving controlled substance: No [place] was queried for this patient: No Vital Signs: 01/04/21 22:07 01/04/21 23:44 Temperature 98.0 F Temperature Source Oral Pulse Rate 75 Pulse Rate [Right] 103 H Respiratory Rate 16 Blood Pressure 145/82 H Blood Pressure [Right Arm] 117/89 Blood Pressure Mean [Right Arm] 98 02 Sat by Pulse Oximetry 98 98 - Lab Data Lab Results 01/04/21 22:28: Urine Color Yellow, Urine Appearance Clear, Urine pH 5.5, Ur Specific [place] <= 1.005, Urine Protein Negative, Urine Glucose (UA) Negative, Urine Ketones Trace, Urine Blood 1+, Urine Nitrate Negative, Urine Bilirubin Negative, Urine Urobilinogen 0.2, Ur Leukocyte Esterase 1+ A, Urine RBC 5-10, Urine WBC 5-10, Ur Squamous Epith Cells 3-5 01/04/21 22:28: Urine Opiates Screen Negative, Urine Methadone Screen Negative, Ur Barbituates Screen Negative, Ur Phencyclidine Scrn Negative, Ur Amphetamines Screen Negative, U Benzodiazepines Scrn Negative, Urine Cocaine Screen Negative, U Marijuana (THC) Screen Positive H 01/04/21 22:45: WBC 14.5 H, RBC 5.52 H, Hgb 16.6 H, Hct 50.4 H, MCV 91.3, MCH 30.1, MCHC 33.0, RDW 13.0, Plt Count 359, MPV 8.8, Neut % (Auto) 79.0, Lymph % (Auto) 14.9, [place] % (Auto) 4.0, Eos % (Auto) 1.0, Baso % (Auto) 1.2, Neut # (Auto) 11.4 H, Lymph # (Auto) 2.2, [place] # (Auto) 0.6, Eos # (Auto) 0.1, Baso # (Auto) 0.2 01/04/21 22:45: Sodium 137, Potassium 4.2, Chloride 102, Carbon Dioxide 19 L, Anion Gap 20.2 H, BUN 16, Creatinine 1.20 H, Estimated Creat Clear 42, Estimated GFR 47 L, Est GFR ( Amer) 56 L, Glucose 171 H, Calcium 10.4 H, Total Bilirubin 0.8, AST 36, ALT 22, Alkaline Phosphatase 106, Troponin I < 0.01, Total Protein 8.7 H, Albumin 5.0, Globulin 3.7 H, Albumin/Globulin Ratio 1.4, Amylase 81, Lipase 172 Result diagrams: 01/04/21 22:45 01/04/21 22:45 Orders (Tests/Meds): ED MEDICATIONS Generic Name Dose Route Start Last Admin Trade Name Freq PRN Reason Stop Dose Admin Sodium Chloride 1,000 mls @ 999 mls/hr 01/04/21 22:45 01/04/21 22:36 Sod Chlor 0.9% 1000ml Bag IV 01/04/21 23:45 999 mls/hr .Q1H1M FRANCES Administration Discontinued Medications Generic Name Dose Route Start Last Admin Trade Name Freq PRN Reason Stop Dose Admin Ondansetron HCl 4 mg 01/04/21 22:32 01/04/21 22:36 Ondansetron 4mg/2ml Vial IV 01/04/21 22:33 4 mg ONCE ONE Administration ORDERS Category Date Time Status Troponin I Q3H Lab 01/05/21 01:45 Ordere
[2021-01-04 22:54] LABS: Basophils # 0.2 K/mm3 (0-0.2); Basophils % 1.2 % (0.1-2.0); Eosinophils # 0.1 K/mm3 (0.0-0.4); Hematocrit 50.4 % (37.0-47.0); Hemoglobin 16.6 g/dL (12.2-16.2); Lymphocytes # 2.2 K/mm3 (0.7-4.5); Lymphocytes % 14.9 % (10-50); Mean Corpuscular Hemoglobin 30.1 pg (27.0-31.2); Mean Corpuscular Volume 91.3 fl (81-99); Mean Platelet Volume 8.8 fl (7.4-10.4); Monocytes # 0.6 K/mm3 (0.1-1.0); Neutrophils # 11.4 K/mm3 (1.8-7.8); Platelet Count 359 K/mm3 (142-424); Red Blood Count 5.52 M/mm3 (4.20-5.40); White Blood Count 14.5 K/mm3 (4.8-10.8)
[2021-01-04 23:05] LABS: Alanine Aminotransferase 22 U/L (12-78); Albumin/Globulin Ratio 1.4 (1.1-1.8); Alkaline Phosphatase 106 U/L (38-126); Amylase 81 U/L (30-110); Anion Gap 20.2 mEq/L (5-15); Aspartate Amino Transferase 36 U/L (14-36); Bilirubin,Total 0.8 mg/dl (0.2-1.3); Blood Urea Nitrogen 16 mg/dl (7-17); Calcium 10.4 mg/dl (8.4-10.2); Carbon Dioxide 19 mmol/L (22.0-30.0); Chloride 102 mmol/L (98-107); Creatinine Clearance Estimated 42 mL/min (50-200); Estimated Glomerular Filt Rate 47 ml/min (>60); GFR (African American) 56 ML/MIN (>60); Globulin 3.7 g/dL (1.3-3.2); Glucose 171 mg/dl (74-100); Lipase 172 U/L (23-300); Potassium 4.2 mmoL/L (3.5-5.1); Sodium 137 mmol/L (136-145); Total Protein,Serum 8.7 g/dl (6.3-8.2)
[2021-01-04 23:17] LABS: Troponin I < 0.01 ng/ml (0.00-0.034)
[2021-01-04 23:36] LABS: Appearance,Urine CLEAR (Clear); Bilirubin,Urine Negative (Negative); Blood, Urine 1+ (Negative); Color,Urine YELLOW (Yellow); Glucose,Urine (UA) Negative (Negative); Ketones,Urine TRACE (Negative); Leukocyte Esterase,Urine 1+ (Negative); Microscopic, Urine URINE MICROSCOPIC (MICROSCOPIC); Nitrate,Urine Negative (Negative); PH,Urine 5.5 (5.0-8.5); Protein,Urine Negative (Negative); Specific Gravity, Urine <= 1.005 (1.005-1.030); Urobilinogen,Urine 0.2 EU/dl (0.2)
[2021-01-04 23:44] VITALS: BP 145/82; PULSE 75; O2SAT 98
[2021-01-04 23:46] LABS: Amphetamine/Metha Screen,Urine Negative ng/ml (<1000); Barbiturates Screen,Urine Negative ng/ml (<200)
[2021-01-04 23:47] LABS: Benzodiazepines Screen,Urine Negative ng/ml (<200); Cannabinoid Screen,Urine Positive ng/ml (<50)
[2021-01-04 23:48] LABS: Cocaine Screen,Urine Negative ng/ml (<300)
[2021-01-04 23:49] LABS: Methadone Screen,Urine Negative ng/ml (<300); Opiate Screen,Urine Negative ng/ml (<300)
[2021-01-04 23:50] LABS: Phencyclidine Screen,Urine Negative ng/ml (<25)
[2021-01-05 00:34] VITALS: BP 134/72; PULSE 72; RESP 18; TEMP 36.7; O2SAT 98
== END 2021-01-05 00:47 | disposition home or self-care (01) ==
PROVIDERS: Emergency Provider Internal Medicine; PCP Nurse Practitioner Family
DX: N30.00 Acute cystitis without hematuria (principal); B96.20 Unspecified Escherichia coli [E. coli] as the cause of diseases classified elsewhere; K21.9 Gastro-esophageal reflux disease without esophagitis; F41.8 Other specified anxiety disorders; J44.9 Chronic obstructive pulmonary disease, unspecified; E03.9 Hypothyroidism, unspecified; I25.2 Old myocardial infarction; I10 Essential (primary) hypertension; E11.9 Type 2 diabetes mellitus without complications; E78.5 Hyperlipidemia, unspecified; Z79.899 Other long term (current) drug therapy
CPT/HCPCS: 74021; 80053; 80305; 81001; 82150; 83690; 84484; 85025; 87086; 87088; 87186; 93005; 96365; 96375; 99283; J2405

== ENCOUNTER 2021-01-25 23:41 | Emergency (ER) | payer MEDICARE, BC, SELFPAY ==
[2021-01-25 23:50] VITALS: BP 163/102; PULSE 78; RESP 18; TEMP 36.8; O2SAT 98; BMI 28.7
--- NOTE | 2021-01-26 00:02 | HMH.EDALLER ---
ED Disposition Clinical Impression: Insect bite Qualifiers: Encounter type: initial encounter Site of insect bite: hand Laterality: right Qualified Code(s): S60.561A - Insect bite (nonvenomous) of right hand, initial encounter; W57.XXXA - Bitten or stung by nonvenomous insect and other nonvenomous arthropods, initial encounter Disposition: Home, Self-Care Condition on Discharge: Good Instructions: DI for Insect Allergy Additional Instructions: use benadryl/claritin and see pcp for follow up Referrals: Timo Villalba APRN [Primary Care Provider] - - Critical Care Critical Care Time: No Attestation: On , the high probability of a clinically significant, sudden or life threatening deterioration of the following system(s) required my full and direct attention, intervention and personal management. The time I documented below is in addition to time spent performing reported procedures but includes the following listed in this critical care notation. Medical Decision Making - Medical Records Medical records reviewed: Yes: I reviewed the patient's medical records. - [place] Inquiry Pt receiving controlled substance: No Vital Signs: 01/25/21 23:50 Temperature 98.3 F Temperature Source Oral Pulse Rate [Right Brachial] 78 Respiratory Rate 18 Blood Pressure [Right Arm] 163/102 H Blood Pressure Mean [Right Arm] 122 Blood Pressure Source [Right Arm] Automatic Cuff Blood Pressure Position [Right Arm] Sitting 02 Sat by Pulse Oximetry 98 Oxygen Delivery Method Room Air - Lab Data Lab results reviewed: Yes: I reviewed the patient's lab results. Medical Decision Narrative: insect bite rt hand with no skin changes Allergic React/Insect Bite HPI - General Chief complaint: Animal Bite Stated complaint: bug bite between middle finger and ring finger Time Seen by Provider: 01/26/21 00:03 Mode of Arrival - ED Triage: Family Vehicle Source of Information: Patient, Medical Record Limitations: No Limitations - History of Present Illness HPI narrative: insect bite rt hand today - squeezed fluid and now with not feeling well MD complaint: allergic reaction Onset (ago): hour(s) Exposure: insect bite Symptoms: nausea Treatment prior to arrival: none Allergies/Adverse Reactions: Allergies Allergy/AdvReac Type Severity Reaction Status Date / Time epinephrine Allergy Severe Anaphylaxis Verified 11/07/20 10:54 penicillin G Allergy Severe Anaphylaxis Verified 11/07/20 10:54 ketorolac [From Toradol] Allergy Mild Hives Verified 11/07/20 10:54 Severity: moderate - Related Data Home Medications Medication Instructions Recorded Confirmed Albuterol Sulfate [Albuterol 3 ml IH QID PRN 01/25/20 10/23/20 0.083% 2.5mg/3mL neb] hydrOXYzine pamoate [Hydroxyzine 50 mg PO TIDP PRN 01/25/20 10/23/20 Pamoate] Insulin Detemir [Levemir 23 units SQ HS 10/17/20 10/23/20 100units/mL 3mL flexpen] Previous Rx's Medication Instructions Recorded Sucralfate [Carafate 1gm Tab] 1 gm PO ACHS tab 10/19/20 Ubrogepant [Ubrelvy 50mg Tablet] 50 mg PO DAILYP PRN tab 10/19/20 atorvastatin 80 mg tablet 80 mg PO DAILY #90 tab 10/28/20 blood sugar diagnostic See Rx Instructions .ROUTE 10/28/20 .MEDSUPPLY #100 each blood-glucose meter See Rx Instructions .ROUTE 10/28/20 .MEDSUPPLY #1 each insulin human U-100 NPH-regulr 5 unit SQ BID #3 ml 10/28/20 70-30 mix 100 unit/mL subcutaneous susp lancets 30 gauge See Rx Instructions .ROUTE 10/28/20 .MEDSUPPLY #100 each lisinopril 20 mg tablet 20 mg PO DAILY #90 tab 10/28/20 pantoprazole 40 mg tablet,delayed 40 mg PO BID #180 tab 10/28/20 release pen needle, diabetic 31 gauge x See Rx Instructions .ROUTE #100 11/19/20 1/4 each pen needle, diabetic 31 gauge x See Rx Instructions .ROUTE #100 11/19/20 3/16 each insulin syringe-needle U-100 1 mL See Rx Instructions .ROUTE #100 11/22/20 29 gauge x 1/2 each gabapentin 100 mg capsule 100 mg PO TID #90 cap 11/25/
[2021-01-26 00:09] VITALS: BP 155/89; PULSE 78; RESP 15; TEMP 36.8; O2SAT 98
== END 2021-01-26 00:17 | disposition home or self-care (01) ==
LOC: ER 01-26 00:14
PROVIDERS: Emergency Provider Emergency Medicine; PCP Nurse Practitioner Family
DX: S60.561A Insect bite (nonvenomous) of right hand, initial encounter (principal); W57.XXXA Bitten or stung by nonvenomous insect and other nonvenomous arthropods, initial encounter; J44.9 Chronic obstructive pulmonary disease, unspecified; E11.9 Type 2 diabetes mellitus without complications; F41.8 Other specified anxiety disorders; E78.5 Hyperlipidemia, unspecified; I10 Essential (primary) hypertension; E03.9 Hypothyroidism, unspecified; Z88.0 Allergy status to penicillin; Z88.8 Allergy status to other drugs, medicaments and biological substances
CPT/HCPCS: 99281

== ENCOUNTER 2021-03-24 16:19 | Emergency (ER) | payer MEDICARE, BC, SELFPAY ==
[2021-03-24 16:21] VITALS: BP 165/93; PULSE 71; RESP 19; TEMP 37.2; O2SAT 98; BMI 34.4
--- NOTE | 2021-03-24 16:54 | HMH.EDGENADL ---
ED Disposition Clinical Impression: Migraine Qualifiers: Migraine type: with aura Status migrainosus presence: with status migrainosus Intractability: not intractable Qualified Code(s): G43.101 - Migraine with aura, not intractable, with status migrainosus Disposition: Home, Self-Care Condition on Discharge: Good Additional Instructions: Return to emergency department for any new or concerning symptoms, please follow-up with your neurologist. Referrals: Timo Villalba APRN [Primary Care Provider] - - Critical Care Critical Care Time: No Attestation: On , the high probability of a clinically significant, sudden or life threatening deterioration of the following system(s) required my full and direct attention, intervention and personal management. The time I documented below is in addition to time spent performing reported procedures but includes the following listed in this critical care notation. Medical Decision Making - Medical Records Medical records reviewed: Yes: I reviewed the patient's medical records. - [place] Inquiry Pt receiving controlled substance: No Vital Signs: 03/24/21 16:21 03/24/21 17:30 Temperature 98.9 F Temperature Source Oral Pulse Rate 94 H Pulse Rate [Left Radial] 71 Respiratory Rate 19 Blood Pressure 152/91 H Blood Pressure [Right Arm] 165/93 H Blood Pressure Mean [Right Arm] 117 Blood Pressure Source [Right Arm] Automatic Cuff Blood Pressure Position [Right Arm] Sitting 02 Sat by Pulse Oximetry 98 96 Oxygen Delivery Method Room Air Orders (Tests/Meds): ED MEDICATIONS Generic Name Dose Route Start Last Admin Trade Name Freq PRN Reason Stop Dose Admin Lactated Ringer's 500 mls @ 999 mls/hr 03/24/21 16:45 03/24/21 17:10 Lactated Ringer's 1000 Ml Bag IV 03/24/21 17:15 999 mls/hr .Q31M FRANCES Administration Discontinued Medications Generic Name Dose Route Start Last Admin Trade Name Freq PRN Reason Stop Dose Admin Acetaminophen 500 mg 03/24/21 16:36 03/24/21 17:08 Acetaminophen 500mg Tab PO 03/24/21 16:37 500 mg ONCE ONE Administration Diphenhydramine HCl 50 mg 03/24/21 16:36 03/24/21 17:09 Diphenhydramine 50mg/Ml Vial IV 03/24/21 16:37 50 mg ONCE ONE Administration Magnesium Sulfate 1 gm/ Sodium 52 mls @ 100 mls/hr 03/24/21 17:10 03/24/21 17:11 Chloride IV 03/24/21 17:41 100 mls/hr ONCE ONE Administration Magnesium Sulfate 1 gm 03/24/21 16:36 03/24/21 17:10 Magnesium Sulfate 1gm/2ml Vial IM 03/24/21 16:37 Not Given ONCE ONE Prochlorperazine Edisylate 10 mg 03/24/21 16:36 03/24/21 17:09 Prochlorperazine 10mg/2ml Vial IV 03/24/21 16:37 10 mg ONCE ONE Administration Medical Decision Narrative: Patient is a 55-year-old female with a history of migraine disorders presenting to the emergency department with chief complaint of right-sided headache for 1 week. Patient states that headache has gradually increased in pain. Differential diagnosis includes acute headache, tension headache, have low suspicion for acute stroke given the history of prior symptoms with migraine. This we will treat patient symptomatically with Compazine, Benadryl, fluids and magnesium. Patient was reassessed twice during the emergency department stay, and on final reassessment patient stating that she was ready to leave that her headache was significantly better. General Adult HPI - General Chief complaint: Headache Stated complaint: migraine, numb on right side Time Seen by Provider: 03/24/21 16:35 Mode of Arrival: Ambulatory Limitations: No Limitations Description of Symptoms (Recalled from ER Triage Doc. by RN): c/o migraine for one week, states that the pain goes from the back of her neck/ shoulder into her head and numbness in the right side of her face (which is normal for her.) - History of Present Illness HPI narrative: Patient is a 55-year-old female presenting to the emergency department chief complaint of
[2021-03-24 17:30] VITALS: BP 152/91; PULSE 94; O2SAT 96
[2021-03-24 18:42] VITALS: BP 156/91; PULSE 96; RESP 20; TEMP 37.2; O2SAT 100
== END 2021-03-24 18:43 | disposition home or self-care (01) ==
PROVIDERS: Emergency Provider Emergency Medicine; PCP Nurse Practitioner Family
DX: G43.101 Migraine with aura, not intractable, with status migrainosus (principal); F41.8 Other specified anxiety disorders; E11.9 Type 2 diabetes mellitus without complications; E78.5 Hyperlipidemia, unspecified
CPT/HCPCS: 96365; 96375; 99281

== ENCOUNTER 2021-03-28 04:47 | Emergency (ER) | payer MEDICARE, BC, SELFPAY ==
[2021-03-28] VITALS (8 sets, daily range): BP systolic 135–195; BP diastolic 69–104; PULSE 66–95; RESP 15–18; TEMP 36.4–36.8; O2SAT 95–98; BMI 34.2
--- NOTE | 2021-03-28 05:02 | ECG_ITS ---
APPROVED REPORT Exam: Resting ECG HR:75 bpm ECG Measurements Heart Rate 75 AXES WI 144 P 37 QRSd 92 QRS 56 QT 422 T 35 QTc 471 Conclusion Normal sinus rhythm RSR' or QR pattern in V1 suggests right ventricular conduction delay Borderline ECG Electronically signed by : Gabriel Russ MD 03/28/2021 13:50:29
--- NOTE | 2021-03-28 05:12 | XR_ITS ---
PROCEDURE INFORMATION: Exam: XR Chest Exam date and time: 03/28/2021 5:12 AM Age: 55 years old Clinical indication: Patient HX: Lt shoulder pain that radiates into back, nonsmoker, no SX or shoulder, no known injury; Additional info: Radiating shoulder pain TECHNIQUE: Imaging protocol: XR of the chest. Views: 2 views. COMPARISON: CR XR ACUTE ABDOMEN SERIES 01/04/2021 10:44 PM FINDINGS: Lungs: The lungs are adequately inflated without focal consolidation. Pleural spaces: No pneumothorax or pleural effusion. Heart/Mediastinum: The cardiomediastinal silhouette has normal size and contour. Bones/joints: No displaced fracture. Unchanged mineralized density projecting over the left lateral 3rd rib. Multilevel degenerative changes spine. Intraperitoneal space: The visualized abdomen is unremarkable. IMPRESSION: No acute cardiopulmonary disease.
--- NOTE | 2021-03-28 05:12 | XR_ITS ---
PROCEDURE INFORMATION: Exam: XR Left Shoulder Exam date and time: 03/28/2021 5:12 AM Age: 55 years old Clinical indication: Left; Patient HX: Lt shoulder pain that radiates into back, nonsmoker, no SX or shoulder, no known injury TECHNIQUE: Imaging protocol: XR Left shoulder. Views: 2 or more views. COMPARISON: CR XR SHOULDER LT MIN 2V 06/09/2020 2:51 PM, chest radiograph 11/13/2020, chest radiograph 06/02/2019. FINDINGS: Bones/joints: No acute fracture. Soft tissues: No significant soft tissue edema. Other findings: Anatomic alignment is maintained. Multilevel degenerative changes spine. There is a 10 mm mineralized density projects over the superior left hemithorax and is unchanged from 06/02/2019. IMPRESSION: 1. No acute fracture. 2. Unchanged sclerotic density projecting over the left lateral 3rd rib.
[2021-03-28 05:37] LABS: Basophils # 0.1 K/mm3 (0-0.2); Basophils % 1.6 % (0.1-2.0); Eosinophils # 0.3 K/mm3 (0.0-0.4); Eosinophils % 3.6 % (0.1-12.0); Hematocrit 44.4 % (37.0-47.0); Hemoglobin 14.6 g/dL (12.2-16.2); Lymphocytes # 2.2 K/mm3 (0.7-4.5); Lymphocytes % 26.3 % (10-50); Mean Corpuscular HGB Conc 32.9 g/dL (31.8-35.4); Mean Corpuscular Hemoglobin 30.9 pg (27.0-31.2); Mean Corpuscular Volume 93.9 fl (81-99); Mean Platelet Volume 9.1 fl (7.4-10.4); Monocytes # 0.5 K/mm3 (0.1-1.0); Monocytes % 5.8 % (1.7-9.3); Neutrophils # 5.3 K/mm3 (1.8-7.8); Neutrophils % 62.7 % (37.0-80.0); Platelet Count 325 K/mm3 (142-424); Red Blood Count 4.73 M/mm3 (4.20-5.40); Red Cell Distribution Width 13.2 % (11.5-17.5); White Blood Count 8.4 K/mm3 (4.8-10.8)
[2021-03-28 05:44] LABS: Anion Gap 15.6 mEq/L (5-15); Blood Urea Nitrogen 15 mg/dl (7-17); Calcium 9.7 mg/dl (8.4-10.2); Carbon Dioxide 23 mmol/L (22.0-30.0); Chloride 103 mmol/L (98-107); Creatinine Clearance Estimated 128 mL/min (50-200); Estimated Glomerular Filt Rate 74 ml/min (>60); GFR (African American) 90 ML/MIN (>60); Glucose 258 mg/dl (74-100); Potassium 4.6 mmoL/L (3.5-5.1); Sodium 137 mmol/L (136-145)
[2021-03-28 05:49] LABS: C-Reactive Protein 26.4 mg/L (0-4)
--- NOTE | 2021-03-28 06:08 | HMH.EDGENADL ---
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 The time I documented below is in addition to time spent performing reported procedures but includes the following listed in this critical care notation. Medical Decision Making - Medical Records Medical records reviewed: Yes: I reviewed the patient's medical records. - [place] Inquiry Pt receiving controlled substance: No Vital Signs: 03/28/21 04:49 03/28/21 05:30 03/28/21 06:00 Temperature 97.6 F Temperature Source Oral Pulse Rate 74 66 Pulse Rate [Apical] 87 Respiratory Rate 18 18 Blood Pressure 154/85 H 145/82 H Blood Pressure [Right Arm] 195/104 H Blood Pressure Mean [Right Arm] 134 Blood Pressure Source [Right Arm] Automatic Cuff Blood Pressure Position [Right Arm] Sitting 02 Sat by Pulse Oximetry 95 96 96 Oxygen Delivery Method Room Air Room Air Room Air - Lab Data Lab results reviewed: Yes: I reviewed the patient's lab results. Lab Results 03/28/21 05:15: WBC 8.4, RBC 4.73, Hgb 14.6, Hct 44.4, MCV 93.9, MCH 30.9, MCHC 32.9, RDW 13.2, Plt Count 325, MPV 9.1, Neut % (Auto) 62.7, Lymph % (Auto) 26.3, [place] % (Auto) 5.8, Eos % (Auto) 3.6, Baso % (Auto) 1.6, Neut # (Auto) 5.3, Lymph # (Auto) 2.2, [place] # (Auto) 0.5, Eos # (Auto) 0.3, Baso # (Auto) 0.1, ESR 51 H 03/28/21 05:15: Sodium 137, Potassium 4.6, Chloride 103, Carbon Dioxide 23, Anion Gap 15.6 H, BUN 15, Creatinine 0.80, Estimated Creat Clear 128, Estimated GFR 74, Est GFR ( Amer) 90, Glucose 258 H, Calcium 9.7, Troponin I < 0.01, C-Reactive Protein 26.4 H 03/28/21 07:30: Troponin I < 0.01 Result diagrams: 03/28/21 05:15 03/28/21 05:15 Orders (Tests/Meds): ED MEDICATIONS Discontinued Medications Generic Name Dose Route Start Last Admin Trade Name Freq PRN Reason Stop Dose Admin Acetaminophen 1,000 mg 03/28/21 05:22 03/28/21 05:25 Acetaminophen 500mg Tab PO 03/28/21 05:23 1,000 mg ONCE ONE Administration Methocarbamol 500 mg 03/28/21 09:00 Methocarbamol 500mg Tablet PO 04/27/21 08:59 BID FRANCES Methocarbamol 500 mg 03/28/21 05:25 03/28/21 05:25 Methocarbamol 500mg Tablet PO 03/28/21 05:26 500 mg ONCE ONE Administration Methylprednisolone Sodium Succinate 125 mg 03/28/21 05:18 03/28/21 05:25 Methylprednisolone Sod Succ 125mg Vial IV 03/28/21 05:19 125 mg ONCE ONE Administration Morphine Sulfate 2 mg 03/28/21 05:18 03/28/21 06:34 Morphine 2mg/Ml Syringe IV 03/28/21 05:19 Not Given ONCE ONE Ondansetron HCl 4 mg 03/28/21 05:18 03/28/21 06:34 Ondansetron 4mg/2ml Vial IV 03/28/21 05:19 Not Given ONCE ONE ORDERS Category Date Time Status Troponin I Q3H Lab 03/28/21 11:15 Ordered ECG Request by /Nse Stat Y 03/28/21 05:12 Ordered - Radiology Data #1 Image(s): Chest, Shoulder Image Reviewed: Yes I have reviewed radiologist's interpretation Preliminary Findings: No Fracture Seen - ECG Data Tracing #1 Normal Sinus Rhythm: Yes Ischemic changes: non-specific ST-T wave changes Medical Decision Narrative: pain with rom of lt shoulder but has di
[2021-03-28 06:12] LABS: Troponin I < 0.01 ng/ml (0.00-0.034)
[2021-03-28 06:17] LABS: Erythrocyte Sedimentation Rate 51 mm/hr (0-30)
[2021-03-28 08:05] LABS: Troponin I < 0.01 ng/ml (0.00-0.034)
== END 2021-03-28 08:31 | disposition home or self-care (01) ==
PROVIDERS: Emergency Provider Emergency Medicine; PCP Nurse Practitioner Family
DX: M54.12 Radiculopathy, cervical region (principal); M25.512 Pain in left shoulder; E11.65 Type 2 diabetes mellitus with hyperglycemia; E66.9 Obesity, unspecified; Z68.34 Body mass index [BMI] 34.0-34.9, adult; J44.9 Chronic obstructive pulmonary disease, unspecified; F41.8 Other specified anxiety disorders; I10 Essential (primary) hypertension; E78.5 Hyperlipidemia, unspecified; Z79.899 Other long term (current) drug therapy
CPT/HCPCS: 71046; 73030; 80048; 84484; 85025; 85651; 86140; 93005; 96374; 96375; 99283

== ENCOUNTER → 2021-04-04 09:32 | Outpatient (CLI) | payer MEDICARE, BC, SELFPAY ==
[2021-04-04 10:46] LABS: Alanine Aminotransferase 23 U/L (12-78); Albumin Level 4.3 g/dl (3.5-5.0); Albumin/Globulin Ratio 1.5 (1.1-1.8); Alkaline Phosphatase 100 U/L (38-126); Anion Gap 13.5 mEq/L (5-15); Aspartate Amino Transferase 25 U/L (14-36); Bilirubin,Total 0.5 mg/dl (0.2-1.3); Blood Urea Nitrogen 27 mg/dl (7-17); Calcium 10.4 mg/dl (8.4-10.2); Carbon Dioxide 28 mmol/L (22.0-30.0); Chloride 103 mmol/L (98-107); Chol/HDL Ratio 4.8 (1-3.5); Cholesterol 249 mg/dl (140-200); Estimated Glomerular Filt Rate 52 ml/min (>60); GFR (African American) 62 ML/MIN (>60); Globulin 2.8 g/dL (1.3-3.2); Glucose 211 mg/dl (74-100); HDL Cholesterol 52 mg/dl (40-60); Potassium 4.5 mmoL/L (3.5-5.1); Sodium 140 mmol/L (136-145); Total Protein,Serum 7.1 g/dl (6.3-8.2); Triglycerides 330 mg/dl (30-150); VLDL Cholesterol 66 mg/dL (0-40)
[2021-04-04 10:57] LABS: Hemoglobin A1C 9.4 % (4.0-6.0)
[2021-04-04 11:12] LABS: Direct LDL Cholesterol 178.73 mg/dL (100-129)
[2021-04-04 11:50] LABS: Vitamin B12 326 pg/mL (239-931)
[2021-04-04 12:06] LABS: Folate 8.62 ng/mL
== END ==
PROVIDERS: Visit Provider Nurse Practitioner Family
DX: G43.709 Chronic migraine without aura, not intractable, without status migrainosus; E11.65 Type 2 diabetes mellitus with hyperglycemia; I10 Essential (primary) hypertension; R53.83 Other fatigue; Z86.73 Personal history of transient ischemic attack (TIA), and cerebral infarction without residual deficits; G47.00 Insomnia, unspecified; Z68.32 Body mass index [BMI] 32.0-32.9, adult; Z79.4 Long term (current) use of insulin
CPT/HCPCS: 36415; 80053; 80061; 82607; 82746; 83036; 84443

== ENCOUNTER → 2021-04-08 08:27 | Outpatient (CLI) | payer MEDICARE, BC, SELFPAY ==
--- NOTE | 2021-04-08 08:37 | MR_ITS ---
PROCEDURE: MR HEAD/BRAIN WO/W CON CLINICAL INDICATION: Frequent headaches with CVA-like symptoms COMPARISON: CT CT HEAD/BRAIN WO CON from 12/07/2020 TECHNIQUE: Routine multiplanar multi echo sequences are performed without and with gadolinium enhancement. FINDINGS: No midline shift, mass effect, intracranial hemorrhage, or hydrocephalus is evident. No evidence of acute infarction. No restricted diffusion apparent. The cerebellopontine angles, cerebellum, brainstem, and mid brain have an unremarkable appearance. There are scattered periventricular and subcortical T2 white matter hyperintensities. These do not enhance or demonstrate restricted diffusion. Small bandlike area of increased T2 signal is present in the cortical region of the left frontal parietal junction centrally suggesting an old small area of infarction. This does not demonstrate enhancement and is hypointense on T1 consistent with an area of encephalomalacia. Partial empty sella as a normal variant. No pituitary mass apparent. The optic chiasm, corpus callosum, and craniocervical junction have an unremarkable appearance. No mastoid effusion or sinus air-fluid level. No obvious orbital mass. IMPRESSION: 1. Numerous scattered T2 white matter hyperintensities. Most common etiology would include ischemic gliotic changes from microvascular disease. Migraine headache and demyelinating process included in the differential diagnosis. 2. Small area of encephalomalacia in the left frontal parietal junction medially. 3. No acute infarction Dictated by: Mata Dominguez MD 04/09/2021 09:14 Mata Dominguez MD in [facility] 04/09/2021 09:14
== END ==
PROVIDERS: PCP Nurse Practitioner Family; Visit Provider Nurse Practitioner Family
DX: G43.109 Migraine with aura, not intractable, without status migrainosus (principal); G43.709 Chronic migraine without aura, not intractable, without status migrainosus; G47.00 Insomnia, unspecified; I10 Essential (primary) hypertension; R40.0 Somnolence; R53.83 Other fatigue; Z68.32 Body mass index [BMI] 32.0-32.9, adult; Z86.73 Personal history of transient ischemic attack (TIA), and cerebral infarction without residual deficits
CPT/HCPCS: 70553; A9576

== ENCOUNTER 2021-04-15 14:36 | Emergency (ER) | payer MEDICARE, BC, SELFPAY ==
[2021-04-15 14:37] VITALS: BP 129/78; PULSE 93; RESP 18; TEMP 36.9; O2SAT 95; BMI 33.4
--- NOTE | 2021-04-15 15:44 | CT_ITS ---
PROCEDURE INFORMATION: Exam: CT Head Without Contrast Exam date and time: 04/15/2021 3:44 PM Age: 55 years old Clinical indication: Other: Entire right side of body has been numb all day; Patient HX: Entire right side of body has been numb all day. ; Additional info: RT side numbness, previous stroke TECHNIQUE: Imaging protocol: Computed tomography of the head without contrast. Radiation optimization: All CT scans at this facility use at least one of these dose optimization techniques: automated exposure control; mA and/or kV adjustment per patient size (includes targeted exams where dose is matched to clinical indication); or iterative reconstruction. Other technique: STROKE PROTOCOL was implemented. COMPARISON: MR HEAD/BRAIN WO/W CON 04/08/2021 8:56 AM FINDINGS: Brain: No hemorrhage. Minimal areas of low attenuation within the periventricular white matter. There is an empty sella, a normal variant. No mass effect. Cerebral ventricles: No ventriculomegaly. Paranasal sinuses: Visualized sinuses are unremarkable. No fluid levels. Mastoid air cells: Visualized mastoid air cells are well aerated. Bones/joints: No acute fracture. Soft tissues: Unremarkable. IMPRESSION: No acute intracranial abnormality. ASSESSMENT: ASPECTS ([place] Stroke Program Early CT Score) is 10.
[2021-04-15 16:00] VITALS: BP 146/76; PULSE 86; O2SAT 96
--- NOTE | 2021-04-15 16:00 | CT_ITS ---
PROCEDURE INFORMATION: Exam: CT Angiography Head With Contrast, Arteriography Exam date and time: 04/15/2021 4:00 PM Age: 55 years old Clinical indication: Patient HX: Entire right side of body numb all day, prior stroke; Additional info: Stroke R/O TECHNIQUE: Imaging protocol: Computed tomography angiography of the head with contrast. Exam focused on the arteries. 3D rendering (Not supervised by radiologist): MIP and/or 3D reconstructed images were created by the technologist. Radiation optimization: All CT scans at this facility use at least one of these dose optimization techniques: automated exposure control; mA and/or kV adjustment per patient size (includes targeted exams where dose is matched to clinical indication); or iterative reconstruction. Contrast material: ISOVUE 370; Contrast volume: 100 ml; Contrast route: INTRAVENOUS (IV); COMPARISON: CT ANGIO HEAD 06/25/2020 11:32 PM FINDINGS: ANTERIOR CIRCULATION: Right internal carotid artery: Intracranial segment is patent with no significant stenosis. No aneurysm. Right middle cerebral artery: No occlusion or significant stenosis. No aneurysm. Right anterior cerebral artery: No occlusion or significant stenosis. No aneurysm. Left internal carotid artery: Intracranial segment is patent with no significant stenosis. No aneurysm. Left middle cerebral artery: No occlusion or significant stenosis. No aneurysm. Left anterior cerebral artery: No occlusion or significant stenosis. No aneurysm. POSTERIOR CIRCULATION: Right vertebral artery: The intradural segment of the right vertebral artery is a diminutive. Left vertebral artery: No occlusion or significant stenosis. No aneurysm. Basilar artery: No occlusion or significant stenosis. No aneurysm. Right posterior cerebral artery: No occlusion or significant stenosis. No aneurysm. Left posterior cerebral artery: No occlusion or significant stenosis. No aneurysm. Brain: No acute intracranial hemorrhage. Minimal low attenuation in the periventricular matter disease. No edema. No abnormal enhancement. Cerebral ventricles: No ventriculomegaly. Bones/joints: No acute fracture. Soft tissues: Unremarkable. IMPRESSION: There is no acute intracranial arterial stenosis or occlusion.
--- NOTE | 2021-04-15 16:00 | CT_ITS ---
PROCEDURE INFORMATION: Exam: CT Angiography Neck With Contrast Exam date and time: 04/15/2021 4:00 PM Age: 55 years old Clinical indication: Other: Entire right side of body is numb all day; Additional info: Stroke R/O TECHNIQUE: Imaging protocol: Computed tomography angiography of the neck with contrast. 3D rendering (Not supervised by radiologist): MIP and/or 3D reconstructed images were created by the technologist. Radiation optimization: All CT scans at this facility use at least one of these dose optimization techniques: automated exposure control; mA and/or kV adjustment per patient size (includes targeted exams where dose is matched to clinical indication); or iterative reconstruction. Contrast material: ISOVUE 370; Contrast volume: 100 ml; Contrast route: INTRAVENOUS (IV); COMPARISON: CT ANGIO NECK 06/25/2020 11:32 PM FINDINGS: Right common carotid artery: No stenosis. No dissection or occlusion. Right internal carotid artery: There is mixed calcified atheromatous plaque involving the proximal right ICA with a stable mild stenosis (1-4.1/5.0 equals 18%). Right external carotid artery: No occlusion or stenosis of the origin. Left common carotid artery: No stenosis. No dissection or occlusion. Left internal carotid artery: There is mixed calcified atheromatous plaque involving the proximal left ICA with a mild stenosis (1 and-3.5/4.6 equals 24%). Left external carotid artery: No occlusion or stenosis of the origin. Right vertebral artery: No stenosis. No dissection or occlusion. Left vertebral artery: Dominant vessel. No stenosis. No dissection or occlusion. Thyroid: The thyroid is heterogeneous with calcified and noncalcified nodules. Dental: The mandible and maxilla are edentulous. Lymph nodes: There are nonenlarged cervical lymph nodes. Soft tissues: Normal. No significant soft tissue swelling. Bones/joints: There is some degenerative changes of the cervical spine. Lungs: There is a 12 mm left lung granuloma. IMPRESSION: There is atherosclerotic disease with stable mild stenosis of the origin of the right and left ICA. COMMENTS: Consistent with the [employer]'s Incidental Findings Committee white paper (J Am Christie Radiol 2015): In patients aged 35 years and older with an incidental thyroid nodule equal to or greater than 1.[address], MRI or extrathyroidal US, further evaluation with dedicated thyroid US is recommended for patients with normal life expectancy and without comorbidities. For smaller nodules without suspicious features, no further evaluation or follow up is recommended. REFERENCES: NASCET CRITERIA. The degree of internal carotid artery stenosis is based on NASCET criteria. Normal is no stenosis. Mild is less than 50% stenosis. Moderate is 50-69% stenosis. Severe is 70% to 99% stenosis. Total occlusion is no detectable patent lumen.
[2021-04-15 16:05] LABS: Alanine Aminotransferase 24 U/L (12-78); Albumin Level 4.2 g/dl (3.5-5.0); Albumin/Globulin Ratio 1.4 (1.1-1.8); Alkaline Phosphatase 127 U/L (38-126); Anion Gap 10.7 mEq/L (5-15); Aspartate Amino Transferase 35 U/L (14-36); Bilirubin,Total 0.5 mg/dl (0.2-1.3); Blood Urea Nitrogen 13 mg/dl (7-17); Calcium 9.8 mg/dl (8.4-10.2); Carbon Dioxide 26 mmol/L (22.0-30.0); Chloride 103 mmol/L (98-107); Creatinine Clearance Estimated 111 mL/min (50-200); Estimated Glomerular Filt Rate 65 ml/min (>60); GFR (African American) 79 ML/MIN (>60); Glucose 169 mg/dl (74-100); Potassium 3.7 mmoL/L (3.5-5.1); Sodium 136 mmol/L (136-145); Total Protein,Serum 7.2 g/dl (6.3-8.2)
[2021-04-15 16:23] LABS: Basophils # 0.1 K/mm3 (0-0.2); Basophils % 0.8 % (0.1-2.0); Eosinophils # 0.2 K/mm3 (0.0-0.4); Eosinophils % 1.9 % (0.1-12.0); Hematocrit 44.1 % (37.0-47.0); Hemoglobin 15.3 g/dL (12.2-16.2); Lymphocytes # 2.2 K/mm3 (0.7-4.5); Lymphocytes % 21.7 % (10-50); Mean Corpuscular HGB Conc 34.8 g/dL (31.8-35.4); Mean Corpuscular Hemoglobin 31.1 pg (27.0-31.2); Mean Corpuscular Volume 89.5 fl (81-99); Mean Platelet Volume 10.1 fl (7.4-10.4); Monocytes # 0.6 K/mm3 (0.1-1.0); Monocytes % 5.4 % (1.7-9.3); Neutrophils # 7.3 K/mm3 (1.8-7.8); Neutrophils % 70.2 % (37.0-80.0); Platelet Count 287 K/mm3 (142-424); Red Blood Count 4.92 M/mm3 (4.20-5.40); Red Cell Distribution Width 13.2 % (11.5-17.5); White Blood Count 10.4 K/mm3 (4.8-10.8)
--- NOTE | 2021-04-15 19:34 | HMH.EDGENADL ---
ED Disposition Clinical Impression: Migraine aura without headache Disposition: Home, Self-Care Condition on Discharge: Good Instructions: Migraine -- Adult Referrals: Timo Villalba APRN [Primary Care Provider] - Time of Disposition: 19:40 - Critical Care Critical Care Time: Yes Attestation: On 04/15/21, the high probability of a clinically significant, sudden or life threatening deterioration of the following system(s) required my full and direct attention, intervention and personal management. The time I documented below is in addition to time spent performing reported procedures but includes the following listed in this critical care notation. Total Critical Care Time: 45 (stroke alert) Vital system(s) involved:: Central Nervous System My critical care processes included: Assessment & monitoring of V/S, Initial and Re-exams, Data Review/Interpretation, Documentation Medical Decision Making - Medical Records Medical records reviewed: Yes: I reviewed the patient's medical records. - [place] Inquiry Pt receiving controlled substance: No Vital Signs: 04/15/21 14:37 04/15/21 16:00 Temperature 98.4 F Temperature Source Oral Pulse Rate 86 Pulse Rate [Right Radial] 93 H Respiratory Rate 18 Blood Pressure 146/76 H Blood Pressure [Right Arm] 129/78 Blood Pressure Mean [Right Arm] 95 Blood Pressure Source [Right Arm] Automatic Cuff Blood Pressure Position [Right Arm] Sitting 02 Sat by Pulse Oximetry 95 96 Oxygen Delivery Method Room Air - Lab Data Lab Results 04/15/21 15:40: WBC 10.4, RBC 4.92, Hgb 15.3, Hct 44.1, MCV 89.5, MCH 31.1, MCHC 34.8, RDW 13.2, Plt Count 287, MPV 10.1, Neut % (Auto) 70.2, Lymph % (Auto) 21.7, [place] % (Auto) 5.4, Eos % (Auto) 1.9, Baso % (Auto) 0.8, Neut # (Auto) 7.3, Lymph # (Auto) 2.2, [place] # (Auto) 0.6, Eos # (Auto) 0.2, Baso # (Auto) 0.1 04/15/21 15:40: Sodium 136, Potassium 3.7, Chloride 103, Carbon Dioxide 26, Anion Gap 10.7, BUN 13, Creatinine 0.90, Estimated Creat Clear 111, Estimated GFR 65, Est GFR ( Amer) 79, Glucose 169 H, Calcium 9.8, Total Bilirubin 0.5, AST 35, ALT 24, Alkaline Phosphatase 127 H, Total Protein 7.2, Albumin 4.2, Globulin 3.0, Albumin/Globulin Ratio 1.4 Result diagrams: 04/15/21 15:40 04/15/21 15:40 Orders (Tests/Meds): ED MEDICATIONS Discontinued Medications Generic Name Dose Route Start Last Admin Trade Name Viry PRN Reason Stop Dose Admin Diphenhydramine HCl 25 mg 04/15/21 16:07 04/15/21 16:23 Diphenhydramine 50mg/Ml Vial IV 04/15/21 16:08 25 mg ONCE ONE Administration Lactated Ringer's 1,000 mls @ 999 mls/hr 04/15/21 16:15 Lactated Ringer's 1000 Ml Bag IV 04/15/21 17:15 .Q1H1M FRANCES Magnesium Sulfate 2 gm/ Sodium 104 mls @ 100 mls/hr 04/15/21 16:07 04/15/21 16:23 Chloride IV 04/15/21 17:09 100 mls/hr ONCE ONE Administration Iopamidol 100 ml 04/15/21 18:30 04/15/21 18:33 Iopamidol-370 (76%);100ml Bottle IV 04/15/21 18:31 100 ml ONCE ONE Administration Prochlorperazine Edisylate 10 mg 04/15/21 16:07 04/15/21 16:23 Prochlorperazine 10mg/2ml Vial IV 04/15/21 16:08 10 mg ONCE ONE Administration Sodium Chloride 50 ml 04/15/21 18:30 04/15/21 18:33 0.9 % Sodium Chloride 50 Ml Vial IV 04/15/21 18:31 50 ml ONCE ONE Administration Sodium Chloride 10 ml 04/15/21 18:30 04/15/21 18:33 Sodium Chloride 0.9% 10ml Syr (Rad Only) IV 04/15/21 18:31 10 ml ONCE ONE Administration Medical Decision Narrative: She 5-year-old female with past medical history of type 2 diabetes, prior CVAs, hypertension hyperlipidemia, complex migraines who presents to the emergency department with a an initial NIH stroke scale of 4 and last known normal at 1 AM today right eye blurred vision, right-sided numbness and tingling from her face down to her arm. On exam, she does have some objective findings of right upper and lower extremity weakness, thus CT head of the head a
[2021-04-15 20:05] VITALS: BP 141/82; PULSE 73; RESP 18; TEMP 37.2; O2SAT 98
== END 2021-04-15 20:16 | disposition home or self-care (01) ==
PROVIDERS: Emergency Provider Emergency Medicine; PCP Nurse Practitioner Family
DX: G43.109 Migraine with aura, not intractable, without status migrainosus (principal); F41.8 Other specified anxiety disorders; E78.5 Hyperlipidemia, unspecified; I10 Essential (primary) hypertension; E11.9 Type 2 diabetes mellitus without complications; E03.9 Hypothyroidism, unspecified; I25.2 Old myocardial infarction
CPT/HCPCS: 70450; 70496; 70498; 80053; 85025; 96365; 96375; 99283; Q9967

== ENCOUNTER 2021-04-30 10:12 | Emergency (ER) | payer MEDICARE, BC, SELFPAY ==
[2021-04-30 11:30] VITALS: BP 142/90; PULSE 102; RESP 22; TEMP 37.5; O2SAT 97; BMI 34.2
[2021-04-30 11:56] LABS: UTC Influenza A Antigen Negative (Negative); UTC Influenza B Antigen Negative (Negative)
--- NOTE | 2021-04-30 12:22 | HMH.EDUTC ---
[facility] Disposition Clinical Impression: Bronchitis Sinusitis Qualifiers: Sinusitis location: unspecified location Chronicity: unspecified Qualified Code(s): J32.9 - Chronic sinusitis, unspecified Disposition: Home, Self-Care Condition on Discharge: Good Instructions: Sinusitis, Acute Bronchitis, DI for Sinusitis Additional Instructions: ? Start antibiotic today. Be sure to complete entire prescription even if feeling better ? Monitor temp. Tylenol every 4 hours as needed and / or ibuprofen every 6 hours as needed ( As long as your primary care physician has told you that it ok to take both. For fever/aches/pains ER if no less than 101 despite Tylenol or Motrin ? Humidifier/vaporizer or hot steamy shower ? Nebulizer every 4-6 hours as needed like we discussed. Should help open airways and improve cough, wheezing, and shortness of breath *Tessalon Perles will not cause drowsiness but use at bedtime to help stop cough so that you may get some rest. *Start steroid today. Helps with inflammation therefore, cough and wheezing. Follow directions on the package. Reviewed side effects. Patient reports taking them before. Follow up IMMEDIATELY for new or worsening of symptoms OR no noticeable improvement over the next 48-72 hours. 911 immediately for any life threatening symptoms such as chest pain or difficulty breathing Prescriptions: Benzonatate [Benzonatate 100mg cap] 100 mg PO Q8HP PRN #15 cap PRN Reason: Cough Transmission Status: Received by [facility]/pharmacy #[id number] predniSONE [Prednisone 20mg Tab] 20 mg PO BID #10 tab Transmission Status: Received by [facility]/pharmacy #[id number] Azithromycin [Z-Sukumar 250mg Tab] 250 mg PO DIRECTED #6 tab Transmission Status: Received by [facility]/pharmacy #[id number] Referrals: Timo Villalba APRN [Primary Care Provider] - As needed Forms: Work/School Release Time of Disposition: 12:34 Medical Decision Making - Everette Inquiry Pt receiving controlled substance: No Everette was queried for this patient: No Vital Signs: 04/30/21 11:30 Temperature 99.5 F Temperature Source Oral Pulse Rate [Right Brachial] 102 H Respiratory Rate 22 Blood Pressure [Right Arm] 142/90 H Blood Pressure Mean [Right Arm] 107 Blood Pressure Source [Right Arm] Automatic Cuff Blood Pressure Position [Right Arm] Sitting 02 Sat by Pulse Oximetry 97 Oxygen Delivery Method Room Air - Lab Data Lab Results 04/30/21 11:45: Influenza Type A Ag Negative, Influenza Type B Ag Negative Orders (Tests/Meds): ORDERS Category Date Time Status Covid-19 Nasal PCR ([facility]) Routine Lab 04/30/21 12:[address] [facility] [place] HPI - General Stated complaint: cough, soa, congestion Time Seen by Provider: 04/30/21 12:22 Mode of Arrival: Ambulatory Source of Information: Patient Limitations: No Limitations Description of Symptoms (Recalled from Triage Doc. by RN): PATIENT C/O BODY ACHES AND TROUBLE BREATHING X 2 DAYS HEENT Symptoms (Recalled from RN notes): No Resp Symptoms (Recalled from RN notes): Yes Skin Symptoms (Recalled from RN notes): No MS Symptoms (Recalled from RN notes): Yes Functional Status (Recalled from RN notes): WNL - History of Present Illness Provider Complaint: Patient state that she has been having sinus congestion and pressure along with drainage in the back of her throat and lepe in her throat and chest area when she coughs States she feels like she may have bronchitis State that today she was feeling achy all over having chills so she came in thinking she may have a fever - Related Data Home Medications Medication Instructions Recorded Confirmed Albuterol Sulfate [Albuterol 3 ml IH QID PRN 01/25/20 04/02/21 0.083% 2.5mg/3mL neb] hydrOXYzine pamoate [Hydroxyzine 50 mg PO TIDP PRN 01/25/20 04/02/21 Pamoate] Insulin Detemir [Levemir 23 units SQ HS 10/17/20 04/02/21 100units/mL 3mL flexpen] aspirin 81 mg tablet,delayed 81 mg PO DAILY 04/01/21 04/02/21 release Previous Rx's Medicat
[2021-04-30 12:35] VITALS: BP 142/90; PULSE 102; RESP 22; TEMP 37.5; O2SAT 97
== END 2021-04-30 12:43 | disposition home or self-care (01) ==
PROVIDERS: Emergency Provider Nurse Practitioner; PCP Nurse Practitioner Family
DX: J20.9 Acute bronchitis, unspecified (principal); J32.9 Chronic sinusitis, unspecified; J44.9 Chronic obstructive pulmonary disease, unspecified; E11.9 Type 2 diabetes mellitus without complications; E78.5 Hyperlipidemia, unspecified; I10 Essential (primary) hypertension; I25.2 Old myocardial infarction; Z88.0 Allergy status to penicillin; Z79.899 Other long term (current) drug therapy
CPT/HCPCS: G0463; 87804; 99202; C9803; U0003; U0005

== ENCOUNTER 2021-05-05 07:46 | Emergency (ER) | payer MEDICARE, BC, SELFPAY ==
[2021-05-05 07:47] VITALS: BP 148/86; PULSE 74; RESP 18; TEMP 36.6; O2SAT 97; BMI 31.9
[2021-05-05 07:51] VITALS: BP 148/86; PULSE 76; RESP 18; O2SAT 96
--- NOTE | 2021-05-05 07:58 | ECG_ITS ---
APPROVED REPORT Exam: Resting ECG HR:73 bpm ECG Measurements Heart Rate 73 AXES IN 140 P 68 QRSd 98 QRS 59 QT 424 T 55 QTc 467 Conclusion Normal sinus rhythm RSR' or QR pattern in V1 suggests right ventricular conduction delay Borderline ECG Electronically signed by : Gabriel Russ MD 05/06/2021 21:06:43
--- NOTE | 2021-05-05 08:04 | XR_ITS ---
PROCEDURE: XR FOREARM RT 2V CLINICAL INDICATION: fall, arm pain COMPARISON: No exams were available for comparison FINDINGS: No fracture or dislocation. No lytic or blastic change. There is normal mineralization. No significant degenerative change. Other findings:None. IMPRESSION: No acute findings. Dictated by: Mata Dominguez MD 05/05/2021 08:50 Mata Dominguez MD in [place] 05/05/2021 08:50
--- NOTE | 2021-05-05 08:04 | CT_ITS ---
PROCEDURE: CT HEAD/BRAIN WO CON CLINICAL INDICATION: fall, head pain COMPARISON: CT CT ANGIO HEAD from 04/15/2021 TECHNIQUE: Axial images obtained. All CT scans at the facility use one or more dose reduction, viz: automated exposure control, ma/kV adjustment per patient size (including targeted exams where dose is matched to indication, i.e. head), or iterative reconstruction technique. FINDINGS: No midline shift, mass effect, intracranial hemorrhage, hydrocephalus, or extra-axial fluid collection is evident. The calvarium has an unremarkable appearance. No mastoid effusion. No sinus air-fluid level. IMPRESSION: No acute intracranial finding Dictated by: Mata Dominguez MD 05/05/2021 08:43 Mata Dominguez MD in [place] 05/05/2021 08:43
--- NOTE | 2021-05-05 08:04 | XR_ITS ---
PROCEDURE: XR WRIST RT 2V CLINICAL INDICATION: fall, arm pain COMPARISON: No exams were available for comparison FINDINGS: No fracture or dislocation. No lytic or blastic change. There is normal mineralization. The joint spaces are well-preserved. No significant degenerative/arthritic changes. No erosive changes evident. Other findings:Old fracture versus ununited ossification center of the ulnar styloid process. IMPRESSION: No acute findings. Dictated by: Mata Dominguez MD 05/05/2021 08:51 Mata Dominguez MD in [place] 05/05/2021 08:51
--- NOTE | 2021-05-05 08:04 | CT_ITS ---
PROCEDURE: CT CERVICAL SPINE WO CON CLINICAL INDICATION: fall, neck pain COMPARISON: CT CT CERVICAL SPINE WO CON from 11/13/2020 TECHNIQUE: Axial images obtained with sagittal and coronal reformats. All CT scans at the facility use one or more dose reduction, viz: automated exposure control, ma/kV adjustment per patient size (including targeted exams where dose is matched to indication, i.e. head), or iterative reconstruction technique. Axial spiral CT scanning performed of the cervical spine beginning at the base of the skull and continuing to the upper T-spine. 3-D multiplanar reconstruction with 3-D manipulation of volumetric data set in image rendering was completed by the radiologist and/or technologist with the supervision of the radiologist on independent workstation. FINDINGS: Normal alignment. There is straightening/reversal of the normal lordosis which may be due to patient positioning or muscle spasm.. No acute fracture or dislocation. C2-C3: Unremarkable. C3-C4: Degenerative disc disease. C4-C5: Degenerative disc disease. Mild left foraminal narrowing. C5-C6: Degenerative disc disease. Bilateral foraminal narrowing right greater than left secondary to uncovertebral hypertrophy. C6-C7: Mild degenerative disc disease. Sclerotic focus is present in the C7 vertebral body on the right suggesting a bone island C7-T1: Unremarkable Lung apices are clear. Calcified nodules are present in the thyroid less than 1.5 cm. IMPRESSION: 1. No acute fracture. 2. Slight loss of cervical lordosis which could be due to patient position or muscle spasm. 3. Degenerative changes as detailed above Dictated by: Mata Dominguez MD 05/05/2021 08:48 Mata Dominguez MD in [place] 05/05/2021 08:48
--- NOTE | 2021-05-05 08:06 | HMH.EDGENADL ---
ED Disposition Clinical Impression: Concussion Qualifiers: Encounter type: initial encounter Loss of consciousness presence/duration: with LOC of 30 min or less Qualified Code(s): S06.0X1A - Concussion with loss of consciousness of 30 minutes or less, initial encounter Contusion of right wrist Qualifiers: Encounter type: initial encounter Qualified Code(s): S60.211A - Contusion of right wrist, initial encounter DJD (degenerative joint disease), cervical Qualifiers: Spinal osteoarthritis complication: without myelopathy or radiculopathy Qualified Code(s): M47.812 - Spondylosis without myelopathy or radiculopathy, cervical region Disposition: Home, Self-Care Condition on Discharge: Good Instructions: DI for Concussion, DI for Closed Head Injury Additional Instructions: You have been evaluated for closed head injury, concussion. Monitor your symptoms at home. Take Tylenol and Motrin for pain. You also have an injury to the soft tissue of the forearm, called a contusion. No fracture. No dislocation. Please follow-up with your primary care doctor for recheck. Return to the emergency department for any new or worsening symptoms. Referrals: Timo Villalba APRN [Primary Care Provider] - Time of Disposition: 09:07 - Critical Care Critical Care Time: No Attestation: On 05/05/21, the high probability of a clinically significant, sudden or life threatening deterioration of the following system(s) required my full and direct attention, intervention and personal management. The time I documented below is in addition to time spent performing reported procedures but includes the following listed in this critical care notation. Medical Decision Making - Medical Records Medical records reviewed: Yes: I reviewed the patient's medical records. - Everette Inquiry Pt receiving controlled substance: No Vital Signs: 05/05/21 07:47 05/05/21 07:51 Temperature 97.8 F Temperature Source Oral Pulse Rate 76 Pulse Rate [Left Radial] 74 Respiratory Rate 18 18 Blood Pressure 148/86 H Blood Pressure [Right Arm] 148/86 H Blood Pressure Mean 111 Blood Pressure Mean [Right Arm] 106 Blood Pressure Source [Right Arm] Automatic Cuff Blood Pressure Position [Right Arm] Sitting 02 Sat by Pulse Oximetry 97 96 Oxygen Delivery Method Room Air - CT Data CT Scan: Head Time Received: 09:[address] Reviewed: Yes: I have reviewed the patient's CT results, I have viewed the radiologist's interpretation Preliminary Findings: Normal/NAD Findings Narrative: Head CT No acute findings CT cervical spine FINDINGS: Normal alignment. There is straightening/reversal of the normal lordosis which may be due to patient positioning or muscle spasm.. No acute fracture or dislocation. C2-C3: Unremarkable. C3-C4: Degenerative disc disease. C4-C5: Degenerative disc disease. Mild left foraminal narrowing. C5-C6: Degenerative disc disease. Bilateral foraminal narrowing right greater than left secondary to uncovertebral hypertrophy. C6-C7: Mild degenerative disc disease. Sclerotic focus is present in the C7 vertebral body on the right suggesting a bone island C7-T1: Unremarkable Lung apices are clear. Calcified nodules are present in the thyroid less than 1.5 cm. IMPRESSION: 1. No acute fracture. 2. Slight loss of cervical lordosis which could be due to patient position or muscle spasm. 3. Degenerative changes as detailed above Medical Decision Narrative: In summary this is a 55-year-old [id number] female presenting to the emergency department with head injury and right forearm pain after a fall. Patient clinically stable on arrival. Vital signs within normal limits. Her description of fall with loss of consciousness is concerning for a closed head injury, concussion, intracranial bleed. Forearm pain concerning for forearm fracture, sprain, strain, contusion. Will obtain noncontrast head CT, CT C-spine, x-ray of the r
[2021-05-05 09:00] VITALS: BP 138/84; PULSE 72; RESP 18; TEMP 36.6; O2SAT 98
== END 2021-05-05 09:01 | disposition home or self-care (01) ==
PROVIDERS: Emergency Provider Emergency Medicine; PCP Nurse Practitioner Family
DX: S06.0X1A Concussion with loss of consciousness of 30 minutes or less, initial encounter (principal); S60.211A Contusion of right wrist, initial encounter; M47.812 Spondylosis without myelopathy or radiculopathy, cervical region; W01.0XXA Fall on same level from slipping, tripping and stumbling without subsequent striking against object, initial encounter; Y92.018 Other place in single-family (private) house as the place of occurrence of the external cause; I10 Essential (primary) hypertension; E78.5 Hyperlipidemia, unspecified; E11.9 Type 2 diabetes mellitus without complications; J44.9 Chronic obstructive pulmonary disease, unspecified; F41.8 Other specified anxiety disorders; I25.2 Old myocardial infarction; E03.9 Hypothyroidism, unspecified; Z79.899 Other long term (current) drug therapy
CPT/HCPCS: 70450; 72125; 73090; 73100; 93005; 99282

== ENCOUNTER 2021-05-07 10:36 | Emergency (ER) | payer MEDICARE, BC, SELFPAY ==
[2021-05-07] VITALS (7 sets, daily range): BP systolic 126–164; BP diastolic 78–96; PULSE 70–84; RESP 14–18; TEMP 36.7; O2SAT 95–98; BMI 33.4
--- NOTE | 2021-05-07 11:24 | CT_ITS ---
PROCEDURE: CT HEAD/BRAIN WO CON CLINICAL INDICATION: recent concussion diagnosis, worsening symptoms COMPARISON: CT CT HEAD/BRAIN WO CON from 05/05/2021 TECHNIQUE: Axial images obtained. All CT scans at the facility use one or more dose reduction, viz: automated exposure control, ma/kV adjustment per patient size (including targeted exams where dose is matched to indication, i.e. head), or iterative reconstruction technique. FINDINGS: No midline shift, mass effect, intracranial hemorrhage, hydrocephalus, or extra-axial fluid collection is evident. The calvarium has an unremarkable appearance. No mastoid effusion. No sinus air-fluid level. IMPRESSION: No change with no acute intracranial findings apparent Dictated by: Mata Dominguez MD 05/07/2021 12:22 Mata Dominguez MD in [place] 05/07/2021 12:22
--- NOTE | 2021-05-07 12:08 | PC.NURSE ---
pt to CT
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
== END 2021-05-07 14:52 | disposition home or self-care (01) ==
PROVIDERS: Emergency Provider Emergency Medicine; PCP Nurse Practitioner Family
DX: S06.0X9D Concussion with loss of consciousness of unspecified duration, subsequent encounter (principal); R51.9 Headache, unspecified; R42 Dizziness and giddiness
CPT/HCPCS: 70450; 96365; 96375; 99282

== ENCOUNTER → 2021-05-13 11:10 | Outpatient (CLI) | payer MEDICARE, BC, SELFPAY ==
--- NOTE | 2021-05-13 11:10 | MR_ITS ---
PROCEDURE INFORMATION: Exam: MR Left Upper Extremity Joint Without Contrast; Shoulder Exam date and time: 05/13/2021 11:10 AM Age: 55 years old Clinical indication: Left; Patient HX: Lt shoulder pain into neck, pain with range of motion. Symptoms x1 year; Additional info: L shoulder pain TECHNIQUE: Imaging protocol: MR of the Left upper extremity without contrast. Exam focused on the shoulder. COMPARISON: CR XR SHOULDER LT MIN 2V 03/28/2021 5:14 AM FINDINGS: Bones and cartilage: Acromioclavicular arthropathy. There is effacement of the tissue planes underlying the acromion process. Subacromial spurring is identified, with abnormal morphology of the acromion process. Small acromioclavicular joint effusion. Joint spaces: Minimal glenohumeral joint effusion. No dislocation of the glenohumeral joint. No significant acute marrow edema. Glenoid labrum: Mild increased signal intensity within the posterosuperior and posterior aspects of the labrum and labral tear cannot be excluded. Heterogeneous signal intensity of the inferior aspect of the labrum. Blunting of the posterior aspect of the labrum. Bursae: Minimal fluid within the subdeltoid/subacromial bursa. Supraspinatus tendon: Tendinosis of the supraspinatus tendon. Tear is identified distally of this tendon, which appears to extend to the free edge of the tendon. Infraspinatus tendon: Tendinosis of the infraspinatus tendon. No visualized tear of the infraspinatus tendon. Subscapularis tendon: Mild heterogeneous signal intensity of the subscapularis tendon, consistent with tendinosis. Teres minor tendon: No evidence of tear. Tendon of biceps brachii: Unremarkable. No evidence of tear. Glenohumeral ligaments: No evidence of tear of the inferior glenohumeral ligament. Muscles: No visualized acute abnormality. Soft tissues: Unremarkable. IMPRESSION: 1. Tendinosis of the supraspinatus tendon. Tear is identified distally of this tendon, which appears to extend to the free edge of the tendon. 2. Tendinosis of the infraspinatus tendon. Mild tendinosis of the subscapularis tendon. 3. Minimal fluid within the subdeltoid/subacromial bursa. 4. Acromioclavicular arthropathy. There is effacement of the tissue planes underlying the acromion process. 5. Mild increased signal intensity within the posterosuperior and posterior aspects of the labrum and labral tear cannot be excluded. 6. Additional findings described above.
== END ==
PROVIDERS: PCP Nurse Practitioner Family; Visit Provider Nurse Practitioner Family
DX: M25.512 Pain in left shoulder (principal)
CPT/HCPCS: 73221

== ENCOUNTER 2021-05-23 13:27 | Emergency (ER) | payer MEDICARE, BC, SELFPAY ==
[2021-05-23 13:48] VITALS: RESP 18; TEMP 36.8; O2SAT 100; BMI 21.9
--- NOTE | 2021-05-23 14:14 | HMH.EDGENADL ---
ED Disposition Clinical Impression: Chronic left shoulder pain, Tendinopathy of left shoulder Disposition: Home, Self-Care Condition on Discharge: Good Instructions: DI for Shoulder Tendinopathy, DI for Shoulder Pain Additional Instructions: Percocet as prescribed. Contact your primary care provider if further pain medication is needed. Additional instructions for CONTROLLED SUBSTANCES: You have been prescribed a medication that is a controlled substance. Controlled substances include pain medications known as opiates and sedative nerve medications known as benzodiazepines. Tramadol, fioricet, and gabapentin are also controlled substances. Some common opiates include: Codeine (such as Tylenol #3) Hydrocodone (Vicodin, Lortab, Lorcet, [place]) Oxycodone (Percocet, Percodan, Oxycodone, Oxy IR) Some common benzodiazepines include: Diazepam (Valium) Lorazepam (Ativan) Alprazolam (Xanax) Clonazepam (Klonopin) Oxazepam (Serax) All of these controlled substances are highly addictive and frequently abused. Misuse can and frequently does lead to addiction as well as overdose and . Medication should be stored in a locked cabinet or other secure storage unit. Do not store the medication in a motor vehicle. Short term supplies, 3 days or less, are prescribed because of the highly addictive nature of the medication. Any of the controlled substance medication NOT taken should be disposed of properly and NOT SAVED. The recommended method of disposing of unused medications is: Place the medicines in a sealable plastic bag. If the medicine is a solid, crush it or add water to dissolve it. Add something undesirable (cat litter, coffee grounds, etc.) Dispose of sealed bag in household trash Do not flush or pour unused medicines down a sink or drain. Controlled substances should not be shared, given away or sold. Because of the addictive nature and frequent abuse, these medications are sometimes stolen. These medications should be kept in a safe place where they cannot be stolen. Do not keep them in your car or purse. Lost or stolen prescriptions for controlled substances WILL NOT BE REFILLED in this emergency department, regardless of whether a police report was filed. Prescriptions: Oxycodone HCl/Acetaminophen [Percocet 5/325mg tablet] 1 tab PO Q6HP PRN #6 tab PRN Reason: Moderate To Severe Pain Transmission Status: Received by [id number] Referrals: Timo Villalba APRN [Primary Care Provider] - - Critical Care Critical Care Time: No Attestation: On 05/23/21, the high probability of a clinically significant, sudden or life threatening deterioration of the following system(s) required my full and direct attention, intervention and personal management. The time I documented below is in addition to time spent performing reported procedures but includes the following listed in this critical care notation. Medical Decision Making - Medical Records Medical records reviewed: Yes: I reviewed the patient's medical records. MR Comment: Reviewed shoulder MRI results, see below. Reviewed most recent PCP visit on 05/16/2022. Note at that time indicated that she had had an appointment with her orthopedic provider at an outside institution but canceled the appointment and that she was being referred to [facility] orthopedists. I do not see any scheduled appointments for [facility] orthopedists. - Everette Inquiry Pt receiving controlled substance: Yes Everette was queried for this patient: Yes Risks and benefits of using a controlled substance: were discussed with pt by me Vital Signs: 05/23/21 13:48 05/23/21 15:24 Temperature 98.3 F 98.5 F Temperature Source Oral Oral Pulse Rate 103 H Respiratory Rate 18 19 Blood Pressure 164/98 H Blood Pressure Source Automatic Cuff Blood Pressure Position Supine 02 Sat by Pulse Oximetry 100 Oxygen Delivery Method Room Air Room
[2021-05-23 15:24] VITALS: BP 164/98; PULSE 103; RESP 19; TEMP 36.9; O2SAT 99
== END 2021-05-23 15:24 | disposition home or self-care (01) ==
PROVIDERS: Emergency Provider Emergency Medicine; PCP Nurse Practitioner Family
DX: M67.912 Unspecified disorder of synovium and tendon, left shoulder (principal); F41.8 Other specified anxiety disorders; E78.5 Hyperlipidemia, unspecified; I10 Essential (primary) hypertension; J44.9 Chronic obstructive pulmonary disease, unspecified; E11.9 Type 2 diabetes mellitus without complications; E03.9 Hypothyroidism, unspecified; I25.2 Old myocardial infarction
CPT/HCPCS: 99281

== ENCOUNTER 2021-07-01 19:11 | Emergency (ER) | payer MEDICARE, BC, SELFPAY ==
[2021-07-01 19:12] VITALS: BP 140/100; PULSE 102; RESP 18; TEMP 36.9; O2SAT 94; BMI 33.4
[2021-07-01 19:29] LABS: Coronavirus 19, PCR Not Detected (NotDetected); Influenza A, PCR Not Detected (NotDetected); Influenza B, PCR Not Detected (NotDetected)
[2021-07-01 19:43] LABS: Microscopic, Urine URINE MICROSCOPIC (MICROSCOPIC)
[2021-07-01 19:47] LABS: Appearance,Urine CLEAR (Clear); Bilirubin,Urine Negative (Negative); Blood, Urine TRACE-I (Negative); Color,Urine YELLOW (Yellow); Glucose,Urine (UA) 3+ (Negative); Ketones,Urine Negative (Negative); Leukocyte Esterase,Urine 1+ (Negative); Nitrate,Urine Negative (Negative); Protein,Urine Negative (Negative); Urobilinogen,Urine 0.2 EU/dl (0.2)
[2021-07-01 19:53] LABS: Basophils # 0.1 K/mm3 (0-0.2); Basophils % 1.3 % (0.1-2.0); Eosinophils # 0.3 K/mm3 (0.0-0.4); Hematocrit 46.9 % (37.0-47.0); Hemoglobin 15.6 g/dL (12.2-16.2); Lymphocytes # 3.1 K/mm3 (0.7-4.5); Lymphocytes % 34.2 % (10-50); Mean Corpuscular HGB Conc 33.4 g/dL (31.8-35.4); Mean Corpuscular Hemoglobin 30.8 pg (27.0-31.2); Mean Corpuscular Volume 92.3 fl (81-99); Monocytes # 0.4 K/mm3 (0.1-1.0); Neutrophils % 56.5 % (37.0-80.0); Platelet Count 324 K/mm3 (142-424); Red Blood Count 5.08 M/mm3 (4.20-5.40); Red Cell Distribution Width 12.9 % (11.5-17.5); White Blood Count 8.9 K/mm3 (4.8-10.8)
[2021-07-01 20:07] LABS: Alanine Aminotransferase 33 U/L (12-78); Albumin Level 4.4 g/dl (3.5-5.0); Albumin/Globulin Ratio 1.3 (1.1-1.8); Alkaline Phosphatase 137 U/L (38-126); Anion Gap 16.2 mEq/L (5-15); Aspartate Amino Transferase 50 U/L (14-36); Bilirubin,Total 0.5 mg/dl (0.2-1.3); Blood Urea Nitrogen 16 mg/dl (7-17); Calcium 9.5 mg/dl (8.4-10.2); Carbon Dioxide 22 mmol/L (22.0-30.0); Chloride 103 mmol/L (98-107); Creatinine Clearance Estimated 110 mL/min (50-200); Estimated Glomerular Filt Rate 65 ml/min (>60); GFR (African American) 78 ML/MIN (>60); Globulin 3.5 g/dL (1.3-3.2); Glucose 348 mg/dl (74-100); Potassium 4.2 mmoL/L (3.5-5.1); Sodium 137 mmol/L (136-145); Total Protein,Serum 7.9 g/dl (6.3-8.2)
--- NOTE | 2021-07-01 20:08 | XR_ITS ---
PROCEDURE INFORMATION: Exam: XR Chest Exam date and time: 07/01/2021 8:08 PM Age: 56 years old Clinical indication: Cough and dyspnea and other: Body aches; Additional info: Bobby TECHNIQUE: Imaging protocol: XR of the chest. Views: 2 views. COMPARISON: CR XR CHEST 2V 03/28/2021 5:12 AM FINDINGS: Lungs: Unremarkable. No consolidation. Pleural spaces: Unremarkable. No pleural effusion. No pneumothorax. Heart/Mediastinum: Unremarkable. No cardiomegaly. Bones/joints: Unremarkable. IMPRESSION: No acute findings.
--- NOTE | 2021-07-01 20:08 | PC.NURSE ---
called rad to notify need for CXR
[2021-07-01 20:13] LABS: Bacteria,Urine 1+ /lpf; WBC,Urine 50-100 #/hpf (0-3)
[2021-07-01 20:13] LABS: C-Reactive Protein 23.7 mg/L (0-4)
[2021-07-01 20:26] LABS: Procalcitonin 0.106 ng/mL (0.0-2.0)
--- NOTE | 2021-07-01 20:53 | HMH.EDGENADL ---
ED Disposition Clinical Impression: UTI (urinary tract infection) Qualifiers: Urinary tract infection type: site unspecified Hematuria presence: without hematuria Qualified Code(s): N39.0 - Urinary tract infection, site not specified Hyperglycemia due to type 2 diabetes mellitus Qualifiers: Diabetes mellitus superintendent container terminal insulin use: with superintendent container terminal use Qualified Code(s): E11.65 - Type 2 diabetes mellitus with hyperglycemia; Z79.4 - tank terminal gauger (current) use of insulin Disposition: Home, Self-Care Condition on Discharge: Good Instructions: DI for Urinary Tract Infection (UTI) Additional Instructions: fluids and use meds and see pcp this week Prescriptions: levoFLOXacin [Levaquin 500mg tab] 500 mg PO DAILY #7 tab Transmission Status: Pending to [facility]/pharmacy #[id number] Referrals: Timo Villalba APRN [Primary Care Provider] - - Critical Care Critical Care Time: No Attestation: On 07/01/21, the high probability of a clinically significant, sudden or life threatening deterioration of the following system(s) required my full and direct attention, intervention and personal management. The time I documented below is in addition to time spent performing reported procedures but includes the following listed in this critical care notation. Medical Decision Making - Medical Records Medical records reviewed: Yes: I reviewed the patient's medical records. - [place] Inquiry Pt receiving controlled substance: No Vital Signs: 07/01/21 19:12 07/01/21 21:58 Temperature 98.5 F 98.1 F Temperature Source Oral Oral Pulse Rate 90 Pulse Rate [Right] 102 H Respiratory Rate 18 17 Blood Pressure 140/87 Blood Pressure [Right Arm] 140/100 H Blood Pressure Mean [Right Arm] 113 02 Sat by Pulse Oximetry 94 L Oxygen Delivery Method Room Air - Lab Data Lab results reviewed: Yes: I reviewed the patient's lab results. Lab Results 07/01/21 19:23: SARS-CoV-2 (PCR) Not detected, Influenza A Untype (PCR) Not detected, Influenza Type B (PCR) Not detected 07/01/21 19:34: Urine Color Yellow, Urine Appearance Clear, Urine pH 6.0, Ur Specific [place] 1.010, Urine Protein Negative, Urine Glucose (UA) 3+, Urine Ketones Negative, Urine Blood Trace-i, Urine Nitrate Negative, Urine Bilirubin Negative, Urine Urobilinogen 0.2, Ur Leukocyte Esterase 1+ A, Urine RBC 3-5, Urine WBC 50-100, Ur Squamous Epith Cells 3-5, Urine Bacteria 1+ 07/01/21 19:45: WBC 8.9, RBC 5.08, Hgb 15.6, Hct 46.9, MCV 92.3, MCH 30.8, MCHC 33.4, RDW 12.9, Plt Count 324, MPV 9.0, Neut % (Auto) 56.5, Lymph % (Auto) 34.2, [place] % (Auto) 5.0, Eos % (Auto) 3.0, Baso % (Auto) 1.3, Neut # (Auto) 5.0, Lymph # (Auto) 3.1, [place] # (Auto) 0.4, Eos # (Auto) 0.3, Baso # (Auto) 0.1, ESR 21 07/01/21 19:45: Sodium 137, Potassium 4.2, Chloride 103, Carbon Dioxide 22, Anion Gap 16.2 H, BUN 16, Creatinine 0.90, Estimated Creat Clear 110, Estimated GFR 65, Est GFR ( Amer) 78, Glucose 348 H, Calcium 9.5, Total Bilirubin 0.5, AST 50 H, ALT 33, Alkaline Phosphatase 137 H, C-Reactive Protein 23.7 H, Total Protein 7.9, Albumin 4.4, Globulin 3.5 H, Albumin/Globulin Ratio 1.3, Procalcitonin 0.106 07/01/21 19:45: Total Creatine Kinase 27 L 07/01/21 19:45: Acetone Level None detected 07/01/21 21:21: Lactate 2.2 H 07/01/21 22:10: POC Glucose 312 H* Result diagrams: 07/01/21 19:45 07/01/21 19:45 Orders (Tests/Meds): ED MEDICATIONS Generic Name Dose Route Start Last Admin Trade Name Freq PRN Reason Stop Dose Admin Sodium Chloride 1,000 mls @ 999 mls/hr 07/01/21 20:00 07/01/21 20:02 Sod Chlor 0.9% 1000ml Bag IV 07/01/21 21:00 999 mls/hr .Q1H1M FRANCES Administration Ceftriaxone Sodium 1 gm/ 50 mls @ 100 mls/hr 07/01/21 21:15 07/01/21 21:17 Sodium Chloride IV 07/15/21 21:14 100 mls/hr Q24H FRANCES Administration Sodium Chloride 1,000 mls @ 999 mls/hr 07/01/21 21:30 07/01/21 21:40 Sod Chlor 0.9% 1000ml Bag IV 07/01/21 22:30 999 mls/hr .Q1H1M FRANCES Administration Sodium Chlorid
[2021-07-01 21:01] LABS: Erythrocyte Sedimentation Rate 21 mm/hr (0-30)
[2021-07-01 21:42] LABS: Creatine Kinase 27 U/L (30-135)
[2021-07-01 21:53] LABS: Lactic Acid 2.2 mmol/L (0.7-2.1)
[2021-07-01 21:58] VITALS: BP 140/87; PULSE 90; RESP 17; TEMP 36.7; O2SAT 97
[2021-07-01 22:14] LABS: Acetone, Serum (Rapid) None Detected (None Detect)
[2021-07-01 22:17] LABS: POC Glucose,Bedside 312 (70-110)
== END 2021-07-01 22:39 | disposition home or self-care (01) ==
PROVIDERS: Emergency Medicine; Emergency Provider Emergency Medicine; PCP Nurse Practitioner Family
DX: N30.00 Acute cystitis without hematuria (principal); E11.65 Type 2 diabetes mellitus with hyperglycemia; F41.8 Other specified anxiety disorders; J44.9 Chronic obstructive pulmonary disease, unspecified; I10 Essential (primary) hypertension; E78.5 Hyperlipidemia, unspecified; I25.2 Old myocardial infarction; E03.9 Hypothyroidism, unspecified; Z79.899 Other long term (current) drug therapy
CPT/HCPCS: 71046; 80053; 81001; 82009; 82550; 82962; 83605; 84145; 85025; 85651; 86140; 87040; 87077; 87086; 87088; 87186; 96365; 96366; 96367; 96375; 99284; C9803; J0696; J2405; U0003; U0005

== ENCOUNTER → 2021-07-03 11:42 | Outpatient (CLI) | payer MEDICARE, BC, SELFPAY ==
[2021-07-03 19:32] LABS: Adenovirus,PCR Not Detected (NotDetected); Bordetella Pertussis Not Detected (NotDetected); Chlamydophila Pneumoniae, PCR Not Detected (NotDetected); Coronavirus 19, PCR Not Detected (NotDetected); Coronavirus 229E Not Detected (NotDetected); Coronavirus NL63 Not Detected (NotDetected); Coronavirus OC43 Not Detected (NotDetected); Coronovirus HKU1,PCR Not Detected (NotDetected); Human Metapneumovirus Not Detected (NotDetected); Influenza A, PCR Not Detected (NotDetected); Influenza AH1, 2009 Not Detected (NotDetected); Influenza AH1, PCR Not Detected (NotDetected); Influenza AH3,PCR Not Detected (NotDetected); Influenza B, PCR Not Detected (NotDetected); Mycoplasma Pneumoniae, PCR Not Detected (NotDetected); Parainfluenza 1, PCR Not Detected (NotDetected); Parainfluenza 2, PCR Not Detected (NotDetected); Parainfluenza 3, PCR Not Detected (NotDetected); Parainfluenza 4, PCR Not Detected (NotDetected); Respiratory Syncytial Virus Not Detected (NotDetected); Rhinovirus/Enterovirus Not Detected (NotDetected)
[2021-07-04 08:15] LABS: Homocyst(e)ine 12.1 umol/L (0.0-14.5)
[2021-07-08 11:14] LABS: Methylmalonic Acid 294 nmol/L (0-378)
== END ==
PROVIDERS: Nurse Practitioner Family; Visit Provider Nurse Practitioner Family
DX: E53.8 Deficiency of other specified B group vitamins (principal); I10 Essential (primary) hypertension; R52 Pain, unspecified; Z11.52 Encounter for screening for COVID-19; N30.01 Acute cystitis with hematuria; R78.81 Bacteremia
CPT/HCPCS: 36415; 82131; 83090; 87581; 87632; 87798; C9803; U0003; U0005

== ENCOUNTER 2021-07-04 18:17 | Observation (INO) | payer MEDICARE, BC, SELFPAY ==
[2021-07-04 18:18] VITALS: BP 232/104; PULSE 98; RESP 18; TEMP 37; O2SAT 99; BMI 32.2
--- NOTE | 2021-07-04 18:55 | XR_ITS ---
PROCEDURE INFORMATION: Exam: XR Chest Exam date and time: 07/04/2021 6:55 PM Age: 56 years old Clinical indication: Other: Generalized weakness TECHNIQUE: Imaging protocol: XR of the chest. Views: 1 view. COMPARISON: CR XR CHEST 2V 07/01/2021 8:05 PM FINDINGS: Lungs: Calcified granuloma in the peripheral portion of the left lung. No airspace consolidation. No overt pulmonary edema. Pleural spaces: No pleural effusion. No pneumothorax. Heart/Mediastinum: Normal heart size. Bones/joints: Mild spondylosis. IMPRESSION: No acute finding. No significant change since 07/01/2021.
[2021-07-04 19:05] LABS: Basophils # 0.2 K/mm3 (0-0.2); Basophils % 2.7 % (0.1-2.0); Eosinophils # 0.2 K/mm3 (0.0-0.4); Eosinophils % 3.3 % (0.1-12.0); Hematocrit 44.7 % (37.0-47.0); Hemoglobin 14.7 g/dL (12.2-16.2); Lymphocytes # 2.2 K/mm3 (0.7-4.5); Lymphocytes % 33.7 % (10-50); Mean Corpuscular Hemoglobin 31.1 pg (27.0-31.2); Mean Corpuscular Volume 94.2 fl (81-99); Mean Platelet Volume 8.4 fl (7.4-10.4); Monocytes # 0.3 K/mm3 (0.1-1.0); Monocytes % 4.2 % (1.7-9.3); Neutrophils # 3.7 K/mm3 (1.8-7.8); Neutrophils % 56.1 % (37.0-80.0); Platelet Count 299 K/mm3 (142-424); Red Blood Count 4.74 M/mm3 (4.20-5.40); Red Cell Distribution Width 12.8 % (11.5-17.5); White Blood Count 6.5 K/mm3 (4.8-10.8)
[2021-07-04 19:09] LABS: Coronavirus 19, PCR Not Detected (NotDetected); Influenza A, PCR Not Detected (NotDetected); Influenza B, PCR Not Detected (NotDetected)
[2021-07-04 19:16] LABS: Alanine Aminotransferase 35 U/L (12-78); Albumin Level 4.4 g/dl (3.5-5.0); Albumin/Globulin Ratio 1.4 (1.1-1.8); Alkaline Phosphatase 109 U/L (38-126); Anion Gap 14.3 mEq/L (5-15); Aspartate Amino Transferase 65 U/L (14-36); Bilirubin,Total 0.4 mg/dl (0.2-1.3); Blood Urea Nitrogen 9 mg/dl (7-17); Calcium 9.2 mg/dl (8.4-10.2); Carbon Dioxide 24 mmol/L (22.0-30.0); Chloride 103 mmol/L (98-107); Creatinine Clearance Estimated 136 mL/min (50-200); Estimated Glomerular Filt Rate 87 ml/min (>60); GFR (African American) 105 ML/MIN (>60); Globulin 3.2 g/dL (1.3-3.2); Glucose 354 mg/dl (74-100); Potassium 4.3 mmoL/L (3.5-5.1); Sodium 137 mmol/L (136-145); Total Protein,Serum 7.6 g/dl (6.3-8.2)
[2021-07-04 19:25] LABS: Lactic Acid 2.3 mmol/L (0.7-2.1)
[2021-07-04 19:30] VITALS: BP 147/94; PULSE 94; O2SAT 95
--- NOTE | 2021-07-04 19:32 | HMH.EDGENADL ---
ED Disposition Clinical Impression: Bacteremia Disposition: Admitted As Inpatient Condition on Discharge: Fair - Critical Care Critical Care Time: No Attestation: On 07/04/21, the high probability of a clinically significant, sudden or life threatening deterioration of the following system(s) required my full and direct attention, intervention and personal management. The time I documented below is in addition to time spent performing reported procedures but includes the following listed in this critical care notation. Medical Decision Making - Everette Inquiry Pt receiving controlled substance: Yes Everette was queried for this patient: No Risks and benefits of using a controlled substance: were not discussed with pt by me Vital Signs: 07/04/21 18:18 07/04/21 19:30 07/04/21 19:45 Temperature 98.6 F Temperature Source Oral Pulse Rate 94 H 91 H Pulse Rate [Left Radial] 98 H Respiratory Rate 18 Blood Pressure 147/94 H 185/83 H Blood Pressure [Right Arm] 232/104 H Blood Pressure Mean [Right Arm] 146 Blood Pressure Source Blood Pressure Source [Right Arm] Automatic Cuff Blood Pressure Position Blood Pressure Position [Right Arm] Sitting 02 Sat by Pulse Oximetry 99 95 96 Oxygen Delivery Method Room Air Room Air Room Air 07/04/21 20:00 07/04/21 20:18 Temperature 98.1 F Temperature Source Oral Pulse Rate 84 94 H Pulse Rate [Left Radial] Respiratory Rate 20 Blood Pressure 181/88 H 180/91 H Blood Pressure [Right Arm] Blood Pressure Mean [Right Arm] Blood Pressure Source Automatic Cuff Blood Pressure Source [Right Arm] Blood Pressure Position Supine Blood Pressure Position [Right Arm] 02 Sat by Pulse Oximetry 93 L Oxygen Delivery Method Room Air Room Air - Lab Data Lab Results 07/04/21 18:50: WBC 6.5 D, RBC 4.74, Hgb 14.7, Hct 44.7, MCV 94.2, MCH 31.1, MCHC 33.0, RDW 12.8, Plt Count 299, MPV 8.4, Neut % (Auto) 56.1, Lymph % (Auto) 33.7, [place] % (Auto) 4.2, Eos % (Auto) 3.3, Baso % (Auto) 2.7 H, Neut # (Auto) 3.7, Lymph # (Auto) 2.2, [place] # (Auto) 0.3, Eos # (Auto) 0.2, Baso # (Auto) 0.2 07/04/21 18:50: Sodium 137, Potassium 4.3, Chloride 103, Carbon Dioxide 24, Anion Gap 14.3, BUN 9 D, Creatinine 0.70 D, Estimated Creat Clear 136, Estimated GFR 87, Est GFR ( Amer) 105 D, Glucose 354 H, Calcium 9.2, Total Bilirubin 0.4, AST 65 H D, ALT 35, Alkaline Phosphatase 109, Total Protein 7.6, Albumin 4.4, Globulin 3.2, Albumin/Globulin Ratio 1.4 07/04/21 18:50: Lactate 2.3 H 07/04/21 18:50: SARS-CoV-2 (PCR) Not detected, Influenza A Untype (PCR) Not detected, Influenza Type B (PCR) Not detected 07/04/21 19:50: Urine Color Yellow, Urine Appearance Clear, Urine pH 5.5, Ur Specific [place] 1.015, Urine Protein Negative, Urine Glucose (UA) 3+, Urine Ketones Negative, Urine Blood Negative, Urine Nitrate Negative, Urine Bilirubin Negative, Urine Urobilinogen 0.2, Ur Leukocyte Esterase Negative, Urine RBC Occasional, Urine WBC 5-10, Ur Squamous Epith Cells 3-5, Urine Bacteria Trace Result diagrams: 07/04/21 18:50 07/04/21 18:50 Orders (Tests/Meds): ED MEDICATIONS Generic Name Dose Route Start Last Admin Trade Name Freq PRN Reason Stop Dose Admin Vancomycin/PEG/[place]/Lysine/Water 1.75 gm in 350 mls @ 175 mls/hr 07/05/21 09:00 Vancomycin 1.75gm/350ml (Peg) Premix IV 07/19/21 08:59 Q12H [facility] Lactated Ringer's 1,000 mls @ 999 mls/hr 07/04/21 20:20 Lactated Ringer's 1000 Ml Bag IV 07/04/21 20:45 .Q1H1M [facility] Vancomycin HCl 2,000 mg/ 500 mls @ 250 mls/hr 07/04/21 20:20 Sodium Chloride IV 07/04/21 22:14 ONCE ONE Miscellaneous 1 each 07/04/21 20:20 Vancomycin Consult Request * 08/03/21 19:44 CONSULT [facility]Y [facility] Morphine Sulfate 4 mg 07/04/21 20:24 Morphine 4mg/Ml Syringe IV 08/03/21 20:20 Q4HP PRN Breakthru Moderate Pain Ondansetron HCl 4 mg 07/04/21 20:24 Ondansetron 4mg/2ml Vial IV 08/03/21 20:20 Q6HP PRN
[2021-07-04 19:45] VITALS: BP 185/83; PULSE 91; O2SAT 96
[2021-07-04 19:54] LABS: Microscopic, Urine URINE MICROSCOPIC (MICROSCOPIC)
[2021-07-04 19:56] LABS: Appearance,Urine CLEAR (Clear); Bilirubin,Urine Negative (Negative); Blood, Urine Negative (Negative); Color,Urine YELLOW (Yellow); Glucose,Urine (UA) 3+ (Negative); Ketones,Urine Negative (Negative); Leukocyte Esterase,Urine Negative (Negative); Nitrate,Urine Negative (Negative); PH,Urine 5.5 (5.0-8.5); Protein,Urine Negative (Negative); Specific Gravity, Urine 1.015 (1.005-1.030); Urobilinogen,Urine 0.2 EU/dl (0.2)
[2021-07-04 20:00] VITALS: BP 181/88; PULSE 84; O2SAT 93
[2021-07-04 20:03] LABS: Bacteria,Urine Trace /lpf; RBC,Urine Occasional #/hpf (0-3)
[2021-07-04 20:18] VITALS: BP 180/91; PULSE 94; RESP 20; TEMP 36.7; O2SAT 99
--- NOTE | 2021-07-04 20:38 | CT_ITS ---
PROCEDURE INFORMATION: Exam: CT Abdomen And Pelvis With Contrast Exam date and time: 07/04/2021 8:38 PM Age: 56 years old Clinical indication: Abdominal pain; Generalized; Additional info: Abd pain TECHNIQUE: Imaging protocol: Computed tomography of the abdomen and pelvis with contrast. Radiation optimization: All CT scans at this facility use at least one of these dose optimization techniques: automated exposure control; mA and/or kV adjustment per patient size (includes targeted exams where dose is matched to clinical indication); or iterative reconstruction. Contrast material: ISOVUE; Contrast volume: 75 ml; Contrast route: IV; COMPARISON: CT ABDOMEN PELVIS W CON 01/24/2020 5:11 PM FINDINGS: Lungs: The visualized lung bases are unremarkable. Diaphragm: Small hiatal hernia. Liver: Liver is enlarged, measuring 20.8 cm in craniocaudal dimension. Mild hepatic steatosis. Gallbladder and bile ducts: No gallbladder wall thickening. No radio-opaque stones. No common bile duct dilation. Pancreas: Unremarkable. No main pancreatic duct dilation. Spleen: Normal. No splenomegaly. Adrenal glands: A 1.4 cm left adrenal nodule is stable since 01/24/2020 and presumed benign. Right adrenal gland is normal. Kidneys and ureters: No hydronephrosis. Subcentimeter bilateral low attenuation renal lesions too small for definitive assessment, statistically most likely to represent benign cysts. Stomach and bowel: No obstruction. No abnormal bowel wall thickening. Appendix: Normal. Intraperitoneal space: No pneumoperitoneum. No ascites. Vasculature: No abdominal aortic aneurysm. Incidental retroaortic left renal vein. Lymph nodes: No enlarged lymph nodes. Urinary bladder: Unremarkable as visualized. No wall thickening. Reproductive: Hysterectomy. Bones/joints: Lower lumbar degenerative changes. Right greater than left neural foraminal narrowing at L4-L5. Soft tissues: Small fat containing right inguinal hernia. Tiny umbilical hernia containing fat. IMPRESSION: 1. No acute finding or specific etiology for symptoms identified. 2. Hepatomegaly. Diffuse hepatic steatosis. COMMENTS: Consistent with the [employer]'s Incidental Findings Committee white paper (J Am Christie Radiol 2018): Any incidental renal lesion less than 1 cm or classified as too small to characterize, or any incidental cystic renal lesion characterized as simple-appearing, is likely benign. No follow-up imaging is recommended for these lesions per consensus recommendations based on imaging criteria.
--- NOTE | 2021-07-04 20:41 | PC.NURSE ---
patient up to floor via wheelchair @ this time.
[2021-07-04 20:45] VITALS: BP 170/97; PULSE 81; RESP 18; TEMP 36.9; O2SAT 96; BMI 30.7
--- NOTE | 2021-07-04 20:58 | PC.NURSE ---
patient off floor for Cat Scan @ this time.
--- NOTE | 2021-07-04 21:07 | HMH.HP ---
*Admission Date: 07/04/21 *Chief complaint: achey *History of present illness: this patient was seen in the ed and noted to have uti and given iv abx and po to start as op- pt was seen by pcp and continued on meds - today noted to have positive blood culture and was seen in the ed- female presents for pain. Patient states she has had worsening pain that is generalized hurts everywhere that started approximately 4 days ago. She was seen in ED on 07/01 and again 07/03 for similar symptoms. Was started on levaquin yesterday for UTI. Blood culture from 07/01 and urine culture from 07/01 are positive for GPC in pairs and GNR, respectively. Denies shortness of breath, vision changes, nausea, vomiting, diarrhea, bloody stools, numbness, tingling. female presents for generalized body ache/pain for 4 days. Is mildly tachycardic and hypertensive on initial triage vitals which improved prior to any other interventions when I evaluated pt. She is on room air. She is afebrile. Her lactate is 2.3 today, and she has lab findings from 07/01 concerning for bacteremia with GPC in pairs and UTI concerning for GNR. Given this, and worsening symptoms, with signs of end organ damage, will admit for septicemia after giving vancomycin and cefepime for broad spectrum coverage, IVF bolus, zofran for nausea, morphine for pain here in the ED. Admitted to inpatient medicine team after speaking with Dr. Awan (sale professional digital marketing physician for inpatient admission) regarding this patient's workup and plan, [facility] History I have reviewed the patient's past medical history: Yes Medical History: Reports:: Anxiety, Asthma, Chronic Obstructive Pulmonary Disease (COPD), Depression, Diabetes Mellitus Type 2, Hyperlipidemia, Hypertension, Migraine, Myocardial Infarction, Valvular Heart Disease Denies:: Cancer, Diabetes Mellitus Type 1, Internal Pacemaker, MRSA, Seizures *Have you ever received a pneumonia vaccine?: No *Have you received a flu vaccine this season?: No Other Medical History: Reports: Arthritis, Hypothyroidism, Sinus Problems, Thyroid Disease Laterality Cases: Right: ACL Repair, Arthroscopy Knee, Other, Bilateral: Tonsillectomy Other Surgeries: Yes: No Previous Surgery, Colonoscopy, Colon Resection, Hysterectomy-Total, Other. No: Pacemaker Amputation: No Fractures: Yes - *Social History Smoking Status: Never smoker # Packs/Day (cigarettes): 1 Alcohol Intake: never Alcohol Intake Frequency:: other Substance Use Type: marijuana *Occupational Status:: disabled Housing: house Household Members: spouse *Travel in the last 8 weeks: None - Psychiatric History Pschychiatric History:: Reports:: Anxiety, Depression Family Hx:: Cancer, Diabetes, Heart Attack, Hypertension, Stroke, Mental illness Review of Systems - Review of Systems Review of systems:: pertinent systems reviewed and negative unless documented below - Constitutional Reports weakness - Eyes Denies change in vision - ENT Denies sore throat - *Cardiovascular Denies chest pain at rest - *Respiratory Denies cough - *Gastrointestinal Denies abdominal pain - *Genitourinary Denies blood in urine - *Musculoskeletal Denies joint pain - Integumentary/Breasts Denies rash - *Neurologic Denies confusion, Denies headache(s), Denies numbness, Denies seizure-like activity - Psychiatric Denies confusion, Denies depression Meds Home Medications Medication Instructions Recorded Confirmed Type hydrOXYzine pamoate [Hydroxyzine 50 mg PO TIDP PRN 01/25/20 07/04/21 History Pamoate] Insulin Detemir [Levemir 23 units SQ HS 10/17/20 07/04/21 History 100units/mL 3mL flexpen] pantoprazole 40 mg tablet,delayed 40 mg PO BID #180 tab 10/28/20 07/04/21 Rx release Ondansetron [Zofran 4mg ODT] 4 mg PO BIDP PRN 6 Days #12 tab 01/05/21 07/04/21 Rx aspirin 81 mg tablet,delayed 81 mg PO DAILY 04/01/21 07/04/21 History release Benzonatate [Benzonatate 100mg 100 mg PO Q8HP PRN #15 cap 04/30/21 07/04/21 Rx ca
--- NOTE | 2021-07-04 21:14 | PC.NURSE ---
patient back up to floor via stretcher from cat scan @ this time
[2021-07-04 22:58] LABS: Reflex Lactic Add Lactic Reflex
[2021-07-04 23:36] LABS: Lactic Acid Follow Up (RFLX 1) 1.7 mmol/L (0.7-2.1)
[2021-07-05] VITALS: BP 146/71; PULSE 86; RESP 18; TEMP 36.9; O2SAT 97
--- NOTE | 2021-07-05 00:47 | PC.NURSE ---
This RN was called into room. Pt admitted she was feeling itchy/burning sensation in upper body. Pt appeared flushed/red. Vancomycin was stopped. notified. New orders for 50 mg IV Diphenhydramine ONCE Orders clarified and carried out.
[2021-07-05 04:00] VITALS: BP 152/70; PULSE 93; RESP 18; TEMP 36.8; O2SAT 93
[2021-07-05 05:40] VITALS: BMI 30.7
[2021-07-05 06:57] LABS: POC Glucose,Bedside 163 (70-110)
[2021-07-05 08:00] VITALS: BP 126/63; PULSE 75; RESP 18; TEMP 36.6; O2SAT 100
--- NOTE | 2021-07-05 08:42 | HMH.ACPN2 ---
Internal Medicine - PN: Subj *Date: 07/06/21 *Time: 08:09 Interval history: doing better - reviewed blood culture from prev - current culture pending Exam Vital signs and Labs for Last 24 Hours: Temp Pulse Resp BP Pulse Ox 97.8 F 75 18 126/63 100 07/05/21 08:00 07/05/21 08:00 07/05/21 08:00 07/05/21 08:00 07/05/21 08:00 Laboratory Results - last 24 hr 07/04/21 18:50: WBC 6.5 D, RBC 4.74, Hgb 14.7, Hct 44.7, MCV 94.2, MCH 31.1, MCHC 33.0, RDW 12.8, Plt Count 299, MPV 8.4, Neut % (Auto) 56.1, Lymph % (Auto) 33.7, [place] % (Auto) 4.2, Eos % (Auto) 3.3, Baso % (Auto) 2.7 H, Neut # (Auto) 3.7, Lymph # (Auto) 2.2, [place] # (Auto) 0.3, Eos # (Auto) 0.2, Baso # (Auto) 0.2 07/04/21 18:50: Sodium 137, Potassium 4.3, Chloride 103, Carbon Dioxide 24, Anion Gap 14.3, BUN 9 D, Creatinine 0.70 D, Estimated Creat Clear 136, Estimated GFR 87, Est GFR ( Amer) 105 D, Glucose 354 H, Calcium 9.2, Total Bilirubin 0.4, AST 65 H D, ALT 35, Alkaline Phosphatase 109, Total Protein 7.6, Albumin 4.4, Globulin 3.2, Albumin/Globulin Ratio 1.4 07/04/21 18:50: Lactate 2.3 H 07/04/21 18:50: SARS-CoV-2 (PCR) Not detected, Influenza A Untype (PCR) Not detected, Influenza Type B (PCR) Not detected 07/04/21 19:50: Urine Color Yellow, Urine Appearance Clear, Urine pH 5.5, Ur Specific [place] 1.015, Urine Protein Negative, Urine Glucose (UA) 3+, Urine Ketones Negative, Urine Blood Negative, Urine Nitrate Negative, Urine Bilirubin Negative, Urine Urobilinogen 0.2, Ur Leukocyte Esterase Negative, Urine RBC Occasional, Urine WBC 5-10, Ur Squamous Epith Cells 3-5, Urine Bacteria Trace 07/04/21 23:19: Lactate 1.7 07/05/21 05:12: POC Glucose 163 H I & O for Last 24 hours: Intake & Output 07/02/21 07/03/21 07/04/21 07/05/21 11:59 11:59 11:59 11:59 Intake Total 240 / 240 Balance 240 / 240 Weight 202 lb 3 oz - Constitutional no acute distress, obese - *Routine HEENT Exam Head: Present: normocephalic Eye: Present: EOMI, PERRL ENT: Present: mucous membranes dry - *Routine Neck Exam Absent: JVD - *Routine Respiratory Exam Present: CTA bilaterally - *Routine Cardiovascular Exam Present: RRR - *Routine Abdominal Exam Present: soft - *Routine Extremities Exam Absent: edema - *Routine Skin Exam Present: intact - *Routine Neurological Exam Present: alert, CN II-XII intact - Routine Psychiatric Exam Present: cooperative Assessment and Plan (1) Obesity (BMI 30.0-34.9) Status: Acute Category: Medical Code(s): E66.9 - Obesity, unspecified (2) UTI (urinary tract infection) Status: Acute Qualifiers: Urinary tract infection type: site unspecified Hematuria presence: without hematuria Qualified Code(s): N39.0 - Urinary tract infection, site not specified Category: Medical Code(s): N39.0 - Urinary tract infection, site not specified (3) Bacteremia Status: Acute Category: Medical Code(s): R78.81 - Bacteremia (4) Neuropathy Status: Acute Category: Medical Code(s): G62.9 - Polyneuropathy, unspecified (5) Hyperglycemia due to type 2 diabetes mellitus Status: Acute Qualifiers: Diabetes mellitus mcc insulin use: with terminal carman use Qualified Code(s): E11.65 - Type 2 diabetes mellitus with hyperglycemia; Z79.4 - manager intermediate (current) use of insulin Category: Medical Code(s): E11.65 - Type 2 diabetes mellitus with hyperglycemia (6) Hypothyroidism Status: Chronic Qualifiers: Hypothyroidism type: unspecified Qualified Code(s): E03.9 - Hypothyroidism, unspecified Category: Medical Code(s): E03.9 - Hypothyroidism, unspecified
--- NOTE | 2021-07-05 10:10 | P.CONPHA_ITS ---
[facility] Pharmacy VTE Monitoring - Patient Demographics Allergies/Adverse Reactions: Patient Allergies epinephrine Allergy (Severe, Verified 07/04/21 20:48) Anaphylaxis penicillin G Allergy (Severe, Verified 07/04/21 20:48) Anaphylaxis vancomycin Allergy (Intermediate, Verified 07/05/21 00:54) Anaphylaxis ketorolac [From Toradol] Allergy (Mild, Verified 07/04/21 20:48) Hives Height: 1.73 m Weight: 91.711 kg Patient Problems: Current Active Problems Neuropathy (Acute) UTI (urinary tract infection) (Acute) Bacteremia (Acute) Obesity (BMI 30.0-34.9) (Acute) Hyperglycemia due to type 2 diabetes mellitus (Acute) Hypothyroidism (Chronic) - VTE Risk Labs: VTE Related Lab Results Hgb 14.7 g/dL (12.2-16.2) 07/04/21 18:50 Hct 44.7 % (37.0-47.0) 07/04/21 18:50 Plt Count 299 K/mm3 (142-424) 07/04/21 18:50 BUN 9 mg/dl (7-17) D 07/04/21 18:50 Creatinine 0.70 mg/dl (0.52-1.04) D 07/04/21 18:50 Estimated Creat Clear 136 mL/min (50-200) 07/04/21 18:50 Was VTE Risk Assessment Performed: Yes VTE Score: 10 VTE Risk Level: Moderate Risk Clinical Trial Participant: No - Prophylaxis VTE Prophylaxis Ordered?: Yes Types of VTE Prophylaxis: TEDS Knee High Location of Applied Device: Bilateral Lower Extremeties
--- NOTE | 2021-07-05 10:11 | HMH.PHAINT ---
MEDICATION RECONCILIATION COMPLETE USING LIST FROM MOST RECENT MD OFFICE VISIT AND EXTERNAL PHARMACY FILL HISTORY.
[2021-07-05 10:51] LABS: Basophils # 0.1 K/mm3 (0-0.2); Basophils % 1.3 % (0.1-2.0); Eosinophils # 0.2 K/mm3 (0.0-0.4); Eosinophils % 3.5 % (0.1-12.0); Hematocrit 43.6 % (37.0-47.0); Hemoglobin 14.1 g/dL (12.2-16.2); Lymphocytes % 32.6 % (10-50); Mean Corpuscular HGB Conc 32.4 g/dL (31.8-35.4); Mean Corpuscular Hemoglobin 30.3 pg (27.0-31.2); Mean Corpuscular Volume 93.6 fl (81-99); Mean Platelet Volume 8.1 fl (7.4-10.4); Monocytes # 0.2 K/mm3 (0.1-1.0); Monocytes % 3.6 % (1.7-9.3); Neutrophils # 3.5 K/mm3 (1.8-7.8); Platelet Count 289 K/mm3 (142-424); Red Blood Count 4.66 M/mm3 (4.20-5.40); Red Cell Distribution Width 12.9 % (11.5-17.5)
[2021-07-05 11:09] LABS: Anion Gap 11.9 mEq/L (5-15); Blood Urea Nitrogen 7 mg/dl (7-17); Calcium 9.3 mg/dl (8.4-10.2); Carbon Dioxide 29 mmol/L (22.0-30.0); Chloride 102 mmol/L (98-107); Creatinine Clearance Estimated 114 mL/min (50-200); Estimated Glomerular Filt Rate 74 ml/min (>60); GFR (African American) 90 ML/MIN (>60); Glucose 214 mg/dl (74-100); Potassium 3.9 mmoL/L (3.5-5.1); Sodium 139 mmol/L (136-145)
[2021-07-05 11:14] LABS: C-Reactive Protein 13.8 mg/L (0-4)
[2021-07-05 11:26] LABS: Procalcitonin 0.076 ng/mL (0.0-2.0)
--- NOTE | 2021-07-05 11:51 | PC.NURSE ---
Obtained order for hydroxyzine for severe itchimng and tylenol for headache at 1143.
[2021-07-05 11:57] LABS: Erythrocyte Sedimentation Rate 56 mm/hr (0-30)
[2021-07-05 16:00] VITALS: BP 157/86; PULSE 71; RESP 18; TEMP 36.7; O2SAT 99
[2021-07-05 16:19] LABS: POC Glucose,Bedside 162 (70-110)
[2021-07-05 16:19] LABS: POC Glucose,Bedside 208 (70-110)
[2021-07-05 20:00] VITALS: BP 143/77; PULSE 68; RESP 18; TEMP 36.9; O2SAT 97
[2021-07-05 21:13] LABS: POC Glucose,Bedside 195 (70-110)
[2021-07-06 04:00] VITALS: BP 136/72; PULSE 69; RESP 18; TEMP 36.6; O2SAT 92
[2021-07-06 05:40] VITALS: BMI 30.9
[2021-07-06 08:00] VITALS: BP 156/86; PULSE 85; RESP 18; TEMP 36.6; O2SAT 96
--- NOTE | 2021-07-06 09:44 | HMH.ACPN2 ---
Internal Medicine - PN: Subj *Date: 07/07/21 *Time: 06:41 Interval history: still with sig pain and feeling unwell and has back pain - urine culture ok and pending blood culture - will do ct with iv contrast to check for possible seeded infection Exam Vital signs and Labs for Last 24 Hours: Temp Pulse Resp BP Pulse Ox 98 F 85 18 156/86 H 96 07/06/21 08:00 07/06/21 08:00 07/06/21 08:00 07/06/21 08:00 07/06/21 08:00 Laboratory Results - last 24 hr 07/05/21 10:35: WBC 6.0, RBC 4.66, Hgb 14.1, Hct 43.6, MCV 93.6, MCH 30.3, MCHC 32.4, RDW 12.9, Plt Count 289, MPV 8.1, Neut % (Auto) 59.0, Lymph % (Auto) 32.6, [place] % (Auto) 3.6, Eos % (Auto) 3.5, Baso % (Auto) 1.3, Neut # (Auto) 3.5, Lymph # (Auto) 2.0, [place] # (Auto) 0.2, Eos # (Auto) 0.2, Baso # (Auto) 0.1 07/05/21 10:35: Sodium 139, Potassium 3.9, Chloride 102, Carbon Dioxide 29, Anion Gap 11.9, BUN 7, Creatinine 0.80, Estimated Creat Clear 114, Estimated GFR 74, Est GFR ( Amer) 90, Glucose 214 H D, Calcium 9.3, C-Reactive Protein 13.8 H 07/05/21 10:35: ESR 56 H 07/05/21 10:35: Procalcitonin 0.076 07/05/21 11:30: POC Glucose 208 H 07/05/21 16:09: POC Glucose 162 H 07/05/21 20:32: POC Glucose 195 H I & O for Last 24 hours: Intake & Output 07/03/21 07/04/21 07/05/21 07/06/21 11:59 11:59 11:59 11:59 Intake Total 240 / 240 480 / 480 Balance 240 / 240 480 / 480 Weight 202 lb 3 oz 204 lb 1.6 oz Microbiology Reports for the Last 24 Hours: Microbiology 07/04/21 19:50 Urine,Clean Catch Urine Culture - Preliminary NO GROWTH AFTER 24 HOURS - Constitutional no acute distress, obese - *Routine HEENT Exam Head: Present: normocephalic Eye: Present: EOMI, PERRL ENT: Present: mucous membranes dry - *Routine Neck Exam Present: supple. Absent: JVD - *Routine Respiratory Exam Present: CTA bilaterally - *Routine Cardiovascular Exam Present: RRR - *Routine Abdominal Exam Present: soft. Absent: tenderness - *Routine Extremities Exam Absent: Madison's sign - Routine Back/Spine/Pelvis Exam Back/Spine: Present: paraspinal tenderness. Absent: erythema, warmth - *Routine Skin Exam Present: intact - *Routine Neurological Exam Present: alert, oriented X3, CN II-XII intact - Routine Psychiatric Exam Present: normal affect Assessment and Plan (1) Obesity (BMI 30.0-34.9) Status: Acute Category: Medical Code(s): E66.9 - Obesity, unspecified (2) UTI (urinary tract infection) Status: Acute Qualifiers: Urinary tract infection type: site unspecified Hematuria presence: without hematuria Qualified Code(s): N39.0 - Urinary tract infection, site not specified Category: Medical Code(s): N39.0 - Urinary tract infection, site not specified (3) Bacteremia Status: Acute Category: Medical Code(s): R78.81 - Bacteremia (4) Neuropathy Status: Acute Category: Medical Code(s): G62.9 - Polyneuropathy, unspecified (5) Hyperglycemia due to type 2 diabetes mellitus Status: Acute Qualifiers: Diabetes mellitus custodial insulin use: with terminal operations supervisor use Qualified Code(s): E11.65 - Type 2 diabetes mellitus with hyperglycemia; Z79.4 - [facility] (current) use of insulin Category: Medical Code(s): E11.65 - Type 2 diabetes mellitus with hyperglycemia (6) Hypothyroidism Status: Chronic Qualifiers: Hypothyroidism type: unspecified Qualified Code(s): E03.9 - Hypothyroidism, unspecified Category: Medical Code(s): E03.9 - Hypothyroidism, unspecified
--- NOTE | 2021-07-06 09:46 | CT_ITS ---
PROCEDURE INFORMATION: Exam: CT Thoracic Spine With Contrast Exam date and time: 07/06/2021 9:46 AM Age: 56 years old Clinical indication: Pain in thoracic spine; Additional info: Pain and possible mass TECHNIQUE: Imaging protocol: Computed tomography images of the thoracic spine with intravenous contrast. Radiation optimization: All CT scans at this facility use at least one of these dose optimization techniques: automated exposure control; mA and/or kV adjustment per patient size (includes targeted exams where dose is matched to clinical indication); or iterative reconstruction. Contrast material: ISOVUE; Contrast volume: 75 ml; Contrast route: IV; COMPARISON: CT THORACIC SPINE WO CON 06/19/2019 2:06 PM FINDINGS: Vertebrae: No acute fracture. Normal alignment. Discs/Spinal canal/Neural foramina: No significant disc protrusion. No severe spinal canal stenosis. No significant neural foraminal narrowing. Soft tissues: Unremarkable. IMPRESSION: Unremarkable CT thoracic spine.
--- NOTE | 2021-07-06 09:46 | CT_ITS ---
PROCEDURE INFORMATION: Exam: CT Lumbar Spine With Contrast Exam date and time: 07/06/2021 9:46 AM Age: 56 years old Clinical indication: Other: Possible infection; Additional info: Pain and possible infection TECHNIQUE: Imaging protocol: Computed tomography images of the lumbar spine with intravenous contrast. Radiation optimization: All CT scans at this facility use at least one of these dose optimization techniques: automated exposure control; mA and/or kV adjustment per patient size (includes targeted exams where dose is matched to clinical indication); or iterative reconstruction. Contrast material: ISOVUE; Contrast volume: 100 ml; Contrast route: IV; COMPARISON: CT LUMBAR SPINE WO CON 11/24/2020 10:04 PM FINDINGS: Vertebrae: Vertebral body heights and alignment are within normal limits. There is no evidence of acute fracture or subluxation. Intervertebral discs appear fairly well preserved. There is no significant disc bulge. Posterior to the spinous process of L3 There is some inflammatory stranding of fat posterior to the spinous processes of L2 and L3, asymmetric to the left. No organized fluid collection is identified. There is a thin tubular structure also within this region measuring 3.2 mm in cross-sectional diameter, and extending approximately 2 cm in length. Discs/Spinal canal/Neural foramina: See Vertebrae finding. Soft tissues: Unremarkable. IMPRESSION: 1. No acute osseous abnormality. 2. Inflammatory stranding of subcutaneous fat overlying the lumbar spine as described. No organized fluid collection is appreciated. However, there is a tubular structure in the same region which is indeterminate. Enhancing thrombosed vessel or foreign body could have a similar appearance. Clinical correlation is recommended.
--- NOTE | 2021-07-06 13:25 | PC.NURSE ---
Dr. Russ paged at 11:48 per radiology request. At 11: Dr. Russ returned page and was told that radiology requested that he converse with Dr. Santos about CT w/ contrast results.
[2021-07-06 16:00] VITALS: BP 157/80; PULSE 64; RESP 20; TEMP 37; O2SAT 99
[2021-07-06 16:42] LABS: POC Glucose,Bedside 218 (70-110)
[2021-07-06 16:42] LABS: POC Glucose,Bedside 265 (70-110)
[2021-07-06 20:00] VITALS: BP 138/87; PULSE 89; RESP 22; TEMP 36.8; O2SAT 97
[2021-07-07 04:00] VITALS: BP 152/85; PULSE 71; RESP 16; TEMP 36.8; O2SAT 96
[2021-07-07 05:14] VITALS: BMI 32.0
[2021-07-07 07:48] VITALS: BMI 31.7
[2021-07-07 07:55] VITALS: BP 146/75; PULSE 72; RESP 16; TEMP 36.8; O2SAT 99
[2021-07-07 08:00] VITALS: O2SAT 99
[2021-07-07 09:05] LABS: Basophils # 0.1 K/mm3 (0-0.2); Chloride 99 mmol/L (98-107); Eosinophils # 0.3 K/mm3 (0.0-0.4); Eosinophils % 3.2 % (0.1-12.0); Hematocrit 44.9 % (37.0-47.0); Hemoglobin 14.7 g/dL (12.2-16.2); Lymphocytes # 1.8 K/mm3 (0.7-4.5); Lymphocytes % 22.6 % (10-50); Mean Corpuscular HGB Conc 32.7 g/dL (31.8-35.4); Mean Corpuscular Hemoglobin 30.7 pg (27.0-31.2); Mean Corpuscular Volume 93.7 fl (81-99); Monocytes # 0.3 K/mm3 (0.1-1.0); Monocytes % 4.1 % (1.7-9.3); Neutrophils # 5.4 K/mm3 (1.8-7.8); Neutrophils % 69.1 % (37.0-80.0); Platelet Count 311 K/mm3 (142-424); Red Cell Distribution Width 13.1 % (11.5-17.5); Sodium 134 mmol/L (136-145); White Blood Count 7.8 K/mm3 (4.8-10.8)
[2021-07-07 09:08] LABS: Blood Urea Nitrogen 15 mg/dl (7-17); Creatinine Clearance Estimated 118 mL/min (50-200); Estimated Glomerular Filt Rate 74 ml/min (>60); GFR (African American) 90 ML/MIN (>60)
[2021-07-07 09:09] LABS: Carbon Dioxide 29 mmol/L (22.0-30.0); Glucose 241 mg/dl (74-100)
--- NOTE | 2021-07-07 09:50 | HMH.DCSUM ---
General - General Admission date:: 07/04/21 Discharge date: 07/07/21 HPI HPI: this patient was seen in the ed and noted to have uti and given iv abx and po to start as op- pt was seen by pcp and continued on meds - today noted to have positive blood culture and was seen in the ed- female presents for pain. Patient states she has had worsening pain that is generalized hurts everywhere that started approximately 4 days ago. She was seen in ED on 07/01 and again 07/03 for similar symptoms. Was started on levaquin yesterday for UTI. Blood culture from 07/01 and urine culture from 07/01 are positive for GPC in pairs and GNR, respectively. Denies shortness of breath, vision changes, nausea, vomiting, diarrhea, bloody stools, numbness, tingling. female presents for generalized body ache/pain for 4 days. Is mildly tachycardic and hypertensive on initial triage vitals which improved prior to any other interventions when I evaluated pt. She is on room air. She is afebrile. Her lactate is 2.3 today, and she has lab findings from 07/01 concerning for bacteremia with GPC in pairs and UTI concerning for GNR. Given this, and worsening symptoms, with signs of end organ damage, will admit for septicemia after giving vancomycin and cefepime for broad spectrum coverage, IVF bolus, zofran for nausea, morphine for pain here in the ED. Admitted to inpatient medicine team after speaking with Dr. Awan (fish boning machine feeder physician for inpatient admission) regarding this patient's workup and plan, Hospital Course Hospital Course: Abnormal Lab Results 07/06/21 11:34: POC Glucose 265 H 07/06/21 16:20: POC Glucose 218 H 07/07/21 08:41: Sodium 134 L, Glucose 241 H Microbiology 07/04/21 19:50 Urine,Clean Catch Urine Culture - Final NO GROWTH AFTER 48 HOURS 07/04/21 18:50 Blood Blood Culture - Preliminary NO GROWTH AFTER 48 HOURS 07/04/21 18:50 Blood Blood Culture - Preliminary NO GROWTH AFTER 48 HOURS Ordering Physician: Fadi Stephens MD Date of Service: 07/04/21 Procedure(s): XR chest portable Accession Number(s): [id number] cc: Naeem Mulligan MD; Klaber,Timo SYSTEMATIC THEOLOGY PROFESSOR~ PROCEDURE INFORMATION: Exam: XR Chest Exam date and time: 07/04/2021 6:55 PM Age: 56 years old Clinical indication: Other: Generalized weakness TECHNIQUE: Imaging protocol: XR of the chest. Views: 1 view. COMPARISON: CR XR CHEST 2V 07/01/2021 8:05 PM FINDINGS: Lungs: Calcified granuloma in the peripheral portion of the left lung. No airspace consolidation. No overt pulmonary edema. Pleural spaces: No pleural effusion. No pneumothorax. Heart/Mediastinum: Normal heart size. Bones/joints: Mild spondylosis. IMPRESSION: No acute finding. No significant change since 07/01/2021. PROCEDURE INFORMATION: Exam: CT Abdomen And Pelvis With Contrast Exam date and time: 07/04/2021 8:38 PM Age: 56 years old Clinical indication: Abdominal pain; Generalized; Additional info: Abd pain TECHNIQUE: Imaging protocol: Computed tomography of the abdomen and pelvis with contrast. Radiation optimization: All CT scans at this facility use at least one of these dose optimization techniques: automated exposure control; mA and/or kV adjustment per patient size (includes targeted exams where dose is matched to clinical indication); or iterative reconstruction. Contrast material: ISOVUE; Contrast volume: 75 ml; Contrast route: IV; COMPARISON: CT ABDOMEN PELVIS W CON 01/24/2020 5:11 PM FINDINGS: Lungs: The visualized lung bases are unremarkable. Diaphragm: Small hiatal hernia. Liver: Liver is enlarged, measuring 20.8 cm in craniocaudal dimension. Mild hepatic steatosis. Gallbladder and bile ducts: No gallbladder wall thickening. No radio-opaque stones. No common bile duct dilation. Pancreas: Unremarkable. No main pancreatic duct dilation. Spleen: Normal. No
--- NOTE | 2021-07-07 09:58 | SW/DCPLANNER ---
The plan is for this patient to discharge home later today. Patient stated that her significant other will be able to transport her today.
--- NOTE | 2021-07-07 10:29 | HMH.PHAINT ---
Discharge counseling complete. Informed pt of new meds, meds to be stopped, purpose of new meds, how to take new meds, potential side effects of new meds. Pt understood and had no questions or concerns
[2021-07-07 11:45] LABS: POC Glucose,Bedside 281 (70-110)
[2021-07-08 16:24] LABS: POC Glucose,Bedside 166 (70-110)
[2021-07-08 16:24] LABS: POC Glucose,Bedside 270 (70-110)
== END 2021-07-07 11:29 | disposition home or self-care (01) ==
LOC: ER 18:27 → 2ND 20:08
PROVIDERS: Nurse Practitioner Family; Admitting Provider Internal Medicine Adolescent Medicine; Emergency Provider Student in an Organized Health Care Education/Training Program; PCP Nurse Practitioner Family; Visit Provider Emergency Medicine
DX: N39.0 Urinary tract infection, site not specified (principal); J44.9 Chronic obstructive pulmonary disease, unspecified; E11.65 Type 2 diabetes mellitus with hyperglycemia; Z79.4 Long term (current) use of insulin; I25.2 Old myocardial infarction; I10 Essential (primary) hypertension; G43.909 Migraine, unspecified, not intractable, without status migrainosus; Z79.899 Other long term (current) drug therapy; R78.81 Bacteremia; E03.9 Hypothyroidism, unspecified; Z20.822 Contact with and (suspected) exposure to COVID-19
CPT/HCPCS: G0378; 36415; 71045; 72129; 72132; 74177; 80048; 80053; 81001; 82962; 83605; 84145; 85025; 85651; 86140; 87040; 87086; 96365; 96367; 96375; 99284; C9803; J0696; J2405; J3370; Q9967; U0003; U0005

== ENCOUNTER 2021-07-18 20:01 | Emergency (ER) | payer MEDICARE, BC, SELFPAY ==
[2021-07-18] VITALS (15 sets, daily range): BP systolic 140–222; BP diastolic 65–160; PULSE 63–80; RESP 14–25; TEMP 36.7–36.8; O2SAT 92–100; BMI 33.4
--- NOTE | 2021-07-18 19:46 | ECG_ITS ---
APPROVED REPORT Exam: Resting ECG HR:70 bpm ECG Measurements Heart Rate 70 AXES PA 143 P 60 QRSd 96 QRS 85 QT 417 T 79 QTc 437 Conclusion SINUS RHYTHM Incomplete rbbb MODERATE T-WAVE ABNORMality - no changes over baseline ABNORMAL ECG UNCONFIRMED REPORT Electronically signed by : Gabriel Russ MD 07/19/2021 09:24:00
--- NOTE | 2021-07-18 20:11 | XR_ITS ---
PROCEDURE INFORMATION: Exam: XR Chest Exam date and time: 07/18/2021 8:11 PM Age: 56 years old Clinical indication: Sternal or substernal pain; Additional info: Chest pain TECHNIQUE: Imaging protocol: XR of the chest. Views: 2 views. COMPARISON: CR XR CHEST PORTABLE 07/04/2021 7:28 PM FINDINGS: Lungs: Multiple calcified granulomas. No lobar consolidation. Pleural spaces: Unremarkable. No pleural effusion. No pneumothorax. Heart/Mediastinum: Unremarkable. No cardiomegaly. Bones/joints: Unremarkable. IMPRESSION: No acute findings.
[2021-07-18 20:17] LABS: Coronavirus 19, PCR Not Detected (NotDetected); Influenza A, PCR Not Detected (NotDetected); Influenza B, PCR Not Detected (NotDetected)
[2021-07-18 20:25] LABS: Basophils # 0.2 K/mm3 (0-0.2); Basophils % 2.9 % (0.1-2.0); Eosinophils # 0.3 K/mm3 (0.0-0.4); Eosinophils % 3.9 % (0.1-12.0); Hematocrit 44.1 % (37.0-47.0); Hemoglobin 14.2 g/dL (12.2-16.2); Mean Corpuscular HGB Conc 32.2 g/dL (31.8-35.4); Mean Corpuscular Hemoglobin 30.1 pg (27.0-31.2); Mean Corpuscular Volume 93.6 fl (81-99); Mean Platelet Volume 9.2 fl (7.4-10.4); Monocytes # 0.4 K/mm3 (0.1-1.0); Neutrophils # 2.7 K/mm3 (1.8-7.8); Neutrophils % 41.3 % (37.0-80.0); Platelet Count 280 K/mm3 (142-424); Red Blood Count 4.71 M/mm3 (4.20-5.40); Red Cell Distribution Width 13.3 % (11.5-17.5); White Blood Count 6.6 K/mm3 (4.8-10.8)
--- NOTE | 2021-07-18 20:33 | HMH.EDCP ---
ED Disposition Clinical Impression: Chest pain Qualifiers: Chest pain type: precordial pain Qualified Code(s): R07.2 - Precordial pain Disposition: Home, Self-Care Condition on Discharge: Good Instructions: DI for Atypical Chest Pain Additional Instructions: see pcp and card wednesday at 0930 and recheck if needed Prescriptions: Isosorbide Mononitrate [Imdur 30mg ER tablet] 30 mg PO DAILY #10 tab Transmission Status: Pending to [facility]/pharmacy #[id number] Referrals: Provider,Referral, [Primary Care Provider] - - Critical Care Critical Care Time: No Attestation: On 07/18/21, the high probability of a clinically significant, sudden or life threatening deterioration of the following system(s) required my full and direct attention, intervention and personal management. The time I documented below is in addition to time spent performing reported procedures but includes the following listed in this critical care notation. Medical Decision Making - Medical Records Medical records reviewed: Yes: I reviewed the patient's medical records. - [place] Inquiry Pt receiving controlled substance: No Vital Signs: 07/18/21 20:01 07/18/21 20:29 07/18/21 20:30 Temperature 98.3 F Temperature Source Oral Pulse Rate 79 Pulse Rate [Apical] 70 Respiratory Rate 20 24 24 Blood Pressure Blood Pressure [Right Arm] 144/85 H Blood Pressure Mean Blood Pressure Mean [Right Arm] 104 Blood Pressure Source [Right Arm] Automatic Cuff Blood Pressure Position [Right Arm] Sitting 02 Sat by Pulse Oximetry 96 96 Oxygen Delivery Method Room Air 07/18/21 20:31 07/18/21 20:45 07/18/21 21:00 Temperature Temperature Source Pulse Rate 80 63 67 Pulse Rate [Apical] Respiratory Rate 25 H 14 14 Blood Pressure 188/160 H Blood Pressure [Right Arm] Blood Pressure Mean 169 Blood Pressure Mean [Right Arm] Blood Pressure Source [Right Arm] Blood Pressure Position [Right Arm] 02 Sat by Pulse Oximetry 92 L 99 97 Oxygen Delivery Method 07/18/21 21:01 07/18/21 21:15 07/18/21 21:30 Temperature Temperature Source Pulse Rate 65 70 69 Pulse Rate [Apical] Respiratory Rate 21 19 14 Blood Pressure 222/118 H Blood Pressure [Right Arm] Blood Pressure Mean 152 Blood Pressure Mean [Right Arm] Blood Pressure Source [Right Arm] Blood Pressure Position [Right Arm] 02 Sat by Pulse Oximetry 95 98 100 Oxygen Delivery Method 07/18/21 21:33 07/18/21 21:45 07/18/21 21:49 Temperature Temperature Source Pulse Rate 65 Pulse Rate [Apical] Respiratory Rate 15 19 16 Blood Pressure 218/112 H 150/65 H Blood Pressure [Right Arm] Blood Pressure Mean 147 93 Blood Pressure Mean [Right Arm] Blood Pressure Source [Right Arm] Blood Pressure Position [Right Arm] 02 Sat by Pulse Oximetry 97 Oxygen Delivery Method 07/18/21 22:00 07/18/21 22:15 Temperature Temperature Source Pulse Rate Pulse Rate [Apical] Respiratory Rate 20 18 Blood Pressure 153/88 H Blood Pressure [Right Arm] Blood Pressure Mean 109 Blood Pressure Mean [Right Arm] Blood Pressure Source [Right Arm] Blood Pressure Position [Right Arm] 02 Sat by Pulse Oximetry Oxygen Delivery Method - Lab Data Lab results reviewed: Yes: I reviewed the patient's lab results. Lab Results 07/18/21 20:02: SARS-CoV-2 (PCR) Not detected, Influenza A Untype (PCR) Not detected, Influenza Type B (PCR) Not detected 07/18/21 20:18: WBC 6.6, RBC 4.71, Hgb 14.2, Hct 44.1, MCV 93.6, MCH 30.1, MCHC 32.2, RDW 13.3, Plt Count 280, MPV 9.2, Neut % (Auto) 41.3, Lymph % (Auto) 46.0, [place] % (Auto) 6.0, Eos % (Auto) 3.9, Baso % (Auto) 2.9 H, Neut # (Auto) 2.7, Lymph # (Auto) 3.0, [place] # (Auto) 0.4, Eos # (Auto) 0.3, Baso # (Auto) 0.2, ESR 57 H 07/18/21 20:18: Sodium 138, Potassium 4.3, Chloride 103, Carbon Dioxide 26, Anion Gap 13.3, BUN 17, Creatinine 0.80, Estimated Creat Clear 124, Estimated
[2021-07-18 20:35] LABS: Alanine Aminotransferase 24 U/L (12-78); Albumin Level 4.2 g/dl (3.5-5.0); Albumin/Globulin Ratio 1.3 (1.1-1.8); Alkaline Phosphatase 106 U/L (38-126); Anion Gap 13.3 mEq/L (5-15); Aspartate Amino Transferase 33 U/L (14-36); Bilirubin,Total 0.4 mg/dl (0.2-1.3); Blood Urea Nitrogen 17 mg/dl (7-17); Calcium 9.3 mg/dl (8.4-10.2); Carbon Dioxide 26 mmol/L (22.0-30.0); Chloride 103 mmol/L (98-107); Creatinine Clearance Estimated 124 mL/min (50-200); Estimated Glomerular Filt Rate 74 ml/min (>60); GFR (African American) 90 ML/MIN (>60); Globulin 3.3 g/dL (1.3-3.2); Glucose 228 mg/dl (74-100); Potassium 4.3 mmoL/L (3.5-5.1); Sodium 138 mmol/L (136-145); Total Protein,Serum 7.5 g/dl (6.3-8.2)
[2021-07-18 20:41] LABS: C-Reactive Protein 25.6 mg/L (0-4)
[2021-07-18 20:48] LABS: Erythrocyte Sedimentation Rate 57 mm/hr (0-30)
[2021-07-18 20:52] LABS: Troponin I < 0.01 ng/ml (0.00-0.034)
[2021-07-18 20:55] LABS: Procalcitonin 0.073 ng/mL (0.0-2.0); T4 (Thyroxine) 10.5 ug/dl (5.53-11.0)
[2021-07-18 21:08] LABS: Thyroid Stimulating Hormone 7.51 uIU/mL (0.465-4.68)
[2021-07-18 23:29] LABS: Troponin I < 0.01 ng/ml (0.00-0.034)
== END 2021-07-18 23:50 | disposition home or self-care (01) ==
PROVIDERS: Emergency Provider Emergency Medicine
DX: R07.2 Precordial pain (principal); I10 Essential (primary) hypertension; I38 Endocarditis, valve unspecified; I25.10 Atherosclerotic heart disease of native coronary artery without angina pectoris; I25.2 Old myocardial infarction; R78.5 Finding of other psychotropic drug in blood; E07.9 Disorder of thyroid, unspecified; H44.9 Unspecified disorder of globe; M19.90 Unspecified osteoarthritis, unspecified site; F32.A Depression, unspecified; F41.9 Anxiety disorder, unspecified; Z79.4 Long term (current) use of insulin; Z79.51 Long term (current) use of inhaled steroids; Z79.899 Other long term (current) drug therapy; Z88.0 Allergy status to penicillin; Z88.8 Allergy status to other drugs, medicaments and biological substances; Z82.49 Family history of ischemic heart disease and other diseases of the circulatory system
CPT/HCPCS: 71046; 80053; 84145; 84436; 84443; 84484; 85025; 85651; 86140; 93005; 96360; 96365; 99285; C9803; U0003; U0005

== ENCOUNTER → 2021-07-28 07:38 | Outpatient (CLI) | payer MEDICARE, BC, SELFPAY ==
--- NOTE | 2021-07-28 | CA_ITS ---
APPROVED REPORT EXAM: Comprehensive 2D, Doppler, and color-flow Echocardiogram Cork Tile Floor Layer: Saima Sahni CRT Ht: 5 ft 8 in Wt: 215lbs BSA: 2.11 BP: 152/80 mmHg Indications: CVA, GERD,CP, SOB, obesity 2D Dimensions LVOT 1.90 cm (M/F) 1.5-2.5 LA Volume 32.00 mL LA Volume Index 15.20 mL/m2 (M/F) 16-34 M-Mode Dimensions RVDd 1.98 cm (0.9-2.6) LA Diam 3.46 cm (1.9-4.0) LVDd 4.95 cm (3.5-5.7) Ao Diam 2.91 cm (2.0-3.7) LVDs 3.22 cm (3.5-5.7) IVSd 1.38 cm (0.6-1.1) PWd 0.99 cm (0.6-1.1) EF (Teich) 64.00% FS 34.90% EDV (Teich) 115.50 mL TAPSE 2.13 (<1.7) ESV (Teich) 41.60 mL LV Diastology MED E' 5.40 (< 7 cm/sec) MED A' 10.00 cm/s LAT E' 5.60 (<10 cm/sec) LAT A' 9.20 cm/s Aortic Valve AO Peak GR. 10.50 mmHg Pulmonary Valve PV Peak Velocity 148.00 (50-150 cm/s) Tricuspid Valve TR P. Velocity 266.00 cm/s RAP Estimate 10.00 mmHg RVSP 38.30 mmHg Left Ventricle Atrium is mildly enlarged, left ventricle is normal size, mild concentric left ventricular hypertrophy, visually estimated ejection fraction 55% with no regional wall motion abnormality, grade 1 diastolic dysfunction seen without tissue Doppler evidence of raise left atrial pressure. Right Ventricle Right atrium and right ventricle are normal size and contractility. Aortic Valve Aortic valve is minimally thickened and fibrosed, there is no aortic stenosis or aortic insufficiency. Mitral Valve Mitral valve grossly normal, there is trace mitral regurgitation. Tricuspid Valve Tricuspid valve is grossly normal, there is trace tricuspid regurgitation, tricuspid regurgitation jet velocity is inadequate for calculation of the right ventricular systolic pressure. Pulmonic Valve Pulmonic valve is poorly visualized. Great Vessels Aortic root is normal size. Inferior vena cava is poorly visualized. Pericardium No significant pericardial effusion. Conclusion 1. Mildly enlarged left atrium, normal left ventricular size, mild concentric left ventricular hypertrophy, visually estimated ejection fraction 55% with no regional wall motion abnormality, grade 1 diastolic dysfunction seen without tissue Doppler evidence of raise left atrial pressure. 2. Trace mitral and tricuspid regurgitation. 3. No significant pericardial effusion noted. 4. Inferior vena cava is poorly visualized. Electronically signed by : Derek Isbell MD 07/28/2021 19:58:27
== END ==
PROVIDERS: PCP Nurse Practitioner Family; Visit Provider Nurse Practitioner Family
DX: R06.02 Shortness of breath (principal)
CPT/HCPCS: 93306

== ENCOUNTER 2021-07-29 19:13 | Emergency (ER) | payer MEDICARE, BC, SELFPAY ==
[2021-07-29 19:13] VITALS: BP 153/83; PULSE 93; RESP 18; TEMP 36.6; O2SAT 98; BMI 33.4
--- NOTE | 2021-07-29 19:13 | ECG_ITS ---
APPROVED REPORT Exam: Resting ECG HR:90 bpm ECG Measurements Heart Rate 90 AXES NJ 150 P 67 QRSd 99 QRS 70 QT 377 T 57 QTc 425 Conclusion SINUS RHYTHM POSSIBLE RIGHT VENTRICULAR CONDUCTION DELAY [RSR (QR) IN V1/V2] BORDERLINE ECG UNCONFIRMED REPORT Electronically signed by : Gabriel Russ MD 07/30/2021 07:41:17
--- NOTE | 2021-07-29 19:20 | XR_ITS ---
PROCEDURE INFORMATION: Exam: XR Chest Exam date and time: 07/29/2021 7:20 PM Age: 56 years old Clinical indication: Pain; Left-sided; Additional info: Cp TECHNIQUE: Imaging protocol: XR of the chest. Views: 1 view. COMPARISON: CR XR CHEST 2V 07/18/2021 8:16 PM FINDINGS: Lungs: Calcified granuloma left upper lobe. No consolidation. Pleural spaces: Unremarkable. No pleural effusion. No pneumothorax. Heart/Mediastinum: Unremarkable. No cardiomegaly. Bones/joints: Unremarkable. IMPRESSION: No acute findings.
[2021-07-29 19:33] LABS: Basophils # 0.1 K/mm3 (0-0.2); Basophils % 1.8 % (0.1-2.0); Eosinophils # 0.3 K/mm3 (0.0-0.4); Eosinophils % 3.3 % (0.1-12.0); Hematocrit 45.1 % (37.0-47.0); Hemoglobin 14.6 g/dL (12.2-16.2); Lymphocytes # 2.5 K/mm3 (0.7-4.5); Mean Corpuscular HGB Conc 32.4 g/dL (31.8-35.4); Mean Corpuscular Hemoglobin 30.7 pg (27.0-31.2); Mean Corpuscular Volume 94.7 fl (81-99); Monocytes # 0.4 K/mm3 (0.1-1.0); Monocytes % 5.7 % (1.7-9.3); Neutrophils # 4.3 K/mm3 (1.8-7.8); Neutrophils % 56.1 % (37.0-80.0); Platelet Count 359 K/mm3 (142-424); Red Blood Count 4.77 M/mm3 (4.20-5.40); White Blood Count 7.7 K/mm3 (4.8-10.8)
[2021-07-29 19:39] LABS: Chloride 99 mmol/L (98-107); Potassium 4.7 mmoL/L (3.5-5.1); Sodium 131 mmol/L (136-145)
[2021-07-29 19:42] LABS: Anion Gap 14.7 mEq/L (5-15); Blood Urea Nitrogen 20 mg/dl (7-17); Calcium 8.5 mg/dl (8.4-10.2); Carbon Dioxide 22 mmol/L (22.0-30.0); Creatinine Clearance Estimated 124 mL/min (50-200); Estimated Glomerular Filt Rate 74 ml/min (>60); GFR (African American) 90 ML/MIN (>60)
--- NOTE | 2021-07-29 19:42 | HMH.EDCP ---
ED Disposition Condition on Discharge: Good - Critical Care Critical Care Time: No <Shine Avelar - Last Filed: 07/29/21 19:42> <Vish Shoemaker - Last Filed: 07/29/21 21:48> Clinical Impression: Chest pain Qualifiers: Chest pain type: unspecified Qualified Code(s): R07.9 - Chest pain, unspecified Disposition: Still a Patient Referrals: Timo Villalba APRN [Primary Care Provider] - Attestation: On 07/29/21, the high probability of a clinically significant, sudden or life threatening deterioration of the following system(s) required my full and direct attention, intervention and personal management. The time I documented below is in addition to time spent performing reported procedures but includes the following listed in this critical care notation. Medical Decision Making - Medical Records Medical records reviewed: Yes: I reviewed the patient's medical records. - [place] Inquiry Pt receiving controlled substance: No - Lab Data Result diagrams: 07/29/21 19:10 07/29/21 19:10 <ValentinoRiojas - Last Filed: 07/29/21 19:42> - Lab Data Lab results reviewed: Yes: I reviewed the patient's lab results. Result diagrams: 07/29/21 19:10 07/29/21 19:10 - Radiology Data #1 Image(s): Chest Image Reviewed: Yes I have reviewed radiologist's interpretation Preliminary Findings: Normal/NAD <Vish Shoemaker - Last Filed: 07/29/21 21:48> Vital Signs: 07/29/21 19:13 07/29/21 20:00 07/29/21 20:31 Temperature 98 F Temperature Source Oral Pulse Rate 88 86 Pulse Rate [Left Radial] 93 H Respiratory Rate 18 18 14 Blood Pressure 159/80 H 180/89 H Blood Pressure [Right Arm] 153/83 H Blood Pressure Mean 104 119 Blood Pressure Mean [Right Arm] 106 Blood Pressure Position [Right Arm] Sitting 02 Sat by Pulse Oximetry 98 97 98 Oxygen Delivery Method Room Air - Lab Data Lab Results 07/29/21 19:10: WBC 7.7, RBC 4.77, Hgb 14.6, Hct 45.1, MCV 94.7, MCH 30.7, MCHC 32.4, RDW 13.0, Plt Count 359, MPV 9.0, Neut % (Auto) 56.1, Lymph % (Auto) 33.0, [place] % (Auto) 5.7, Eos % (Auto) 3.3, Baso % (Auto) 1.8, Neut # (Auto) 4.3, Lymph # (Auto) 2.5, [place] # (Auto) 0.4, Eos # (Auto) 0.3, Baso # (Auto) 0.1 07/29/21 19:10: Sodium 131 L, Potassium 4.7, Chloride 99, Carbon Dioxide 22, Anion Gap 14.7, BUN 20 H, Creatinine 0.80, Estimated Creat Clear 124, Estimated GFR 74, Est GFR ( Amer) 90, Glucose 415 H*, Calcium 8.5, Troponin I < 0.01 07/29/21 19:10: D-Dimer 0.32 Orders (Tests/Meds): ED MEDICATIONS Generic Name Dose Route Start Last Admin Trade Name Freq PRN Reason Stop Dose Admin Sodium Chloride 1,000 mls @ 999 mls/hr 07/29/21 19:45 07/29/21 19:47 Sod Chlor 0.9% 1000ml Bag IV 07/29/21 20:45 999 mls/hr .Q1H1M FRANCES Administration Discontinued Medications Generic Name Dose Route Start Last Admin Trade Name Freq PRN Reason Stop Dose Admin Aspirin 324 mg 07/29/21 19:23 07/29/21 19:39 Aspirin 81mg Chewable Tablet PO 07/29/21 19:24 324 mg ONCE ONE Administration Nitroglycerin 0.4 mg 07/29/21 19:24 07/29/21 19:38 Nitroglycerin 0.4mg Sl Tablet SL 07/29/21 19:25 0.4 mg ONCE ONE Administration ORDERS Category Date Time Status Troponin I Q3H Lab 07/29/21 22:30 Ordered Troponin I Q3H Lab 07/30/21 01:30 Ordered UA [Urinalysis and Microscopic] Stat Lab 07/29/21 19:48 Received - ECG Data Tracing #1 ekg by me nsr, narrow qrs, no st elev (Shine Avelar) Medical Decision Narrative: pt with stable exam and labs and will ask pt to see card - in am - will give extra dose of norvasc tonight sec to bp elevated (Vish Shoemaker) Chest Pain HPI - General Mode of Arrival: Ambulatory Limitations: No Limitations Description of Symptoms (Recalled from ER Triage Doc. by RN): PT SEEN 1 WEEK AGO FOR CP- [facility] AND HAD A RECENT ECHO. PT REPORTS CP WITH RADIATION DOWN LEFT ARM THAT BEGAN EARLIER TODAY. PT HAS NOT TAKEN ASA TODA
[2021-07-29 19:44] LABS: Glucose 415 mg/dl (74-100)
[2021-07-29 19:57] LABS: Troponin I < 0.01 ng/ml (0.00-0.034)
[2021-07-29 20:00] VITALS: BP 159/80; PULSE 88; RESP 18; RESP 21; O2SAT 91; O2SAT 97
[2021-07-29 20:00] LABS: D-Dimer 0.32 ug/mL (0.0-0.5)
[2021-07-29 20:31] VITALS: BP 180/89; PULSE 86; PULSE 90; RESP 14; RESP 22; O2SAT 97; O2SAT 98
[2021-07-29 20:39] LABS: Microscopic, Urine URINE MICROSCOPIC (MICROSCOPIC)
[2021-07-29 21:00] VITALS: BP 166/84; PULSE 68
[2021-07-29 21:36] VITALS: BP 161/105; PULSE 74
[2021-07-29 21:47] LABS: Appearance,Urine CLEAR (Clear); Bilirubin,Urine Negative (Negative); Blood, Urine TRACE-I (Negative); Color,Urine YELLOW (Yellow); Glucose,Urine (UA) 3+ (Negative); Ketones,Urine Negative (Negative); Leukocyte Esterase,Urine Negative (Negative); Nitrate,Urine Negative (Negative); Protein,Urine Negative (Negative); Specific Gravity, Urine <= 1.005 (1.005-1.030); Urobilinogen,Urine 0.2 EU/dl (0.2)
[2021-07-29 22:02] VITALS: BP 161/85; PULSE 88; RESP 18; TEMP 36.6; O2SAT 97
[2021-07-29 22:05] LABS: RBC,Urine Occasional #/hpf (0-3); Squamous Epithelial Cell,Urine Occasional #/hpf (0-5); WBC,Urine Occasional #/hpf (0-3)
== END 2021-07-29 22:04 | disposition home or self-care (01) ==
PROVIDERS: Emergency Medicine; Emergency Provider Emergency Medicine; PCP Nurse Practitioner Family
DX: R07.9 Chest pain, unspecified (principal); M54.2 Cervicalgia; R68.84 Jaw pain; R06.02 Shortness of breath; I10 Essential (primary) hypertension; I25.10 Atherosclerotic heart disease of native coronary artery without angina pectoris; I25.2 Old myocardial infarction; E78.5 Hyperlipidemia, unspecified; E11.9 Type 2 diabetes mellitus without complications; E03.9 Hypothyroidism, unspecified; M19.90 Unspecified osteoarthritis, unspecified site; G43.909 Migraine, unspecified, not intractable, without status migrainosus; F32.A Depression, unspecified; F41.9 Anxiety disorder, unspecified; Z79.4 Long term (current) use of insulin; Z79.51 Long term (current) use of inhaled steroids; Z79.82 Long term (current) use of aspirin; Z79.899 Other long term (current) drug therapy; Z88.0 Allergy status to penicillin; Z88.1 Allergy status to other antibiotic agents; Z88.3 Allergy status to other anti-infective agents; Z88.8 Allergy status to other drugs, medicaments and biological substances; Z82.49 Family history of ischemic heart disease and other diseases of the circulatory system; Z80.9 Family history of malignant neoplasm, unspecified; Z81.1 Family history of alcohol abuse and dependence; Z84.1 Family history of disorders of kidney and ureter; Z81.3 Family history of other psychoactive substance abuse and dependence; Z81.8 Family history of other mental and behavioral disorders; Z83.438 Family history of other disorder of lipoprotein metabolism and other lipidemia
CPT/HCPCS: 71045; 80048; 81001; 84484; 85025; 85378; 93005; 96361; 96365; 99284

== ENCOUNTER → 2021-08-18 08:19 | Outpatient (POV) | payer MEDICARE, BC, SELFPAY ==
[2021-08-18 08:58] VITALS: BP 153/88; PULSE 82; RESP 18; TEMP 36.6; O2SAT 96; BMI 33.4
--- NOTE | 2021-08-18 09:58 | HMH.PMCON ---
Assessment and Plan (1) Chronic low back pain Status: Acute Category: Medical Code(s): M54.50 - Low back pain, unspecified; G89.29 - Other chronic pain (2) Bilateral knee pain Status: Acute Category: Medical Code(s): M25.561 - Pain in right knee; M25.562 - Pain in left knee (3) Rotator cuff tear arthropathy of left shoulder Status: Acute Category: Medical Code(s): M75.102 - Unspecified rotator cuff tear or rupture of left shoulder, not specified as traumatic; M12.812 - Other specific arthropathies, not elsewhere classified, left shoulder - Assessment and plan all Dx Assessment and Plan for all problems:: Patient presents today with chronic low back pain, bilateral knee pain, and left shoulder tear. Patient had an SCS 12 years ago that was replaced 3x with no relief. She has been managing her pain with 20-25 tablets of tylenol but she has been having worsening pain. She has tried injective therapy in the past with minimal relief. Denies any loss of bowel and bladder functions. I will order an updated lumbar MRI to further assess pathology. I will start the patient on Diclofenac 50mg TID. Patient will follow up with ortho on her left shoulder and bilateral knee pain. Patient has been instructed to contact the clinic with any concerns before the next appointment. Dr. Mccann has reviewed this note and agrees with this plan of care. This note was dictated using voice recognition software and make contain errors or omissions. HPI - Data of Consult Patient: new to practice Consult date: 08/18/21 Requesting Physician: MELISSA Bautista - Consult Narrative Reason for consult: Chronic pain History of present illness: Ms. Escalante is a 56 year old female who presents today as a new patient. Patient was referred by Dr. Shoemaker. Patient presents today with chronic low back pain that radiates to bilateral lower extremities, bilateral knee pain, left rotator cuff tear. Surgical hx includes a SCS placement x3 12 years ago and right knee surgery. Her SCS was explanted because she says that it was making her pain worse. She says that she has been managing her pain with 20-25 tablets of tylenol everyday. She is also on Gabapentin and a muscle relaxer. She says that these medications are somewhat helping her pain. She has tried injective therapy in the past with minimal relief. Today, she presents with a left shoulder sling because she recently tore her left rotator cuff. She is following up with ortho on this. For her pain, she was seeing a pain specialist in [place] before the pandemic but that fell through. She says that they wanted to start her on oral medications and she does not want to take any oral meds. Rates her pain today as 8/10. [place] #[id number] with an active morphine equivalent of 0. CC: MELISSA Bautista [facility] History I have reviewed the patient's past medical history: Yes Medical History: Reports:: Anxiety, Asthma, Chronic Obstructive Pulmonary Disease (COPD), Depression, Diabetes Mellitus Type 2, Hyperlipidemia, Hypertension, Migraine, Myocardial Infarction, Valvular Heart Disease Denies:: Cancer, Diabetes Mellitus Type 1, Internal Pacemaker, MRSA, Seizures *Have you ever received a pneumonia vaccine?: Yes *Have you received a flu vaccine this season?: No Other Medical History: Reports: Arthritis, Hypothyroidism, Sinus Problems, Thyroid Disease Laterality Cases: Right: ACL Repair, Arthroscopy Knee, Other, Bilateral: Tonsillectomy Other Surgeries: Yes: No Previous Surgery, Colonoscopy, Colon Resection, Hysterectomy-Total, Other. No: Pacemaker Amputation: No Fractures: Yes - *Social History Smoking Status: Never smoker # Packs/Day (cigarettes): 1 Alcohol Intake: never Alcohol Intake Frequency:: other Substance Use Type: marijuana Last Used Substance: unknown *Occupational Status:: unemployed Housing: house Household Members: spouse *Travel in the last 8 weeks: None - Psychiatric History Pschychiatric Histor
== END ==
PROVIDERS: Visit Provider Student in an Organized Health Care Education/Training Program
DX: M54.50 Low back pain, unspecified (principal); M25.561 Pain in right knee; M25.562 Pain in left knee; M75.102 Unspecified rotator cuff tear or rupture of left shoulder, not specified as traumatic
CPT/HCPCS: 99202; G0463

== ENCOUNTER → 2021-08-19 14:47 | Outpatient (CLI) | payer MEDICARE, BC, SELFPAY ==
[2021-08-19 19:14] LABS: Adenovirus,PCR Not Detected (NotDetected); Bordetella Pertussis Not Detected (NotDetected); Chlamydophila Pneumoniae, PCR Not Detected (NotDetected); Coronavirus 19, PCR Not Detected (NotDetected); Coronavirus 229E Not Detected (NotDetected); Coronavirus NL63 Not Detected (NotDetected); Coronavirus OC43 Not Detected (NotDetected); Coronovirus HKU1,PCR Not Detected (NotDetected); Human Metapneumovirus Not Detected (NotDetected); Influenza A, PCR Not Detected (NotDetected); Influenza AH1, 2009 Not Detected (NotDetected); Influenza AH1, PCR Not Detected (NotDetected); Influenza AH3,PCR Not Detected (NotDetected); Influenza B, PCR Not Detected (NotDetected); Mycoplasma Pneumoniae, PCR Not Detected (NotDetected); Parainfluenza 1, PCR Not Detected (NotDetected); Parainfluenza 2, PCR Not Detected (NotDetected); Parainfluenza 3, PCR Not Detected (NotDetected); Parainfluenza 4, PCR Not Detected (NotDetected); Respiratory Syncytial Virus Not Detected (NotDetected); Rhinovirus/Enterovirus Not Detected (NotDetected)
== END ==
PROVIDERS: Visit Provider Nurse Practitioner Family
DX: R06.2 Wheezing (principal); R42 Dizziness and giddiness; R06.02 Shortness of breath; Z11.52 Encounter for screening for COVID-19
CPT/HCPCS: 87581; 87632; 87798; C9803; U0003; U0005

== ENCOUNTER 2021-08-24 19:50 | Emergency (ER) | payer MEDICARE, BC, SELFPAY ==
[2021-08-24] VITALS (8 sets, daily range): BP systolic 129–166; BP diastolic 75–88; PULSE 66–92; RESP 18; TEMP 36.7; O2SAT 92–97; BMI 32.6
--- NOTE | 2021-08-24 19:48 | ECG_ITS ---
APPROVED REPORT Exam: Resting ECG HR:72 bpm ECG Measurements Heart Rate 72 AXES ID 135 P 58 QRSd 101 QRS 46 QT 390 T 42 QTc 415 Conclusion SINUS RHYTHM WITH SINUS ARRHYTHMIA LOW QRS VOLTAGE IN PRECORDIAL LEADS [QRS DEFLECTION < 1.0 mV IN CHEST LEADS] POSSIBLE RIGHT VENTRICULAR CONDUCTION DELAY [RSR (QR) IN V1/V2] BORDERLINE ECG UNCONFIRMED REPORT Electronically signed by : Gabriel Russ MD 08/25/2021 15:58:46
--- NOTE | 2021-08-24 19:57 | CT_ITS ---
PROCEDURE INFORMATION: Exam: CT Cervical Spine Without Contrast Exam date and time: 08/24/2021 8:09 PM Age: 56 years old Clinical indication: Injury or trauma; Fall; Blunt trauma; Additional info: Fall with head injury TECHNIQUE: Imaging protocol: Computed tomography images of the cervical spine without contrast. Radiation optimization: All CT scans at this facility use at least one of these dose optimization techniques: automated exposure control; mA and/or kV adjustment per patient size (includes targeted exams where dose is matched to clinical indication); or iterative reconstruction. COMPARISON: CT CERVICAL SPINE WO CON 05/05/2021 8:26 AM FINDINGS: Bones/joints: No acute fracture. Normal alignment. Discs/Spinal canal/Neural foramina: No significant disc protrusion. No severe spinal canal stenosis. No significant neural foraminal narrowing. Lungs: Lung apices are normal. Soft tissues: Unremarkable. IMPRESSION: No acute findings.
--- NOTE | 2021-08-24 19:57 | XR_ITS ---
PROCEDURE INFORMATION: Exam: XR Pelvis Exam date and time: 08/24/2021 8:15 PM Age: 56 years old Clinical indication: Injury or trauma; Fall; Blunt trauma (contusions or hematomas); Bilateral; Pelvic region TECHNIQUE: Imaging protocol: XR pelvis. Views: 1 or 2 view. COMPARISON: X-ray pelvis dated 11/13/2020 8:00 p.m.. FINDINGS: Bones/joints: Unremarkable. No acute fracture. Soft tissues: Unremarkable. Organs: The bladder is distended. IMPRESSION: No evidence of acute osseous injury.
--- NOTE | 2021-08-24 19:57 | CT_ITS ---
PROCEDURE INFORMATION: Exam: CT Head Without Contrast Exam date and time: 08/24/2021 8:07 PM Age: 56 years old Clinical indication: Injury or trauma; Fall; Blunt trauma (contusions or hematomas); Consciousness not specified; Additional info: Fall with head injury TECHNIQUE: Imaging protocol: Computed tomography of the head without contrast. Radiation optimization: All CT scans at this facility use at least one of these dose optimization techniques: automated exposure control; mA and/or kV adjustment per patient size (includes targeted exams where dose is matched to clinical indication); or iterative reconstruction. COMPARISON: CT HEAD/BRAIN WO CON 05/07/2021 12:04 PM FINDINGS: Brain: Atrophy and chronic small vessel ischemic changes. No hemorrhage. No mass effect or midline shift. Cerebral ventricles: No ventriculomegaly. Paranasal sinuses: Mucosal thickening in the left maxillary sinus. No fluid levels. Mastoid air cells: Visualized mastoid air cells are well aerated. Soft tissues: Unremarkable. Bones/joints: Unremarkable. No acute fracture. IMPRESSION: Chronic changes in the brain but no acute intracranial abnormality.
--- NOTE | 2021-08-24 19:57 | XR_ITS ---
PROCEDURE INFORMATION: Exam: XR Chest Exam date and time: 08/24/2021 8:15 PM Age: 56 years old Clinical indication: Injury or trauma; Fall; Blunt trauma (contusions or hematomas) TECHNIQUE: Imaging protocol: XR of the chest. Views: 1 view. COMPARISON: CR XR CHEST PORTABLE 07/29/2021 7:24 PM , 07/18/2021 FINDINGS: Lungs: There is a solitary granuloma demonstrated laterally in the left upper lobe. Pleural spaces: Unremarkable. No pleural effusion. No pneumothorax. Heart/Mediastinum: Unremarkable. No cardiomegaly. Bones/joints: Unremarkable. IMPRESSION: 1. Evidence of prior granulomatous disease. 2. No evidence of acute cardiopulmonary disease.
--- NOTE | 2021-08-24 20:37 | CT_ITS ---
PROCEDURE INFORMATION: Exam: CT Angiography Neck With Contrast Exam date and time: 08/24/2021 10:04 PM Age: 56 years old Clinical indication: Other: Syncope TECHNIQUE: Imaging protocol: Computed tomography angiography of the neck with contrast. 3D rendering (Not supervised by radiologist): MIP and/or 3D reconstructed images were created by the technologist. Radiation optimization: All CT scans at this facility use at least one of these dose optimization techniques: automated exposure control; mA and/or kV adjustment per patient size (includes targeted exams where dose is matched to clinical indication); or iterative reconstruction. Contrast material: ISOVUE 370; Contrast volume: 100 ml; Contrast route: INTRAVENOUS (IV); COMPARISON: CT ANGIO NECK 04/15/2021 5:59 PM FINDINGS: Right common carotid artery: No stenosis. No dissection or occlusion. Right internal carotid artery: No stenosis of the extracranial segment. No dissection or occlusion. Right external carotid artery: No occlusion or stenosis of the origin. Left common carotid artery: No stenosis. No dissection or occlusion. Left internal carotid artery: No stenosis of the extracranial segment. No dissection or occlusion. Left external carotid artery: No occlusion or stenosis of the origin. Right vertebral artery: No stenosis. No dissection or occlusion. Left vertebral artery: No stenosis. No dissection or occlusion. Soft tissues: Normal. No significant soft tissue swelling. Bones/joints: No acute fracture. IMPRESSION: No stenosis or occlusion. REFERENCES: NASCET CRITERIA. The degree of internal carotid artery stenosis is based on NASCET criteria. Normal is no stenosis. Mild is less than 50% stenosis. Moderate is 50-69% stenosis. Severe is 70% to 99% stenosis. Total occlusion is no detectable patent lumen.
--- NOTE | 2021-08-24 20:37 | CT_ITS ---
PROCEDURE INFORMATION: Exam: CT Angiography Head With Contrast, Arteriography Exam date and time: 08/24/2021 10:04 PM Age: 56 years old Clinical indication: Other: Syncope TECHNIQUE: Imaging protocol: Computed tomography angiography of the head with contrast. Exam focused on the arteries. 3D rendering (Not supervised by radiologist): MIP and/or 3D reconstructed images were created by the technologist. Radiation optimization: All CT scans at this facility use at least one of these dose optimization techniques: automated exposure control; mA and/or kV adjustment per patient size (includes targeted exams where dose is matched to clinical indication); or iterative reconstruction. Contrast material: ISOVUE 370; Contrast volume: 100 ml; Contrast route: INTRAVENOUS (IV); COMPARISON: CT ANGIO HEAD 04/15/2021 5:59 PM FINDINGS: ANTERIOR CIRCULATION: Right internal carotid artery: Unremarkable. Intracranial segment is patent with no significant stenosis. No aneurysm. Right middle cerebral artery: Unremarkable. No occlusion or significant stenosis. No aneurysm. Right anterior cerebral artery: Unremarkable. No occlusion or significant stenosis. No aneurysm. Left internal carotid artery: Unremarkable. Intracranial segment is patent with no significant stenosis. No aneurysm. Left middle cerebral artery: Unremarkable. No occlusion or significant stenosis. No aneurysm. Left anterior cerebral artery: Unremarkable. No occlusion or significant stenosis. No aneurysm. POSTERIOR CIRCULATION: Right vertebral artery: Unremarkable. No occlusion or significant stenosis. No aneurysm. Left vertebral artery: Unremarkable. No occlusion or significant stenosis. No aneurysm. Basilar artery: Unremarkable. No occlusion or significant stenosis. No aneurysm. Right posterior cerebral artery: Unremarkable. No occlusion or significant stenosis. No aneurysm. Left posterior cerebral artery: Unremarkable. No occlusion or significant stenosis. No aneurysm. Brain: No definite mass, mass effect, or midline shift. Cerebral ventricles: No ventriculomegaly. Bones/joints: Unremarkable. No acute fracture. Soft tissues: Unremarkable. IMPRESSION: No large vessel stenosis or occlusion.
[2021-08-24 21:00] LABS: Microscopic, Urine URINE MICROSCOPIC (MICROSCOPIC)
[2021-08-24 21:03] LABS: Appearance,Urine CLEAR (Clear); Bilirubin,Urine Negative (Negative); Blood, Urine Negative (Negative); Color,Urine YELLOW (Yellow); Glucose,Urine (UA) 3+ (Negative); Ketones,Urine Negative (Negative); Leukocyte Esterase,Urine Negative (Negative); Nitrate,Urine Negative (Negative); PH,Urine 6.5 (5.0-8.5); Protein,Urine Negative (Negative); Urobilinogen,Urine 0.2 EU/dl (0.2)
[2021-08-24 21:14] LABS: Basophils # 0.1 K/mm3 (0-0.2); Basophils % 0.8 % (0.1-2.0); Eosinophils # 0.1 K/mm3 (0.0-0.4); Eosinophils % 0.9 % (0.1-12.0); Hematocrit 45.4 % (37.0-47.0); Hemoglobin 14.4 g/dL (12.2-16.2); Lymphocytes # 1.4 K/mm3 (0.7-4.5); Lymphocytes % 11.9 % (10-50); Mean Corpuscular HGB Conc 31.7 g/dL (31.8-35.4); Mean Corpuscular Hemoglobin 30.4 pg (27.0-31.2); Mean Corpuscular Volume 95.8 fl (81-99); Monocytes # 0.4 K/mm3 (0.1-1.0); Monocytes % 3.1 % (1.7-9.3); Neutrophils # 9.8 K/mm3 (1.8-7.8); Neutrophils % 83.3 % (37.0-80.0); Platelet Count 292 K/mm3 (142-424); Red Blood Count 4.74 M/mm3 (4.20-5.40); Red Cell Distribution Width 13.4 % (11.5-17.5); White Blood Count 11.8 K/mm3 (4.8-10.8)
[2021-08-24 21:21] LABS: Bacteria,Urine Trace /lpf; Squamous Epithelial Cell,Urine Occasional #/hpf (0-5)
--- NOTE | 2021-08-24 21:28 | HMH.EDGENADL ---
ED Disposition Clinical Impression: Orthostasis, Hyperglycemia, Dehydration Disposition: Home, Self-Care Condition on Discharge: Fair Instructions: DI for Syncope in Children (Fainting) Referrals: Provider,Referral, [Primary Care Provider] - - Critical Care Critical Care Time: No Attestation: On 08/24/21, the high probability of a clinically significant, sudden or life threatening deterioration of the following system(s) required my full and direct attention, intervention and personal management. The time I documented below is in addition to time spent performing reported procedures but includes the following listed in this critical care notation. Medical Decision Making - [place] Inquiry Pt receiving controlled substance: No Vital Signs: 08/24/21 19:53 08/24/21 20:30 08/24/21 21:00 Temperature 98.0 F Temperature Source Oral Pulse Rate 77 66 Pulse Rate [Orthostatic Lying] Pulse Rate [Orthostatic Sitting] Pulse Rate [Orthostatic Standing] Pulse Rate [Right Brachial] 86 Respiratory Rate 18 Blood Pressure 129/86 148/75 H Blood Pressure [Orthostatic Lying Left Arm] Blood Pressure [Orthostatic Sitting] Blood Pressure [Orthostatic Standing] Blood Pressure [Right Arm] 166/80 H Blood Pressure Mean [Right Arm] 108 Blood Pressure Source [Right Arm] Automatic Cuff Blood Pressure Position [Right Arm] Sitting 02 Sat by Pulse Oximetry 97 96 92 L Oxygen Delivery Method Room Air Room Air Room Air 08/24/21 21:31 08/24/21 21:34 08/24/21 22:00 Temperature Temperature Source Pulse Rate 79 79 Pulse Rate [Orthostatic Lying] 70 Pulse Rate [Orthostatic Sitting] 74 Pulse Rate [Orthostatic Standing] 92 H Pulse Rate [Right Brachial] Respiratory Rate Blood Pressure 148/88 H 151/84 H Blood Pressure [Orthostatic Lying Left Arm] 145/75 H Blood Pressure [Orthostatic Sitting] 148/88 H Blood Pressure [Orthostatic Standing] 139/79 Blood Pressure [Right Arm] Blood Pressure Mean [Right Arm] Blood Pressure Source [Right Arm] Blood Pressure Position [Right Arm] 02 Sat by Pulse Oximetry 96 94 L Oxygen Delivery Method Room Air Room Air 08/24/21 22:31 08/24/21 23:33 08/25/21 01:02 Temperature 98 F Temperature Source Oral Pulse Rate 74 83 82 Pulse Rate [Orthostatic Lying] Pulse Rate [Orthostatic Sitting] Pulse Rate [Orthostatic Standing] Pulse Rate [Right Brachial] Respiratory Rate 16 Blood Pressure 136/86 154/86 H 154/86 H Blood Pressure [Orthostatic Lying Left Arm] Blood Pressure [Orthostatic Sitting] Blood Pressure [Orthostatic Standing] Blood Pressure [Right Arm] Blood Pressure Mean [Right Arm] Blood Pressure Source [Right Arm] Blood Pressure Position [Right Arm] 02 Sat by Pulse Oximetry 96 95 Oxygen Delivery Method Room Air Room Air Room Air - Lab Data Lab Results 08/24/21 20:53: Urine Color Yellow, Urine Appearance Clear, Urine pH 6.5, Ur Specific [place] 1.010, Urine Protein Negative, Urine Glucose (UA) 3+, Urine Ketones Negative, Urine Blood Negative, Urine Nitrate Negative, Urine Bilirubin Negative, Urine Urobilinogen 0.2, Ur Leukocyte Esterase Negative, Urine RBC None, Urine WBC None, Ur Squamous Epith Cells Occasional, Urine Bacteria Trace 08/24/21 21:10: WBC 11.8 H, RBC 4.74, Hgb 14.4, Hct 45.4, MCV 95.8, MCH 30.4, MCHC 31.7 L, RDW 13.4, Plt Count 292, MPV 9.0, Neut % (Auto) 83.3 H, Lymph % (Auto) 11.9, [place] % (Auto) 3.1, Eos % (Auto) 0.9, Baso % (Auto) 0.8, Neut # (Auto) 9.8 H, Lymph # (Auto) 1.4, [place] # (Auto) 0.4, Eos # (Auto) 0.1, Baso # (Auto) 0.1 08/24/21 21:10: Sodium 133 L, Potassium 4.8, Chloride 98, Carbon Dioxide 25, Anion Gap 14.8, BUN 19 H, Creatinine 0.90, Estimated Creat Clear 107, Estimated GFR 65, Est GFR ( Amer) 78, Glucose 553 H*, Calcium 9.3, Total Bilirubin 0.4, AST 41 H, ALT 48, Alkaline Phosphatase 126, Troponin I < 0.01, Total Protein 6.6, Albumin 4.0, Globulin 2.6, Albumin/
[2021-08-24 21:29] LABS: Alanine Aminotransferase 48 U/L (12-78); Albumin/Globulin Ratio 1.5 (1.1-1.8); Alkaline Phosphatase 126 U/L (38-126); Anion Gap 14.8 mEq/L (5-15); Aspartate Amino Transferase 41 U/L (14-36); Bilirubin,Total 0.4 mg/dl (0.2-1.3); Blood Urea Nitrogen 19 mg/dl (7-17); Calcium 9.3 mg/dl (8.4-10.2); Carbon Dioxide 25 mmol/L (22.0-30.0); Chloride 98 mmol/L (98-107); Creatinine Clearance Estimated 107 mL/min (50-200); Estimated Glomerular Filt Rate 65 ml/min (>60); GFR (African American) 78 ML/MIN (>60); Globulin 2.6 g/dL (1.3-3.2); Potassium 4.8 mmoL/L (3.5-5.1); Sodium 133 mmol/L (136-145); Total Protein,Serum 6.6 g/dl (6.3-8.2)
[2021-08-24 21:34] LABS: Glucose 553 mg/dl (74-100)
[2021-08-24 21:35] LABS: D-Dimer 0.45 ug/mL (0.0-0.5)
[2021-08-24 21:44] LABS: Troponin I < 0.01 ng/ml (0.00-0.034)
[2021-08-24 21:57] LABS: VBG Base Excess -0.9 mmol/L (-2.4-2.3); VBG HCO3 23.8 mmol/L (23-30); VBG Oxygen Saturation 96.3 % (50-70); VBG PCO2 38.8 mmol/L (35-51); VBG PH 7.41 mmol/L (7.31-7.41); VBG PO2 82.7 mmol/L (28-40)
[2021-08-24 23:50] LABS: Troponin I < 0.01 ng/ml (0.00-0.034)
--- NOTE | 2021-08-24 23:57 | PC.NURSE ---
FSBS 392 at this time
[2021-08-25 00:03] LABS: POC Glucose,Bedside 392 (70-110)
[2021-08-25 01:02] VITALS: BP 154/86; PULSE 82; RESP 16; TEMP 36.6; O2SAT 98
== END 2021-08-25 00:48 | disposition home or self-care (01) ==
PROVIDERS: Emergency Medicine; Emergency Provider Student in an Organized Health Care Education/Training Program
DX: R55 Syncope and collapse (principal); E86.0 Dehydration; E78.5 Hyperlipidemia, unspecified; E11.9 Type 2 diabetes mellitus without complications; I10 Essential (primary) hypertension; R06.02 Shortness of breath; I25.2 Old myocardial infarction; E03.9 Hypothyroidism, unspecified; M19.90 Unspecified osteoarthritis, unspecified site; G43.909 Migraine, unspecified, not intractable, without status migrainosus; J44.9 Chronic obstructive pulmonary disease, unspecified; F32.A Depression, unspecified; F41.9 Anxiety disorder, unspecified; Z79.82 Long term (current) use of aspirin; Z79.4 Long term (current) use of insulin; Z79.899 Other long term (current) drug therapy; Z88.0 Allergy status to penicillin; Z88.1 Allergy status to other antibiotic agents; Z88.3 Allergy status to other anti-infective agents; Z88.6 Allergy status to analgesic agent; Z88.8 Allergy status to other drugs, medicaments and biological substances; Z82.5 Family history of asthma and other chronic lower respiratory diseases; Z80.9 Family history of malignant neoplasm, unspecified; Z82.49 Family history of ischemic heart disease and other diseases of the circulatory system; Z83.438 Family history of other disorder of lipoprotein metabolism and other lipidemia; Z83.3 Family history of diabetes mellitus; Z81.3 Family history of other psychoactive substance abuse and dependence; Z81.8 Family history of other mental and behavioral disorders; Z81.1 Family history of alcohol abuse and dependence; W19.XXXA Unspecified fall, initial encounter; Y92.002 Bathroom of unspecified non-institutional (private) residence as the place of occurrence of the external cause
CPT/HCPCS: 36415; 70450; 70496; 70498; 71045; 72125; 72170; 80053; 81001; 82803; 82962; 84484; 85025; 85378; 93005; 96361; 96365; 96374; 96375; 99285; Q9967

== ENCOUNTER → 2021-08-26 14:49 | Outpatient (CLI) | payer MEDICARE, BC, SELFPAY ==
[2021-08-26 14:59] LABS: Coronavirus 19, PCR Not Detected (NotDetected); Influenza A, PCR Not Detected (NotDetected); Influenza B, PCR Not Detected (NotDetected)
== END ==
LOC: LAB 14:51 → SL 19:24
PROVIDERS: PCP Nurse Practitioner Family; Visit Provider Nurse Practitioner Family
DX: G47.33 Obstructive sleep apnea (adult) (pediatric) (principal); R53.83 Other fatigue; G47.00 Insomnia, unspecified; R40.0 Somnolence; Z11.52 Encounter for screening for COVID-19
CPT/HCPCS: 95810; C9803; U0003; U0005

== ENCOUNTER → 2021-08-27 07:20 | Outpatient (CLI) | payer MEDICARE, BC, SELFPAY ==
--- NOTE | 2021-08-27 07:22 | MR_ITS ---
FINAL REPORT CLINICAL HISTORY: LOW BACK PAIN, TINGLING/NUMBNESS BILATERAL LEGS, 5 PREVIOUS BACK SURGERIES FINDINGS: Multiplanar MR imaging of the lumbar spine was performed without contrast. On the sagittal T2-weighted images, mild abnormal signal is seen at L3-4 and L4-5. The vertebrae are of normal height. The vertebral alignment is normal. L1-2: There is no significant canal stenosis or neural foraminal narrowing. L2-3: There is no significant canal stenosis or neural foraminal narrowing. L3-4: There is no significant canal stenosis or neural foraminal narrowing. L4-5: Mild diffuse disc bulge is present. There is mild to moderate right and mild left neural foraminal narrowing. L5-S1: There is no significant canal stenosis or neural foraminal narrowing. IMPRESSION: Diffuse disc bulge at L4-5 with mild to moderate right neural foraminal narrowing. Reviewed, Interpreted and Dictated by Pranav Jacobo MD Transcribed by Darlene Mcintyre Authenticated by Pranav Jacobo MD on 08/27/2021 10:12:21 AM [facility]
== END ==
PROVIDERS: PCP Nurse Practitioner Family; Visit Provider Student in an Organized Health Care Education/Training Program
DX: M54.50 Low back pain, unspecified (principal)
CPT/HCPCS: 72148; 76376

== ENCOUNTER 2021-08-27 21:01 | Emergency (ER) | payer MEDICARE, BC, SELFPAY ==
[2021-08-27 21:03] VITALS: BP 145/87; PULSE 87; RESP 18; TEMP 36.8; O2SAT 97; BMI 32.6
[2021-08-27 21:10] VITALS: BP 145/87; O2SAT 98
[2021-08-27 21:18] LABS: POC Glucose,Bedside 320 (70-110)
--- NOTE | 2021-08-27 21:45 | XR_ITS ---
PROCEDURE INFORMATION: Exam: XR Chest Exam date and time: 08/27/2021 9:44 PM Age: 56 years old Clinical indication: Other: Dizzy TECHNIQUE: Imaging protocol: XR of the chest. Views: 2 views. COMPARISON: CR XR CHEST PORTABLE 08/24/2021 8:15 PM FINDINGS: Lungs: Stable left upper lung field granuloma. No consolidation. Pleural spaces: Unremarkable. No pleural effusion. No pneumothorax. Heart/Mediastinum: Unremarkable. No cardiomegaly. Bones/joints: Degenerative changes of the shoulders. IMPRESSION: No acute findings.
--- NOTE | 2021-08-27 21:56 | HMH.EDGENADL ---
ED Disposition Clinical Impression: Hyperglycemia without ketosis Disposition: Home, Self-Care Condition on Discharge: Good Instructions: DI for Hyperglycemia -- Adult Additional Instructions: fluids and resume home care Referrals: Timo Villalba APRN [Primary Care Provider] - - Critical Care Critical Care Time: No Attestation: On 08/27/21, the high probability of a clinically significant, sudden or life threatening deterioration of the following system(s) required my full and direct attention, intervention and personal management. The time I documented below is in addition to time spent performing reported procedures but includes the following listed in this critical care notation. Medical Decision Making - Medical Records Medical records reviewed: Yes: I reviewed the patient's medical records. - [place] Inquiry Pt receiving controlled substance: No Vital Signs: 08/27/21 21:03 Temperature 98.3 F Temperature Source Oral Pulse Rate [Right] 87 Respiratory Rate 18 Blood Pressure [Right Arm] 145/87 H Blood Pressure Mean [Right Arm] 106 Blood Pressure Source [Right Arm] Automatic Cuff 02 Sat by Pulse Oximetry 97 Oxygen Delivery Method Room Air - Lab Data Lab results reviewed: Yes: I reviewed the patient's lab results. Lab Results 08/27/21 21:08: POC Glucose 320 H* 08/27/21 21:49: ESR 24 08/27/21 21:49: Troponin I < 0.01, C-Reactive Protein 21.2 H, Procalcitonin 0.073, TSH 2.61, Thyroxine (T4) 8.6 08/27/21 21:49: Sodium 134 L, Potassium 4.2, Chloride 100, Carbon Dioxide 23, Anion Gap 15.2 H, BUN 25 H, Creatinine 0.80, Estimated Creat Clear 121, Estimated GFR 74, Est GFR ( Amer) 90, Glucose 293 H, Calcium 9.2, Magnesium 1.8, Total Bilirubin 0.4, AST 53 H, ALT 53, Alkaline Phosphatase 126, Total Protein 7.0, Albumin 4.0, Globulin 3.0, Albumin/Globulin Ratio 1.3, Acetone Level None detected Result diagrams: 08/27/21 21:49 Orders (Tests/Meds): ED MEDICATIONS Generic Name Dose Route Start Last Admin Trade Name Freq PRN Reason Stop Dose Admin Sodium Chloride 1,000 mls @ 999 mls/hr 08/27/21 21:45 08/27/21 21:52 Sod Chlor 0.9% 1000ml Bag IV 08/27/21 22:45 999 mls/hr .Q1H1M FRANCES Administration Discontinued Medications Generic Name Dose Route Start Last Admin Trade Name Viry PRN Reason Stop Dose Admin Insulin Human Regular 5 unit 08/27/21 21:44 08/27/21 21:52 Insulin Human Regular 100 Units/Ml 10ml Vial IVP 08/27/21 21:45 5 unit ONCE ONE Administration ORDERS Category Date Time Status Complete Blood Count Auto Diff Stat Lab 08/27/21 21:49 Received Troponin I Q3H Lab 08/28/21 00:45 Ordered Troponin I Q3H Lab 08/28/21 03:45 Ordered Urinalysis and Microscopic Stat Lab 08/27/21 21:44 Ordered Medical Decision Narrative: elevated glu in diabetic and no dka who responded to ivf and insulin and staable and has appt with pcp this week General Adult HPI - General Chief complaint: Hyper/Hypoglycemia Stated complaint: SUGAR 460,DIZZY,WEAKNESS,BLURRED VISON Time Seen by Provider: 08/27/21 21:30 Mode of Arrival: Ambulatory Source of Information: Patient, Medical Record Limitations: No Limitations Description of Symptoms (Recalled from ER Triage Doc. by RN): Pt c/o high blood sugar of 531 and then 461 after 20 units Insulin 70/30 @ 1830. Pt states she called on-call MD (Jeb) and he advised to give an additional 10 units of insulin and then drinks lots and water. Stats she was unable to get an additional 10 units d/t not being at home, she was [employer] and then became so dizzy I had to sit on the floor and my made me come here . She reports she is supposed to follow up with PC office on Wednesday regarding her elevated glucose. - History of Present Illness HPI narrative: elevated glu despite insulin at home and felt dizzy and lightheaded - no chest pain Onset (ago): hour(s) Severity: moderate Consistency: intermittent Associated symptoms: nausea/vo
[2021-08-27 22:17] LABS: Alanine Aminotransferase 53 U/L (12-78); Albumin/Globulin Ratio 1.3 (1.1-1.8); Alkaline Phosphatase 126 U/L (38-126); Anion Gap 15.2 mEq/L (5-15); Aspartate Amino Transferase 53 U/L (14-36); Bilirubin,Total 0.4 mg/dl (0.2-1.3); Blood Urea Nitrogen 25 mg/dl (7-17); Calcium 9.2 mg/dl (8.4-10.2); Carbon Dioxide 23 mmol/L (22.0-30.0); Chloride 100 mmol/L (98-107); Creatinine Clearance Estimated 121 mL/min (50-200); Estimated Glomerular Filt Rate 74 ml/min (>60); GFR (African American) 90 ML/MIN (>60); Glucose 293 mg/dl (74-100); Magnesium 1.8 mg/dl (1.6-2.3); Potassium 4.2 mmoL/L (3.5-5.1); Sodium 134 mmol/L (136-145)
[2021-08-27 22:22] LABS: C-Reactive Protein 21.2 mg/L (0-4)
[2021-08-27 22:34] LABS: Troponin I < 0.01 ng/ml (0.00-0.034)
[2021-08-27 22:35] LABS: Erythrocyte Sedimentation Rate 24 mm/hr (0-30)
[2021-08-27 22:38] LABS: Acetone, Serum (Rapid) None Detected (None Detect); Procalcitonin 0.073 ng/mL (0.0-2.0); T4 (Thyroxine) 8.6 ug/dl (5.53-11.0)
[2021-08-27 22:52] LABS: Thyroid Stimulating Hormone 2.61 uIU/mL (0.465-4.68)
[2021-08-27 23:46] LABS: POC Glucose,Bedside 169 (70-110)
[2021-08-27 23:48] VITALS: BP 140/82; PULSE 84; RESP 20; TEMP 36.9; O2SAT 99
[2021-08-28 05:58] LABS: Hematocrit 45.5 % (37.0-47.0); Hemoglobin 15.2 g/dL (12.2-16.2); Mean Corpuscular HGB Conc 33.4 g/dL (31.8-35.4); Mean Corpuscular Volume 89.7 fl (81-99); Mean Platelet Volume 11.5 fl (7.4-10.4); Platelet Count 331 K/mm3 (142-424); Red Blood Count 5.07 M/mm3 (4.20-5.40); Red Cell Distribution Width 12.5 % (11.5-17.5); White Blood Count 11.6 K/mm3 (4.8-10.8)
== END 2021-08-27 23:54 | disposition home or self-care (01) ==
PROVIDERS: Emergency Provider Emergency Medicine; PCP Nurse Practitioner Family
DX: E11.65 Type 2 diabetes mellitus with hyperglycemia (principal); F41.8 Other specified anxiety disorders; Z88.0 Allergy status to penicillin; Z79.899 Other long term (current) drug therapy
CPT/HCPCS: 71046; 72148; 76376; 80053; 82009; 82962; 83735; 84145; 84436; 84443; 84484; 85025; 85651; 86140; 96360; 96374; 99284

== ENCOUNTER → 2021-08-30 09:41 | Outpatient (CLI) | payer MEDICARE, BC, SELFPAY | PROVIDERS: PCP Nurse Practitioner Family; Visit Provider Orthopaedic Surgery | DX: Z01.812 Encounter for preprocedural laboratory examination (principal); Z11.52 Encounter for screening for COVID-19 | CPT/HCPCS: C9803; U0003; U0005 ==

== ENCOUNTER → 2021-09-01 09:21 | Outpatient (CLI) | payer MEDICARE, BC, SELFPAY ==
[2021-09-01 11:18] LABS: Basophils # 0.1 K/mm3 (0-0.2); Basophils % 1.1 % (0.1-2.0); Eosinophils # 0.2 K/mm3 (0.0-0.4); Eosinophils % 2.7 % (0.1-12.0); Hematocrit 47.9 % (37.0-47.0); Hemoglobin 15.3 g/dL (12.2-16.2); Lymphocytes # 2.4 K/mm3 (0.7-4.5); Lymphocytes % 27.8 % (10-50); Mean Corpuscular HGB Conc 31.9 g/dL (31.8-35.4); Mean Corpuscular Hemoglobin 30.5 pg (27.0-31.2); Mean Corpuscular Volume 95.6 fl (81-99); Mean Platelet Volume 9.1 fl (7.4-10.4); Monocytes # 0.5 K/mm3 (0.1-1.0); Neutrophils # 5.3 K/mm3 (1.8-7.8); Neutrophils % 62.3 % (37.0-80.0); Platelet Count 287 K/mm3 (142-424); Red Blood Count 5.01 M/mm3 (4.20-5.40); Red Cell Distribution Width 13.6 % (11.5-17.5); White Blood Count 8.5 K/mm3 (4.8-10.8)
[2021-09-01 11:58] LABS: Chloride 104 mmol/L (98-107)
[2021-09-01 11:59] LABS: Potassium 5.1 mmoL/L (3.5-5.1); Sodium 136 mmol/L (136-145)
[2021-09-01 12:02] LABS: Anion Gap 10.1 mEq/L (5-15); Blood Urea Nitrogen 16 mg/dl (7-17); Calcium 8.9 mg/dl (8.4-10.2); Carbon Dioxide 27 mmol/L (22.0-30.0); Estimated Glomerular Filt Rate 74 ml/min (>60); GFR (African American) 90 ML/MIN (>60); Glucose 111 mg/dl (74-100)
[2021-09-01 13:23] LABS: Hemoglobin A1C 11.1 % (4.0-6.0)
== END ==
PROVIDERS: Visit Provider Orthopaedic Surgery
DX: Z01.818 Encounter for other preprocedural examination (principal)
CPT/HCPCS: 36415; 80048; 83036; 85025

== ENCOUNTER 2021-09-02 09:53 | Emergency (ER) | payer MEDICARE, BC, SELFPAY ==
[2021-09-02 09:54] VITALS: BP 158/97; PULSE 96; RESP 18; TEMP 36.7; O2SAT 97; BMI 32.6
--- NOTE | 2021-09-02 10:07 | HMH.EDGENADL ---
ED Disposition Clinical Impression: Tendonitis Shoulder pain, left Qualifiers: Chronicity: chronic Qualified Code(s): M25.512 - Pain in left shoulder Disposition: Home, Self-Care Condition on Discharge: Good Instructions: DI for Shoulder Tendinopathy, DI for Acute Pain -- Adult Additional Instructions: You have been evaluated for left shoulder pain. Likely due to strain and tendinitis. Please follow-up with your primary care doctor and orthopedic surgeon. Take anti-inflammatory medication every 6 hours. Use stretching and strengthening exercises. Return to the emergency department for any new or worsening symptoms. Prescriptions: Hydrocod/Acet 5/325 mg [[place] 5/325mg tablet] 1 tab PO Q6HP PRN #6 tab PRN Reason: Severe Pain Transmission Status: Received by [id number] Naproxen [Naproxen 500mg tab] 500 mg PO BID #30 tab Transmission Status: Received by [id number] Referrals: Timo Villalba APRN [Primary Care Provider] - Jonatan Waddell MD [Staff Physician] - Time of Disposition: 11:01 - Critical Care Critical Care Time: No Attestation: On 09/02/21, the high probability of a clinically significant, sudden or life threatening deterioration of the following system(s) required my full and direct attention, intervention and personal management. The time I documented below is in addition to time spent performing reported procedures but includes the following listed in this critical care notation. Medical Decision Making - Medical Records Medical records reviewed: Yes: I reviewed the patient's medical records. - [place] Inquiry Pt receiving controlled substance: No Vital Signs: 09/02/21 09:54 09/02/21 11:00 09/02/21 11:35 Temperature 98.0 F 98.0 F Temperature Source Oral Pulse Rate 83 87 Pulse Rate [Right Radial] 96 H Respiratory Rate 18 21 20 Blood Pressure 125/82 127/79 Blood Pressure [Right Arm] 158/97 H Blood Pressure Mean 103 Blood Pressure Mean [Right Arm] 117 Blood Pressure Source [Right Arm] Automatic Cuff Blood Pressure Position [Right Arm] Sitting 02 Sat by Pulse Oximetry 97 97 Oxygen Delivery Method Room Air Room Air Orders (Tests/Meds): ED MEDICATIONS Discontinued Medications Generic Name Dose Route Start Last Admin Trade Name Freq PRN Reason Stop Dose Admin Acetaminophen 650 mg 09/02/21 10:08 09/02/21 10:20 Acetaminophen 325mg Tab PO 09/02/21 10:09 650 mg ONCE ONE Administration Lidocaine 1 each 09/02/21 11:03 09/02/21 11:19 Lidocaine 5% Transdermal Patch TP 09/02/21 11:04 1 each ONCE ONE Administration - Radiology Data #1 Image(s): Shoulder Image Reviewed: Yes I reviewed the patient's radiology results MRI 05/14/2021 IMPRESSION: 1. Tendinosis of the supraspinatus tendon. Tear is identified distally of this tendon, which appears to extend to the free edge of the tendon. 2. Tendinosis of the infraspinatus tendon. Mild tendinosis of the subscapularis tendon. 3. Minimal fluid within the subdeltoid/subacromial bursa. 4. Acromioclavicular arthropathy. There is effacement of the tissue planes underlying the acromion process. 5. Mild increased signal intensity within the posterosuperior and posterior aspects of the labrum and labral tear cannot be excluded. 6. Additional findings described above. #2 Image(s): Shoulder Image Reviewed: Yes I reviewed the patient's radiology image Preliminary Findings: Normal/NAD X-ray left shoulder No fracture. No dislocation. No acute osseous abnormality Medical Decision Narrative: In summary this is a 56-year-old [id number] female presenting to the emergency department with left shoulder pain. Patient clinically stable on arrival. Vital signs within normal limits. Will obtain x-rays of the left shoulder. Patient given Tylenol for pain, allergic to NSAIDs. I reviewed patient's MRI result from 05/14/2021. It showed tendons
--- NOTE | 2021-09-02 10:08 | XR_ITS ---
FINAL REPORT CLINICAL HISTORY: shoulder pain COMPARISON: March 28, 2021 FINDINGS: LEFT SHOULDER Three views demonstrate no acute fracture or dislocation. The joint spaces appear normal. The visualized bony structures are well aligned. No soft tissue abnormality is seen. IMPRESSION: No acute process. Reviewed, Interpreted and Dictated by Bud Aguilar III, MD Transcribed by Una Sewell Authenticated by Bud Aguilar III, MD on 09/02/2021 11:25:29 AM [facility]
--- NOTE | 2021-09-02 10:18 | PC.NURSE ---
brian notified of xray order, spoke with Vinh
[2021-09-02 11:00] VITALS: BP 125/82; PULSE 83; RESP 21; O2SAT 97
[2021-09-02 11:35] VITALS: BP 127/79; PULSE 87; RESP 20; TEMP 36.7; O2SAT 98
== END 2021-09-02 11:36 | disposition home or self-care (01) ==
PROVIDERS: Emergency Provider Emergency Medicine; PCP Nurse Practitioner Family
DX: M75.32 Calcific tendinitis of left shoulder (principal); I10 Essential (primary) hypertension; E03.9 Hypothyroidism, unspecified; F41.8 Other specified anxiety disorders; E78.5 Hyperlipidemia, unspecified; I25.2 Old myocardial infarction; E11.9 Type 2 diabetes mellitus without complications; Z79.899 Other long term (current) drug therapy
CPT/HCPCS: 73030; 99283

== ENCOUNTER → 2021-09-04 12:40 | Outpatient (POV) | payer MEDICARE, BC, SELFPAY ==
[2021-09-04 13:04] VITALS: BP 110/83; PULSE 94; RESP 20; TEMP 35.9; O2SAT 97; BMI 34.2
--- NOTE | 2021-09-04 21:05 | HMH.PAINSOAP ---
[facility] Pain Management SOAP Note Subjective:: Patient is a pleasant 56-year-old female who presents today as a follow-up. Patient called our clinic this morning asking to be seen today because she has been having worsening left shoulder and low back pain. Patient is currently being treated for chronic low back pain, bilateral knee pain, left shoulder pain from a rotator cuff tear. Patient is currently being managed with gabapentin, muscle relaxer, nor prescribe an outside provider. I also started the patient on diclofenac 50 mg 3 times a day. When I last saw this patient, she was wearing a left shoulder sling to support her left shoulder. Patient says that she tore her rotator cuff. She was supposed to get surgery on her rotator cuff but this was canceled because her A1c was elevated at 11. Because of this, patient continues to have significant pain in her left shoulder. Additionally, she is also complaining of pain to touch in her right low back. She says that the medications that she is taking is not helping her pain. She wants to know if we can do something else for her today. She rates her pain today is 10 out of 10. [facility] #[id number] was not sent morphine equivalent of 15. Patient also had a recent MRI of her lumbar spine on 08/27/2021. Her lumbar MRI shows mild diffuse disc bulge at L4-L5. This is causing her to have mild to moderate right and mild left neural foraminal narrowing. Other than that, the rest of the spine is unremarkable. Other pain history includes a spinal cord stimulator placement about 12 years ago. The stimulator is for replaced/revision 3 times with minimal relief. This has been explanted. Review of Systems: General: No recent weight changes, no fever, no sleep disturbances Respiratory: No cough, no shortness of air, no recurring pulmonary infections Cardiovascular/peripheral vascular: No chest pain, no palpitations, no edema, no shortness of breath Gastrointestinal: No new onset incontinence, normal bowel movements reported Genitourinary: No new onset incontinence Musculoskeletal: Low back pain Psychiatric: [Normal mood/affect] Neurological: [Denies weakness in extremities], [denies balance issues] Objective:: Physical Exam: General: Alert and oriented x3, no acute distress, pleasant and cooperative, [on room air] Lungs: Respirations even and unlabored, symmetrical chest expansion Eyes: PERRL Musculoskeletal: Flexion and extension of [lumbar] [spine] somewhat guarded secondary to pain, [antalgic gait noted] Neurological: Speech clear, no gross sensory deficit Assessment:: Chronic low back pain, bilateral knee pain, rotator cuff tear arthropathy of the left shoulder Plan:: Patient has been having worsening left shoulder pain and low back pain in the last week. Patient states that her left shoulder surgery was canceled because her A1c was elevated at 11. She has been to the ER recently and was prescribed [place] 5 mg for short-term. Since she has been having increasing left shoulder pain. We will schedule the patient for a left shoulder intra-articular injection. Risks and benefits of the procedure have been explained to the patient. Patient would like to proceed with the procedure. Patient has tenderness to palpation around the little right lumbar paraspinous. We will schedule the patient for trigger point injection in this area. In the meantime, I will start the patient on meloxicam 15 mg and tizanidine 4 mg 3 times a day. Since her sugar is already elevated, I will not start the patient on any oral steroids. Patient is to stop taking her Flexeril and naproxen with the new medications. Patient has been instructed to contact the clinic with any concerns before the next appointment. Dr. Mccann has reviewed this note and agrees with this plan of care. This note was dictated using voice recognition software and make contain errors or omissions. [facility] History Medical History: Reports:: Anxiety, A
== END ==
PROVIDERS: Visit Provider Student in an Organized Health Care Education/Training Program
DX: M54.50 Low back pain, unspecified (principal); G89.29 Other chronic pain; M25.562 Pain in left knee; M25.561 Pain in right knee; M75.102 Unspecified rotator cuff tear or rupture of left shoulder, not specified as traumatic
CPT/HCPCS: 99212; G0463

== ENCOUNTER 2021-09-05 10:17 | Day surgery (SDC) | payer MEDICARE, BC, SELFPAY ==
[2021-09-05 10:32] VITALS: BP 124/71; PULSE 74; RESP 18; TEMP 36.5; O2SAT 98; BMI 34.2
[2021-09-05 10:44] VITALS: BP 124/71; PULSE 74; RESP 18
--- NOTE | 2021-09-05 10:49 | HMH.PMPROC ---
- Procedure Date: 09/05/21 Time: 10:49 Anesthesiologist:: Jerod Gamez CRNA Complications:: None Pre-procedure Diagnosis:: Left osteoarthritis shoulder. Post-procedure Diagnosis:: Same Indications for Procedure:: This patient is a pleasant 56-year-old white female that presents to our clinic today for an intra-articular shoulder injection on the left. She has limited range of motion with the left arm secondary to shoulder pain. Procedure Details:: Details of the procedure were explained to the patient. The patient was taken to the procedure room placed in the sitting position. The area over the posterior left shoulder was cleansed using chlorhexidine as a cleansing solution. The left shoulder joint was injected using a posterior approach. Inch and half needle 25-gauge. 3 cc of 1% lidocaine +3 cc 0.25% Marcaine +40 mg of Depo-Medrol. She tolerated procedure without difficulty. There are no complications. Plan and Disposition:: Patient was discharged home. She will return to see us on as-needed basis.
[2021-09-05 10:50] VITALS: BP 103/58; PULSE 72; RESP 18; O2SAT 99
[2021-09-05 11:00] VITALS: BP 103/58; PULSE 72; RESP 18; O2SAT 99
== END 2021-09-05 11:01 | disposition home or self-care (01) ==
LOC: SC.PAINP 10:18
PROVIDERS: PCP Nurse Practitioner Family; Visit Provider Nurse Anesthetist, Certified Registered
DX: M19.012 Primary osteoarthritis, left shoulder (principal); F41.9 Anxiety disorder, unspecified; J44.9 Chronic obstructive pulmonary disease, unspecified; J45.909 Unspecified asthma, uncomplicated; E11.9 Type 2 diabetes mellitus without complications; E78.5 Hyperlipidemia, unspecified; I10 Essential (primary) hypertension; G43.909 Migraine, unspecified, not intractable, without status migrainosus; I25.2 Old myocardial infarction; Z86.14 Personal history of Methicillin resistant Staphylococcus aureus infection; F12.90 Cannabis use, unspecified, uncomplicated; Z80.9 Family history of malignant neoplasm, unspecified; Z83.3 Family history of diabetes mellitus; Z82.3 Family history of stroke
CPT/HCPCS: 20610; J1040

== ENCOUNTER 2021-09-13 22:17 | Emergency (ER) | payer MEDICARE, BC, SELFPAY ==
[2021-09-13 22:17] VITALS: BP 167/86; PULSE 82; RESP 18; TEMP 37.1; O2SAT 97; BMI 36.6
[2021-09-13 22:21] VITALS: BMI 34.4
--- NOTE | 2021-09-13 22:23 | ECG_ITS ---
APPROVED REPORT Exam: Resting ECG HR:69 bpm ECG Measurements Heart Rate [address] 134 P 58 QRSd 104 QRS 63 QT 400 T 56 QTc 418 Conclusion SINUS RHYTHM INCOMPLETE RIGHT BUNDLE BRANCH BLOCK [90+ ms QRS DURATION, TERMINAL R IN V1/V2, 40+ ms S IN I/aVL/V4/V5/V6] BORDERLINE ECG UNCONFIRMED REPORT Electronically signed by : Gabriel Russ MD 09/14/2021 20:11:10
--- NOTE | 2021-09-13 22:23 | XR_ITS ---
PROCEDURE INFORMATION: Exam: XR Chest Exam date and time: 09/13/21 10:39 PM Age: 56 years old Clinical indication: Other: Left side weakness, left face droop, slurred speech; Additional info: Stroke TECHNIQUE: Imaging protocol: XR of the chest. Views: 1 view. COMPARISON: CR XR CHEST 2V 08/27/21 09:44 PM FINDINGS: Lungs: Unremarkable. No consolidation. Pleural spaces: Unremarkable. No pleural effusion. No pneumothorax. Heart/Mediastinum: Unremarkable. No cardiomegaly. Bones/joints: Unremarkable. IMPRESSION: No acute findings.
--- NOTE | 2021-09-13 22:23 | CT_ITS ---
PROCEDURE INFORMATION: Exam: CT Head Without Contrast Exam date and time: 09/13/21 10:26 PM Age: 56 years old Clinical indication: Weakness, extremity and weakness, facial; Left; Additional info: Stroke alert left face, arm and leg weakness, slurred speech TECHNIQUE: Imaging protocol: Computed tomography of the head without contrast. Radiation optimization: All CT scans at this facility use at least one of these dose optimization techniques: automated exposure control; mA and/or kV adjustment per patient size (includes targeted exams where dose is matched to clinical indication); or iterative reconstruction. Other technique: STROKE PROTOCOL was implemented. COMPARISON: CT HEAD/BRAIN WO CON 08/24/21 08:07 PM FINDINGS: Brain: Normal. No hemorrhage. Unremarkable white matter. No mass effect. Cerebral ventricles: No ventriculomegaly. Paranasal sinuses: Visualized sinuses are unremarkable. No fluid levels. Mastoid air cells: Visualized mastoid air cells are well aerated. Bones/joints: Unremarkable. No acute fracture. Soft tissues: Unremarkable. IMPRESSION: No acute intracranial abnormality. ASSESSMENT: ASPECTS ([place] Stroke Program Early CT Score) is 10.
--- NOTE | 2021-09-13 22:27 | PC.NURSE ---
Pt gone to CT
--- NOTE | 2021-09-13 22:55 | PC.NURSE ---
calling [facility] to transfer to [facility]
[2021-09-13 22:57] LABS: Microscopic, Urine URINE MICROSCOPIC (MICROSCOPIC)
[2021-09-13 23:00] LABS: Appearance,Urine CLEAR (Clear); Bilirubin,Urine Negative (Negative); Blood, Urine Negative (Negative); Color,Urine YELLOW (Yellow); Glucose,Urine (UA) 1+ (Negative); Ketones,Urine Negative (Negative); Leukocyte Esterase,Urine Negative (Negative); Nitrate,Urine Negative (Negative); Protein,Urine Negative (Negative); Specific Gravity, Urine <= 1.005 (1.005-1.030); Urobilinogen,Urine 0.2 EU/dl (0.2)
[2021-09-13 23:05] LABS: WBC,Urine Occasional #/hpf (0-3)
[2021-09-13 23:08] LABS: Basophils # 0.2 K/mm3 (0-0.2); Basophils % 1.9 % (0.1-2.0); Eosinophils # 0.2 K/mm3 (0.0-0.4); Hematocrit 44.8 % (37.0-47.0); Lymphocytes # 2.6 K/mm3 (0.7-4.5); Lymphocytes % 26.2 % (10-50); Mean Corpuscular HGB Conc 33.5 g/dL (31.8-35.4); Mean Corpuscular Hemoglobin 31.5 pg (27.0-31.2); Mean Platelet Volume 8.7 fl (7.4-10.4); Monocytes # 0.5 K/mm3 (0.1-1.0); Monocytes % 5.1 % (1.7-9.3); Neutrophils # 6.3 K/mm3 (1.8-7.8); Neutrophils % 64.7 % (37.0-80.0); Platelet Count 308 K/mm3 (142-424); Red Blood Count 4.77 M/mm3 (4.20-5.40); Red Cell Distribution Width 13.7 % (11.5-17.5); White Blood Count 9.7 K/mm3 (4.8-10.8)
--- NOTE | 2021-09-13 23:12 | PC.NURSE ---
Spoke with Artem from [facility] pharmacy. Total dose 90 mg, waste of 10 ml, 9 ml bolus, 81 per hour x 1 hour.
[2021-09-13 23:17] LABS: Alanine Aminotransferase 36 U/L (12-78); Albumin Level 4.2 g/dl (3.5-5.0); Albumin/Globulin Ratio 1.4 (1.1-1.8); Alkaline Phosphatase 108 U/L (38-126); Anion Gap 10.5 mEq/L (5-15); Aspartate Amino Transferase 33 U/L (14-36); Bilirubin,Total 0.5 mg/dl (0.2-1.3); Blood Urea Nitrogen 14 mg/dl (7-17); Calcium 9.7 mg/dl (8.4-10.2); Carbon Dioxide 26 mmol/L (22.0-30.0); Chloride 107 mmol/L (98-107); Creatinine Clearance Estimated 110 mL/min (50-200); Estimated Glomerular Filt Rate 65 ml/min (>60); GFR (African American) 78 ML/MIN (>60); Glucose 254 mg/dl (74-100); Magnesium 1.4 mg/dl (1.6-2.3); Potassium 3.5 mmoL/L (3.5-5.1); Sodium 140 mmol/L (136-145); Total Protein,Serum 7.2 g/dl (6.3-8.2)
--- NOTE | 2021-09-13 23:18 | PC.NURSE ---
atttempted to called report to [facility] was unable due to pt not being in their system and to call back in 10 mins
[2021-09-13 23:31] LABS: Troponin I < 0.01 ng/ml (0.00-0.034)
[2021-09-13 23:44] VITALS: BP 179/84; BP 179/87; PULSE 82; RESP 16; TEMP 36.9; O2SAT 97
--- NOTE | 2021-09-13 23:48 | HMH.EDNEU ---
ED Disposition Clinical Impression: Cerebrovascular accident Qualifiers: CVA mechanism: unspecified Qualified Code(s): I63.9 - Cerebral infarction, unspecified Disposition: Xfer Short-Term Hosp Condition on Discharge: Critical Referrals: Timo Villalba APRN [Primary Care Provider] - Forms: Transfer Record - ED - Critical Care Critical Care Time: Yes Attestation: On 09/13/21, the high probability of a clinically significant, sudden or life threatening deterioration of the following system(s) required my full and direct attention, intervention and personal management. The time I documented below is in addition to time spent performing reported procedures but includes the following listed in this critical care notation. Total Critical Care Time: 60 Vital system(s) involved:: Central Nervous System My critical care processes included: Assessment & monitoring of V/S, Initial and Re-exams, Data Review/Interpretation, Coordinating Care, Medication Orders and management, Documentation Medical Decision Making - Medical Records Medical records reviewed: Yes: I reviewed the patient's medical records. - [place] Inquiry Pt receiving controlled substance: No Vital Signs: 09/13/21 22:17 09/13/21 23:44 Temperature 98.7 F 98.4 F Temperature Source Rectal Oral Pulse Rate 82 Pulse Rate [Right] 82 Respiratory Rate 18 16 Blood Pressure 179/84 H Blood Pressure [Right Arm] 167/86 H Blood Pressure Mean [Right Arm] 113 02 Sat by Pulse Oximetry 97 - Lab Data Lab results reviewed: Yes: I reviewed the patient's lab results. Lab Results 09/13/21 22:50: Urine Color Yellow, Urine Appearance Clear, Urine pH 6.0, Ur Specific [place] <= 1.005, Urine Protein Negative, Urine Glucose (UA) 1+, Urine Ketones Negative, Urine Blood Negative, Urine Nitrate Negative, Urine Bilirubin Negative, Urine Urobilinogen 0.2, Ur Leukocyte Esterase Negative, Urine WBC Occasional, Ur Squamous Epith Cells 3-5 09/13/21 23:00: WBC 9.7, RBC 4.77, Hgb 15.0, Hct 44.8, MCV 94.0, MCH 31.5 H, MCHC 33.5, RDW 13.7, Plt Count 308, MPV 8.7, Neut % (Auto) 64.7, Lymph % (Auto) 26.2, [place] % (Auto) 5.1, Eos % (Auto) 2.0, Baso % (Auto) 1.9, Neut # (Auto) 6.3, Lymph # (Auto) 2.6, [place] # (Auto) 0.5, Eos # (Auto) 0.2, Baso # (Auto) 0.2 09/13/21 23:00: Sodium 140, Potassium 3.5, Chloride 107, Carbon Dioxide 26, Anion Gap 10.5, BUN 14, Creatinine 0.90, Estimated Creat Clear 110, Estimated GFR 65, Est GFR ( Amer) 78, Glucose 254 H, Calcium 9.7, Magnesium 1.4 L, Total Bilirubin 0.5, AST 33, ALT 36, Alkaline Phosphatase 108, Troponin I < 0.01, Total Protein 7.2, Albumin 4.2, Globulin 3.0, Albumin/Globulin Ratio 1.4 Result diagrams: 09/13/21 23:00 09/13/21 23:00 Orders (Tests/Meds): ED MEDICATIONS Discontinued Medications Generic Name Dose Route Start Last Admin Trade Name Freq PRN Reason Stop Dose Admin Alteplase, Recombinant 100 mg 09/13/21 23:15 09/13/21 23:42 Alteplase Recombinant 100mg Vial IV 09/13/21 23:16 Not Given ONCE ONE Alteplase, Recombinant 0 mg 09/13/21 23:41 09/13/21 23:42 Alteplase Recombinant 100mg Vial IV 09/13/21 23:42 90 mg ONCE ONE Administration ORDERS Category Date Time Status Troponin I Q3H Lab 09/14/21 01:30 Ordered Troponin I Q3H Lab 09/14/21 04:30 Ordered - CT Data CT Scan: Head Time Received: 22:[address] Reviewed: Yes: I discussed the CT results w/the radiologist, I have viewed the radiologist's interpretation Preliminary Findings: Normal/NAD - ECG Data Tracing #1 Normal Sinus Rhythm: Yes Ischemic changes: non-specific ST-T wave changes - Physician Consults Physician Consulted: melissa Reason -: Transfer to another facilty Medical Decision Narrative: has acute cva with score of 11 and w/i time frame for tpa and will be air care to after infusion for eval Neuro HPI - General Chief Complaint: Neuro Symptoms/Deficit Stated Complaint: possible stroke Time Seen by
--- NOTE | 2021-09-14 00:39 | PC.NURSE ---
Addendum entered by Tana Castillo RN 09/14/21 00:41: Correction- s/w Nightwatch @ [id number] 09/13/21 Original Note: Late entry: called night-watch for Activase (alteplase) dosing s/w Ronni and he stated to give 10mg bolus over 1 min and 90mg over 1 hr, no waste. He placed order in [facility]UL.
== END 2021-09-13 23:44 | disposition short-term general hospital (02) ==
PROVIDERS: Emergency Provider Emergency Medicine; PCP Nurse Practitioner Family
DX: I63.9 Cerebral infarction, unspecified (principal); M79.602 Pain in left arm; M79.605 Pain in left leg; R47.1 Dysarthria and anarthria; I10 Essential (primary) hypertension; R01.1 Cardiac murmur, unspecified; E78.5 Hyperlipidemia, unspecified; E11.9 Type 2 diabetes mellitus without complications; G43.909 Migraine, unspecified, not intractable, without status migrainosus; I25.2 Old myocardial infarction; I38 Endocarditis, valve unspecified; E03.9 Hypothyroidism, unspecified; M19.90 Unspecified osteoarthritis, unspecified site; F32.A Depression, unspecified; F41.9 Anxiety disorder, unspecified; Z79.4 Long term (current) use of insulin; Z79.1 Long term (current) use of non-steroidal anti-inflammatories (NSAID); Z79.82 Long term (current) use of aspirin; Z88.0 Allergy status to penicillin; Z88.1 Allergy status to other antibiotic agents; Z88.3 Allergy status to other anti-infective agents; Z88.6 Allergy status to analgesic agent
CPT/HCPCS: 70450; 71045; 80053; 81001; 83735; 84484; 85025; 93005; 99285; J2997